=== PATIENT | female | born 1945 | race Caucasian/White ===

== ENCOUNTER 2016-10-18 16:15 | Inpatient (IN) | payer MEDICARE ==
[~2016-10-18] VITALS: Ht 185.4 cm; Wt 52.0 kg
[~2016-10-18 16:15] MED LIST: ALPR0.5T3 PO; AMLO10TA2 PO; AZIT250T3 PO; BENA10TA PO; CALCTAB80 PO; CENTTAB PO; CLOP75TA PO; FERR1TAB36 PO; FLUO1TAB3 PO; FLUT1INH INH; HYDR-3580 PO; IPRASOL INH; LACTCAP8 PO; LEVO100T5 PO; PRED10 PO; SPIRCAP INH; TRAZ50TA12 PO
[2016-10-18 16:18] VITALS: BP 187/81; PULSE 92; RESP 20; TEMP 98.6; O2SAT 94
--- NOTE | 2016-10-18 16:28 | PD ---
Physical Exam Time Seen by Provider: 16:23 Narrative 71 year old female with history of COPD, non-malignant Lung mass, followed by Dr. Dye, was sent to the ED for evaluation of worsening shortness of breath, exacerbated by minimal movement. Pt was in his office and evaluated by him when he decided to recommend she come to the ED .Pt is on 3LNC at home. Denies fever or chills. No worsening cough. Pt reports feeling more weak. Data Data Last Documented VS Vital Signs Date Time Temp Pulse Resp B/P Pulse Ox O2 Delivery O2 Flow Rate FiO2 10/18/16 16:18 98.6 92 20 187/81 94 Nasal Cannula 3 MDM Medical Record Reviewed: Yes Supervised Visit with BO: No Narrative Course 71 year old male presents to the ED for evaluation of worsening shortness of breath. History of COPD. Chronic back pain 09/09. Appears without distress. VSS. Condition: Stable Jo Sullivan Oct 18, 2016 16:28
[2016-10-18] MEDS ORDERED: SODIUM CHLORIDE 0.9% FLUSH 10 ML FLUSH IVF PRN (19:15)
[2016-10-18] MEDS ORDERED: methylPREDNISolone SOD SUCC 125 MG/2 ML VIAL IVP ONE (19:15)
[2016-10-18 19:19] VITALS: O2SAT 97
[2016-10-18 19:20] LABS: AUTOMATED NEUTROPHIL # 7.2 TH/MM3 (1.8-7.7); BASOPHIL # 0.1 TH/MM3 (0-0.2); BASOPHIL % 0.5 % (0.0-2.0); EOSINOPHIL % 0.2 % (0.0-4.0); HEMATOCRIT 35.3 % (35.0-46.0); HEMO FLAGS DIFF FINAL; LYMPH % 17.9 % (9.0-44.0); LYMPHOCYTE # 1.7 TH/MM3 (1.0-4.8); MEAN CELL VOLUME 98.2 FL (80.0-100.0); MEAN CORPUSCULAR HEMOGLOBIN 32.5 PG (27.0-34.0); MEAN CORPUSCULAR HGB CONC 33.1 % (32.0-36.0); MONO % 5.8 % (0.0-8.0); NEUT % 75.6 % (16.0-70.0); PLATELET COUNT 328 TH/MM3 (150-450); RED BLOOD COUNT 3.59 MIL/MM3 (4.00-5.30); RED CELL DISTRIBUTION WIDTH 14.2 % (11.6-17.2); WHITE BLOOD COUNT 9.5 TH/MM3 (4.0-11.0)
[2016-10-18 19:26] VITALS: BP 183/81; PULSE 82; RESP 19; O2SAT 100
[2016-10-18] MEDS ORDERED: RESP: ALBUTEROL 2.5 MG/3 ML NEB (SCH) INH ONE (19:30)
[2016-10-18 19:39] LABS: ANION GAP 9 MEQ/L (5-15); BICARBONATE 33.4 MEQ/L (21.0-32.0); BLOOD UREA NITROGEN 18 MG/DL (7-18); CHLORIDE 93 MEQ/L (98-107); GLOMERULAR FILTRATION RATE 100 ML/MIN (>89); SODIUM (NA) 135 MEQ/L (136-145)
[2016-10-18 19:42] LABS: POTASSIUM 3.9 MEQ/L (3.5-5.1)
[2016-10-18 19:48] VITALS: O2SAT 98
[2016-10-18] MEDS: RESP: ALBUTEROL 2.5 MG/IPRATROPIUM 0.5 MG NEB (SCH) INH (19:48)
--- NOTE | 2016-10-18 19:50 | PD ---
HPI Chief Complaint: Respiratory Symptoms Time Seen by Provider: 19:47 Travel History International Travel<30 days: No Contact w/Intl Traveler<30days: No Traveled to known affect area: No History of Present Illness HPI 71-year-old female that presents to the ED for evaluation of shortness of breath for the past 3 weeks. Per patient she has history of COPD no history of smoking. Per patient she quit about 5 years ago. Per patient she uses oxygen at home but for the past 3 weeks she's been feeling more short of breath even with the oxygen. Per patient she noticed that even just walking to the bathroom and isn't taking a shower or even putting her clothes on cause or shortness of breath. She states that she feels like a chest tightness. Per patient she is compliant with her prednisone as well as her nebulizer treatments as well as oxygen. Per patient she went to see her doctor today Dr. Pierce who told her to come here to get evaluated for her exacerbation. Per patient she chronically takes azithromycin to reduce the frequency of her exacerbations as well as prednisone chronically every day. She recently was found to have a nodular lesion that showed that was not positive for malignancy. She has follow-up for this and denies any problems with this. She currently denies any chest pain but does state having the shortness of breath. She was not given anything at her doctor's office and was told to come here. PFSH Past Medical History Arthritis: Yes Asthma: Yes Anxiety: Yes Depression: Yes Cancer: No Cardiovascular Problems: Yes (HTN) COPD: Yes Diabetes: No Diminished Hearing: No Endocrine: Yes Gastrointestinal Disorders: Yes (DIVERTICULOSIS, COLITIS) Genitourinary: No Hepatitis: No Hiatal Hernia: No Hypertension: Yes Immune Disorder: No Musculoskeletal: Yes (ARTHRITIS, DEGENERATIVE DISC DISEASE) Neurologic: Yes Psychiatric: Yes (ANXIETY AND DEPRESSION) Reproductive: No Respiratory: Yes (COPD) Thyroid Disease: Yes (HYPOTHYROID) Menopausal: Yes Past Surgical History Abdominal Surgery: No AICD: No Cardiac Surgery: No Ear Surgery: Yes Endocrine Surgery: No Eye Surgery: Yes (CATARACT SURGERY) Genitourinary Surgery: No Gynecologic Surgery: Yes (D&C) Joint Replacement: No Oral Surgery: Yes (ORAL SURGERY) Pacemaker: No Thoracic Surgery: No Other Surgery: Yes Social History Alcohol Use: No Tobacco Use: No Substance Use: No Allergies-Medications (Allergen,Severity, Reaction): Coded Allergies: No Known Allergies (Verified , 10/18/16) Reported Meds & Prescriptions Reported Meds & Active Scripts Active Reported Centrum Silver (Multiple Vitamins W/ Minerals) 1 Tab 1 Tab PO DAILY Trazodone (Trazodone HCl) 50 Mg Tab 50 Mg PO HS Alprazolam 0.5 Mg Tab 0.5 Mg PO Q6H PRN Hydrocodone-Acetaminophen 7.5-325 mg Tab 1 Tab PO Q6H PRN Clopidogrel (Clopidogrel Bisulfate) 75 Mg Tab 75 Mg PO DAILY Benazepril (Benazepril HCl) 10 Mg Tab 10 Mg PO BID Azithromycin 250 Mg Tab 250 Mg PO DIRECTED Take 2 tabs (500 mg) on day 1 then 1 tab daily x 4 days. Fluoxetine (Fluoxetine HCl) 20 Mg Tab 20 Mg PO DAILY Amlodipine (Amlodipine Besylate) 10 Mg Tab 10 Mg PO DAILY Prednisone 10 Mg Tab 10 Mg PO DAILY Levothyroxine (Levothyroxine Sodium) 100 Mcg Tab 100 Mcg PO DAILY Duoneb (Ipratropium-Albuterol Neb) 0.5-2.5 Mg/3 Ml Neb 1 Nebule INH Q6HR NEB Breo Ellipta Inh (Fluticasone/Vilanterol) 100-25 Mcg/Act Inh 1 Puff INH DAILY Use daily at the same time. Review of Systems Except as stated in HPI: all other systems reviewed are Neg Physical Exam Narrative GENERAL: Well-nourished, well-developed patient in no apparent distress. SKIN: Warm and dry. HEAD: Atraumatic. Normocephalic. EYES: Pupils equal and round reactive to light and accommodation. No scleral icterus. No injection or drainage. ENT: No nasal bleeding or discharge. Mucous membranes pink and moist. TMs are clear with no sign of infection or perforation. No mastoid tenderness. Ear canals are intact bilaterally. No lymphadenopathy. Nostril mucosa is red and moist with clear mucus noted. No sinus tenderness to palpation noted. Tonsils are not enlarged or swollen. No ulvua Deviation. Tongue is midline. NECK: Trachea midline. No JVD. No meningeal signs noted CARDIOVASCULAR: Regular rate and rhythm. RESPIRATORY: No accessory muscle use. Mild wheezing her in the upper and lower lung ortega. Breath sounds equal bilaterally. GASTROINTESTINAL: Abdomen soft, non-tender, nondistended. Hepatic and splenic margins not palpable. MUSCULOSKELETAL: Extremities without clubbing, cyanosis, or edema. No obvious deformities. NEUROLOGICAL: Awake and alert. No obvious cranial nerve deficits. Motor grossly within normal limits. Five out of 5 muscle strength in the arms and legs. Normal speech. PSYCHIATRIC: Appropriate mood and affect; insight and judgment normal. Data Data Last Documented VS Vital Signs Date Time Temp Pulse Resp B/P Pulse Ox O2 Delivery O2 Flow Rate FiO2 10/18/16 19:48 98 Nasal Cannula 3.00 10/18/16 19:26 82 19 183/81 10/18/16 16:18 98.6 Orders Electrocardiogram (10/18/16 19:05) Basic Metabolic Panel (Bmp) (10/18/16 19:05) Complete Blood Count With Diff (10/18/16 19:05) Chest, Single Ap (10/18/16 19:05) Ecg Monitoring (10/18/16 19:05) Iv Access Insert/Monitor (10/18/16 19:05) Oximetry (10/18/16 19:05) Oxygen Administration (10/18/16 19:05) Methylprednisolone So Succ Inj (Solumedr (10/18/16 19:15) Albuterol-Ipratropium Neb (Duoneb Neb) (10/18/16 19:15) Sodium Chloride 0.9% Flush (Ns Flush) (10/18/16 19:15) Troponin I (10/18/16 19:05) B-Type Natriuretic Peptide (10/18/16 19:05) Influenzae A/B Antigen (10/18/16 19:24) Albuterol Neb (Albuterol Neb) (10/18/16 19:30) Admit Order (Ed Use Only) (10/18/16 21:24) Labs Laboratory Tests Test 10/18/16 19:10 White Blood Count 9.5 TH/MM3 Red Blood Count 3.59 MIL/MM3 Hemoglobin 11.7 GM/DL Hematocrit 35.3 % Mean Corpuscular Volume 98.2 FL Mean Corpuscular Hemoglobin 32.5 PG Mean Corpuscular Hemoglobin 33.1 % Concent Red Cell Distribution Width 14.2 % Platelet Count 328 TH/MM3 Mean Platelet Volume 7.4 FL Neutrophils (%) (Auto) 75.6 % Lymphocytes (%) (Auto) 17.9 % Monocytes (%) (Auto) 5.8 % Eosinophils (%) (Auto) 0.2 % Basophils (%) (Auto) 0.5 % Neutrophils # (Auto) 7.2 TH/MM3 Lymphocytes # (Auto) 1.7 TH/MM3 Monocytes # (Auto) 0.6 TH/MM3 Eosinophils # (Auto) 0.0 TH/MM3 Basophils # (Auto) 0.1 TH/MM3 CBC Comment DIFF FINAL Differential Comment Sodium Level 135 MEQ/L Potassium Level 3.9 MEQ/L Chloride Level 93 MEQ/L Carbon Dioxide Level 33.4 MEQ/L Anion Gap 9 MEQ/L Blood Urea Nitrogen 18 MG/DL Creatinine 0.59 MG/DL Estimat Glomerular Filtration 100 ML/MIN Rate Random Glucose 100 MG/DL Calcium Level 9.4 MG/DL Troponin I LESS THAN 0.02 NG/ML B-Type Natriuretic Peptide 68 PG/ML MDM Medical Decision Making Medical Screen Exam Complete: Yes Emergency Medical Condition: Yes Medical Record Reviewed: Yes Interpretation(s) CBC & BMP Diagram 10/18/16 19:10 Last Impressions Chest X-Ray 10/18/16 190 Signed Impressions: Service Date/Time: Tuesday, October 18, 2016 19:09 - CONCLUSION: 1. No active disease. Resolution of previous subcutaneous air left chest wall. Remote granulomatous disease. Remote fractures as above. Taran Kay MD BNP WNL Differential Diagnosis COPD exacerbation versus dyspnea versus pneumonia versus sepsis versus bronchitis versus CHF Narrative Course 71-year-old female that presents to the ED for evaluation of possible COPD exacerbation. Patient was properly examined and was found to have signs and symptoms consistent with COPD exacerbation. On exam patient doesn't appear to be acute but with ambulating she gets very short of breath and her O2 does fall down. Labs and imaging were ordered. Patient was given breathing treatments as well as Solu-Medrol. Labs and imaging showed no sign of acute disease. Patient still symptomatic with movement. Case was discussed in my attending Dr. Lee who contacted Dr. Quinteros who agrees to admission. Diagnosis Primary Impression: COPD (chronic obstructive pulmonary disease) Qualified Code: J44.1 - Chronic obstructive pulmonary disease with acute exacerbation Admitting Information Admitting Physician Requests: Observation Condition: Stable Stuart Duong Oct 18, 2016 19:50
--- NOTE | 2016-10-18 20:04 | RADRPT ---
EXAM DATE/TIME: 10/18/2016 19:09 [facility] COMPARISON: No previous studies available for comparison. INDICATIONS : Chest pain. MEDICAL HISTORY : Chronic obstructive pulmonary disease. SURGICAL HISTORY : None. ENCOUNTER: Initial ACUITY: 1 day PAIN SCORE: 0/10 LOCATION: Bilateral chest FINDINGS: No focal consolidation or effusion. Remote granulomatous disease with calcified granulomata bilateral ly. Remote left rib fractures and proximal right humeral fracture with nonunion. Atherosclerotic and tortuous aorta. CONCLUSION: 1. No active disease. Resolution of previous subcutaneous air left chest wall. Remote granulomatous d isease. Remote fractures as above. Taran Kay MD on October 18, 2016 at 20:00 Board Certified Radiologist. This report was verified electronically.
[2016-10-18] MEDS ORDERED: ONDANSETRON HCL 4 MG/2 ML VIAL IVP PRN (21:45)
[2016-10-18] MEDS ORDERED: RESP: ALBUTEROL 2.5 MG/IPRATROPIUM 0.5 MG NEB (PRN) NEB (21:45)
[2016-10-18] MEDS ORDERED: NALOXONE HCL 0.4 MG/ML AMP IV PRN (21:45)
[2016-10-18] MEDS: RESP: ALBUTEROL 2.5 MG/IPRATROPIUM 0.5 MG NEB (SCH) NEB (21:50)
[2016-10-18] MEDS ORDERED: ACETAMINOPHEN/HYDROcodone 325 MG/7.5 MG TAB PO ONE (22:00)
[2016-10-18] MEDS ORDERED: ALPRAZolam 0.5 MG TAB PO ONE (22:00)
--- NOTE | 2016-10-18 22:59 | EKG ---
Date Performed: 10/18/2016 Time Performed: 19:13:56 PTAGE: 71 years EKG: Sinus rhythm WITH PACs POSSIBLE LEFT ATRIAL ENLARGEMENT BORDERLINE ECG PREVIOUS TRACING : 06/28/2016 14.17 Compared to the previous tracing, PACs not noted before DOCTOR: Akbar Hughes Interpretating Date/Time 10/18/2016 22:58:22
[2016-10-19] VITALS (10 sets, daily range): BP systolic 125–186; BP diastolic 62–87; PULSE 75–92; RESP 16–22; TEMP 97.9–98.7; O2SAT 96–99
[2016-10-19] MEDS: SODIUM CHLORIDE 0.9% FLUSH 10 ML FLUSH IV FLUSH PRN ×2 (00:01→06:38)
[2016-10-19] MEDS: methylPREDNISolone SOD SUCC 40 MG/1 ML VIAL IV PUSH SCH ×4 (00:01→18:43)
[2016-10-19] MEDS: RESP: ALBUTEROL 2.5 MG/IPRATROPIUM 0.5 MG NEB (SCH) NEB ×4 (02:53→21:34)
[2016-10-19] MEDS ORDERED: ACETAMINOPHEN/HYDROcodone 325 MG/5 MG TAB PO ONE (07:30)
[2016-10-19 07:59] LABS: AUTOMATED NEUTROPHIL # 4.9 TH/MM3 (1.8-7.7); HEMATOCRIT 34.3 % (35.0-46.0); HEMO FLAGS DIFF FINAL; LYMPH % 13.1 % (9.0-44.0); LYMPHOCYTE # 0.8 TH/MM3 (1.0-4.8); MEAN CELL VOLUME 97.2 FL (80.0-100.0); MEAN CORPUSCULAR HEMOGLOBIN 31.6 PG (27.0-34.0); MEAN CORPUSCULAR HGB CONC 32.5 % (32.0-36.0); NEUT % 83.9 % (16.0-70.0); PLATELET COUNT 326 TH/MM3 (150-450); RED BLOOD COUNT 3.53 MIL/MM3 (4.00-5.30); RED CELL DISTRIBUTION WIDTH 13.9 % (11.6-17.2); WHITE BLOOD COUNT 5.8 TH/MM3 (4.0-11.0)
[2016-10-19 08:23] LABS: BICARBONATE 32.2 MEQ/L (21.0-32.0); POTASSIUM 3.6 MEQ/L (3.5-5.1)
[2016-10-19] MEDS: PANTOPRAZOLE SOD 40 MG DELAYED RELEASE TAB PO SCH (11:22)
[2016-10-19] MEDS: SODIUM CHLORIDE 0.9% FLUSH 10 ML FLUSH IV FLUSH SCH ×2 (11:23→21:40)
[2016-10-19] MEDS: ALPRAZolam 0.5 MG TAB PO PRN ×2 (15:44→21:38)
[2016-10-19] MEDS: ACETAMINOPHEN/HYDROcodone 325 MG/7.5 MG TAB PO PRN ×2 (15:45→21:38)
--- NOTE | 2016-10-19 18:26 | HHI.HP ---
[facility] Romel Valenzuela M.D. Admission Diagnosis acute exacerbation COPD Diagnoses: Chief Complaint: shortness of breath Travel History International Travel<30 Days: No Contact w/Intl Traveler <30 Da: No Traveled to Known Affected Are: No History of Present Illness 71 y/o female with a history of COPD on 3L 23/01, HTN, and anxiety presented to the ED with complaints of 2-3 weeks short of breath, she went to see her Tax Accountant Dr. Davila who said she needed steroids and gave her an option to go to the outpatient clinic daily for prednisone infusions or go to the hospital. Due to driving situation patient choose to come to the ED. She complains of Wheezing, cough with very little sputum. Denies any fever, chills, chest pain, headaches. She states she feels she is 50% back to her baseline with breathing. Review of Systems Constitutional: DENIES: Fever, Chills Ears, nose, mouth, throat: DENIES: Throat pain Respiratory: COMPLAINS OF: Cough, Sputum production, Shortness of breath Gastrointestinal: COMPLAINS OF: Nausea, DENIES: Abdominal pain, Vomiting Musculoskeletal: DENIES: Back pain, Neck pain Integumentary: DENIES: Rash Hematologic/lymphatic: DENIES: Lymphadenopathy Neurologic: DENIES: Headache Past Family Social History Past Medical History COPD O2 dependant Arthritis Anxiety Depression HTN Diverticulosis Hypothyroidism Past Surgical History Cataracts D&C Dental surgery Left wrist surgery Reported Medications Reported Meds & Active Scripts Active Reported Centrum Silver (Multiple Vitamins W/ Minerals) 1 Tab 1 Tab PO DAILY Trazodone (Trazodone HCl) 50 Mg Tab 50 Mg PO HS Alprazolam 0.5 Mg Tab 0.5 Mg PO Q6H PRN Hydrocodone-Acetaminophen 7.5-325 mg Tab 1 Tab PO Q6H PRN Clopidogrel (Clopidogrel Bisulfate) 75 Mg Tab 75 Mg PO DAILY Benazepril (Benazepril HCl) 10 Mg Tab 10 Mg PO BID Azithromycin 250 Mg Tab 250 Mg PO DIRECTED Take 2 tabs (500 mg) on day 1 then 1 tab daily x 4 days. Fluoxetine (Fluoxetine HCl) 20 Mg Tab 20 Mg PO DAILY Amlodipine (Amlodipine Besylate) 10 Mg Tab 10 Mg PO DAILY Prednisone 10 Mg Tab 10 Mg PO DAILY Levothyroxine (Levothyroxine Sodium) 100 Mcg Tab 100 Mcg PO DAILY Duoneb (Ipratropium-Albuterol Neb) 0.5-2.5 Mg/3 Ml Neb 1 Nebule INH Q6HR NEB Breo Ellipta Inh (Fluticasone/Vilanterol) 100-25 Mcg/Act Inh 1 Puff INH DAILY Use daily at the same time. Allergies: Coded Allergies: No Known Allergies (Verified , 10/18/16) Active Ordered Medications Current Medications Medications (Trade) Dose Ordered Sig/Mic Route Start Time Stop Time Status Last Admin (NS Flush) 2 ml UNSCH PRN IV FLUSH 10/18/16 21:45 10/19/16 06:38 (NS Flush) 2 ml BID IV FLUSH 10/19/16 09:00 10/19/16 11:23 (Zofran Inj) 4 mg Q6H PRN IVP 10/18/16 21:45 10/18/16 22:24 (Narcan Inj) 0.4 mg UNSCH PRN IV 10/18/16 21:45 (SoluMEDROL INJ) 40 mg Q6HR IV PUSH 10/19/16 00:00 10/19/16 11:22 (Protonix) 40 mg DAILY PO 10/19/16 09:00 10/19/16 11:22 (Xanax) 0.5 mg Q6H PRN PO 10/19/16 15:00 10/19/16 15:44 (Norvasc) 10 mg DAILY PO 10/20/16 09:00 (Prinivil) 10 mg BID PO 10/19/16 21:00 (Plavix) 75 mg DAILY PO 10/20/16 09:00 (PROzac) 20 mg DAILY PO 10/20/16 09:00 (Breo Ellipta 100-25 Inh) 1 puff DAILY INH 10/20/16 09:00 (Luther 7.5-325 Mg) 1 tab Q6H PRN PO 10/19/16 15:00 10/19/16 15:45 (Synthroid) 100 mcg DAILY PO 10/20/16 09:00 (Desyrel) 50 mg HS PO 10/19/16 21:00 Family History Dad, Sister: COPD Brother: [place] Social History Tobacco use: Quit 5 years ago Alcohol use: Denies Physical Exam Vital Signs Vital Signs Date Time Temp Pulse Resp B/P Pulse Ox O2 Delivery O2 Flow Rate FiO2 10/19/16 16:42 92 10/19/16 15:20 98.3 90 16 153/68 96 10/19/16 11:37 98.1 80 18 155/75 98 10/19/16 10:11 98 Nasal Cannula 3.00 10/19/16 08:38 98.7 76 22 186/76 99 10/19/16 06:12 98.3 75 21 154/70 98 10/19/16 00:38 84 10/19/16 00:29 97.9 82 20 125/62 97 10/18/16 19:48 98 Nasal Cannula 3.00 10/18/16 19:26 82 19 183/81 100 Nasal Cannula 3 10/18/16 19:19 97 Nasal Cannula 3 10/18/16 19:19 97 Nasal Cannula 3 Physical Exam GENERAL: This is a well-nourished, well-developed patient, in no apparent distress. SKIN: No rashes, ecchymoses or lesions. Cool and dry. HEAD: Atraumatic. Normocephalic. No temporal or scalp tenderness. EYES: Pupils equal round and reactive. No injection or drainage. ENT: Nose without bleeding, purulent drainage or septal hematoma. Uvula midline. Airway patent. NECK: Trachea midline. No JVD or lymphadenopathy. Supple, nontender, no meningeal signs. CARDIOVASCULAR: Regular rate and rhythm without murmurs, gallops, or rubs. RESPIRATORY: Clear to auscultation.Tight breath sounds. No wheezes, rales, or rhonchi. GASTROINTESTINAL: Abdomen soft, non-tender, nondistended. No hepato-splenomegaly , or palpable masses. No guarding. MUSCULOSKELETAL: Extremities without clubbing, cyanosis, or edema. No joint tenderness, effusion, or edema noted. No calf tenderness. NEUROLOGICAL: Awake and alert.Motor and sensory grossly within normal limits. Normal speech. Laboratory Laboratory Tests Test 10/18/16 10/19/16 19:10 07:06 White Blood Count 9.5 5.8 Red Blood Count 3.59 3.53 Hemoglobin 11.7 11.2 Hematocrit 35.3 34.3 Mean Corpuscular Volume 98.2 97.2 Mean Corpuscular Hemoglobin 32.5 31.6 Mean Corpuscular Hemoglobin 33.1 32.5 Concent Red Cell Distribution Width 14.2 13.9 Platelet Count 328 326 Mean Platelet Volume 7.4 7.7 Neutrophils (%) (Auto) 75.6 83.9 Lymphocytes (%) (Auto) 17.9 13.1 Monocytes (%) (Auto) 5.8 3.0 Eosinophils (%) (Auto) 0.2 0.0 Basophils (%) (Auto) 0.5 0.0 Neutrophils # (Auto) 7.2 4.9 Lymphocytes # (Auto) 1.7 0.8 Monocytes # (Auto) 0.6 0.2 Eosinophils # (Auto) 0.0 0.0 Basophils # (Auto) 0.1 0.0 CBC Comment DIFF FINAL DIFF FINAL Differential Comment Sodium Level 135 135 Potassium Level 3.9 3.6 Chloride Level 93 94 Carbon Dioxide Level 33.4 32.2 Anion Gap 9 9 Blood Urea Nitrogen 18 17 Creatinine 0.59 0.48 Estimat Glomerular Filtration 100 127 Rate Random Glucose 100 142 Calcium Level 9.4 9.0 Troponin I LESS THAN 0.02 B-Type Natriuretic Peptide 68 Date/Time Procedure Status Source Growth 10/18/16 20:11 Influenza Types A,B Antigen ([facility]) - Final Complete Nasal Washing NEGATIVE FOR FLU A AND B ANTIGEN.... Imaging Last Impressions Chest X-Ray 10/18/16 1905 Signed Impressions: Service Date/Time: Tuesday, October 18, 2016 19:09 - CONCLUSION: 1. No active disease. Resolution of previous subcutaneous air left chest wall. Remote granulomatous disease. Remote fractures as above. Taran Kay MD Assessment and Plan Problem List: (1) COPD exacerbation ICD Code: J44.1 Status: Acute Assessment and Plan COPD exacerbation Chest xray unremakable, flu negative, no leukocytosis -Solumedrol IV -Duonebs Q6 -Cont home inhaler -Azitromycin daily Hypertension, chronic -Cont home meds lisinopril, norvasc -Monitor vitals DVT prophylaxis: SCDs Written by Cindi Urrutia, acting as scribe for [Staci] on 10/19/16 at 18: 35. Discussed Condition With Patient and RN Medical Decision Making MDM Remarks This note was transcribed by scribe. I, Dr. Taniya Small personally performed the history, physical exam, and medical decision making; and confirmed the accuracy of the information in the transcribed note. Cindi Urrutia Oct 19, 2016 18:26 Taniya Small MD November 01, 2016 11:01
[2016-10-19] MEDS ORDERED: FLUoxetine HCL 20 MG CAP PO ONE (18:45)
[2016-10-19] MEDS ORDERED: CLOPIDOGREL 75 MG TAB PO ONE (18:45)
[2016-10-19] MEDS: traZODone HCL 50 MG TAB PO SCH (21:37)
[2016-10-19] MEDS: AZITHROMYCIN 250 MG TAB PO SCH (21:39)
[2016-10-19] MEDS: LISINOPRIL 10 MG TAB PO SCH (21:39)
[2016-10-20] VITALS (8 sets, daily range): BP systolic 111–137; BP diastolic 57–68; PULSE 71–96; RESP 14–20; TEMP 96.1–98.8; O2SAT 97–100
[2016-10-20] MEDS: methylPREDNISolone SOD SUCC 40 MG/1 ML VIAL IV PUSH SCH ×5 (00:51→23:37)
[2016-10-20] MEDS: RESP: ALBUTEROL 2.5 MG/IPRATROPIUM 0.5 MG NEB (SCH) NEB ×4 (03:03→20:00)
[2016-10-20] MEDS: ALPRAZolam 0.5 MG TAB PO PRN ×4 (04:28→23:38)
[2016-10-20] MEDS: ACETAMINOPHEN/HYDROcodone 325 MG/7.5 MG TAB PO PRN ×4 (04:28→23:38)
[2016-10-20] MEDS: LEVOTHYROXINE SODIUM 100 MCG TAB PO SCH (09:23)
[2016-10-20] MEDS: LISINOPRIL 10 MG TAB PO SCH ×2 (09:24→22:05)
[2016-10-20] MEDS: FLUTICASONE 100 MCG/VILANTEROL 25 MCG INHALER INH SCH (09:24)
[2016-10-20] MEDS: PANTOPRAZOLE SOD 40 MG DELAYED RELEASE TAB PO SCH (09:24)
[2016-10-20] MEDS: AZITHROMYCIN 250 MG TAB PO SCH (09:24)
[2016-10-20] MEDS: CLOPIDOGREL 75 MG TAB PO SCH (09:24)
[2016-10-20] MEDS: FLUoxetine HCL 20 MG CAP PO SCH (09:24)
[2016-10-20] MEDS: SODIUM CHLORIDE 0.9% FLUSH 10 ML FLUSH IV FLUSH SCH ×2 (09:25→22:05)
--- NOTE | 2016-10-20 11:10 | HHI.PR ---
Subjective Remarks Follow-up for COPD exacerbation. The patient states that she has no shortness of breath at rest, but she was significantly dyspneic when she was walking with PT yesterday. She has not tried walking yet today, but would like to try to walk with help. She normally doesn't walk much around her house, normally uses an electric scooter. She still feels wheezy today. She states she has been having cough, which has been more productive today with yellow sputum. She is on 3 L of O2 at home, has been on chronic oxygen since 2008. Objective Vitals Vital Signs Date Time Temp Pulse Resp B/P Pulse Ox O2 Delivery O2 Flow Rate FiO2 10/20/16 07:51 98 Nasal Cannula 3.00 10/20/16 07:39 97.9 71 14 126/60 99 10/20/16 04:14 96 10/20/16 04:00 97.2 73 20 137/62 100 10/20/16 00:00 96.7 82 18 120/58 98 10/19/16 21:34 99 Nasal Cannula 3.00 10/19/16 20:31 98.2 89 18 163/87 96 10/19/16 16:42 92 10/19/16 15:20 98.3 90 16 153/68 96 10/19/16 11:37 98.1 80 18 155/75 98 Result Diagram: 10/19/16 0706 10/19/16 0706 Imaging Last Impressions Chest X-Ray 10/18/16 190 Signed Impressions: Service Date/Time: Tuesday, October 18, 2016 19:09 - CONCLUSION: 1. No active disease. Resolution of previous subcutaneous air left chest wall. Remote granulomatous disease. Remote fractures as above. Taran Kay MD Objective Remarks GENERAL: Well-developed well-nourished. In no acute distress. SKIN: Warm and dry. No lesions noted. HEENT: Normocephalic. Pupils equal and round. Mucous membranes pink and moist. CARDIOVASCULAR: Regular rate and rhythm. No murmur appreciated. RESPIRATORY: No accessory muscle use. Diminished breath sounds in all lung ortega. No obvious wheezing. GASTROINTESTINAL: Abdomen soft, non-tender, nondistended. Bowel sounds x4. MUSCULOSKELETAL: No obvious deformities. No clubbing or cyanosis. No edema. NEUROLOGICAL: Awake and alert. No focal neurological deficits. Moves upper and lower extremities spontaneously. Normal speech. PSYCHIATRIC: Appropriate mood and affect; insight and judgment normal. A/P Problem List: (1) COPD exacerbation ICD Code: J44.1 Status: Acute Assessment and Plan 71 y/o female with a history of COPD on 3L 23/01, HTN, and anxiety presented with complaints of 2-3 weeks short of breath Acute COPD exacerbation on chronic respiratory failure. On 3 L O2 at home. Reviewed: Chest xray unremakable, flu negative, no leukocytosis, afebrile -Solumedrol IV -Duonebs Q6 -Cont home Breo -Azitromycin daily -Check sputum culture Hypertension, chronic, stable -Cont home benazepril, norvasc -Monitor vitals Depression/anxiety, chronic, stable -Continue home fluoxetine, alprazolam, trazodone Hypothyroidism, chronic, stable -Continue home levothyroxine DVT prophylaxis: SCDs Discharge Planning Encouraged ambulation. Discharge planning whenever patient is able to ambulate her normal distance without dyspnea. Vijay Pugh Oct 20, 2016 11:10
[2016-10-20] MEDS: traZODone HCL 50 MG TAB PO SCH (22:05)
[2016-10-21] VITALS (7 sets, daily range): BP systolic 123–146; BP diastolic 60–70; PULSE 73–97; RESP 18–20; TEMP 95.7–98.7; O2SAT 97–99
[2016-10-21] MEDS: ACETAMINOPHEN/HYDROcodone 325 MG/7.5 MG TAB PO PRN ×4 (05:41→23:35)
[2016-10-21] MEDS: methylPREDNISolone SOD SUCC 40 MG/1 ML VIAL IV PUSH SCH ×4 (05:41→23:35)
[2016-10-21] MEDS: ALPRAZolam 0.5 MG TAB PO PRN ×4 (05:42→23:35)
[2016-10-21] MEDS: RESP: ALBUTEROL 2.5 MG/IPRATROPIUM 0.5 MG NEB (SCH) NEB ×3 (08:00→20:20)
[2016-10-21] MEDS: LISINOPRIL 10 MG TAB PO SCH ×2 (09:17→20:35)
[2016-10-21] MEDS: LEVOTHYROXINE SODIUM 100 MCG TAB PO SCH (09:17)
[2016-10-21] MEDS: CLOPIDOGREL 75 MG TAB PO SCH (09:17)
[2016-10-21] MEDS: FLUoxetine HCL 20 MG CAP PO SCH (09:17)
[2016-10-21] MEDS: AZITHROMYCIN 250 MG TAB PO SCH (09:17)
[2016-10-21] MEDS: PANTOPRAZOLE SOD 40 MG DELAYED RELEASE TAB PO SCH (09:17)
[2016-10-21] MEDS: FLUTICASONE 100 MCG/VILANTEROL 25 MCG INHALER INH SCH (09:18)
[2016-10-21] MEDS: SODIUM CHLORIDE 0.9% FLUSH 10 ML FLUSH IV FLUSH SCH ×2 (09:18→20:35)
--- NOTE | 2016-10-21 13:37 | HHI.PR ---
Subjective Remarks Follow-up for COPD exacerbation. Patient seen and examined laying in bed. Patient states that she is weak and tired and not back to baseline. She has not been able to walk physical therapy today, but was short of breath on exertion yesterday. She denies any short of breath at rest. She has not tried walking yet today, but would like to try to walk with help with the RN or REQUISITION APPROVER. She states she usually lays in bed at home, but today she feels very weak laying around, and does not feel she could go home and function like she was. She does have a slight productive cough today, but not enough to produce a sputum sample. She states although she is weak she has been eating good, and had a BM with the help of prune juice. Denies any chest pain. She states she was told per her eyeglass lens cutter she has lung capacity of 25 %. Objective Vitals Vital Signs Date Time Temp Pulse Resp B/P Pulse Ox O2 Delivery O2 Flow Rate FiO2 10/21/16 08:00 97.1 76 20 129/62 98 10/21/16 08:00 97 Nasal Cannula 3.00 10/21/16 04:33 96.7 75 18 138/63 99 10/21/16 03:12 73 10/21/16 00:00 95.7 81 18 146/67 99 10/20/16 23:08 3.00 10/20/16 20:00 96.1 79 20 129/68 98 10/20/16 15:47 98.8 87 16 132/63 97 I/O 10/20/16 10/20/16 10/20/16 10/21/16 10/21/16 10/21/16 07:00 15:00 23:00 07:00 15:00 23:00 Intake Total 720 ml Balance 720 ml Intake Oral 720 ml # Voids 3 1 # Bowel Movements 0 0 Result Diagram: 10/19/16 0706 10/19/1606 Imaging Last Impressions Chest X-Ray 10/18/16 190 Signed Impressions: Service Date/Time: Tuesday, October 18, 2016 19:09 - CONCLUSION: 1. No active disease. Resolution of previous subcutaneous air left chest wall. Remote granulomatous disease. Remote fractures as above. Taran Kay MD Objective Remarks GENERAL: Well-developed well-nourished. In no acute distress. SKIN: Warm and dry. No lesions noted. HEENT: Normocephalic. Pupils equal and round. Mucous membranes pink and moist. CARDIOVASCULAR: Regular rate and rhythm. No murmur appreciated. RESPIRATORY: No accessory muscle use. Diminished breath sounds in all lung ortega. Very little air movement. No obvious wheezing. O2 3L GASTROINTESTINAL: Abdomen soft, non-tender, nondistended. Bowel sounds x4. MUSCULOSKELETAL: No obvious deformities. No clubbing or cyanosis. No edema. NEUROLOGICAL: Awake and alert. No focal neurological deficits. Moves upper and lower extremities spontaneously. Normal speech. PSYCHIATRIC: Appropriate mood and affect; insight and judgment normal. Medications and IVs Current Medications Medications (Trade) Dose Ordered Sig/Mic Route Start Time Stop Time Status Last Admin (NS Flush) 2 ml UNSCH PRN IV FLUSH 10/18/16 21:45 10/19/16 06:38 (NS Flush) 2 ml BID IV FLUSH 10/19/16 09:00 10/21/16 09:18 (Zofran Inj) 4 mg Q6H PRN IVP 10/18/16 21:45 10/18/16 22:24 (Narcan Inj) 0.4 mg UNSCH PRN IV 10/18/16 21:45 (SoluMEDROL INJ) 40 mg Q6HR IV PUSH 10/19/16 00:00 10/21/16 12:12 (Protonix) 40 mg DAILY PO 10/19/16 09:00 10/21/16 09:17 (Xanax) 0.5 mg Q6H PRN PO 10/19/16 15:00 10/21/16 12:12 (Norvasc) 10 mg DAILY PO 10/20/16 09:00 10/21/16 09:17 (Prinivil) 10 mg BID PO 10/19/16 21:00 10/21/16 09:17 (Plavix) 75 mg DAILY PO 10/20/16 09:00 10/21/16 09:17 (PROzac) 20 mg DAILY PO 10/20/16 09:00 10/21/16 09:17 (Breo Ellipta 100-25 Inh) 1 puff DAILY INH 10/20/16 09:00 10/21/16 09:18 ([place] 7.5-325 Mg) 1 tab Q6H PRN PO 10/19/16 15:00 10/21/16 12:12 (Synthroid) 100 mcg DAILY PO 10/20/16 09:00 10/21/16 09:17 (Desyrel) 50 mg HS PO 10/19/16 21:00 10/20/16 22:05 (Zithromax) 500 mg DAILY PO 10/19/16 18:45 10/21/16 09:17 Urinary Catheter: No Vascular Central Line Catheter: No A/P Problem List: (1) COPD exacerbation ICD Code: J44.1 Status: Acute Assessment and Plan 71 y/o female with a history of COPD on 3L 23/01, HTN, and anxiety presented with complaints of 2-3 weeks short of breath Acute COPD exacerbation on chronic respiratory failure. On 3 L O2 at home. Reviewed: Chest xray unremakable, flu negative, no leukocytosis, afebrile -Cont Solumedrol IV -Cont Duonebs Q6 -Cont home Breo -Cont Azitromycin daily -Check sputum culture -Cont PT, Encourage to ambulate at least once a shift -Will admit to inpatient because she is very weak and not fully at baseline, and only has 25% lung capacity. May need home health PT Hypertension, chronic, stable -Cont home benazepril, norvasc -Monitor vitals Depression/anxiety, chronic, stable -Continue home fluoxetine, alprazolam, trazodone Hypothyroidism, chronic, stable -Continue home levothyroxine DVT prophylaxis: SCDs Discussed with Patient and Dr. Small Discharge Planning Possible in 1-2 days, pending improved breathing and weakness. Patient is encouraged to ambulate. Cindi Urrutia Oct 21, 2016 13:36
[2016-10-21] MEDS: traZODone HCL 50 MG TAB PO SCH (20:35)
[2016-10-22] VITALS (12 sets, daily range): BP systolic 123–147; BP diastolic 54–88; PULSE 69–90; RESP 18–20; TEMP 97–98.6; O2SAT 96–98
[2016-10-22] MEDS: ACETAMINOPHEN/HYDROcodone 325 MG/7.5 MG TAB PO PRN ×3 (05:42→18:07)
[2016-10-22] MEDS: ALPRAZolam 0.5 MG TAB PO PRN ×3 (05:42→18:07)
[2016-10-22] MEDS: methylPREDNISolone SOD SUCC 40 MG/1 ML VIAL IV PUSH SCH ×3 (05:42→21:19)
[2016-10-22] MEDS: SODIUM CHLORIDE 0.9% FLUSH 10 ML FLUSH IV FLUSH SCH ×2 (09:00→21:19)
--- NOTE | 2016-10-22 10:32 | HHI.PR ---
Subjective Remarks Follow-up for COPD exacerbation. Patient continues to report shortness of breath, unchanged. Breathing is not too bad at rest, has not been able to ambulate and nursing staff is not assisting the patient getting out of bed. She continues to have dry cough, nonproductive. She has Acapella at home she feels helped. Objective Vitals Vital Signs Date Time Temp Pulse Resp B/P Pulse Ox O2 Delivery O2 Flow Rate FiO2 10/22/16 08:00 97.0 75 18 147/88 98 10/22/16 04:25 98.0 76 20 143/58 97 10/22/16 01:47 86 10/22/16 00:21 98.6 79 20 143/70 98 10/22/16 00:00 98 Nasal Cannula 3.00 10/21/16 19:26 98.7 87 20 139/70 97 10/21/16 17:17 97.6 97 20 137/65 99 10/21/16 12:00 97.0 82 20 123/60 99 I/O 10/21/16 10/21/16 10/21/16 10/22/16 10/22/16 10/22/16 07:00 15:00 23:00 07:00 15:00 23:00 Intake Total 120 ml Balance 120 ml Intake Oral 120 ml # Voids 1 1 # Bowel Movements 0 Result Diagram: 10/19/1606 10/19/16 0706 Imaging Last Impressions Chest X-Ray 10/18/16 190 Signed Impressions: Service Date/Time: Tuesday, October 18, 2016 19:09 - CONCLUSION: 1. No active disease. Resolution of previous subcutaneous air left chest wall. Remote granulomatous disease. Remote fractures as above. Taran Kay MD Objective Remarks GENERAL: Well-developed well-nourished. In no acute distress. SKIN: Warm and dry. No lesions noted. HEENT: Normocephalic. Pupils equal and round. Mucous membranes pink and moist. CARDIOVASCULAR: Regular rate and rhythm. No murmur appreciated. RESPIRATORY: No accessory muscle use. Diminished breath sounds in all lung ortega with poor air movement. No wheezing. GASTROINTESTINAL: Abdomen soft, non-tender, nondistended. Bowel sounds x4. MUSCULOSKELETAL: No obvious deformities. No clubbing or cyanosis. No edema. NEUROLOGICAL: Awake and alert. No focal neurological deficits. Moves upper and lower extremities spontaneously. Normal speech. PSYCHIATRIC: Appropriate mood and affect; insight and judgment normal. A/P Problem List: (1) COPD exacerbation ICD Code: J44.1 Status: Acute Assessment and Plan 71 y/o female with a history of COPD on 3L 24/, HTN, and anxiety presented with complaints of 2-3 weeks short of breath Acute COPD exacerbation on chronic respiratory failure. On 3 L O2 at home. Reviewed: Chest xray unremakable, flu negative, no leukocytosis, afebrile -Solumedrol IV, taper -Duonebs Q6 and as needed -Cont home Breo -Azitromycin daily -Check sputum culture -Acapella -Consult pulmonology -Follow up labs in the morning -Increase activity Hypertension, chronic, stable -Cont home benazepril, norvasc -Monitor vitals Depression/anxiety, chronic, stable -Continue home fluoxetine, alprazolam, trazodone Hypothyroidism, chronic, stable -Continue home levothyroxine DVT prophylaxis: SCDs Discharge Planning Encouraged ambulation. Discharge planning whenever patient is able to ambulate her normal distance with improved dyspnea. Vijay Pugh Oct 22, 2016 10:32
[2016-10-22] MEDS: CLOPIDOGREL 75 MG TAB PO SCH (11:40)
[2016-10-22] MEDS: AZITHROMYCIN 250 MG TAB PO SCH (11:40)
[2016-10-22] MEDS: LISINOPRIL 10 MG TAB PO SCH ×2 (11:40→21:18)
[2016-10-22] MEDS: PANTOPRAZOLE SOD 40 MG DELAYED RELEASE TAB PO SCH (11:41)
[2016-10-22] MEDS: FLUTICASONE 100 MCG/VILANTEROL 25 MCG INHALER INH SCH (11:44)
[2016-10-22] MEDS: RESP: ALBUTEROL 2.5 MG/IPRATROPIUM 0.5 MG NEB (SCH) NEB ×3 (11:52→19:42)
[2016-10-22] MEDS: FLUoxetine HCL 20 MG CAP PO SCH (11:54)
[2016-10-22] MEDS: LEVOTHYROXINE SODIUM 100 MCG TAB PO SCH (11:54)
[2016-10-22] MEDS: traZODone HCL 50 MG TAB PO SCH (21:18)
[2016-10-22] MEDS: SODIUM CHLORIDE 0.9% FLUSH 10 ML FLUSH IV FLUSH PRN (21:19)
[2016-10-23] MEDS: ACETAMINOPHEN/HYDROcodone 325 MG/7.5 MG TAB PO PRN ×3 (01:16→17:46)
[2016-10-23] MEDS: ALPRAZolam 0.5 MG TAB PO PRN ×3 (01:16→17:46)
[2016-10-23] MEDS: methylPREDNISolone SOD SUCC 40 MG/1 ML VIAL IV PUSH SCH ×3 (05:38→17:47)
[2016-10-23] MEDS: RESP: ALBUTEROL 2.5 MG/IPRATROPIUM 0.5 MG NEB (SCH) NEB ×5 (07:45→20:54)
[2016-10-23 08:00] VITALS: BP 161/80; PULSE 90; RESP 16; TEMP 97.9; O2SAT 100
[2016-10-23 08:21] LABS: BICARBONATE 36.3 MEQ/L (21.0-32.0); MAGNESIUM 2.5 MG/DL (1.5-2.5); POTASSIUM 4.4 MEQ/L (3.5-5.1)
[2016-10-23] MEDS: SODIUM CHLORIDE 0.9% FLUSH 10 ML FLUSH IV FLUSH SCH ×2 (09:00→20:05)
--- NOTE | 2016-10-23 09:13 | HHI.PR ---
Subjective Remarks Follow-up for COPD exacerbation. Patient denies any acute events overnight. She denies any fevers or chills. She denies any lightheadedness. She continues to of cough, a little productive with clear sputum now. She's been eating okay. She is sleeping well. She is on prednisone at home. She feels a little more wheezy today. Objective Vitals Vital Signs Date Time Temp Pulse Resp B/P Pulse Ox O2 Delivery O2 Flow Rate FiO2 10/23/16 08:38 Nasal Cannula 10/23/16 08:00 97.9 90 16 161/80 100 10/23/16 02:19 16 10/22/16 23:41 90 10/22/16 20:00 84 10/22/16 19:43 98 Nasal Cannula 3.00 10/22/16 19:40 97.9 69 18 123/85 97 10/22/16 16:00 97.4 84 18 128/54 98 10/22/16 12:00 97.2 81 18 143/67 96 10/22/16 11:54 98 Nasal Cannula 3.00 I/O 10/22/16 10/22/16 10/22/16 10/23/16 10/23/16 10/23/16 07:00 15:00 23:00 07:00 15:00 23:00 Intake Total 120 ml 480 ml Balance 120 ml 480 ml Intake Oral 120 ml 480 ml # Voids 4 1 Result Diagram: 10/19/16 0706 10/23/16 0636 Imaging Last Impressions Chest X-Ray 10/18/16 1905 Signed Impressions: Service Date/Time: Tuesday, October 18, 2016 19:09 - CONCLUSION: 1. No active disease. Resolution of previous subcutaneous air left chest wall. Remote granulomatous disease. Remote fractures as above. Taran Kay MD Objective Remarks GENERAL: Well-developed well-nourished. In no acute distress. SKIN: Warm and dry. No lesions noted. HEENT: Normocephalic. Pupils equal and round. Mucous membranes pink and moist. CARDIOVASCULAR: Regular rate and rhythm. No murmur appreciated. RESPIRATORY: No accessory muscle use. Diminished breath sounds in all lung ortega with poor air movement. Expiratory wheezing. GASTROINTESTINAL: Abdomen soft, non-tender, nondistended. Bowel sounds x4. MUSCULOSKELETAL: No obvious deformities. No clubbing or cyanosis. No edema. NEUROLOGICAL: Awake and alert. No focal neurological deficits. Moves upper and lower extremities spontaneously. Normal speech. PSYCHIATRIC: Appropriate mood and affect; insight and judgment normal. A/P Problem List: (1) COPD exacerbation ICD Code: J44.1 Status: Acute Assessment and Plan 71 y/o female with a history of COPD on 3L 24/7, HTN, and anxiety presented with complaints of 2-3 weeks short of breath Acute COPD exacerbation on chronic respiratory failure. On 3 L O2 at home. Reviewed: Chest xray unremakable, flu negative, no leukocytosis, afebrile -Solumedrol IV, attempted to taper, however with worsening wheezing, increased back to every 6 hours -Duonebs, with recent available increased every 4 hours scheduled, continue as needed -Cont home Breo -Azitromycin daily -Check sputum culture -Acapella -Consulted pulmonology -Follow up labs today okay -Increase activity, PT reconsulted Hypertension, chronic, stable -Cont home benazepril, norvasc -Monitor vitals Depression/anxiety, chronic, stable -Continue home fluoxetine, alprazolam, trazodone Hypothyroidism, chronic, stable -Continue home levothyroxine DVT prophylaxis: SCDs Written by Vijay Pugh, acting as scribe for Dr. Adames on 10/23/16 at 09:13. This note was transcribed by jose GUERRERO. I, Dr. Marlyn Adames personally performed the history, physical exam, and medical decision making; and confirmed the accuracy of the information in the transcribed note. Authenticated by Dr. Marlyn Adames on 10/23/16 at 09:13. Discharge Planning Respiratory status worsened today after attempting to taper steroids. Continue treatment for COPD exacerbation. Follow up pulmonology recommendations. Vijay Pugh Oct 23, 2016 09:13 Marlyn Adames MD Oct 23, 2016 16:51
[2016-10-23] MEDS: FLUoxetine HCL 20 MG CAP PO SCH (10:47)
[2016-10-23] MEDS: PANTOPRAZOLE SOD 40 MG DELAYED RELEASE TAB PO SCH (10:48)
[2016-10-23] MEDS: LISINOPRIL 10 MG TAB PO SCH ×2 (10:48→20:05)
[2016-10-23] MEDS: AZITHROMYCIN 250 MG TAB PO SCH (10:49)
[2016-10-23] MEDS: CLOPIDOGREL 75 MG TAB PO SCH (10:49)
[2016-10-23] MEDS: FLUTICASONE 100 MCG/VILANTEROL 25 MCG INHALER INH SCH (10:54)
[2016-10-23 12:00] VITALS: BP 131/60; PULSE 91; RESP 16; TEMP 98.2; O2SAT 99
[2016-10-23] MEDS: LEVOTHYROXINE SODIUM 100 MCG TAB PO SCH (12:32)
[2016-10-23] MEDS ORDERED: SODIUM CHLOR 0.9% 250 ML INJ 250 ML IV ONE (17:00)
[2016-10-23] MEDS: traZODone HCL 50 MG TAB PO SCH (20:05)
[2016-10-23 20:32] VITALS: BP 124/60; PULSE 77; RESP 20; TEMP 98.1; O2SAT 98
[2016-10-23 20:56] VITALS: O2SAT 98
[2016-10-23 21:23] VITALS: PULSE 84
[2016-10-23 23:50] VITALS: BP 121/56; PULSE 90; RESP 20; TEMP 98.2; O2SAT 97
[2016-10-24] MEDS: SODIUM CHLORIDE 0.9% FLUSH 10 ML FLUSH IV FLUSH PRN
[2016-10-24] MEDS: ACETAMINOPHEN/HYDROcodone 325 MG/7.5 MG TAB PO PRN ×3 (00:01→12:23)
[2016-10-24 04:10] VITALS: BP 151/70; PULSE 71; RESP 18; TEMP 97.8; O2SAT 100
[2016-10-24] MEDS: methylPREDNISolone SOD SUCC 40 MG/1 ML VIAL IV PUSH SCH ×2 (05:56)
[2016-10-24] MEDS: ALPRAZolam 0.5 MG TAB PO PRN ×3 (06:01→12:22)
[2016-10-24] MEDS: RESP: ALBUTEROL 2.5 MG/IPRATROPIUM 0.5 MG NEB (SCH) NEB ×2 (07:16→13:03)
[2016-10-24 07:18] VITALS: O2SAT 99
--- NOTE | 2016-10-24 07:24 | HHI.PR ---
Subjective Remarks Follow up for COPD exacerbation. The patient reports continued shortness of breath and cough today. She complains of feeling very sore from all the coughing. Discussed rehab placement, patient agrees. Objective Vitals Vital Signs Date Time Temp Pulse Resp B/P Pulse Ox O2 Delivery O2 Flow Rate FiO2 10/24/16 07:18 99 Nasal Cannula 3.00 10/24/16 04:10 97.8 71 18 151/70 100 10/24/16 01:24 16 10/23/16 23:50 98.2 90 20 121/56 97 10/23/16 21:23 84 10/23/16 20:56 98 Nasal Cannula 2.00 10/23/16 20:32 98.1 77 20 124/60 98 10/23/16 12:00 98.2 91 16 131/60 99 10/23/16 08:38 Nasal Cannula 10/23/16 08:00 97.9 90 16 161/80 100 I/O 10/23/16 10/23/16 10/23/16 10/24/16 10/24/16 10/24/16 07:00 15:00 23:00 07:00 15:00 23:00 Intake Total 600 ml Balance 600 ml Intake Oral 600 ml # Voids 1 2 1 # Bowel Movements 1 Result Diagram: 10/23/16 0636 Imaging Last Impressions Chest X-Ray 10/18/16 190 Signed Impressions: Service Date/Time: Tuesday, October 18, 2016 19:09 - CONCLUSION: 1. No active disease. Resolution of previous subcutaneous air left chest wall. Remote granulomatous disease. Remote fractures as above. Taran Kay MD Objective Remarks GENERAL: Well-developed well-nourished female patient in [facility]. SKIN: Warm and dry. No lesions noted. HEENT: Normocephalic. Pupils equal and round. Mucous membranes pink and moist. CARDIOVASCULAR: Regular rate and rhythm. No murmur appreciated. RESPIRATORY: No accessory muscle use. Diminished breath sounds in all lung ortega with poor air movement, no wheezing today. GASTROINTESTINAL: Abdomen soft, non-tender, nondistended. Bowel sounds x4. MUSCULOSKELETAL: No obvious deformities. No clubbing or cyanosis. No edema. NEUROLOGICAL: Awake and alert. No focal neurological deficits. Moves upper and lower extremities spontaneously. Normal speech. PSYCHIATRIC: Appropriate mood and affect; insight and judgment normal. Medications and IVs Current Medications Medications (Trade) Dose Ordered Sig/Mic Route Start Time Stop Time Status Last Admin (NS Flush) 2 ml UNSCH PRN IV FLUSH 10/18/16 21:45 10/24/16 00:00 (NS Flush) 2 ml BID IV FLUSH 10/19/16 09:00 10/23/16 20:05 (Zofran Inj) 4 mg Q6H PRN IVP 10/18/16 21:45 10/18/16 22:24 (Narcan Inj) 0.4 mg UNSCH PRN IV 10/18/16 21:45 (Protonix) 40 mg DAILY PO 10/19/16 09:00 10/23/16 10:48 (Xanax) 0.5 mg Q6H PRN PO 10/19/16 15:00 10/24/16 06:01 (Norvasc) 10 mg DAILY PO 10/20/16 09:00 10/23/16 10:47 (Prinivil) 10 mg BID PO 10/19/16 21:00 10/23/16 20:05 (Plavix) 75 mg DAILY PO 10/20/16 09:00 10/23/16 10:49 (PROzac) 20 mg DAILY PO 10/20/16 09:00 10/23/16 10:47 (Breo Ellipta 100-25 Inh) 1 puff DAILY INH 10/20/16 09:00 10/23/16 10:54 ([place] 7.5-325 Mg) 1 tab Q6H PRN PO 10/19/16 15:00 10/24/16 06:01 (Synthroid) 100 mcg DAILY PO 10/20/16 09:00 10/23/16 12:32 (Desyrel) 50 mg HS PO 10/19/16 21:00 10/23/16 20:05 (Zithromax) 500 mg DAILY PO 10/19/16 18:45 10/23/16 10:49 (SoluMEDROL INJ) 40 mg Q6HR IV PUSH 10/23/16 12:00 10/24/16 05:56 A/P Problem List: (1) COPD exacerbation ICD Code: J44.1 Status: Acute Assessment and Plan 71 y/o female with a history of COPD on 3L 23/01, HTN, and anxiety presented with complaints of 2-3 weeks of shortness of breath Acute COPD exacerbation on chronic respiratory failure, O2 dependent on 3L NC at home. Reviewed: Chest xray unremakable, flu negative, no leukocytosis, afebrile -Solumedrol IV, will attempt taper today to 40mg q8h -Duonebs q4 hours scheduled, continue as needed -Cont home Breo -Azithromycin daily -Check sputum culture -Acapella -Consulted pulmonology -Increase activity, PT reconsulted, recommends rehab, case management to assist with placement Hypertension, chronic, stable -Cont home benazepril, norvasc -Monitor vitals Depression/anxiety, chronic, stable -Continue home fluoxetine, alprazolam, trazodone Hypothyroidism, chronic, stable -Continue home levothyroxine DVT prophylaxis: SCDs Written by Cyn Garcia, acting as scribe for Dr. Adames on 10/24/16 at 08:35 Discharge Planning Case management to arrange rehab placement. Cyn Garcia PA-C Oct 24, 2016 07:24 Marlyn Adames MD Oct 24, 2016 15:05
[2016-10-24 07:34] VITALS: BP 159/81; PULSE 78; RESP 17; TEMP 97.8; O2SAT 99
[2016-10-24] MEDS: LEVOTHYROXINE SODIUM 100 MCG TAB PO SCH (09:49)
[2016-10-24] MEDS: CLOPIDOGREL 75 MG TAB PO SCH (09:50)
[2016-10-24] MEDS: LISINOPRIL 10 MG TAB PO SCH (09:50)
[2016-10-24] MEDS: FLUoxetine HCL 20 MG CAP PO SCH (09:50)
[2016-10-24] MEDS: FLUTICASONE 100 MCG/VILANTEROL 25 MCG INHALER INH SCH (09:50)
[2016-10-24] MEDS: SODIUM CHLORIDE 0.9% FLUSH 10 ML FLUSH IV FLUSH SCH (09:50)
[2016-10-24] MEDS: AZITHROMYCIN 250 MG TAB PO SCH (09:50)
[2016-10-24] MEDS: PANTOPRAZOLE SOD 40 MG DELAYED RELEASE TAB PO SCH (09:50)
[2016-10-24 11:21] VITALS: BP 149/76; PULSE 88; RESP 20; TEMP 98.5; O2SAT 97
[2016-10-24 11:58] VITALS: PULSE 77
[2016-10-24] MEDS ORDERED: PRED10PA PO (13:10)
--- NOTE | 2016-10-24 13:11 | HHI.DS ---
Discharge Summary Admission Date Oct 21, 2016 at 13:22 Discharge Date: Oct 24, 2016 Admitting Diagnosis acute exacerbation COPD (1) COPD exacerbation ICD Code: J44.1 Procedures none Brief History - From Admission 71 y/o female with a history of COPD on 3L 24/7, HTN, and anxiety presented to the ED with complaints of 2-3 weeks short of breath, she went to see her Statistical Programmer Dr. Davila who said she needed steroids and gave her an option to go to the outpatient clinic daily for prednisone infusions or go to the hospital. Due to driving situation patient choose to come to the ED. She complains of Wheezing, cough with very little sputum. Denies any fever, chills, chest pain, headaches. She states she feels she is 50% back to her baseline with breathing. CBC/BMP: 10/23/16 0636 Significant Findings Laboratory Tests Test 10/23/16 06:36 Chloride Level 94 MEQ/L (98-107) Carbon Dioxide Level 36.3 MEQ/L (21.0-32.0) Creatinine 0.46 MG/DL (0.50-1.00) PE at Discharge GENERAL: Well-developed well-nourished female patient in [facility]. SKIN: Warm and dry. No lesions noted. HEENT: Normocephalic. Pupils equal and round. Mucous membranes pink and moist. CARDIOVASCULAR: Regular rate and rhythm. No murmur appreciated. RESPIRATORY: No accessory muscle use. Diminished breath sounds in all lung ortega with poor air movement, no wheezing today. GASTROINTESTINAL: Abdomen soft, non-tender, nondistended. Bowel sounds x4. MUSCULOSKELETAL: No obvious deformities. No clubbing or cyanosis. No edema. NEUROLOGICAL: Awake and alert. No focal neurological deficits. Moves upper and lower extremities spontaneously. Normal speech. PSYCHIATRIC: Appropriate mood and affect; insight and judgment normal. Hospital Course 71 y/o female with a history of COPD on 3L 24/7, HTN, and anxiety presented with complaints of 2-3 weeks of shortness of breath Acute COPD exacerbation on chronic respiratory failure, O2 dependent on 3L NC at home. Reviewed: Chest xray unremakable, flu negative, no leukocytosis, afebrile -Solumedrol IV, will attempt taper today to 40mg q8h -Duonebs q4 hours scheduled, continue as needed -Cont home Breo -Azithromycin daily -Check sputum culture -Acapella -Consulted pulmonology -Increase activity, PT reconsulted, recommends rehab, case management to assist with placement Hypertension, chronic, stable -Cont home benazepril, norvasc -Monitor vitals Depression/anxiety, chronic, stable -Continue home fluoxetine, alprazolam, trazodone Hypothyroidism, chronic, stable -Continue home levothyroxine DVT prophylaxis: SCDs Improved. Patient with severe COPD. Says she did get better before with PT at rehab. PT recommends rehab. DC to rehab in stable condition. Patient to followup as OP with PCP and consultants. Pt Condition on Discharge: Stable Discharge Disposition: Discharge to SNF Discharge Time: > 30 minutes Discharge Instructions DIET: Follow Instructions for: Heart Healthy Diet Activities you can perform: Regular-No Restrictions Follow up Referrals: PCP Follow-up - 3-5 Days Pulmonology - 3-5 Days with Nacho Pierce MD New Medications: Prednisone (21) 10 mg tab Dose Pack (Prednisone (21) 10 mg tab Dose Pack) 10 Mg Pack 10 MG PO DIRECTED Inflammation #1 Ref 0 DSPK Changed Medications: Alprazolam (Alprazolam) 0.5 Mg Tab 0.5 MG PO Q8HR PRN ANXIETY #7 Ref 0 TAB (Changed from: Q6H) Continued Medications: Amlodipine (Amlodipine) 10 Mg Tab 10 MG PO DAILY Blood Pressure Management #30 Ref 0 TAB Azithromycin (Azithromycin) 250 Mg Tab 250 MG PO DIRECTED Take 2 tabs (500 mg) on day 1 then 1 tab daily x 4 days. Infection #6 Ref 0 TAB Benazepril (Benazepril) 10 Mg Tab 10 MG PO BID Blood Pressure Management #60 Ref 0 TAB Clopidogrel (Clopidogrel) 75 Mg Tab 75 MG PO DAILY Blood Clot Prevention #30 Ref 0 TAB Fluoxetine (Fluoxetine) 20 Mg Tab 20 MG PO DAILY #30 Ref 0 TAB Fluticasone-Vilanterol Inh (Breo Ellipta Inh) 100-25 Mcg/Act Inh 1 PUFF INH DAILY Use daily at the same time. #1 Ref 0 INHALER Hydrocodone-Acetaminophen (Hydrocodone-Acetaminophen) 7.5-325 mg Tab 1 TAB PO Q6H PRN PAIN #10 Ref 0 TAB (This prescription has been renewed) Ipratropium-Albuterol Neb (Duoneb) 0.5-2.5 Mg/3 Ml Neb 1 NEBULE INH Q6HR NEB Breathing Treatment #120 Ref 0 NEBULE Levothyroxine (Levothyroxine) 100 Mcg Tab 100 MCG PO DAILY Thyroid #30 Ref 0 TAB Multiple Vitamins W/ Minerals (Centrum Silver) 1 Tab 1 TAB PO DAILY Nutritional Supplement Ref 0 TAB Prednisone (Prednisone) 10 Mg Tab 10 MG PO DAILY Ref 0 TAB Trazodone (Trazodone) 50 Mg Tab 50 MG PO HS Control Depression #30 Ref 0 TAB (This prescription has been renewed ) Marlyn Adames MD Oct 24, 2016 13:11
[2016-10-24] MEDS ORDERED: ALPR0.5T3 PO (13:14)
[2016-10-24] MEDS ORDERED: HYDR-3580 PO (13:14)
[2016-10-24] MEDS ORDERED: TRAZ50TA12 PO (13:14)
[2016-10-24] MEDS ORDERED: methylPREDNISolone SOD SUCC 40 MG/1 ML VIAL IV PUSH SCH (14:00)
== END 2016-10-24 17:12 | DRG 191 ==
LOC: NEPC 16:15 → NEDA 21:26 → INTOOBSV 21:26 → NEPFCDU 23:49 → OBSVTOIN 10-21 13:22
PROVIDERS: ADMIT Hospitalist; ATTEND Hospitalist
DX: J44.1 Chronic obstructive pulmonary disease with (acute) exacerbation (principal); J96.10 Chronic respiratory failure, unspecified whether with hypoxia or hypercapnia; Z99.81 Dependence on supplemental oxygen; R91.8 Other nonspecific abnormal finding of lung field; I10 Essential (primary) hypertension; M19.90 Unspecified osteoarthritis, unspecified site; F41.9 Anxiety disorder, unspecified; F32.9 Major depressive disorder, single episode, unspecified; E03.9 Hypothyroidism, unspecified; K57.90 Diverticulosis of intestine, part unspecified, without perforation or abscess without bleeding; Z87.891 Personal history of nicotine dependence; M54.9 Dorsalgia, unspecified; G89.29 Other chronic pain
CPT/HCPCS: 71010; 80048; 82948; 83735; 83880; 84484; 85025; 87804; 93005; 94640; 94664; 94667; 96374; G0378; G8987-GP; G8988-GP; J2405; J2920; J2930; J7613

== ENCOUNTER 2017-01-14 13:36 | Inpatient (IN) | payer MEDICARE ==
[~2017-01-14] VITALS: Ht 154.9 cm; Wt 57.7 kg
[~2017-01-14 13:36] MED LIST changes: -CALCTAB80 PO; -FERR1TAB36 PO; -LACTCAP8 PO; +PRED10PA PO; -SPIRCAP INH
[2017-01-14 14:10] VITALS: BP 152/62; TEMP 98.3; O2SAT 87
[2017-01-14 15:05] VITALS: BP 152/69; PULSE 87; RESP 22; TEMP 98.3; O2SAT 88
[2017-01-14] MEDS ORDERED: MULT1TAB61 PO (15:31)
[2017-01-14] MEDS ORDERED: ZITH250T PO (15:35)
[2017-01-14] MEDS ORDERED: LEVO-168 PO (15:35)
[2017-01-14] MEDS ORDERED: SODIUM CHLORIDE 0.9% FLUSH 10 ML FLUSH IVF PRN (16:00)
[2017-01-14] MEDS ORDERED: SODIUM CHLOR 0.9% 1000 ML INJ 1,000 ML IV ONE ×2 (16:00→17:30)
--- NOTE | 2017-01-14 16:02 | PD ---
HPI Chief Complaint: Fall Time Seen by Provider: 16:02 Travel History International Travel<30 days: No Contact w/Intl Traveler<30days: No Traveled to known affect area: No History of Present Illness HPI 71-year-old female presents to the emergency department for evaluation after a fall. Patient states she is not sure when she fell. She believes it was approximately 5-6 days ago. She states she had a little too much alcohol to drink. She states that she went to get out of bed and fell hitting her knee against a coffee table. She states that she laid on the ground her approximately 5-6 days until she was checked on today by an employee at the assisted-living facility she lives in. She has been urinating and having stools on herself. She has not been able to get up. She has not eaten or drinking. The patient reports history of COPD, mesenteric artery stent, hypertension, hypothyroidism. She denies any chest pain. No abdominal pain. No nausea, vomiting, diarrhea. She also reports chronic back pain. Patient is unsure if she hit her head when she fell. She complains of bilateral hip pain and bilateral knee pain, the worst pain is in her left knee. PFSH Past Medical History Arthritis: Yes Asthma: Yes Anxiety: Yes Depression: Yes Heart Rhythm Problems: No Cancer: No Cardiovascular Problems: Yes (HTN) High Cholesterol: No Chemotherapy: No Chest Pain: No Congestive Heart Failure: No COPD: Yes Coronary Artery Disease: No Diabetes: No Diminished Hearing: No Endocrine: Yes Gastrointestinal Disorders: Yes (DIVERTICULOSIS, COLITIS) Genitourinary: No Hepatitis: No Hiatal Hernia: No Hypertension: Yes Immune Disorder: No Musculoskeletal: Yes (ARTHRITIS, DEGENERATIVE DISC DISEASE) Neurologic: Yes Psychiatric: Yes (ANXIETY AND DEPRESSION) Reproductive: No Respiratory: Yes (COPD) Radiation Therapy: No Sleep Apnea: No Thyroid Disease: Yes (HYPOTHYROID) Menopausal: Yes Past Surgical History Abdominal Surgery: No AICD: No Cardiac Surgery: No Ear Surgery: Yes Endocrine Surgery: No Eye Surgery: Yes (CATARACT SURGERY) Genitourinary Surgery: No Gynecologic Surgery: Yes (D&C) Joint Replacement: No Oral Surgery: Yes (ORAL SURGERY) Pacemaker: No Thoracic Surgery: No Other Surgery: Yes Social History Alcohol Use: Yes (OCC) Tobacco Use: Yes Substance Use: No Allergies-Medications (Allergen,Severity, Reaction): Coded Allergies: No Known Allergies (Verified , 10/18/16) Reported Meds & Prescriptions Reported Meds & Active Scripts Active Trazodone (Trazodone HCl) 50 Mg Tab 50 Mg PO HS Alprazolam 0.5 Mg Tab 0.5 Mg PO Q8HR PRN Hydrocodone-Acetaminophen 7.5-325 mg Tab 1 Tab PO Q6H PRN Reported Zithromax (Azithromycin) 250 Mg Tab 250 Mg PO MOWEFR Levothyroxine (Levothyroxine Sodium) 112 Mcg Tab 112 Mcg PO DAILY Centrum Silver Women Tablet (Multivit-Min/Iron/Folic/Lutein) 1 Each Tablet 1 Tab PO DAILY Clopidogrel (Clopidogrel Bisulfate) 75 Mg Tab 75 Mg PO DAILY Benazepril (Benazepril HCl) 10 Mg Tab 10 Mg PO BID Fluoxetine (Fluoxetine HCl) 20 Mg Tab 20 Mg PO DAILY Amlodipine (Amlodipine Besylate) 10 Mg Tab 10 Mg PO DAILY Prednisone 10 Mg Tab 10 Mg PO DAILY Duoneb (Ipratropium-Albuterol Neb) 0.5-2.5 Mg/3 Ml Neb 1 Nebule INH Q6HR NEB Breo Ellipta Inh (Fluticasone/Vilanterol) 100-25 Mcg/Act Inh 1 Puff INH DAILY Use daily at the same time. Review of Systems Except as stated in HPI: all other systems reviewed are Neg Physical Exam Narrative GENERAL: Well-nourished, well-developed female patient, afebrile. Patient has strong smell of urine. SKIN: Focused skin assessment warm/dry. HEAD: Normocephalic. Atraumatic. EYES: No scleral icterus. No injection or drainage. NECK: Supple, trachea midline. No JVD or lymphadenopathy. CARDIOVASCULAR: Regular rate and rhythm without murmurs, gallops, or rubs. The lateral radial and pedal pulses 2+. RESPIRATORY: Breath sounds equal bilaterally. No accessory muscle use. Lungs sounds diminished throughout. GASTROINTESTINAL: Abdomen soft, non-tender, nondistended. MUSCULOSKELETAL: No cyanosis, or edema. Patient has tenderness over bilateral hips and bilateral knees. She has large ecchymosis to the left anterior knee. BACK: Nontender without obvious deformity. No CVA tenderness. Data Data Last Documented VS Vital Signs Date Time Temp Pulse Resp B/P Pulse Ox O2 Delivery O2 Flow Rate FiO2 01/14/17 19:38 80 18 156/67 100 7/15/17 16:11 Nasal Cannula 3 01/14/17 15:05 98.3 Orders Complete Blood Count With Diff (01/14/17 15:59) Comprehensive Metabolic Panel (01/14/17 15:59) Act Partial Throm Time (Ptt) (01/14/17 15:59) Prothrombin Time / Inr (Pt) (01/14/17 15:59) Magnesium (Mg) (01/14/17 15:59) Urinalysis - C+S If Indicated (01/14/17 15:59) Iv Access Insert/Monitor (01/14/17 15:59) Electrocardiogram (01/14/17 15:59) Ecg Monitoring (01/14/17 15:59) Oximetry (01/14/17 15:59) Oxygen Administration (01/14/17 15:59) Chest, Single Ap (01/14/17 15:59) Sodium Chloride 0.9% Flush (Ns Flush) (01/14/17 16:00) Albuterol-Ipratropium Neb (Duoneb Neb) (01/14/17 16:00) Creatine Kinase (Cpk) (01/14/17 15:59) Sodium Chlor 0.9% 1000 Ml Inj (Ns 1000 M (01/14/17 16:00) Hip, Uni(Ap&Lat) Wo Ap Pelvis (01/14/17 ) Hip, Uni(Ap&Lat) W Ap Pelvis (01/14/17 ) Knee, Complete (4vws) (01/14/17 ) Knee, Complete (4vws) (01/14/17 ) Ct Brain W/O Iv Contrast(Rout) (01/14/17 ) Ondansetron Inj (Zofran Inj) (01/14/17 16:15) Morphine Inj (Morphine Inj) (01/14/17 16:45) CKMB (01/14/17 16:02) CKMB% (01/14/17 16:02) Sodium Chlor 0.9% 1000 Ml Inj (Ns 1000 M (01/14/17 17:30) Cath For Specimen (01/14/17 18:17) Splint Or Brace Apply/Monitor (01/14/17 19:11) Admit Order (Ed Use Only) (01/14/17 19:36) Labs Laboratory Tests Test 01/14/17 01/14/17 01/14/17 16:02 16:16 18:40 Prothrombin Time 10.4 SEC Prothromb Time International 0.9 RATIO Ratio Activated Partial 28.2 SEC Thromboplast Time Sodium Level 138 MEQ/L Potassium Level 3.4 MEQ/L Chloride Level 94 MEQ/L Carbon Dioxide Level 29.8 MEQ/L Anion Gap 14 MEQ/L Blood Urea Nitrogen 40 MG/DL Creatinine 0.88 MG/DL Estimat Glomerular Filtration 63 ML/MIN Rate Random Glucose 72 MG/DL Calcium Level 9.1 MG/DL Magnesium Level 2.4 MG/DL Total Bilirubin 0.4 MG/DL Aspartate Amino Transf 99 U/L (AST/SGOT) Alanine Aminotransferase 52 U/L (ALT/SGPT) Alkaline Phosphatase 63 U/L Total Creatine Kinase 1108 U/L Creatine Kinase MB 9.0 NG/ML Creatine Kinase MB % 0.8 % Total Protein 7.1 GM/DL Albumin 3.5 GM/DL White Blood Count 12.4 TH/MM3 Red Blood Count 3.33 MIL/MM3 Hemoglobin 10.2 GM/DL Hematocrit 31.6 % Mean Corpuscular Volume 94.8 FL Mean Corpuscular Hemoglobin 30.6 PG Mean Corpuscular Hemoglobin 32.3 % Concent Red Cell Distribution Width 15.2 % Platelet Count 443 TH/MM3 Mean Platelet Volume 7.1 FL Neutrophils (%) (Auto) 71.1 % Lymphocytes (%) (Auto) 19.6 % Monocytes (%) (Auto) 8.1 % Eosinophils (%) (Auto) 0.4 % Basophils (%) (Auto) 0.8 % Neutrophils # (Auto) 8.8 TH/MM3 Lymphocytes # (Auto) 2.4 TH/MM3 Monocytes # (Auto) 1.0 TH/MM3 Eosinophils # (Auto) 0.1 TH/MM3 Basophils # (Auto) 0.1 TH/MM3 CBC Comment DIFF FINAL Differential Comment Urine Color YELLOW Urine Turbidity CLEAR Urine pH 6.0 Urine Specific [place] 1.025 Urine Protein TRACE mg/dL Urine Glucose (UA) NEG mg/dL Urine Ketones 40 mg/dL Urine Occult Blood NEG Urine Nitrite NEG Urine Bilirubin NEG Urine Urobilinogen 2.0 MG/DL Urine Leukocyte Esterase NEG Urine WBC 1 /hpf Urine Hyaline Casts 5 /lpf Microscopic Urinalysis Comment CULT NOT INDICATED MDM Medical Decision Making Medical Screen Exam Complete: Yes Emergency Medical Condition: Yes Medical Record Reviewed: Yes Interpretation(s) CT brain - CONCLUSION: 1. No acute intracranial abnormality. 2. Atrophy and chronic small vessel ischemic change. Chest x-ray - CONCLUSION: Left upper lobe mass, old fractures not significantly changed. x-ray left knee - FINDINGS: There is a complete fracture of midportion of the patella by approximately 8 mm. Diffuse osteopenia is seen. CONCLUSION: Complete patellar fracture. x-ray right knee - CONCLUSION: Slight osteopenia. x-ray left hip - CONCLUSION: Unremarkable study. x-ray right hip with pelvis - CONCLUSION: Unremarkable study. Differential Diagnosis Fracture versus dislocation versus contusion versus fracture abnormality versus rhabdomyolysis versus dehydration Narrative Course 71-year-old female presents to the emergency department for evaluation via EMS after she fell possibly 5-6 days ago and has laid on the floor since. She states she fell because she had too much alcohol to drink. EKG, CBC, CMP, PTT, PTT/INR, magnesium, UA, CK, chest x-ray, x-ray of the right and left hip and pelvis, x-ray of the right knee, to the left knee, CT of the brain are ordered and pending. Patient is given normal saline 1 L IV bolus x2. Patient is given Morphine 2 mg IV, Zofran 4 mg IV. EKG shows sinus rhythm, heart rate 90, no acute ST changes. CBC shows leukocytosis of 12.4, hemoglobin 10.2, hematocrit 31.6. CMP shows hypokalemia of 3.4, glucose 72, AST 99. Magnesium is 2.4. CK is 1108. Coags are unremarkable. UA shows 40 ketones. Chest x-ray shows left upper lobe mass, old fractures not significantly changed. X-ray left hip is unremarkable. X- ray right hip with pelvis is unremarkable. X-ray of the left knee shows a complete patellar fracture. X-ray of the right knee shows slight osteopenia. CT of the brain shows no acute intracranial abnormality; atrophy and chronic small vessel ischemic change. Ortho and H are paged. Dr. Wall accepted admission. I spoke to Dr. Balderas and made him aware of patella fracture. Consult is placed. Diagnosis Primary Impression: Left patella fracture Qualified Code: S82.032A - Closed displaced transverse fracture of left patella, initial encounter Additional Impressions: Rhabdomyolysis Qualified Code: M62.82 - Non-traumatic rhabdomyolysis Dehydration Admitting Information Admitting Physician Requests: Admit Celia Gong Jan 14, 2017 16:02
[2017-01-14] MEDS: RESP: ALBUTEROL 2.5 MG/IPRATROPIUM 0.5 MG NEB (SCH) INH (16:08)
[2017-01-14 16:11] VITALS: RESP 24; O2SAT 95
[2017-01-14] MEDS ORDERED: ONDANSETRON HCL 4 MG/2 ML VIAL IV PUSH ONE (16:15)
[2017-01-14 16:30] LABS: AUTOMATED NEUTROPHIL # 8.8 TH/MM3 (1.8-7.7); BASOPHIL # 0.1 TH/MM3 (0-0.2); BASOPHIL % 0.8 % (0.0-2.0); EOSINOPHIL # 0.1 TH/MM3 (0-0.4); EOSINOPHIL % 0.4 % (0.0-4.0); HEMATOCRIT 31.6 % (35.0-46.0); HEMO FLAGS DIFF FINAL; LYMPH % 19.6 % (9.0-44.0); LYMPHOCYTE # 2.4 TH/MM3 (1.0-4.8); MEAN CELL VOLUME 94.8 FL (80.0-100.0); MEAN CORPUSCULAR HEMOGLOBIN 30.6 PG (27.0-34.0); MEAN CORPUSCULAR HGB CONC 32.3 % (32.0-36.0); MONO % 8.1 % (0.0-8.0); NEUT % 71.1 % (16.0-70.0); PLATELET COUNT 443 TH/MM3 (150-450); RED BLOOD COUNT 3.33 MIL/MM3 (4.00-5.30); RED CELL DISTRIBUTION WIDTH 15.2 % (11.6-17.2); WHITE BLOOD COUNT 12.4 TH/MM3 (4.0-11.0)
[2017-01-14] MEDS ORDERED: MORPHINE SULFATE 4 MG/ML INJ IV PUSH ONE (16:30)
[2017-01-14] MEDS ORDERED: MORPHINE SULFATE 8 MG/ML INJ IV PUSH ONE (16:45)
[2017-01-14 16:46] LABS: APTT (PATIENT) 28.2 SEC (24.3-30.1); INTERNATIONAL NORMALIZED RATIO 0.9 RATIO; PROTHROMBIN TIME - PATIENT 10.4 SEC (9.8-11.6)
[2017-01-14 16:48] LABS: ALT (GPT) 52 U/L (10-53); ANION GAP 14 MEQ/L (5-15); AST (GOT) 99 U/L (15-37); BICARBONATE 29.8 MEQ/L (21.0-32.0); BLOOD UREA NITROGEN 40 MG/DL (7-18); CHLORIDE 94 MEQ/L (98-107); GLOMERULAR FILTRATION RATE 63 ML/MIN (>89); MAGNESIUM 2.4 MG/DL (1.5-2.5); POTASSIUM 3.4 MEQ/L (3.5-5.1); SODIUM (NA) 138 MEQ/L (136-145)
[2017-01-14 17:01] LABS: ALKALINE PHOSPHATASE 63 U/L (45-117); CREATINE KINASE 1108 U/L (26-192); TOTAL BILIRUBIN ADULT 0.4 MG/DL (0.2-1.0)
--- NOTE | 2017-01-14 18:21 | RADRPT ---
EXAM DATE/TIME: 01/14/2017 17:42 [facility] COMPARISON: CT BRAIN W/O CONTRAST, June 28, 2016, 14:31. INDICATIONS : Trauma; fall. RADIATION DOSE: 56.35 CTDIvol (mGy) MEDICAL HISTORY : Hypertension. Cardiovascular disease SURGICAL HISTORY : None. ENCOUNTER: Initial ACUITY: 1 week PAIN SCALE: 5/10 LOCATION: cranial TECHNIQUE: Multiple contiguous axial images were obtained of the head. Using automated exposure control and adj ustment of the mA and/or kV according to patient size, radiation dose was kept as low as reasonably a chievable to obtain optimal diagnostic quality images. DICOM format image data is available electro nically for review and comparison. FINDINGS: CEREBRUM: Atrophy. Periventricular low attenuation change involving both cerebral hemispheres. The ventricles a re normal for age. No evidence of midline shift, mass lesion, hemorrhage or acute infarction. No ex tra-axial fluid collections are seen. POSTERIOR FOSSA: The cerebellum and brainstem are intact. The 4th ventricle is midline. The cerebellopontine angle i s unremarkable. EXTRACRANIAL: The visualized portion of the orbits is intact. SKULL: The calvaria is intact. No evidence of skull fracture. CONCLUSION: 1. No acute intracranial abnormality. 2. Atrophy and chronic small vessel ischemic change. Andrew Schmitz Jr., MD on January 14, 2017 at 18:13 Board Certified Radiologist. This report was verified electronically.
--- NOTE | 2017-01-14 18:50 | RADRPT ---
EXAM DATE/TIME: 01/14/2017 18:11 [facility] COMPARISON: CHEST SINGLE AP, May 27, 2016, 15:36. INDICATIONS : Trauma; fall. MEDICAL HISTORY : Chronic obstructive pulmonary disease. Hypertension Asthma. SURGICAL HISTORY : None. ENCOUNTER: Initial ACUITY: 2 days PAIN SCORE: 0/10 LOCATION: Bilateral chest FINDINGS: Approximate 2 cm left upper lobe mass is present not changed. There are old healed rib fractures in t he left chest. No definite pneumothorax is seen for technique. Heart and mediastinum are unremarkable for technique. There are atherosclerotic calcifications of the aorta due to chronic atherosclerotic disease. There is old fracture of the right proximal humerus not healed. CONCLUSION: Left upper lobe mass, old fractures not significantly changed. Lexi Bolton MD on January 14, 2017 at 18:47 Board Certified Radiologist. This report was verified electronically.
--- NOTE | 2017-01-14 18:58 | RADRPT ---
EXAM DATE/TIME: 01/14/2017 18:06 [facility] COMPARISON: No previous studies available for comparison. INDICATIONS : Trauma; fell. MEDICAL HISTORY : Chronic obstructive pulmonary disease. Hypertension Asthma SURGICAL HISTORY : None. ENCOUNTER: Initial ACUITY: 2 days PAIN SCORE: 9/10 LOCATION: Right middle knee. FINDINGS: No definite fractures, or dislocations are identified. No definite lytic or sclerotic lesion is seen . Slight osteopenia is seen. The joint spaces are well maintained. CONCLUSION: Slight osteopenia. KRyley Bolton MD on January 14, 2017 at 18:55 Board Certified Radiologist. This report was verified electronically.
[2017-01-14 18:59] LABS: BLOOD, URINE NEG (NEG); COMMENT (UR) CULT NOT INDICATED; CULTURE IF INDICATED CULT NOT INDICATED; GLUCOSE,URINE NEG (NEG); HYALINE CAST, URINE 5 /lpf (RARE); KETONE, URINE 40 mg/dL (NEG); NITRITE,URINE NEG (NEG); URINE COLOR YELLOW (YELLW/STRAW)
--- NOTE | 2017-01-14 19:05 | RADRPT ---
EXAM DATE/TIME: 01/14/2017 18:00 [facility] COMPARISON: No previous studies available for comparison. INDICATIONS : Trauma; Fell. MEDICAL HISTORY : Chronic obstructive pulmonary disease. Hypertension Ashtma SURGICAL HISTORY : None. ENCOUNTER: Initial ACUITY: 2 days PAIN SCORE: 9/10 LOCATION: Left middle Knee cap. FINDINGS: There is a complete fracture of midportion of the patella by approximately 8 mm. Diffuse os teopenia is seen. CONCLUSION: Complete patellar fracture. Lexi Bolton MD on January 14, 2017 at 19:03 Board Certified Radiologist. This report was verified electronically.
--- NOTE | 2017-01-14 19:12 | RADRPT ---
EXAM DATE/TIME: 01/14/2017 17:54 [facility] COMPARISON: No previous studies available for comparison. INDICATIONS : Trauma; fell. MEDICAL HISTORY : Chronic obstructive pulmonary disease. Hypertension Asthma SURGICAL HISTORY : None. ENCOUNTER: Initial ACUITY: 2 days PAIN SCORE: 5/10 LOCATION: Right posterior Hip. FINDINGS: No definite fractures, or dislocations are identified. No definite lytic or sclerotic lesion is seen . The joint spaces are well maintained. CONCLUSION: Unremarkable study. Lexi Bolton MD on January 14, 2017 at 19:10 Board Certified Radiologist. This report was verified electronically.
--- NOTE | 2017-01-14 19:13 | RADRPT ---
EXAM DATE/TIME: 01/14/2017 17:57 [facility] COMPARISON: No previous studies available for comparison. INDICATIONS : Trauma; fell. MEDICAL HISTORY : Chronic obstructive pulmonary disease. Hypertension Asthma SURGICAL HISTORY : None. ENCOUNTER: Initial ACUITY: 2 days PAIN SCORE: 5/10 LOCATION: Left posterior Hip FINDINGS: No definite fractures, or dislocations are identified. No definite lytic or sclerotic lesion is seen . CONCLUSION: Unremarkable study. Lexi Bolton MD on January 14, 2017 at 19:11 Board Certified Radiologist. This report was verified electronically.
[2017-01-14 19:38] VITALS: BP 156/67; PULSE 80; RESP 18; O2SAT 100
--- NOTE | 2017-01-14 19:44 | HHI.HP ---
[facility] Physician Romel Valenzuela M.D. Admission Diagnosis left patella fracture, rhabdomyolosis, dehydration Diagnoses: (1) Fall Diagnosis: Principal (2) Left patella fracture Diagnosis: Principal (3) Dehydration Diagnosis: Principal (4) Rhabdomyolysis Diagnosis: Principal (5) Hypokalemia Diagnosis: Principal (6) Lung mass Diagnosis: Principal (7) COPD (chronic obstructive pulmonary disease) Diagnosis: Principal (8) Tobacco abuse Diagnosis: Principal Travel History International Travel<30 Days: No Contact w/Intl Traveler <30 Da: No Traveled to Known Affected Are: No History of Present Illness This is a 71-year-old female with a PMH of Anxiety, Depression, HTN, COPD, h/o Mesenteric Artery Stent and Tobacco Abuse who was brought to the ER by EMS after [facility]. Pt poor historian, but states she drank some [employer] [place] Spiced Rum, unknown amount, had gotten up to go to restroom and had fall at home w/ injury to left knee, unable to get up. Initially reported being down for 2-3 days, later 5-6 days, now tells me she was down for 7-8 days. States she drank nasal saline to keep hydrated and was able to get her hands on a bottle of water underneath her couch. Ultimately found by staff member at [facility] who called EMS. Per EMS pt covered in urine and feces. On arrival, BP 152/69, HR 87, O2 sat 88% on RA, Afebrile. O2 sat currently 100% on 3L NC. WBC 12.4. K+ 3.4. GFR 63. CPK 1108. INR 0.9. UA negative. CXR with FRANCI mass and old fractures. Left Knee X-ray w/ complete patellar fracture. Ortho consulted by ER physician. Review of Systems Except as stated in HPI: all other systems reviewed are Neg ROS: 14 point review of systems otherwise negative. Past Family Social History Past Medical History PMH: Anxiety, Depression, HTN, COPD, h/o Mesenteric Artery Stent and Tobacco Abuse Past Surgical History PAST SURGICAL HISTORY: Cataract Surgery, D&C, Oral Surgery, Chest Tube Allergies: Coded Allergies: No Known Allergies (Verified , 10/18/16) Family History PAST FAMILY HISTORY: Reviewed. No h/o DM or CAD Social History PAST SOCIAL HISTORY: Occasional alcohol. Positive for tobacco. Negative for drugs. Physical Exam Vital Signs Vital Signs Date Time Temp Pulse Resp B/P Pulse Ox O2 Delivery O2 Flow Rate FiO2 01/14/17 19:38 80 18 156/67 100 01/14/17 16:11 95 Nasal Cannula 3 01/14/17 16:11 24 95 Nasal Cannula 3 01/14/17 15:05 98.3 87 22 152/69 88 Room Air Physical Exam PE: GENERAL: Elderly white female in no acute distress. Smells of urine. HEENT: PERRLA, EOMI. No scleral icterus or conjunctival pallor. No lid lag or facial droop. CARDIOVASCULAR: Regular rate and rhythm. No obvious murmurs to auscultation. No chest tenderness to palpation. RESPIRATORY: No obvious rhonchi or wheezing. Clear to auscultation. Breath sounds equal bilaterally. GASTROINTESTINAL: Abdomen soft, non-tender, nondistended. BS normal. MUSCULOSKELETAL: Extremities without clubbing, cyanosis, or edema. No obvious deformities. Left knee ecchymosis, pain w/ movement. NEUROLOGICAL: Awake, alert and oriented x4. No focal neurologic deficits. Moving both upper and lower extremities spontaneously. Laboratory Laboratory Tests Test 01/14/17 01/14/17 01/14/17 16:02 16:16 18:40 Prothrombin Time 10.4 Prothromb Time International 0.9 Ratio Activated Partial 28.2 Thromboplast Time Sodium Level 138 Potassium Level 3.4 Chloride Level 94 Carbon Dioxide Level 29.8 Anion Gap 14 Blood Urea Nitrogen 40 Creatinine 0.88 Estimat Glomerular Filtration 63 Rate Random Glucose 72 Calcium Level 9.1 Magnesium Level 2.4 Total Bilirubin 0.4 Aspartate Amino Transf 99 (AST/SGOT) Alanine Aminotransferase 52 (ALT/SGPT) Alkaline Phosphatase 63 Total Creatine Kinase 1108 Creatine Kinase MB 9.0 Creatine Kinase MB % 0.8 Total Protein 7.1 Albumin 3.5 White Blood Count 12.4 Red Blood Count 3.33 Hemoglobin 10.2 Hematocrit 31.6 Mean Corpuscular Volume 94.8 Mean Corpuscular Hemoglobin 30.6 Mean Corpuscular Hemoglobin 32.3 Concent Red Cell Distribution Width 15.2 Platelet Count 443 Mean Platelet Volume 7.1 Neutrophils (%) (Auto) 71.1 Lymphocytes (%) (Auto) 19.6 Monocytes (%) (Auto) 8.1 Eosinophils (%) (Auto) 0.4 Basophils (%) (Auto) 0.8 Neutrophils # (Auto) 8.8 Lymphocytes # (Auto) 2.4 Monocytes # (Auto) 1.0 Eosinophils # (Auto) 0.1 Basophils # (Auto) 0.1 CBC Comment DIFF FINAL Differential Comment Urine Color YELLOW Urine Turbidity CLEAR Urine pH 6.0 Urine Specific [place] 1.025 Urine Protein TRACE Urine Glucose (UA) NEG Urine Ketones 40 Urine Occult Blood NEG Urine Nitrite NEG Urine Bilirubin NEG Urine Urobilinogen 2.0 Urine Leukocyte Esterase NEG Urine WBC 1 Urine Hyaline Casts 5 Microscopic Urinalysis Comment CULT NOT INDICATED Result Diagram: 01/14/17 1616 01/14/17 1602 Assessment and Plan Problem List: (1) Fall ICD Code: W19.XXXA Status: Acute (2) Left patella fracture ICD Code: S82.002A Status: Acute (3) Dehydration ICD Code: E86.0 Status: Acute (4) Rhabdomyolysis ICD Code: M62.82 Status: Acute (5) Hypokalemia ICD Code: E87.6 Status: Acute (6) Lung mass ICD Code: R91.8 Status: Acute (7) COPD (chronic obstructive pulmonary disease) ICD Code: J44.9 Status: Chronic (8) Tobacco abuse ICD Code: Z72.0 Status: Acute Assessment and Plan A/P: 1. Fall: s/p mechanical fall at home ([facility]), no LOC, unsure if head trauma. CT Head w/ no acute findings. Hip/Pelvis X-ray unremarkable. 2. Left Patellar Fx: secondary to mechanical fall, Left Knee X-ray w/ complete patellar fracture, images reviewed by me. Ortho consulted by ER physician for likely surgical intervention. Analgesics/antiemetics as needed. 3. Dehydration: GFR 63. BUN 40, likely due to dehydration from prolonged down time. U/a negative. IVF for hydration, repeat labs in am. 4. Rhabdomyolysis: CPK 1108, reports being down at home for 5-8 days w/ limited access to water. IVF for hydration. Check serial CPK for trend. 5. Hypokalemia: K+ 3.4, will replace and recheck in am. 6. Lung Mass: CXR w/ FRANCI lung mass, images reviewed by me. Per pt, h/o similar findings on previous admit, s/p CT-guided lung biopsy 05/18/16 w/ subsequent PTX and chest tube placement, pathology w/ acute fibrinous and chronic organizing pneumonitis, negative for malignancy. CXR 10/18/16 negative for mass. Will check CT Chest w/ contrast for further eval. 7. COPD: Chronic Respiratory Failure. Stable. DuoNeb prn. 8. Tobacco Abuse: Pt counselled. Ativan/NicoDerm prn if needed. 9. DVT Prophylaxis: SCD/Teds 10. Social work for d/c planning as needed. 11. Case discussed w/ ER physician at length. Physician Certification 2 Midnight Certification Type: Admission for Inpatient Services Order for Inpatient Services The services are ordered in accordance with Medicare regulations or non- Medicare payer requirements, as applicable. In the case of services not specified as inpatient-only, they are appropriately provided as inpatient services in accordance with the 2-midnight benchmark. Estimated LOS (days): 2 days is the estimated time the patient will need to remain in the hospital, assuming treatment plan goals are met and no additional complications. Post-Hospital Plan: Not yet determined Problem Qualifiers (1) Left patella fracture: Qualified Code: S82.032A - Closed displaced transverse fracture of left patella , initial encounter (2) Rhabdomyolysis: Qualified Code: M62.82 - Non-traumatic rhabdomyolysis Reny Wall MD Jan 14, 2017 19:44
[2017-01-14] MEDS ORDERED: SODIUM CHLORIDE 0.9% FLUSH 10 ML FLUSH IV FLUSH PRN (19:45)
[2017-01-14] MEDS ORDERED: MAGNESIUM HYDROXIDE SUSP 30 ML CUP PO PRN (19:45)
[2017-01-14] MEDS ORDERED: RESP: ALBUTEROL 2.5 MG/IPRATROPIUM 0.5 MG NEB (PRN) NEB (19:45)
[2017-01-14] MEDS ORDERED: BISACODYL 10 MG SUPP RECTAL PRN (19:45)
[2017-01-14] MEDS ORDERED: ONDANSETRON HCL 4 MG/2 ML VIAL IVP PRN (19:45)
[2017-01-14] MEDS ORDERED: LACTULOSE SYRUP 20 GM/30 ML CUP PO PRN (19:45)
[2017-01-14] MEDS ORDERED: ACETAMINOPHEN 325 MG TAB PO PRN (19:45)
[2017-01-14] MEDS ORDERED: SENNOSIDES 8.6 MG TAB PO PRN (19:45)
[2017-01-14] MEDS: ACETAMINOPHEN/HYDROcodone 325 MG/5 MG TAB PO PRN (20:00)
[2017-01-14] MEDS ORDERED: POTASSIUM CHLORIDE 20 MEQ CONTROLLED RELEASE TAB PO ONE (20:00)
[2017-01-14] MEDS: SODIUM CHLOR 0.9% 1000 ML INJ 1,000 ML IV SCH (20:11)
[2017-01-14] MEDS: DOCUSATE SODIUM 50 MG/SENNA 8.6 MG TAB PO SCH (21:00)
[2017-01-14] MEDS ORDERED: IOHEXOL 350 MG/ML 10 ML VIAL (for RAD DIAG) IV ONE (21:44)
--- NOTE | 2017-01-14 21:58 | RADRPT ---
EXAM DATE/TIME: 01/14/2017 21:31 [facility] COMPARISON: CT PULMONARY ANGIOGRAM, February 27, 2016, 11:43. INDICATIONS : Trauma; fall. IV CONTRAST: 97 cc Omnipaque 350 (iohexol) IV RADIATION DOSE: 5.10 CTDIvol (mGy) MEDICAL HISTORY : Cardiovascular disease. Hypertension. Hypothyroidism. SURGICAL HISTORY : None. ENCOUNTER: Initial ACUITY: 1 day PAIN SCALE: 6/10 LOCATION: chest TECHNIQUE: Volumetric scanning of the chest was performed. Using automated exposure control and adjustment of t he mA and/or kV according to patient size, radiation dose was kept as low as reasonably achievable to obtain optimal diagnostic quality images. DICOM format image data is available electronically for review and comparison. Follow-up recommendations for incidentally detected pulmonary nodules are based at a minimum on nodul e size and patient risk factors according to Fleischner Society Guidelines. FINDINGS: There are old healed rib fractures bilaterally in addition to old fractures of L1 transverse pro cesses not changed since 2015. Left upper lobe mass is larger measuring 1.4 x 1.2 cm, it measured 1.3 x 0.8 cm previously. Extensive COPD is seen with some scarring scattered in both lungs as well. No d efinite pneumothorax is seen for technique. Coronary artery calcifications are seen typically seen wi th CAD and need to be evaluated clinically. approximate 1.7 cm exophytic cyst is present coming off t he left kidney. There are atherosclerotic calcifications of the aorta due to chronic atherosclerotic disease. CONCLUSION: Enlarging left upper lobe mass highly suspicious for malignancy. No acute injury. Lexi Bolton MD on January 14, 2017 at 21:50 Board Certified Radiologist. This report was verified electronically.
[2017-01-14 22:00] VITALS: BP 158/74; PULSE 89; RESP 18; TEMP 99.6; O2SAT 98
[2017-01-14] MEDS ORDERED: CHLORHEXIDINE GLUCONATE 2 % 1 PACK (2 CLOTHS) TOPICAL PRN (22:30)
[2017-01-14] MEDS ORDERED: POVIDONE IODINE 5% (ANTISEPSIS KIT) 4 APPLICATIONS EACH NARE PRN (22:30)
[2017-01-14] MEDS ORDERED: INSULIN HUMAN REGULAR 1,000 UNITS/10 ML VIAL SQ PRN (22:30)
[2017-01-14] MEDS ORDERED: METOPROLOL TARTRATE 25 MG TAB PO PRN (22:30)
[2017-01-14] MEDS ORDERED: SODIUM CHLORID 0.9% 500 ML IV PRN (22:30)
[2017-01-14] MEDS ORDERED: LACTATED RINGER'S 1000 ML IV PRN (22:30)
[2017-01-14] MEDS: MORPHINE SULFATE 8 MG/ML INJ IV PUSH PRN (22:36)
[2017-01-15] VITALS (7 sets, daily range): BP systolic 133–184; BP diastolic 64–83; PULSE 73–85; RESP 17–18; TEMP 97.8–98.8; O2SAT 91–98
[2017-01-15 01:28] LABS: CKMB 7.2 NG/ML (0.5-3.6)
[2017-01-15] MEDS: MORPHINE SULFATE 8 MG/ML INJ IV PUSH PRN ×3 (02:33→09:03)
[2017-01-15] MEDS: SODIUM CHLORIDE 0.9% FLUSH 10 ML FLUSH IV FLUSH SCH ×3 (02:37→20:47)
[2017-01-15 07:13] LABS: AUTOMATED NEUTROPHIL # 5.8 TH/MM3 (1.8-7.7); BASOPHIL % 0.4 % (0.0-2.0); EOSINOPHIL # 0.2 TH/MM3 (0-0.4); EOSINOPHIL % 1.8 % (0.0-4.0); HEMATOCRIT 29.6 % (35.0-46.0); HEMO FLAGS DIFF FINAL; LYMPH % 25.6 % (9.0-44.0); LYMPHOCYTE # 2.4 TH/MM3 (1.0-4.8); MEAN CELL VOLUME 94.4 FL (80.0-100.0); MEAN CORPUSCULAR HEMOGLOBIN 30.6 PG (27.0-34.0); MEAN CORPUSCULAR HGB CONC 32.4 % (32.0-36.0); NEUT % 62.2 % (16.0-70.0); PLATELET COUNT 372 TH/MM3 (150-450); RED BLOOD COUNT 3.13 MIL/MM3 (4.00-5.30); WHITE BLOOD COUNT 9.3 TH/MM3 (4.0-11.0)
[2017-01-15 07:37] LABS: ALKALINE PHOSPHATASE 54 U/L (45-117); ALT (GPT) 41 U/L (10-53); ANION GAP 7 MEQ/L (5-15); AST (GOT) 72 U/L (15-37); BICARBONATE 32.7 MEQ/L (21.0-32.0); BLOOD UREA NITROGEN 19 MG/DL (7-18); CHLORIDE 98 MEQ/L (98-107); CREATINE KINASE 788 U/L (26-192); GLOMERULAR FILTRATION RATE 130 ML/MIN (>89); POTASSIUM 3.5 MEQ/L (3.5-5.1); SODIUM (NA) 138 MEQ/L (136-145); TOTAL BILIRUBIN ADULT 0.3 MG/DL (0.2-1.0)
[2017-01-15 08:03] LABS: CKMB 4.8 NG/ML (0.5-3.6)
[2017-01-15] MEDS: DOCUSATE SODIUM 50 MG/SENNA 8.6 MG TAB PO SCH ×2 (09:06→20:42)
[2017-01-15] MEDS: SODIUM CHLOR 0.9% 1000 ML INJ 1,000 ML IV SCH ×2 (09:11→16:00)
[2017-01-15] MEDS: ACETAMINOPHEN/HYDROcodone 325 MG/5 MG TAB PO PRN (10:37)
--- NOTE | 2017-01-15 11:08 | PD.CONS ---
cc: Mary Kate Luna Left Displaced Patella Fracture HPI Service Orthopedic Surgeons Consult Requested By Primary Care Physician Unknown Admission Diagnosis left patella fracture, rhabdomyolosis, dehydration Diagnoses: (1) Displaced transverse fracture of left patella, initial encounter for closed fracture Diagnosis: Principal (2) Fall (3) Dehydration (4) Rhabdomyolysis (5) Hypokalemia (6) Lung mass (7) COPD (chronic obstructive pulmonary disease) (8) Tobacco abuse Chief Complaint: Fall, Left Displaced Patella Fracture History of Present Illness 71 year old female sustained a trip and fall injury several days ago. She states she was drinking rum and does not remember falling or how long she was on the ground. She admits to me she thought yesterday was Monday and was on the ground for almost 5 days, possibly more or less. She lives in senior community and it wasn't until yesterday when the heavy duty custodian went into her apartment to check on her and was found on the ground. She was brought to [facility] and after evaluation and imaging it was found the patient sustained dehydration, rhabdomyolysis and a closed severely displaced patella fracture. Patient is adamant about not wanting to proceed forward with surgical management if needed. She states she has been told several times she is not cleared for surgery due to COPD and other issues. I explained to her anesthesia may be able to proceed forward with a spinal and she refused this as well, stating it would cause a massive headache. Patient states she has had several other orthopedic injuries, including a left wrist fracture and right humeral fracture treated by Dr. Chato Duong. She is requesting follow up care with Dr. Duong. I explained to her Dr. Duong is out of town at this moment and she is okay with proceeding forward with non-operative management treated by myself and Dr. Balderas during her hospital stay. She previously ambulated unassisted prior to this injury and lives alone. No other orthopedic injuries are noted at this time. Review of Systems well outlined in medical record Past Family Social History Past Medical History PMH: Anxiety, Depression, HTN, COPD, h/o Mesenteric Artery Stent and Tobacco Abuse Past Surgical History PAST SURGICAL HISTORY: Cataract Surgery, D&C, Oral Surgery, Chest Tube Allergies: Coded Allergies: No Known Allergies (Verified , 10/18/16) Active Ordered Medications Current Medications Medications (Trade) Dose Ordered Sig/Mic Route Start Time Stop Time Status Last Admin Sodium Chloride 2 ml 2 ml UNSCH PRN IVF 01/14/17 16:00 01/14/17 16:51 (NS 1000 ml Inj) 1,000 ml @ 100 mls/hr Q10H IV 01/14/17 20:00 01/15/17 09:11 (NS Flush) 2 ml BID IV FLUSH 01/14/17 21:00 01/15/17 09:03 (Zofran Inj) 4 mg Q6H PRN IVP 01/14/17 19:45 (Tylenol) 650 mg Q6H PRN PO 01/14/17 19:45 ([place] 5-325 Mg) 1 tab Q4H PRN PO 01/14/17 19:45 01/14/17 20:00 (Morphine Inj) 2 mg Q3H PRN IV PUSH 01/14/17 20:00 01/15/17 09:03 (Zahira-Colace) 1 tab BID PO 01/14/17 21:00 01/15/17 09:06 (Milk Of Magnesia Liq) 30 ml Q12H PRN PO 01/14/17 19:45 (Senokot) 17.2 mg Q12H PRN PO 01/14/17 19:45 (Dulcolax Supp) 10 mg DAILY PRN RECTAL 01/14/17 19:45 Lactulose 30 ml 30 ml DAILY PRN PO 01/14/17 19:45 Lactated Ringer's 1,000 ml @ 30 mls/hr Q24H PRN IV 01/14/17 22:30 01/17/17 22:29 (NS 500 ml Inj) 500 ml @ 30 mls/hr [id number] PRN IV 01/14/17 22:30 01/17/17 22:29 Reported Meds & Active Scripts Active Trazodone (Trazodone HCl) 50 Mg Tab 50 Mg PO HS Alprazolam 0.5 Mg Tab 0.5 Mg PO Q8HR PRN Hydrocodone-Acetaminophen 7.5-325 mg Tab 1 Tab PO Q6H PRN Reported Zithromax (Azithromycin) 250 Mg Tab 250 Mg PO MOWEFR Levothyroxine (Levothyroxine Sodium) 112 Mcg Tab 112 Mcg PO DAILY Centrum Silver Women Tablet (Multivit-Min/Iron/Folic/Lutein) 1 Each Tablet 1 Tab PO DAILY Clopidogrel (Clopidogrel Bisulfate) 75 Mg Tab 75 Mg PO DAILY Benazepril (Benazepril HCl) 10 Mg Tab 10 Mg PO BID Fluoxetine (Fluoxetine HCl) 20 Mg Tab 20 Mg PO DAILY Amlodipine (Amlodipine Besylate) 10 Mg Tab 10 Mg PO DAILY Prednisone 10 Mg Tab 10 Mg PO DAILY Duoneb (Ipratropium-Albuterol Neb) 0.5-2.5 Mg/3 Ml Neb 1 Nebule INH Q6HR NEB Breo Ellipta Inh (Fluticasone/Vilanterol) 100-25 Mcg/Act Inh 1 Puff INH DAILY Use daily at the same time. Family History PAST FAMILY HISTORY: Reviewed. No h/o DM or CAD Social History PAST SOCIAL HISTORY: Occasional alcohol. Positive for tobacco. Negative for drugs. Physical Exam Vital Signs Vital Signs Date Time Temp Pulse Resp B/P Pulse Ox O2 Delivery O2 Flow Rate FiO2 01/15/17 08:00 97.8 85 18 142/74 98 01/15/17 04:20 98.6 82 17 151/67 98 01/14/17 22:41 18 01/14/17 22:00 99.6 89 18 158/74 98 01/14/17 19:38 80 18 156/67 100 Nasal Cannula 3 01/14/17 16:11 95 Nasal Cannula 3 01/14/17 16:11 24 95 Nasal Cannula 3 01/14/17 15:05 98.3 87 22 152/69 88 Room Air Physical Exam LLE: CKS brace in place. Tender to palpation with mild swelling and ecchymosis noted over left patella. No overlying skin changes. Range of motion not tested secondary to pain. Freely able to move distal digits. No calf pain. Negative Rona's sign. Good cap refill. 2+ pedal pulses. Neurovascular intact. Laboratory Laboratory Tests Test 01/14/17 01/14/17 01/14/17 01/14/17 16:02 16:16 18:40 23:58 Prothrombin Time 10.4 Prothromb Time International 0.9 Ratio Activated Partial 28.2 Thromboplast Time Sodium Level 138 Potassium Level 3.4 Chloride Level 94 Carbon Dioxide Level 29.8 Anion Gap 14 Blood Urea Nitrogen 40 Creatinine 0.88 Estimat Glomerular Filtration 63 Rate Random Glucose 72 Calcium Level 9.1 Magnesium Level 2.4 Total Bilirubin 0.4 Aspartate Amino Transf 99 (AST/SGOT) Alanine Aminotransferase 52 (ALT/SGPT) Alkaline Phosphatase 63 Total Creatine Kinase 1108 1000 Creatine Kinase MB 9.0 7.2 Creatine Kinase MB % 0.8 0.7 Total Protein 7.1 Albumin 3.5 White Blood Count 12.4 Red Blood Count 3.33 Hemoglobin 10.2 Hematocrit 31.6 Mean Corpuscular Volume 94.8 Mean Corpuscular Hemoglobin 30.6 Mean Corpuscular Hemoglobin 32.3 Concent Red Cell Distribution Width 15.2 Platelet Count 443 Mean Platelet Volume 7.1 Neutrophils (%) (Auto) 71.1 Lymphocytes (%) (Auto) 19.6 Monocytes (%) (Auto) 8.1 Eosinophils (%) (Auto) 0.4 Basophils (%) (Auto) 0.8 Neutrophils # (Auto) 8.8 Lymphocytes # (Auto) 2.4 Monocytes # (Auto) 1.0 Eosinophils # (Auto) 0.1 Basophils # (Auto) 0.1 CBC Comment DIFF FINAL Differential Comment Urine Color YELLOW Urine Turbidity CLEAR Urine pH 6.0 Urine Specific [place] 1.025 Urine Protein TRACE Urine Glucose (UA) NEG Urine Ketones 40 Urine Occult Blood NEG Urine Nitrite NEG Urine Bilirubin NEG Urine Urobilinogen 2.0 Urine Leukocyte Esterase NEG Urine WBC 1 Urine Hyaline Casts 5 Microscopic Urinalysis Comment CULT NOT INDICATED Test 01/15/17 06:00 White Blood Count 9.3 Red Blood Count 3.13 Hemoglobin 9.6 Hematocrit 29.6 Mean Corpuscular Volume 94.4 Mean Corpuscular Hemoglobin 30.6 Mean Corpuscular Hemoglobin 32.4 Concent Red Cell Distribution Width 15.0 Platelet Count 372 Mean Platelet Volume 6.9 Neutrophils (%) (Auto) 62.2 Lymphocytes (%) (Auto) 25.6 Monocytes (%) (Auto) 10.0 Eosinophils (%) (Auto) 1.8 Basophils (%) (Auto) 0.4 Neutrophils # (Auto) 5.8 Lymphocytes # (Auto) 2.4 Monocytes # (Auto) 0.9 Eosinophils # (Auto) 0.2 Basophils # (Auto) 0.0 CBC Comment DIFF FINAL Differential Comment Sodium Level 138 Potassium Level 3.5 Chloride Level 98 Carbon Dioxide Level 32.7 Anion Gap 7 Blood Urea Nitrogen 19 Creatinine 0.47 Estimat Glomerular Filtration 130 Rate Random Glucose 76 Calcium Level 8.7 Total Bilirubin 0.3 Aspartate Amino Transf 72 (AST/SGOT) Alanine Aminotransferase 41 (ALT/SGPT) Alkaline Phosphatase 54 Total Creatine Kinase 788 Creatine Kinase MB 4.8 Creatine Kinase MB % 0.6 Total Protein 6.2 Albumin 3.0 Result Diagram: 01/15/17 0600 01/15/17 0600 Imaging Last 48 hours Impressions Chest X-Ray 01/14/17 1559 Signed Impressions: Service Date/Time: Saturday, January 14, 2017 18:11 - CONCLUSION: Left upper lobe mass, old fractures not significantly changed. Lexi Bolton MD Knee X-Ray 01/14/17 0000 Signed Impressions: Service Date/Time: Saturday, January 14, 2017 18:06 - CONCLUSION: Slight osteopenia. Lexi Bolton MD Knee X-Ray 01/14/17 0000 Signed Impressions: Service Date/Time: Saturday, January 14, 2017 18:00 - CONCLUSION: Complete patellar fracture. Lexi Bolton MD Hip and Pelvis X-Ray 01/14/17 0000 Signed Impressions: Service Date/Time: Saturday, January 14, 2017 17:54 - CONCLUSION: Unremarkable study. Lexi Bolton MD Hip X-Ray 01/14/17 0000 Signed Impressions: Service Date/Time: Saturday, January 14, 2017 17:57 - CONCLUSION: Unremarkable study. Lexi Bolton MD Head CT 01/14/17 0000 Signed Impressions: Service Date/Time: Saturday, January 14, 2017 17:42 - CONCLUSION: 1. No acute intracranial abnormality. 2. Atrophy and chronic small vessel ischemic change. Andrew Schmitz Jr., MD Chest CT 01/14/17 0000 Signed Impressions: Service Date/Time: Saturday, January 14, 2017 21:31 - CONCLUSION: Enlarging left upper lobe mass highly suspicious for malignancy. No acute injury. Lexi Bolton MD Course well outlined in medical record. Assessment & Plan Problem List: (1) Displaced transverse fracture of left patella, initial encounter for closed fracture (2) Fall (3) Rhabdomyolysis (4) Dehydration (5) COPD (chronic obstructive pulmonary disease) (6) Anxiety and depression (7) Anxiety Assessment and Plan The findings were discussed and x-rays were reviewed with the patient. Dr Pineda Balderas has reviewed images and details of this case. Recommendations are given for surgical management, to allow for mobilization and pain control. The nature of the planned surgical procedure, the risks, the benefits as well as postoperative expectations have been discussed with the patient in detail. In addition, alternatives of the treatment and risks were discussed. The patient declines operative management at this time. It was discussed in detail she may suffer from a flexion contracture or a disfigured ability to walk without surgical management. She once again understands these risks and wishes to proceed forward with non-operative management. Order has been placed for cylinder knee cast in strict 0 degrees of extension. Progress physical therapy for mobilization, gait training and pain control. Non weight bearing status left lower extremity. Continue pain control. Xarelto for DVT prophylaxis. Recommended orthopedic follow up in 7-[address] Chato Duong. She understands further displacement of the fracture site may require fixation. The possibility of future surgical treatment was discussed with the patient in detail, the patient acknowledges full understanding. Appreciate orthopedic involvement in patient's care. Mary Kate Luna Jan 15, 2017 11:08
--- NOTE | 2017-01-15 11:50 | HHI.PR ---
Subjective Remarks Left leg has been casted. Patient is not a good surgical candidate and declined surgery secondary to severe COPD. She is off of nothing by mouth now. Objective Vital Signs Date Time Temp Pulse Resp B/P Pulse Ox O2 Delivery O2 Flow Rate FiO2 01/15/17 08:00 97.8 85 18 142/74 98 01/15/17 04:20 98.6 82 17 151/67 98 01/14/17 22:41 18 01/14/17 22:00 99.6 89 18 158/74 98 01/14/17 19:38 80 18 156/67 100 Nasal Cannula 3 01/14/17 16:11 95 Nasal Cannula 3 01/14/17 16:11 24 95 Nasal Cannula 3 01/14/17 15:05 98.3 87 22 152/69 88 Room Air I/O 01/14/17 01/14/17 01/14/17 01/15/17 01/15/17 01/15/17 07:00 15:00 23:00 07:00 15:00 23:00 Intake Total 240 ml Balance 240 ml Intake Oral 240 ml # Voids 0 # Bowel Movements 0 Result Diagram: 01/15/17 0600 01/15/17 0600 Objective Remarks GENERAL: NAD, A&Ox3 HEAD: Normocephalic. NECK: Supple, trachea midline. No lymphadenopathy. EYES: No scleral icterus. No injection or drainage. CARDIOVASCULAR: Regular rate and rhythm without murmurs, gallops, or rubs. RESPIRATORY: Breath sounds equal bilaterally. No accessory muscle use. GASTROINTESTINAL: Abdomen soft, non-tender, nondistended. MUSCULOSKELETAL: No cyanosis, or edema. Left leg casted SKIN: Warm and dry. NEURO: No focal neurological deficitis. A/P Problem List: (1) Displaced transverse fracture of left patella, initial encounter for closed fracture ICD Code: S82.032A (2) Left patella fracture ICD Code: S82.002A (3) Fall ICD Code: W19.XXXA (4) Anxiety and depression ICD Code: F41.9 Assessment and Plan Assessment and plan 71-year-old female admitted secondary to a fall with a left patella fracture. Now status post casting, not a surgical candidate and patient declined surgery. Dehydration Rhabdomyolysis Resolved Follow renal function Follow CPK IV hydration Hypokalemia Follow potassium levels Replace as needed Lung mass CT chest with contrast shows an enlarging mass Pulmonology consult to aid in further workup COPD Nicotine dependence NicoDerm as needed Continue breathing treatments at baseline doses No COPD exacerbation DVT prophylaxis Patient is on Xarelto Problem Qualifiers (1) Left patella fracture: Qualified Code: S82.032A - Closed displaced transverse fracture of left patella , initial encounter Rodriguez Cooper MD Jan 15, 2017 11:50
[2017-01-15] MEDS: oxyCODONE/ACETAMINOPHEN 10 MG/325 MG TAB PO PRN ×3 (12:25→20:45)
[2017-01-15] MEDS: RIVAROXABAN 10 MG TAB PO SCH (12:26)
[2017-01-15] MEDS: ALPRAZolam 0.5 MG TAB PO PRN ×2 (12:26→22:59)
--- NOTE | 2017-01-15 12:33 | EKG ---
Date Performed: 01/14/2017 Time Performed: 16:31:52 PTAGE: 71 years EKG: Sinus rhythm Compared to prior tracing no significant change NORMAL ECG PREVIOUS TRACING : 10/18/2016 19.13 DOCTOR: Romel Klein Interpretating Date/Time 01/15/2017 12:32:31
[2017-01-15] MEDS ORDERED: FLUoxetine HCL 20 MG CAP PO ONE (14:00)
[2017-01-15] MEDS ORDERED: METOPROLOL TARTRATE 25 MG TAB PO ONE (14:00)
[2017-01-15] MEDS: RESP: ALBUTEROL 2.5 MG/IPRATROPIUM 0.5 MG NEB (SCH) INH ×2 (16:01→21:18)
--- NOTE | 2017-01-15 16:51 | MB ---
cc: ARY MCALLISTER M.D. DATE OF CONSULTATION: 01/15/2017. REASON FOR CONSULTATION: Left upper lobe lung mass by CT scan, enlarged when compared to previous in 2016. HISTORY OF PRESENT ILLNESS: Mrs. Munoz is a 71-year-old female who was admitted after found at home on the floor with a left patellar fracture. The patient had fallen apparently after she had been drinking. She had declined surgical intervention. Her left knee is casted at this point. She did agree to medical management only. She does have history of COPD of severe degree and respiratory failure on oxygen therapy. She did have a previous lung biopsy of her left upper lobe lung mass which was apparently benign. Subsequent CT scan upon hospitalization, it appears the mass has enlarged and I have been asked to see her at this time for same. She denies history of fever or chills, cough, expectoration. No hemoptysis. PAST MEDICAL HISTORY: 1. COPD. 2. Respiratory failure. 3. Degenerative joint disease. 4. Hypertension. 5. Diverticular disease. 6. Anxiety. 7. Depression. 8. Hypothyroidism. SOCIAL HISTORY: She has a long heavy smoking history over 50 pack / years. Drinks alcohol socially. No TB or industrial exposure. FAMILY HISTORY: Noncontributory. MEDICATIONS: Medications at home include: 1. Prednisone 10 milligrams a day. 2. Fluoxetine. 3. Benazepril. 4. Clopidogrel. 5. Centrum. 6. Levothyroxine. 7. DuoNeb. 8. Breo. 9. . ALLERGIES: NONE KNOWN TO MEDICATIONS. FAMILY HISTORY: Noncontributory. REVIEW OF SYSTEMS: A twelve-point review of systems is as per the history of present illness and past history, otherwise negative. PHYSICAL EXAMINATION: VITAL SIGNS: temperature 98, pulse 80, respiration 18, blood pressure 180. A O2 sat 98% on 3 liters oxygen nasal cannula. HEAD, EYES, EARS, NOSE, THROAT: Unremarkable. Eyes without icterus. NECK: Without adenopathy, thyroid enlargement, central trachea. CHEST: Increased AP diameter noted. Distant breath sounds. No dullness to percussion. CARDIAC: PMI distant. S1-S2 audible. There is a 1/6 systolic ejection murmur left sternal border. ABDOMEN: Lax. Bowel sounds audible. EXTREMITIES: No cyanosis, clubbing or edema. LABORATORY DATA: White count 9.3, hemoglobin 9.6, platelets 372,000. Sodium 138, potassium 3.5, BUN 19, creatinine 0.4, INR 0.9. IMAGING STUDIES: CT scan of the chest shows left upper lobe lung mass, malignancy suspect. IMPRESSION: 1. Enlarging left lung mass, malignancy suspect. 2. COPD. 3. Respiratory failure on oxygen therapy. 4. Left patellar fracture. PLAN: I have discussed the findings with the patient in detail. She will be maintained on oxygen as well as bronchodilator therapy. Previous needle lung biopsy was negative. Will arrange for bronchoscopic examination which she agrees to at this time. The procedure and complications were fully explained. I do thank you for asking me to partake in Mrs. Munoz' care. Ary Mcallister MD WWW/RICKIE /2:34 PM /4:38 PM
[2017-01-15] MEDS: traZODone HCL 50 MG TAB PO SCH (20:42)
[2017-01-15] MEDS: LISINOPRIL 10 MG TAB PO SCH (20:42)
[2017-01-16] VITALS (7 sets, daily range): BP systolic 125–179; BP diastolic 60–74; PULSE 73–92; RESP 17–18; TEMP 97.2–99; O2SAT 92–98
[2017-01-16] MEDS: oxyCODONE/ACETAMINOPHEN 10 MG/325 MG TAB PO PRN ×5 (00:33→20:03)
[2017-01-16] MEDS: SODIUM CHLOR 0.9% 1000 ML INJ 1,000 ML IV SCH ×3 (02:00→20:03)
[2017-01-16] MEDS: RESP: ALBUTEROL 2.5 MG/IPRATROPIUM 0.5 MG NEB (SCH) INH ×4 (03:43→21:03)
[2017-01-16] MEDS: LEVOTHYROXINE SODIUM 112 MCG TAB PO SCH (05:41)
[2017-01-16] MEDS: FLUoxetine HCL 20 MG CAP PO SCH (08:15)
[2017-01-16] MEDS: RIVAROXABAN 10 MG TAB PO SCH (08:15)
[2017-01-16] MEDS: MULTIVIT/MIN/PREN/FOL AC/IRON PRENATAL TAB PO SCH (08:15)
[2017-01-16] MEDS: CLOPIDOGREL 75 MG TAB PO SCH (08:15)
[2017-01-16] MEDS: predniSONE 10 MG TAB PO SCH (08:16)
[2017-01-16] MEDS: LISINOPRIL 10 MG TAB PO SCH ×2 (08:16→20:03)
[2017-01-16] MEDS: AZITHROMYCIN 250 MG TAB PO SCH (08:16)
[2017-01-16] MEDS: ALPRAZolam 0.5 MG TAB PO PRN ×2 (08:16→20:02)
[2017-01-16] MEDS ORDERED: DEXT 5%-NACL 0.45% 1000 ML INJ 1,000 ML IV SCH (08:41)
--- NOTE | 2017-01-16 08:43 | HHI.PR ---
Subjective Remarks ALERT NO SOB AT REST Objective Vital Signs Date Time Temp Pulse Resp B/P Pulse Ox O2 Delivery O2 Flow Rate FiO2 01/16/17 00:30 97.2 75 17 125/60 92 01/15/17 21:20 92 Nasal Cannula 4.00 01/15/17 20:35 98.8 73 17 139/64 92 01/15/17 16:03 94 Nasal Cannula 3.00 01/15/17 16:00 98.2 79 18 133/66 91 01/15/17 12:00 98.4 83 18 184/83 98 I/O 01/15/17 01/15/17 01/15/17 01/16/17 01/16/17 01/16/17 07:00 15:00 23:00 07:00 15:00 23:00 Intake Total 240 ml 940 ml 480 ml 480 ml Balance 240 ml 940 ml 480 ml 480 ml Intake Oral 240 ml 940 ml 480 ml 480 ml # Voids 0 4 5 1 # Bowel Movements 0 0 0 0 Result Diagram: 01/15/17 0601/15/17 0600 Objective Remarks GENERAL: SKIN: Warm and dry. HEAD: Atraumatic. Normocephalic. EYES: Pupils equal and round. No scleral icterus. No injection or drainage. ENT: No nasal bleeding or discharge. Mucous membranes pink and moist. NECK: Trachea midline. No JVD. CARDIOVASCULAR: Regular rate and rhythm. RESPIRATORY: No accessory muscle use. Clear to auscultation. Breath sounds equal bilaterally. GASTROINTESTINAL: Abdomen soft, non-tender, nondistended. Hepatic and splenic margins not palpable. MUSCULOSKELETAL: Extremities without clubbing, cyanosis, or edema. No obvious deformities. NEUROLOGICAL: Awake and alert. No obvious cranial nerve deficits. Motor grossly within normal limits. Five out of 5 muscle strength in the arms and legs. Normal speech. PSYCHIATRIC: Appropriate mood and affect; insight and judgment normal. Assessment and Plan Assessment and Plan ASS: LUNG MASS COPD PLAN: BRONCHOSCOPY AM Discharge Planning Laboratory Tests Test 01/14/17 01/14/17 01/14/17 01/14/17 16:02 16:16 18:40 23:58 Potassium Level 3.4 MEQ/L (3.5-5.1) Chloride Level 94 MEQ/L (98-107) Blood Urea Nitrogen 40 MG/DL (7-18) Estimat Glomerular Filtration 63 ML/MIN (>89) Rate Random Glucose 72 MG/DL (74-106) Aspartate Amino Transf 99 U/L (15-37) (AST/SGOT) Total Creatine Kinase 1108 U/L 1000 U/L (26-192) (26-192) Creatine Kinase MB 9.0 NG/ML 7.2 NG/ML (0.5-3.6) (0.5-3.6) White Blood Count 12.4 TH/MM3 (4.0-11.0) Red Blood Count 3.33 MIL/MM3 (4.00-5.30) Hemoglobin 10.2 GM/DL (11.6-15.3) Hematocrit 31.6 % (35.0-46.0) Neutrophils (%) (Auto) 71.1 % (16.0-70.0) Monocytes (%) (Auto) 8.1 % (0.0-8.0) Neutrophils # (Auto) 8.8 TH/MM3 (1.8-7.7) Monocytes # (Auto) 1.0 TH/MM3 (0-0.9) Urine Ketones 40 mg/dL (NEG) Test 01/15/17 06:00 Red Blood Count 3.13 MIL/MM3 (4.00-5.30) Hemoglobin 9.6 GM/DL (11.6-15.3) Hematocrit 29.6 % (35.0-46.0) Mean Platelet Volume 6.9 FL (7.0-11.0) Monocytes (%) (Auto) 10.0 % (0.0-8.0) Carbon Dioxide Level 32.7 MEQ/L (21.0-32.0) Blood Urea Nitrogen 19 MG/DL (7-18) Creatinine 0.47 MG/DL (0.50-1.00) Aspartate Amino Transf 72 U/L (15-37) (AST/SGOT) Total Creatine Kinase 788 U/L (26-192) Creatine Kinase MB 4.8 NG/ML (0.5-3.6) Total Protein 6.2 GM/DL (6.4-8.2) Albumin 3.0 GM/DL (3.4-5.0) Ary Mcallister MD Jan 16, 2017 08:43
[2017-01-16] MEDS: DOCUSATE SODIUM 50 MG/SENNA 8.6 MG TAB PO SCH ×2 (09:00→20:03)
[2017-01-16] MEDS: FLUTICASONE 100 MCG/VILANTEROL 25 MCG INHALER INH SCH (09:00)
[2017-01-16 09:18] LABS: HEMATOCRIT 30.2 % (35.0-46.0); MEAN CELL VOLUME 94.4 FL (80.0-100.0); MEAN CORPUSCULAR HEMOGLOBIN 30.8 PG (27.0-34.0); MEAN CORPUSCULAR HGB CONC 32.6 % (32.0-36.0); PLATELET COUNT 366 TH/MM3 (150-450); RED CELL DISTRIBUTION WIDTH 14.8 % (11.6-17.2); REVIEW FLAG FINAL; WHITE BLOOD COUNT 9.6 TH/MM3 (4.0-11.0)
[2017-01-16] MEDS: SODIUM CHLORIDE 0.9% FLUSH 10 ML FLUSH IV FLUSH SCH ×2 (10:00→20:03)
--- NOTE | 2017-01-16 10:27 | HHI.PR ---
Subjective Remarks Complaints of pain today. No other complaints. Continue physical therapy. Objective Vital Signs Date Time Temp Pulse Resp B/P Pulse Ox O2 Delivery O2 Flow Rate FiO2 01/16/17 09:12 92 Nasal Cannula 4.00 01/16/17 08:00 98.5 73 17 151/68 93 01/16/17 00:30 97.2 75 17 125/60 92 01/15/17 21:20 92 Nasal Cannula 4.00 01/15/17 20:35 98.8 73 17 139/64 92 01/15/17 16:03 94 Nasal Cannula 3.00 01/15/17 16:00 98.2 79 18 133/66 91 01/15/17 12:00 98.4 83 18 184/83 98 I/O 01/15/17 01/15/17 01/15/17 01/16/17 01/16/17 01/16/17 07:00 15:00 23:00 07:00 15:00 23:00 Intake Total 240 ml 940 ml 480 ml 480 ml Balance 240 ml 940 ml 480 ml 480 ml Intake Oral 240 ml 940 ml 480 ml 480 ml # Voids 0 4 5 1 # Bowel Movements 0 0 0 0 Result Diagram: 01/16/17 0750 01/15/17 0600 Objective Remarks GENERAL: NAD, A&Ox3 HEAD: Normocephalic. NECK: Supple, trachea midline. No lymphadenopathy. EYES: No scleral icterus. No injection or drainage. CARDIOVASCULAR: Regular rate and rhythm without murmurs, gallops, or rubs. RESPIRATORY: Breath sounds equal bilaterally. No accessory muscle use. GASTROINTESTINAL: Abdomen soft, non-tender, nondistended. MUSCULOSKELETAL: No cyanosis, or edema. Left leg casted SKIN: Warm and dry. NEURO: No focal neurological deficitis. A/P Problem List: (1) Displaced transverse fracture of left patella, initial encounter for closed fracture ICD Code: S82.032A (2) Left patella fracture ICD Code: S82.002A (3) Fall ICD Code: W19.XXXA (4) Anxiety and depression ICD Code: F41.9 Assessment and Plan Assessment and plan 71-year-old female admitted secondary to a fall with a left patella fracture. Now status post casting, not a surgical candidate and patient declined surgery. Physical therapy to continue, patient needs physical therapy long-term likely discharge to custodial facility. Pain medications adjusted today. Dehydration Rhabdomyolysis Resolved Follow renal function Follow CPK IV hydration Hypokalemia Follow potassium levels Replace as needed Lung mass CT chest with contrast shows an enlarging mass Pulmonology consult to aid in further workup COPD Nicotine dependence NicoDerm as needed Continue breathing treatments at baseline doses No COPD exacerbation DVT prophylaxis Patient is on Xarelto Problem Qualifiers (1) Left patella fracture: Qualified Code: S82.032A - Closed displaced transverse fracture of left patella , initial encounter Rodriguez Cooper MD Jan 16, 2017 10:27 am
[2017-01-16 11:24] LABS: BICARBONATE 34.1 MEQ/L (21.0-32.0); POTASSIUM 3.5 MEQ/L (3.5-5.1)
[2017-01-16 11:52] LABS: CKMB 1.7 NG/ML (0.5-3.6)
[2017-01-16] MEDS: traZODone HCL 50 MG TAB PO SCH (20:03)
[2017-01-17] VITALS (9 sets, daily range): BP systolic 124–159; BP diastolic 58–73; PULSE 67–86; RESP 17–18; TEMP 96.2–99.1; O2SAT 94–100
[2017-01-17] MEDS: oxyCODONE/ACETAMINOPHEN 10 MG/325 MG TAB PO PRN ×5 (00:08→21:18)
[2017-01-17] MEDS: RESP: ALBUTEROL 2.5 MG/IPRATROPIUM 0.5 MG NEB (SCH) INH ×4 (03:54→20:29)
[2017-01-17] MEDS: ALPRAZolam 0.5 MG TAB PO PRN ×2 (04:42→17:58)
[2017-01-17] MEDS: oxyCODONE/ACETAMINOPHEN 5 MG/325 MG TAB PO PRN (04:42)
[2017-01-17] MEDS: LEVOTHYROXINE SODIUM 112 MCG TAB PO SCH (04:42)
[2017-01-17 06:58] LABS: HEMATOCRIT 28.8 % (35.0-46.0); MEAN CELL VOLUME 93.9 FL (80.0-100.0); MEAN CORPUSCULAR HEMOGLOBIN 31.4 PG (27.0-34.0); MEAN CORPUSCULAR HGB CONC 33.4 % (32.0-36.0); PLATELET COUNT 318 TH/MM3 (150-450); RED BLOOD COUNT 3.06 MIL/MM3 (4.00-5.30); RED CELL DISTRIBUTION WIDTH 14.8 % (11.6-17.2); REVIEW FLAG FINAL
[2017-01-17 06:59] LABS: INTERNATIONAL NORMALIZED RATIO 0.9 RATIO; PROTHROMBIN TIME - PATIENT 10.3 SEC (9.8-11.6)
[2017-01-17 07:15] LABS: BICARBONATE 36.9 MEQ/L (21.0-32.0); POTASSIUM 3.3 MEQ/L (3.5-5.1)
[2017-01-17] MEDS ORDERED: XARE10TA PO (07:24)
[2017-01-17] MEDS: MULTIVIT/MIN/PREN/FOL AC/IRON PRENATAL TAB PO SCH (08:18)
[2017-01-17] MEDS: FLUoxetine HCL 20 MG CAP PO SCH (08:18)
[2017-01-17] MEDS: predniSONE 10 MG TAB PO SCH (08:18)
[2017-01-17] MEDS: LISINOPRIL 10 MG TAB PO SCH ×2 (08:18→21:18)
[2017-01-17] MEDS: DOCUSATE SODIUM 50 MG/SENNA 8.6 MG TAB PO SCH ×2 (08:19→21:00)
[2017-01-17] MEDS: SODIUM CHLORIDE 0.9% FLUSH 10 ML FLUSH IV FLUSH SCH ×2 (08:21→21:18)
[2017-01-17] MEDS: FLUTICASONE 100 MCG/VILANTEROL 25 MCG INHALER INH SCH (08:22)
[2017-01-17] MEDS: CLOPIDOGREL 75 MG TAB PO SCH (08:23)
[2017-01-17] MEDS: RIVAROXABAN 10 MG TAB PO SCH (08:24)
[2017-01-17] MEDS ORDERED: POTASSIUM CHLORIDE 10 MEQ CONTROLLED RELEASE TAB PO ONE (08:30)
[2017-01-17] MEDS ORDERED: PROPOFOL 200 MG/20 ML AMP IV ONE (08:43)
--- NOTE | 2017-01-17 09:31 | HHI.PR ---
Subjective Remarks Bronchoscopy pending for today. Potassium is slightly low. No new complaints from the patient. She is continuing physical therapy. She will need physical therapy an inpatient facility. Objective Vital Signs Date Time Temp Pulse Resp B/P Pulse Ox O2 Delivery O2 Flow Rate FiO2 01/17/17 08:41 99 Nasal Cannula 3.00 01/17/17 08:27 Nasal Cannula 3.00 Humidified 01/17/17 08:00 99.1 77 17 146/65 100 01/17/17 04:00 96.2 67 18 141/61 99 01/17/17 00:05 97.8 77 18 137/58 98 01/16/17 20:02 96 Nasal Cannula 3.00 Humidified 01/16/17 20:00 99.0 86 18 179/74 96 01/16/17 16:00 97.8 92 18 155/70 98 01/16/17 15:30 97 Nasal Cannula 4.00 01/16/17 12:00 98.0 83 18 143/71 97 01/16/17 11:10 16 I/O 01/16/17 01/16/17 01/16/17 01/17/17 01/17/17 01/17/17 07:00 15:00 23:00 07:00 15:00 23:00 Intake Total 480 ml 840 ml 0 ml Balance 480 ml 840 ml 0 ml Intake Oral 480 ml 840 ml 0 ml # Voids 1 8 1 # Bowel Movements 0 0 0 Result Diagram: 01/17/1762301/17/17 0624 Objective Remarks GENERAL: NAD, A&Ox3 HEAD: Normocephalic. NECK: Supple, trachea midline. No lymphadenopathy. EYES: No scleral icterus. No injection or drainage. CARDIOVASCULAR: Regular rate and rhythm without murmurs, gallops, or rubs. RESPIRATORY: Breath sounds equal bilaterally. No accessory muscle use. GASTROINTESTINAL: Abdomen soft, non-tender, nondistended. MUSCULOSKELETAL: No cyanosis, or edema. Left leg casted SKIN: Warm and dry. NEURO: No focal neurological deficitis. A/P Problem List: (1) Displaced transverse fracture of left patella, initial encounter for closed fracture ICD Code: S82.032A (2) Left patella fracture ICD Code: S82.002A (3) Fall ICD Code: W19.XXXA (4) Anxiety and depression ICD Code: F41.9 Assessment and Plan Assessment and plan 71-year-old female admitted secondary to a fall with a left patella fracture. Status post casting, not a surgical candidate and patient declined surgery. Continue physical therapy. Bronchoscopy today. Follow potassium level. IV hydration discontinued due to potential dilutional effect causing hypokalemia. Dehydration Rhabdomyolysis Resolved Follow renal function Follow CPK IV hydration Hypokalemia Follow potassium levels Replace as needed Lung mass CT chest with contrast shows an enlarging mass Pulmonology consult to aid in further workup COPD Nicotine dependence NicoDerm as needed Continue breathing treatments at baseline doses No COPD exacerbation DVT prophylaxis Patient is on Xarelto Problem Qualifiers (1) Left patella fracture: Qualified Code: S82.032A - Closed displaced transverse fracture of left patella , initial encounter Rodriguez Cooper MD Jan 17, 2017 09:31
--- NOTE | 2017-01-17 14:30 | PD.ORT.PN ---
Subjective Subjective Remarks Pt awake and alert, admits LLE pain is controlled. Cast on and comfortable. NPO for possible bronchoscopy today. Objective Vitals Vital Signs Date Time Temp Pulse Resp B/P Pulse Ox O2 Delivery O2 Flow Rate FiO2 01/17/17 13:10 16 01/17/17 12:00 98.8 78 18 128/63 99 01/17/17 08:41 99 Nasal Cannula 3.00 01/17/17 08:27 Nasal Cannula 3.00 Humidified 01/17/17 08:00 99.1 77 17 146/65 100 01/17/17 04:00 96.2 67 18 141/61 99 01/17/17 00:05 97.8 77 18 137/58 98 01/16/17 20:02 96 Nasal Cannula 3.00 Humidified 01/16/17 20:00 99.0 86 18 179/74 96 01/16/17 16:00 97.8 92 18 155/70 98 01/16/17 15:30 97 Nasal Cannula 4.00 I/O 01/16/17 01/16/17 01/16/17 01/17/17 01/17/17 01/17/17 07:00 15:00 23:00 07:00 15:00 23:00 Intake Total 480 ml 840 ml 0 ml Balance 480 ml 840 ml 0 ml Intake Oral 480 ml 840 ml 0 ml # Voids 1 8 1 # Bowel Movements 0 0 0 Result Diagram: 01/17/17 0624 01/17/17 0624 Other Results Laboratory Tests Test 01/17/17 06:24 Prothrombin Time 10.3 SEC (9.8-11.6) Prothromb Time International 0.9 RATIO Ratio Objective Remarks Cylinder cast on. Freely able to move ankle and toes. 2 finger depth felt between cast and skin. NVI Assessment & Plan Problem List: (1) Displaced transverse fracture of left patella, initial encounter for closed fracture (2) Fall (3) Rhabdomyolysis (4) Dehydration (5) COPD (chronic obstructive pulmonary disease) (6) Anxiety and depression (7) Anxiety Assessment and Plan Displaced fracture of left patella - treated non operatively per patient request , see previous note. Cast precautions. Non w/b LLE. Xarelto for DVT prophylaxis Continue pain control. F/U Dr Duong in 1-2 weeks upon discharge Clear for discharge from an orthopedic standpoint. Mary Kate Luna Jan 17, 2017 14:30
[2017-01-17] MEDS ORDERED: FAMOTIDINE 20 MG/2 ML VIAL ONE (14:48)
[2017-01-17] MEDS ORDERED: LIDOCAINE HCL 2% 50 ML VIAL OTHER ONE (15:39)
[2017-01-17] MEDS ORDERED: DO NOT ADM ANY ANTICOAGULANT DRUGS PRN (15:50)
--- NOTE | 2017-01-17 15:54 | HHI.PR ---
Subjective Remarks ALERT NO SOB AT REST Objective Vital Signs Date Time Temp Pulse Resp B/P Pulse Ox O2 Delivery O2 Flow Rate FiO2 01/17/17 13:10 16 01/17/17 12:00 98.8 78 18 128/63 99 01/17/17 08:41 99 Nasal Cannula 3.00 01/17/17 08:27 Nasal Cannula 3.00 Humidified 01/17/17 08:00 99.1 77 17 146/65 100 01/17/17 04:00 96.2 67 18 141/61 99 01/17/17 00:05 97.8 77 18 137/58 98 01/16/17 20:02 96 Nasal Cannula 3.00 Humidified 01/16/17 20:00 99.0 86 18 179/74 96 01/16/17 16:00 97.8 92 18 155/70 98 I/O 01/16/17 01/16/17 01/16/17 01/17/17 01/17/17 01/17/17 07:00 15:00 23:00 07:00 15:00 23:00 Intake Total 480 ml 840 ml 0 ml Balance 480 ml 840 ml 0 ml Intake Oral 480 ml 840 ml 0 ml # Voids 1 8 1 # Bowel Movements 0 0 0 Result Diagram: 01/17/1762301/17/1724 Objective Remarks GENERAL: SKIN: Warm and dry. HEAD: Atraumatic. Normocephalic. EYES: Pupils equal and round. No scleral icterus. No injection or drainage. ENT: No nasal bleeding or discharge. Mucous membranes pink and moist. NECK: Trachea midline. No JVD. CARDIOVASCULAR: Regular rate and rhythm. RESPIRATORY: No accessory muscle use. Clear to auscultation. Breath sounds equal bilaterally. GASTROINTESTINAL: Abdomen soft, non-tender, nondistended. Hepatic and splenic margins not palpable. MUSCULOSKELETAL: Extremities without clubbing, cyanosis, or edema. No obvious deformities. NEUROLOGICAL: Awake and alert. No obvious cranial nerve deficits. Motor grossly within normal limits. Five out of 5 muscle strength in the arms and legs. Normal speech. PSYCHIATRIC: Appropriate mood and affect; insight and judgment normal. Assessment and Plan Assessment and Plan ASS: LUNG MASS COPD PLAN: BRONCHOSCOPY today Ary Mcallister MD Jan 17, 2017 15:54
[2017-01-17] MEDS ORDERED: *RESP: ALBUTEROL 2.5 MG/3 ML NEB (PRN) PERIprocedural Use ONLY NEB ONE (15:59)
--- NOTE | 2017-01-17 16:33 | M6 ---
cc: ARY MCALLISTER DATE: 01/17/2017 PROCEDURE PREFORMED: Fiberoptic bronchoscopy flexible. REASON FOR BRONCHOSCOPY: Left upper lobe lung mass underlying malignancy suspect. PROCEDURE: Fiberoptic bronchoscopy performed via LMA. Vocal cords intact. Trachea mildly hyperemic. Mai sharp. Right mainstem bronchus, right upper, middle and lower lobes, no obstruction or mass lesion. The left main bronchus, left upper lower lobes no obstruction or mass lesion. Washings obtained from the left upper lung lobe for cytological examination as well as cultures. Cytological brush biopsy obtained for left upper lobe as well for cytological exam procedure well tolerated. The patient transferred recovery in stable condition. IMPRESSION 1. Mild tracheobronchitis 2. No obstruction or mass lesion. 3. Samples obtained as above 4. Procedure well tolerated. 5. Patient transferred recovery stable condition. Ary Mcallister MD WWW/patricia /3:59 PM /4:30 PM
[2017-01-17] MEDS: traZODone HCL 50 MG TAB PO SCH (21:18)
[2017-01-18] MEDS: oxyCODONE/ACETAMINOPHEN 10 MG/325 MG TAB PO PRN ×6 (01:21→21:47)
[2017-01-18] MEDS: ALPRAZolam 0.5 MG TAB PO PRN ×2 (01:21→09:24)
[2017-01-18] MEDS: RESP: ALBUTEROL 2.5 MG/IPRATROPIUM 0.5 MG NEB (SCH) INH ×4 (04:00→21:38)
[2017-01-18] MEDS: LEVOTHYROXINE SODIUM 112 MCG TAB PO SCH (05:39)
[2017-01-18 06:10] VITALS: O2SAT 98
[2017-01-18 06:58] LABS: BICARBONATE 37.7 MEQ/L (21.0-32.0); POTASSIUM 3.3 MEQ/L (3.5-5.1)
[2017-01-18 07:01] LABS: HEMATOCRIT 28.5 % (35.0-46.0); MEAN CELL VOLUME 94.7 FL (80.0-100.0); MEAN CORPUSCULAR HEMOGLOBIN 31.2 PG (27.0-34.0); PLATELET COUNT 346 TH/MM3 (150-450); RED BLOOD COUNT 3.01 MIL/MM3 (4.00-5.30); REVIEW FLAG FINAL; WHITE BLOOD COUNT 9.5 TH/MM3 (4.0-11.0)
[2017-01-18 08:00] VITALS: BP 141/64; PULSE 77; RESP 18; TEMP 97.5; O2SAT 99
[2017-01-18] MEDS ORDERED: POTASSIUM CHLORIDE 10 MEQ CONTROLLED RELEASE TAB PO ONE (08:30)
[2017-01-18 09:00] VITALS: O2SAT 98
[2017-01-18] MEDS: FLUTICASONE 100 MCG/VILANTEROL 25 MCG INHALER INH SCH (09:00)
[2017-01-18] MEDS: SODIUM CHLORIDE 0.9% FLUSH 10 ML FLUSH IV FLUSH SCH ×2 (09:00→21:47)
[2017-01-18] MEDS: DOCUSATE SODIUM 50 MG/SENNA 8.6 MG TAB PO SCH ×2 (09:00→21:46)
[2017-01-18] MEDS: RIVAROXABAN 10 MG TAB PO SCH (09:00)
[2017-01-18] MEDS: MULTIVIT/MIN/PREN/FOL AC/IRON PRENATAL TAB PO SCH (09:19)
[2017-01-18] MEDS: FLUoxetine HCL 20 MG CAP PO SCH (09:19)
[2017-01-18] MEDS: AZITHROMYCIN 250 MG TAB PO SCH (09:20)
[2017-01-18] MEDS: LISINOPRIL 10 MG TAB PO SCH ×2 (09:20→21:46)
[2017-01-18] MEDS: CLOPIDOGREL 75 MG TAB PO SCH (09:20)
[2017-01-18] MEDS: predniSONE 10 MG TAB PO SCH (09:20)
--- NOTE | 2017-01-18 11:14 | HHI.PR ---
Subjective Remarks Status post bronchoscopy yesterday afternoon. Patient complains a sore throat and some coughing. The symptoms are normal status post procedure. No other new complaints today. She has potential to discharge in 1-2 days unless biopsy results are needed prior to discharge. Objective Vital Signs Date Time Temp Pulse Resp B/P Pulse Ox O2 Delivery O2 Flow Rate FiO2 01/18/17 09:00 98 Nasal Cannula 3.00 01/18/17 08:00 97.5 77 18 141/64 99 01/18/17 06:10 98 Nasal Cannula 3.00 01/17/17 23:52 98.3 79 18 124/63 97 01/17/17 20:48 98.1 81 17 144/67 97 01/17/17 20:31 96 Nasal Cannula 3.00 01/17/17 20:00 97 Nasal Cannula 3.00 01/17/17 18:58 16 01/17/17 16:30 97.6 84 16 127/58 98 Nasal Cannula 3 01/17/17 16:15 86 15 132/59 98 Nasal Cannula 3 01/17/17 16:00 98.7 86 18 159/73 94 01/17/17 16:00 93 14 137/64 97 Nasal Cannula 3 01/17/17 15:50 97.9 98 13 137/64 96 Nasal Cannula 3 01/17/17 12:00 98.8 78 18 128/63 99 I/O 01/17/17 01/17/17 01/17/17 01/18/17 01/18/17 01/18/17 07:00 15:00 23:00 07:00 15:00 23:00 Intake Total 0 ml 830 ml 360 ml Output Total 5 ml Balance 0 ml 825 ml 360 ml Intake Oral 0 ml 480 ml 360 ml IV Total 50 ml Other 300 ml Output Estimated Blood Loss 5 ml # Voids 1 13 1 # Bowel Movements 0 0 0 Result Diagram: 01/18/1728 01/18/17527 Objective Remarks GENERAL: NAD, A&Ox3 HEAD: Normocephalic. NECK: Supple, trachea midline. No lymphadenopathy. EYES: No scleral icterus. No injection or drainage. CARDIOVASCULAR: Regular rate and rhythm without murmurs, gallops, or rubs. RESPIRATORY: Breath sounds equal bilaterally. No accessory muscle use. GASTROINTESTINAL: Abdomen soft, non-tender, nondistended. MUSCULOSKELETAL: No cyanosis, or edema. Left leg casted SKIN: Warm and dry. NEURO: No focal neurological deficitis. A/P Problem List: (1) Displaced transverse fracture of left patella, initial encounter for closed fracture ICD Code: S82.032A (2) Left patella fracture ICD Code: S82.002A (3) Fall ICD Code: W19.XXXA (4) Anxiety and depression ICD Code: F41.9 Assessment and Plan Assessment and plan 71-year-old female admitted secondary to a fall with a left patella fracture. Status post casting, not a surgical candidate and patient declined surgery. Continue physical therapy. Bronchoscopy completed yesterday. Patient recovering well from bronchoscopy. Continuing to work with PT. Monitor respiratory status post procedure. Dehydration Rhabdomyolysis Resolved Follow renal function Follow CPK IV hydration Hypokalemia Follow potassium levels Replace as needed Lung mass CT chest with contrast shows an enlarging mass Pulmonology consult to aid in further workup COPD Nicotine dependence NicoDerm as needed Continue breathing treatments at baseline doses No COPD exacerbation DVT prophylaxis Patient is on Xarelto Discharge planning Potential discharge in 1-2 days if pathology can be followed as an outpatient. Problem Qualifiers (1) Left patella fracture: Qualified Code: S82.032A - Closed displaced transverse fracture of left patella , initial encounter Rodriguez Cooper MD Jan 18, 2017 11:14 am
[2017-01-18 12:00] VITALS: BP 146/68; PULSE 89; RESP 18; TEMP 98.7; O2SAT 98
--- NOTE | 2017-01-18 15:46 | HHI.PR ---
Subjective Remarks ALERT NO SOB AT REST Objective Vital Signs Date Time Temp Pulse Resp B/P Pulse Ox O2 Delivery O2 Flow Rate FiO2 01/18/17 12:00 98.7 89 18 146/68 98 01/18/17 09:00 98 Nasal Cannula 3.00 01/18/17 08:00 97.5 77 18 141/64 99 01/18/17 06:10 98 Nasal Cannula 3.00 01/17/17 23:52 98.3 79 18 124/63 97 01/17/17 20:48 98.1 81 17 144/67 97 01/17/17 20:31 96 Nasal Cannula 3.00 01/17/17 20:00 97 Nasal Cannula 3.00 01/17/17 18:58 16 01/17/17 16:30 97.6 84 16 127/58 98 Nasal Cannula 3 01/17/17 16:15 86 15 132/59 98 Nasal Cannula 3 01/17/17 16:00 98.7 86 18 159/73 94 01/17/17 16:00 93 14 137/64 97 Nasal Cannula 3 01/17/17 15:50 97.9 98 13 137/64 96 Nasal Cannula 3 I/O 01/17/17 01/17/17 01/17/17 01/18/17 01/18/17 01/18/17 07:00 15:00 23:00 07:00 15:00 23:00 Intake Total 0 ml 830 ml 360 ml Output Total 5 ml Balance 0 ml 825 ml 360 ml Intake Oral 0 ml 480 ml 360 ml IV Total 50 ml Other 300 ml Output Estimated Blood Loss 5 ml # Voids 1 13 1 # Bowel Movements 0 0 0 Result Diagram: 01/18/1728 01/18/17527 Objective Remarks GENERAL: SKIN: Warm and dry. HEAD: Atraumatic. Normocephalic. EYES: Pupils equal and round. No scleral icterus. No injection or drainage. ENT: No nasal bleeding or discharge. Mucous membranes pink and moist. NECK: Trachea midline. No JVD. CARDIOVASCULAR: Regular rate and rhythm. RESPIRATORY: No accessory muscle use. Clear to auscultation. Breath sounds equal bilaterally. GASTROINTESTINAL: Abdomen soft, non-tender, nondistended. Hepatic and splenic margins not palpable. MUSCULOSKELETAL: Extremities without clubbing, cyanosis, or edema. No obvious deformities. NEUROLOGICAL: Awake and alert. No obvious cranial nerve deficits. Motor grossly within normal limits. Five out of 5 muscle strength in the arms and legs. Normal speech. PSYCHIATRIC: Appropriate mood and affect; insight and judgment normal. Assessment and Plan Assessment and Plan ASS: LUNG MASS COPD PLAN: TOLERATED BRONCHOSCOPY WELL RESULTS PENDING Ary Mcallister MD Jan 18, 2017 15:45
[2017-01-18 16:00] VITALS: BP 149/66; PULSE 83; RESP 18; TEMP 98.6; O2SAT 98
[2017-01-18 19:17] VITALS: BP 139/66; PULSE 83; RESP 18; TEMP 97.9; O2SAT 98
[2017-01-18] MEDS: POTASSIUM CHLORIDE 10 MEQ CONTROLLED RELEASE TAB PO SCH (21:46)
[2017-01-18] MEDS: traZODone HCL 50 MG TAB PO SCH (21:47)
[2017-01-19 00:26] VITALS: BP 148/67; PULSE 79; RESP 18; TEMP 96.7; O2SAT 99
[2017-01-19] MEDS: ALPRAZolam 0.5 MG TAB PO PRN ×2 (02:29→11:32)
[2017-01-19] MEDS: oxyCODONE/ACETAMINOPHEN 10 MG/325 MG TAB PO PRN ×3 (02:31→14:41)
[2017-01-19] MEDS: RESP: ALBUTEROL 2.5 MG/IPRATROPIUM 0.5 MG NEB (SCH) INH ×2 (04:00→09:36)
[2017-01-19] MEDS: LEVOTHYROXINE SODIUM 112 MCG TAB PO SCH (06:39)
[2017-01-19] MEDS: oxyCODONE/ACETAMINOPHEN 5 MG/325 MG TAB PO PRN (06:40)
[2017-01-19 07:08] LABS: HEMATOCRIT 30.2 % (35.0-46.0); MEAN CELL VOLUME 94.4 FL (80.0-100.0); MEAN CORPUSCULAR HEMOGLOBIN 30.9 PG (27.0-34.0); MEAN CORPUSCULAR HGB CONC 32.7 % (32.0-36.0); PLATELET COUNT 379 TH/MM3 (150-450); RED CELL DISTRIBUTION WIDTH 15.1 % (11.6-17.2); REVIEW FLAG FINAL; WHITE BLOOD COUNT 8.4 TH/MM3 (4.0-11.0)
[2017-01-19 07:34] LABS: BICARBONATE 35.7 MEQ/L (21.0-32.0); POTASSIUM 4.1 MEQ/L (3.5-5.1)
[2017-01-19 08:00] VITALS: BP 147/67; PULSE 83; RESP 18; TEMP 97.5; O2SAT 97
[2017-01-19] MEDS: DOCUSATE SODIUM 50 MG/SENNA 8.6 MG TAB PO SCH (09:00)
[2017-01-19] MEDS: SODIUM CHLORIDE 0.9% FLUSH 10 ML FLUSH IV FLUSH SCH (09:00)
[2017-01-19] MEDS: FLUTICASONE 100 MCG/VILANTEROL 25 MCG INHALER INH SCH (09:00)
[2017-01-19 09:37] VITALS: O2SAT 98
[2017-01-19] MEDS: POTASSIUM CHLORIDE 10 MEQ CONTROLLED RELEASE TAB PO SCH (10:25)
[2017-01-19] MEDS: CLOPIDOGREL 75 MG TAB PO SCH (10:25)
[2017-01-19] MEDS: RIVAROXABAN 10 MG TAB PO SCH (10:26)
[2017-01-19] MEDS: MULTIVIT/MIN/PREN/FOL AC/IRON PRENATAL TAB PO SCH (10:26)
[2017-01-19] MEDS: FLUoxetine HCL 20 MG CAP PO SCH (10:26)
[2017-01-19] MEDS: predniSONE 10 MG TAB PO SCH (10:26)
[2017-01-19] MEDS: LISINOPRIL 10 MG TAB PO SCH (10:26)
[2017-01-19] MEDS ORDERED: SENN8.6T15 PO (10:59)
[2017-01-19] MEDS ORDERED: OXYC1TAB36 PO (10:59)
[2017-01-19] MEDS ORDERED: COLA100C PO (10:59)
[2017-01-19] MEDS ORDERED: CETI-1 PO (10:59)
--- NOTE | 2017-01-19 11:04 | HHI.DS ---
Discharge Summary Admission Date Jan 14, 2017 at 7:38 pm Discharge Date: Jan 19, 2017 Admitting Diagnosis left patella fracture, rhabdomyolosis, dehydration (1) Displaced transverse fracture of left patella, initial encounter for closed fracture ICD Code: S82.032A Diagnosis: Principal (2) Fall ICD Code: W19.XXXA Diagnosis: Principal (3) Dehydration ICD Code: E86.0 Diagnosis: Secondary (4) Rhabdomyolysis ICD Code: M62.82 Diagnosis: Secondary (5) Hypokalemia ICD Code: E87.6 Diagnosis: Secondary (6) Lung mass ICD Code: R91.8 Diagnosis: Secondary (7) COPD (chronic obstructive pulmonary disease) ICD Code: J44.9 Diagnosis: Secondary (8) Tobacco abuse ICD Code: Z72.0 Diagnosis: Secondary Procedures Bronchoscopy Left leg casted Brief History - From Admission This is a 71-year-old female with a PMH of Anxiety, Depression, HTN, COPD, h/o Mesenteric Artery Stent and Tobacco Abuse who was brought to the ER by EMS after being found down in [facility]. Pt poor historian, but states she drank some [employer] Spiced Rum, unknown amount, had gotten up to go to restroom and had fall at home w/ injury to left knee, unable to get up. Initially reported being down for 2-3 days, later 5-6 days, now tells me she was down for 7-8 days. States she drank nasal saline to keep hydrated and was able to get her hands on a bottle of water underneath her couch. Ultimately found by staff member at [facility] who called EMS. Per EMS pt covered in urine and feces. On arrival, BP 152/69, HR 87, O2 sat 88% on RA, Afebrile. O2 sat currently 100% on 3L NC. WBC 12.4. K+ 3.4. GFR 63. CPK 1108. INR 0.9. UA negative. CXR with FRANCI mass and old fractures. Left Knee X-ray w/ complete patellar fracture. Ortho consulted by ER physician. CBC/BMP: 01/19/17 0639 01/19/17 0639 Significant Findings Laboratory Tests Test 7/18/17 7/19/17 7/20/17 06:24 05:28 06:39 Red Blood Count 3.06 MIL/MM3 3.01 MIL/MM3 3.20 MIL/MM3 (4.00-5.30) (4.00-5.30) (4.00-5.30) Hemoglobin 9.6 GM/DL 9.4 GM/DL 9.9 GM/DL (11.6-15.3) (11.6-15.3) (11.6-15.3) Hematocrit 28.8 % 28.5 % 30.2 % (35.0-46.0) (35.0-46.0) (35.0-46.0) Potassium Level 3.3 MEQ/L 3.3 MEQ/L (3.5-5.1) (3.5-5.1) Chloride Level 94 MEQ/L 94 MEQ/L 96 MEQ/L (98-107) (98-107) (98-107) Carbon Dioxide Level 36.9 MEQ/L 37.7 MEQ/L 35.7 MEQ/L (21.0-32.0) (21.0-32.0) (21.0-32.0) Creatinine 0.49 MG/DL (0.50-1.00) Anion Gap 4 MEQ/L (5-15) 4 MEQ/L (5-15) Calcium Level 8.4 MG/DL (8.5-10.1) Hospital Course Mrs. Munoz is a 71-year-old female. She is here status post fall and a fracture of her left patella. She refused surgery and she has severe COPD. Casting of the left leg has occurred. She is working with PT. Further workup of a enlarging chest mass was also done. She had bronchoscopy while here. She has a prior needle biopsy which did not show a positive finding, and which caused her a collapsed lung. She was monitored for 24 hours after bronchoscopy and her respiratory status is now stable. Medically clear for discharge today. She will discharge to alf facility for further rehabilitation in caring regarding her left leg injury in cast. Pt Condition on Discharge: Stable Discharge Disposition: Discharge to SNF Discharge Time: > 30 minutes Discharge Instructions DIET: Follow Instructions for: As Tolerated, No Restrictions Activities you can perform: Non Weight Bearing Activities to Avoid: Lifting/Bending Follow up Referrals: Orthopedics - 1 Week @ [facility] with Chato Duong MD Pulmonology - 1 Week New Medications: Cetirizine HCl (Zyrtec) 10 Mg Tablet 10 MG PO DAILY PRN ALLERGIES #30 TAB Docusate Sodium (Colace) 100 Mg Capsule 1 TAB PO BID PRN CONSTIPATION #60 TAB Oxycodone-Acetaminophen (Oxycodone-Acetaminophen) 10-325 mg Tab 1 TAB PO Q6HR PRN Pain 4 to 10 #90 TAB Rivaroxaban (Xarelto) 10 Mg Tab 10 MG PO DAILY Prevent Blood Clot #20 TAB Sennosides (Senna Lax) 8.6 Mg Tab 17.2 MG PO Q12H PRN MODERATE - SEVERE CONSTIPATION #30 TAB Continued Medications: Alprazolam (Alprazolam) 0.5 Mg Tab 0.5 MG PO Q8HR PRN ANXIETY #7 Ref 0 TAB Amlodipine (Amlodipine) 10 Mg Tab 10 MG PO DAILY Blood Pressure Management #30 Ref 0 TAB Azithromycin (Zithromax) 250 Mg Tab 250 MG PO MoWeFr Infection Ref 0 TAB Benazepril (Benazepril) 10 Mg Tab 10 MG PO BID Blood Pressure Management #60 Ref 0 TAB Clopidogrel (Clopidogrel) 75 Mg Tab 75 MG PO DAILY Blood Clot Prevention #30 Ref 0 TAB Fluoxetine (Fluoxetine) 20 Mg Tab 20 MG PO DAILY #30 Ref 0 TAB Fluticasone-Vilanterol Inh (Breo Ellipta Inh) 100-25 Mcg/Act Inh 1 PUFF INH DAILY Use daily at the same time. #1 Ref 0 INHALER Ipratropium-Albuterol Neb (Duoneb) 0.5-2.5 Mg/3 Ml Neb 1 NEBULE INH Q6HR NEB Breathing Treatment #120 Ref 0 NEBULE Levothyroxine (Levothyroxine) 112 Mcg Tab 112 MCG PO DAILY #30 Ref 0 TAB Multivit-Min/Iron/Folic/Lutein (Centrum Silver Women Tablet) 1 Each Tablet 1 TAB PO DAILY Prednisone (Prednisone) 10 Mg Tab 10 MG PO DAILY Ref 0 TAB Trazodone (Trazodone) 50 Mg Tab 50 MG PO HS Control Depression #30 Ref 0 TAB Discontinued Medications: Hydrocodone-Acetaminophen (Hydrocodone-Acetaminophen) 7.5-325 mg Tab 1 TAB PO Q6H PRN PAIN #10 Ref 0 TAB Cooper,Rodriguez C MD Jan 19, 2017 11:04 am
[2017-01-19 12:00] VITALS: BP 155/65; PULSE 91; RESP 20; TEMP 98.1; O2SAT 96
--- NOTE | 2017-01-19 15:20 | HHI.PR ---
Subjective Remarks ALERT NO SOB AT REST Objective Vital Signs Date Time Temp Pulse Resp B/P Pulse Ox O2 Delivery O2 Flow Rate FiO2 01/19/17 12:00 98.1 91 20 155/65 96 01/19/17 11:36 18 01/19/17 09:37 98 Nasal Cannula 2.00 01/19/17 08:00 97.5 83 18 147/67 97 01/19/17 00:26 96.7 79 18 148/67 99 01/18/17 21:40 Nasal Cannula 3.00 01/18/17 20:00 98 Nasal Cannula 3.00 01/18/17 19:17 97.9 83 18 139/66 98 01/18/17 16:00 98.6 83 18 149/66 98 I/O 01/18/17 01/18/17 01/18/17 01/19/17 01/19/17 01/19/17 06:59 14:59 22:59 06:59 14:59 22:59 Intake Total 360 ml 770 ml 720 ml 360 ml Balance 360 ml 770 ml 720 ml 360 ml Intake Oral 360 ml 770 ml 720 ml 360 ml # Voids 1 4 5 3 # Bowel Movements 0 0 0 0 Result Diagram: 01/19/1739 01/19/1739 Objective Remarks GENERAL: SKIN: Warm and dry. HEAD: Atraumatic. Normocephalic. EYES: Pupils equal and round. No scleral icterus. No injection or drainage. ENT: No nasal bleeding or discharge. Mucous membranes pink and moist. NECK: Trachea midline. No JVD. CARDIOVASCULAR: Regular rate and rhythm. RESPIRATORY: No accessory muscle use. Clear to auscultation. Breath sounds equal bilaterally. GASTROINTESTINAL: Abdomen soft, non-tender, nondistended. Hepatic and splenic margins not palpable. MUSCULOSKELETAL: Extremities without clubbing, cyanosis, or edema. No obvious deformities. NEUROLOGICAL: Awake and alert. No obvious cranial nerve deficits. Motor grossly within normal limits. Five out of 5 muscle strength in the arms and legs. Normal speech. PSYCHIATRIC: Appropriate mood and affect; insight and judgment normal. Assessment and Plan Assessment and Plan ASS: LUNG MASS COPD PLAN: TOLERATED BRONCHOSCOPY WELL RESULTS PENDING Ary Mcallister MD Jan 19, 2017 15:20
[2017-01-19] MEDS ORDERED: ALPR0.5T3 PO (15:45)
[2017-01-19 16:00] VITALS: BP 166/69; PULSE 90; RESP 20; TEMP 99.3; O2SAT 98
== END 2017-01-19 17:36 | DRG 988 ==
LOC: NEPC 13:36 → NEDH 19:38 → N06B 21:53
PROVIDERS: ADMIT Hospitalist; ATTEND Hospitalist
PROC: 0BBG8ZX Excision of Left Upper Lung Lobe, Via Natural or Artificial Opening Endoscopic, Diagnostic (ICD-10-PCS; principal; 2017-01-17 15:21)
DX: S82.032A Displaced transverse fracture of left patella, initial encounter for closed fracture (principal); J96.10 Chronic respiratory failure, unspecified whether with hypoxia or hypercapnia; M62.82 Rhabdomyolysis; J44.9 Chronic obstructive pulmonary disease, unspecified; E86.0 Dehydration; E87.6 Hypokalemia; I10 Essential (primary) hypertension; J40 Bronchitis, not specified as acute or chronic; E03.9 Hypothyroidism, unspecified; G89.29 Other chronic pain; M54.9 Dorsalgia, unspecified; M85.862 Other specified disorders of bone density and structure, left lower leg; J02.9 Acute pharyngitis, unspecified; M19.90 Unspecified osteoarthritis, unspecified site; F17.200 Nicotine dependence, unspecified, uncomplicated; F32.9 Major depressive disorder, single episode, unspecified; F41.9 Anxiety disorder, unspecified; W01.190A Fall on same level from slipping, tripping and stumbling with subsequent striking against furniture, initial encounter; Y92.009 Unspecified place in unspecified non-institutional (private) residence as the place of occurrence of the external cause; Z79.01 Long term (current) use of anticoagulants; Z53.20 Procedure and treatment not carried out because of patient's decision for unspecified reasons
CPT/HCPCS: 70450; 71010; 71260; 73502; 73564; 80048; 80053; 81001; 82550; 82552; 83735; 85025; 85027; 85610; 85730; 87015; 87070; 87077; 87102; 87116; 87186; 87205; 87206; 88112; 88305; 93005; 94640; 94664; 96361; 96374; 96375; J2270; J2405; J7030; J7512; J7613; L1830; P9612; Q9967

== ENCOUNTER 2017-08-18 17:21 | Emergency (ER) | payer MEDICARE ==
[~2017-08-18 17:21] MED LIST changes: -AZIT250T3 PO; -CENTTAB PO; +CETI-1 PO; +COLA100C5 PO; -HYDR-3580 PO; +LEVO-168 PO; -LEVO100T5 PO; +MULT1TAB61 PO; +OXYC1TAB36 PO; -PRED10PA PO; +SENN1TAB27 PO; +XARE10TA PO; +ZITH250T PO
[2017-08-18 17:25] VITALS: BP 150/72; PULSE 98; RESP 18; TEMP 97.6; O2SAT 97
[2017-08-18 18:44] VITALS: BP 117/53; PULSE 98; RESP 20; O2SAT 96
[2017-08-18 19:00] VITALS: PULSE 95; RESP 20; O2SAT 96
--- NOTE | 2017-08-18 19:15 | PD ---
HPI Chief Complaint: Alcohol/Drug Intoxication Time Seen by Provider: 18:56 Travel History International Travel<30 days: No Contact w/Intl Traveler<30days: No Traveled to known affect area: No History of Present Illness HPI 72-year-old female was brought in by EMS for intoxication. Patient admit to drinking alcohol today. Patient was feeling dizzy. Patient states that she accidentally activated her life alert. EMS came to the scene. Patient was transferred to the ED for evaluation. Patient has no complaint now. Patient denies any headache. Patient denies any chest pain or shortness of breath. Patient denies abdominal pain. Patient denies any focal weakness or numbness of the extremity. Patient states that she had blood test done by her primary physician a week ago. Patient stated that no new medication and nothing change. PFSH Past Medical History Arthritis: Yes Asthma: No Anxiety: Yes Depression: Yes Heart Rhythm Problems: No Cancer: No Cardiovascular Problems: Yes High Cholesterol: No Chemotherapy: No Chest Pain: No Congestive Heart Failure: No COPD: Yes Cerebrovascular Accident: No Coronary Artery Disease: No Diabetes: No Diminished Hearing: No Endocrine: Yes Gastrointestinal Disorders: Yes (DIVERTICULOSIS, COLITIS) GERD: No Genitourinary: No Hepatitis: No Hiatal Hernia: No Hypertension: Yes Immune Disorder: No Musculoskeletal: Yes ( DEGENERATIVE DISC DISEASE) Neurologic: Yes Psychiatric: Yes Reproductive: No Respiratory: Yes Migraines: Yes (ON OCC.) Radiation Therapy: No Seizures: No Sleep Apnea: No Thyroid Disease: Yes (HYPOTHYROID) Ulcer: No ?: Not Menopausal: Yes Past Surgical History Abdominal Surgery: No AICD: No Cardiac Surgery: No Ear Surgery: Yes Endocrine Surgery: No Eye Surgery: Yes (ayo CATARACT SURGERY) Genitourinary Surgery: No Gynecologic Surgery: Yes (D&C) Joint Replacement: No Oral Surgery: Yes (ORAL SURGERY) Pacemaker: No Thoracic Surgery: No Other Surgery: Yes Social History Alcohol Use: Yes (OCC) Tobacco Use: Yes Substance Use: No Allergies-Medications (Allergen,Severity, Reaction): Coded Allergies: No Known Allergies (Verified , 10/18/16) Reported Meds & Prescriptions Reported Meds & Active Scripts Active Alprazolam 0.5 Mg Tab 0.5 Mg PO Q8HR PRN Zyrtec (Cetirizine HCl) 10 Mg Tablet 10 Mg PO DAILY PRN Oxycodone-Acetaminophen 10-325 mg Tab 1 Tab PO Q6HR PRN Colace (Docusate Sodium) 100 Mg Capsule 1 Tab PO BID PRN Senna Lax (Sennosides) 8.6 Mg Tab 17.2 Mg PO Q12H PRN Xarelto (Rivaroxaban) 10 Mg Tab 10 Mg PO DAILY Trazodone (Trazodone HCl) 50 Mg Tab 50 Mg PO HS Reported Zithromax (Azithromycin) 250 Mg Tab 250 Mg PO MOWEFR Levothyroxine (Levothyroxine Sodium) 112 Mcg Tab 112 Mcg PO DAILY Centrum Silver Women Tablet (Multivit-Min/Iron/Folic/Lutein) 1 Each Tablet 1 Tab PO DAILY Clopidogrel (Clopidogrel Bisulfate) 75 Mg Tab 75 Mg PO DAILY Benazepril (Benazepril HCl) 10 Mg Tab 10 Mg PO BID Fluoxetine (Fluoxetine HCl) 20 Mg Tab 20 Mg PO DAILY Amlodipine (Amlodipine Besylate) 10 Mg Tab 10 Mg PO DAILY Prednisone 10 Mg Tab 10 Mg PO DAILY Duoneb (Ipratropium-Albuterol Neb) 0.5-2.5 Mg/3 Ml Neb 1 Nebule INH Q6HR NEB Breo Ellipta Inh (Fluticasone/Vilanterol) 100-25 Mcg/Act Inh 1 Puff INH DAILY Use daily at the same time. Review of Systems General / Constitutional: No: Fever Eyes: No: Visual changes HENT: Positive: Lightheadedness, No: Headaches Cardiovascular: No: Chest Pain or Discomfort Respiratory: No: Shortness of Breath Gastrointestinal: No: Abdominal Pain Genitourinary: No: Dysuria Musculoskeletal: No: Pain Skin: No Rash Neurologic: No: Weakness Psychiatric: No: Depression Endocrine: No: Polydipsia Hematologic/Lymphatic: No: Easy Bruising Physical Exam Narrative GENERAL: Well-nourished, well-developed patient. SKIN: Focused skin assessment warm/dry. HEAD: Normocephalic. EYES: No scleral icterus. No injection or drainage. NECK: Supple, trachea midline. No JVD or lymphadenopathy. CARDIOVASCULAR: Regular rate and rhythm without murmurs, gallops, or rubs. RESPIRATORY: Breath sounds equal bilaterally. No accessory muscle use. GASTROINTESTINAL: Abdomen soft, non-tender, nondistended. MUSCULOSKELETAL: No cyanosis, or edema. BACK: Nontender without obvious deformity. No CVA tenderness. Neurologic exam: Patient is awake and alert oriented 3. No obvious focal neurological deficit. Data Data Last Documented VS Vital Signs Date Time Temp Pulse Resp B/P (MAP) Pulse Ox O2 Delivery O2 Flow Rate FiO2 08/18/17 18:44 98 20 117/53 (74) 96 Room Air 08/18/17 17:25 97.6 MDM Medical Decision Making Medical Screen Exam Complete: Yes Emergency Medical Condition: Yes Differential Diagnosis Differential diagnosis including alcohol intoxication, electrolyte imbalance, dehydration. Narrative Course 72-year-old female was brought in by EMS for intoxication. Patient is asymptomatic and has no complaint. Patient will be observed in the ED until she is awake alert oriented 3 and steady on her feet and safely to be discharged. Diagnosis Primary Impression: Alcohol intoxication Qualified Codes: F10.920 - Alcohol use, unspecified with intoxication, uncomplicated Patient Instructions: General Instructions Additional Instructions: Follow-up with local physician. Med/Other Pt SpecificInfo: No Change to Meds Disposition: 01 DISCHARGE HOME Condition: Stable Sree Lee MD Aug 18, 2017 19:15
[2017-08-18 23:05] VITALS: PULSE 94; RESP 22; O2SAT 97
== END 2017-08-19 09:32 | disposition home or self-care (01) ==
LOC: NEPD 17:21
DX: F10.920 Alcohol use, unspecified with intoxication, uncomplicated (principal); I10 Essential (primary) hypertension; E03.9 Hypothyroidism, unspecified; J44.9 Chronic obstructive pulmonary disease, unspecified; F41.8 Other specified anxiety disorders; Z72.0 Tobacco use; Z87.39 Personal history of other diseases of the musculoskeletal system and connective tissue; Z86.79 Personal history of other diseases of the circulatory system; Z87.19 Personal history of other diseases of the digestive system; Z86.69 Personal history of other diseases of the nervous system and sense organs
CPT/HCPCS: 99282

== ENCOUNTER 2017-10-13 10:13 | Inpatient (IN) | payer MEDICARE ==
[~2017-10-13] VITALS: Ht 152.4 cm; Wt 58.8 kg
[2017-10-13 10:19] VITALS: PULSE 108; RESP 33; TEMP 98.2; O2SAT 100
[2017-10-13 10:20] VITALS: O2SAT 99
[2017-10-13] MEDS ORDERED: RESP: ALBUTEROL 2.5 MG/3 ML NEB (SCH) INH ONE (11:00)
[2017-10-13] MEDS ORDERED: SODIUM CHLORIDE 0.9% FLUSH 10 ML FLUSH IVF PRN (11:00)
[2017-10-13] MEDS ORDERED: RESP: ALBUTEROL 2.5 MG/IPRATROPIUM 0.5 MG NEB (SCH) INH ONE (11:00)
[2017-10-13] MEDS ORDERED: ALPRAZolam 0.5 MG TAB PO ONE (11:00)
--- NOTE | 2017-10-13 11:14 | PD ---
HPI Chief Complaint: Respiratory Distress Time Seen by Provider: 10:57 Travel History International Travel<30 days: No Contact w/Intl Traveler<30days: No Traveled to known affect area: No History of Present Illness HPI 72-year-old female history of anxiety disorder, COPD, presents today with complaints of worsening shortness of breath. Patient states that over the last several days she has had progressive shortness of breath. She denies any fevers , chills. She reports using her nebulizers to no avail. When paramedics arrived, they administered 125 mg of Solu-Medrol. They also gave her 3 nebulizer treatments. Patient states she feels slightly better however still short of breath. Patient reports that she is bringing some phlegm up however is not sure if there is any color to it or not. Is no chest pain, chest pressure. There is no nausea vomiting or diaphoresis. PFSH Past Medical History Arthritis: Yes Asthma: No Anxiety: Yes Depression: Yes Heart Rhythm Problems: No Cancer: No Cardiovascular Problems: Yes High Cholesterol: No Chemotherapy: No Chest Pain: No Congestive Heart Failure: No COPD: Yes Cerebrovascular Accident: No Coronary Artery Disease: No Diabetes: No Diminished Hearing: No Endocrine: Yes Gastrointestinal Disorders: Yes (DIVERTICULOSIS, COLITIS) GERD: No Genitourinary: No Hepatitis: No Hiatal Hernia: No Hypertension: Yes Immune Disorder: No Musculoskeletal: Yes ( DEGENERATIVE DISC DISEASE) Neurologic: Yes Psychiatric: Yes Reproductive: No Respiratory: Yes Migraines: Yes (ON OCC.) Radiation Therapy: No Seizures: No Sleep Apnea: No Thyroid Disease: Yes (HYPOTHYROID) Ulcer: No Menopausal: Yes Past Surgical History Abdominal Surgery: No AICD: No Cardiac Surgery: No Ear Surgery: Yes Endocrine Surgery: No Eye Surgery: Yes (ayo CATARACT SURGERY) Genitourinary Surgery: No Gynecologic Surgery: Yes (D&C) Joint Replacement: No Oral Surgery: Yes (ORAL SURGERY) Pacemaker: No Thoracic Surgery: No Other Surgery: Yes Social History Alcohol Use: Yes (OCC) Tobacco Use: Yes Substance Use: No Allergies-Medications (Allergen,Severity, Reaction): Coded Allergies: No Known Allergies (Verified , 10/18/16) Reported Meds & Prescriptions Reported Meds & Active Scripts Active Alprazolam 0.5 Mg Tab 0.5 Mg PO Q8HR PRN Zyrtec (Cetirizine HCl) 10 Mg Tablet 10 Mg PO DAILY PRN Oxycodone-Acetaminophen 10-325 mg Tab 1 Tab PO Q6HR PRN Colace (Docusate Sodium) 100 Mg Capsule 1 Tab PO BID PRN Senna Lax (Sennosides) 8.6 Mg Tab 17.2 Mg PO Q12H PRN Xarelto (Rivaroxaban) 10 Mg Tab 10 Mg PO DAILY Trazodone (Trazodone HCl) 50 Mg Tab 50 Mg PO HS Reported Zithromax (Azithromycin) 250 Mg Tab 250 Mg PO MOWEFR Levothyroxine (Levothyroxine Sodium) 112 Mcg Tab 112 Mcg PO DAILY Centrum Silver Women Tablet (Multivit-Min/Iron/Folic/Lutein) 1 Each Tablet 1 Tab PO DAILY Clopidogrel (Clopidogrel Bisulfate) 75 Mg Tab 75 Mg PO DAILY Benazepril (Benazepril HCl) 10 Mg Tab 10 Mg PO BID Fluoxetine (Fluoxetine HCl) 20 Mg Tab 20 Mg PO DAILY Amlodipine (Amlodipine Besylate) 10 Mg Tab 10 Mg PO DAILY Prednisone 10 Mg Tab 10 Mg PO DAILY Duoneb (Ipratropium-Albuterol Neb) 0.5-2.5 Mg/3 Ml Neb 1 Nebule INH Q6HR NEB Breo Ellipta Inh (Fluticasone/Vilanterol) 100-25 Mcg/Act Inh 1 Puff INH DAILY Use daily at the same time. Review of Systems Except as stated in HPI: all other systems reviewed are Neg General / Constitutional: No: Fever, Chills HENT: No: Headaches, Lightheadedness, Neck Pain Cardiovascular: No: Chest Pain or Discomfort, Palpitations Respiratory: Positive: Cough, No: Shortness of Breath Gastrointestinal: No: Nausea, Vomiting, Abdominal Pain Genitourinary: No: Frequency, Dysuria Musculoskeletal: Positive: Weakness (Generalized), No: Pain Neurologic: Positive: Weakness, No: Dizziness, Headache (Generalized) Physical Exam Narrative GENERAL: Well-developed well nourished female in mild to moderate distress. SKIN: Focused skin assessment warm/dry. HEAD: Atraumatic. Normocephalic. EYES:No scleral icterus. No injection or drainage. ENT: No nasal bleeding or discharge. Mucous membranes pink and moist. NECK: Trachea midline. Supple. CARDIOVASCULAR: Regular rate and rhythm. No murmur appreciated. RESPIRATORY: Decreased breath sounds at the bilateral bases. Mild expiratory wheezes in the upper lung ortega. No rales appreciated GASTROINTESTINAL: Abdomen soft, non-tender, nondistended. Hepatic and splenic margins not palpable. MUSCULOSKELETAL: No obvious deformities. No clubbing. No cyanosis. No edema. NEUROLOGICAL: Awake and alert. No obvious cranial nerve deficits. Motor grossly within normal limits. Normal speech. Data Data Last Documented VS Vital Signs Date Time Temp Pulse Resp B/P (MAP) Pulse Ox O2 Delivery O2 Flow Rate FiO2 10/13/17 13:23 103 18 121/55 (77) 98 Nasal Cannula 2.00 10/13/17 10:19 98.2 Orders Orders Complete Blood Count With Diff (10/13/17 10:57) Basic Metabolic Panel (Bmp) (10/13/17 10:57) Ckmb (Isoenzyme) Profile (10/13/17 10:57) Troponin I (10/13/17 10:57) Iv Access Insert/Monitor (10/13/17 10:57) Ecg Monitoring (10/13/17 10:57) Oximetry (10/13/17 10:57) Oxygen Administration (10/13/17 10:57) Chest, Pa & Lat (10/13/17 10:57) Sodium Chloride 0.9% Flush (Ns Flush) (10/13/17 11:00) Albuterol-Ipratropium Neb (Duoneb Neb) (10/13/17 11:00) Albuterol Neb (Albuterol Neb) (10/13/17 11:00) Alprazolam (Xanax) (10/13/17 11:00) Electrocardiogram (10/13/17 10:24) Ct Thorax/ Chest W Iv Contrast (10/13/17 13:25) Admit Order (Ed Use Only) (10/13/17 14:06) Labs Laboratory Tests Test 10/13/17 10:50 White Blood Count 16.9 TH/MM3 Red Blood Count 3.86 MIL/MM3 Hemoglobin 12.3 GM/DL Hematocrit 37.3 % Mean Corpuscular Volume 96.8 FL Mean Corpuscular Hemoglobin 32.0 PG Mean Corpuscular Hemoglobin Concent 33.0 % Red Cell Distribution Width 13.9 % Platelet Count 415 TH/MM3 Mean Platelet Volume 7.9 FL Neutrophils (%) (Auto) 78.9 % Lymphocytes (%) (Auto) 17.8 % Monocytes (%) (Auto) 2.7 % Eosinophils (%) (Auto) 0.3 % Basophils (%) (Auto) 0.3 % Neutrophils # (Auto) 13.3 TH/MM3 Lymphocytes # (Auto) 3.0 TH/MM3 Monocytes # (Auto) 0.5 TH/MM3 Eosinophils # (Auto) 0.1 TH/MM3 Basophils # (Auto) 0.1 TH/MM3 CBC Comment DIFF FINAL Differential Comment Blood Urea Nitrogen 15 MG/DL Creatinine 0.71 MG/DL Random Glucose 120 MG/DL Calcium Level 9.1 MG/DL Sodium Level 138 MEQ/L Potassium Level 3.6 MEQ/L Chloride Level 98 MEQ/L Carbon Dioxide Level 32.8 MEQ/L Anion Gap 7 MEQ/L Estimat Glomerular Filtration Rate 80 ML/MIN Total Creatine Kinase 72 U/L Troponin I LESS THAN 0.02 NG/ML MDM Medical Decision Making Medical Screen Exam Complete: Yes Emergency Medical Condition: Yes Differential Diagnosis Pneumonia versus COPD versus pulmonary embolus Narrative Course 72-year-old female with a history of anxiety disorder, COPD, presents today with worsening shortness of breath. Patient states that she has been using her home nebulizers to no avail. Patient received 125 mg of Solu-Medrol via EMS. She was also given 3 nebulizer treatments. The patient has a mass on chest x- ray. This was initially not discussed with me by the patient. On reevaluation , patient states that she has had a left lung mass however was told it was not cancerous. Concern is that it is larger and appears to be neoplastic. She will be admitted to the hospital. Case was discussed with Dr. Freitas, resident for the admitting service. Disposition will be per her and the team. Diagnosis Primary Impression: COPD exacerbation Additional Impressions: Worsening lung mass Anxiety Admitting Information Admitting Physician Requests: Observation Shashi Hall MD Oct 13, 2017 11:14
[2017-10-13 11:24] LABS: AUTOMATED NEUTROPHIL # 13.3 TH/MM3 (1.8-7.7); BASOPHIL # 0.1 TH/MM3 (0-0.2); BASOPHIL % 0.3 % (0.0-2.0); EOSINOPHIL # 0.1 TH/MM3 (0-0.4); EOSINOPHIL % 0.3 % (0.0-4.0); HEMATOCRIT 37.3 % (35.0-46.0); HEMOGLOBIN 12.3 GM/DL (11.6-15.3); LYMPH % 17.8 % (9.0-44.0); MEAN CELL VOLUME 96.8 FL (80.0-100.0); MEAN PLATELET VOLUME 7.9 FL (7.0-11.0); MONO % 2.7 % (0.0-8.0); MONOCYTE # 0.5 TH/MM3 (0-0.9); NEUT % 78.9 % (16.0-70.0); PLATELET COUNT 415 TH/MM3 (150-450); RED BLOOD COUNT 3.86 MIL/MM3 (4.00-5.30); RED CELL DISTRIBUTION WIDTH 13.9 % (11.6-17.2); WHITE BLOOD COUNT 16.9 TH/MM3 (4.0-11.0)
--- NOTE | 2017-10-13 11:57 | RADRPT ---
EXAM DATE/TIME: 10/13/2017 11:18 [facility] COMPARISON: CT THORAX W CONTRAST, January 14, 2017, 21:31. INDICATIONS : PT complains of SOB with heaviness in her chest for one week. SURGICAL HISTORY : None. ENCOUNTER: Initial ACUITY: 1 week PAIN SCORE: 0/10 LOCATION: Bilateral chest FINDINGS: Nodule in the left apex has increased in size and now measures 2 cm. Right lung is clear except for scattered granulomas. The heart and pulmonary vascularity are normal. The portion of the bony skeleton visualized is unremarkable. CONCLUSION: Enlarging nodular mass left upper lobe suspicious for malignancy. Adolfo Fox MD FACR on October 13, 2017 at 11:50 Board Certified Radiologist. This report was verified electronically.
[2017-10-13 12:00] LABS: BICARBONATE 32.8 MEQ/L (21.0-32.0); BLOOD UREA NITROGEN 15 MG/DL (7-18); CALCIUM 9.1 MG/DL (8.5-10.1); CHLORIDE 98 MEQ/L (98-107); CREATININE 0.71 MG/DL (0.50-1.00); GLOMERULAR FILTRATION RATE 80 ML/MIN (>89); GLUCOSE,RANDOM 120 MG/DL (74-106); SODIUM (NA) 138 MEQ/L (136-145); TROPONIN I LESS THAN 0.02 NG/ML (0.02-0.05)
[2017-10-13 13:23] VITALS: BP 121/55; PULSE 103; RESP 18; O2SAT 98
[2017-10-13] MEDS ORDERED: IOHEXOL 350 MG/ML 10 ML VIAL (for RAD DIAG) IVCONTRAST ONE (14:09)
--- NOTE | 2017-10-13 15:00 | RADRPT ---
EXAM DATE/TIME: 10/13/2017 14:26 [facility] COMPARISON: CT ABDOMEN & PELVIS W CONTRAST, March 03, 2016, 20:18. CT PULMONARY ANGIOGRAM, February 27, 2016, 11:43. CT NEEDLE BIOPSY LUNG, LEFT, May 18, 2016, 9:28. CT THORAX W CONTRAST, January 14, 2017, 2 1:31. INDICATIONS : Increasing shortness of breath. IV CONTRAST: 66 cc Omnipaque 350 (iohexol) IV RADIATION DOSE: 8.22 CTDIvol (mGy) MEDICAL HISTORY : Cardiovascular disease. Hypertension. Hypothyroidism.Lung mass. SURGICAL HISTORY : None. ENCOUNTER: Initial ACUITY: 1 week PAIN SCALE: 0/10 LOCATION: chest TECHNIQUE: Volumetric scanning of the chest was performed. Using automated exposure control and adjustment of t he mA and/or kV according to patient size, radiation dose was kept as low as reasonably achievable to obtain optimal diagnostic quality images. DICOM format image data is available electronically for review and comparison. Follow-up recommendations for detected pulmonary nodules are based at a minimum on nodule size and pa tient risk factors according to Fleischner Society Guidelines. FINDINGS: LUNGS: The left upper lobe pulmonary nodule is stable in size compared to the previous CT of the chest dated 05/18/16 when this was biopsied. This nodule measures 1.6 x 1.5 x 2.5 cm. PET/CT scan may be helpful for further evaluation this nodule if pathology results are not concordant with imaging findings. Sc attered emphysematous changes are noted bilaterally. Calcified granulomas are also noted bilaterally. Biapical pleural thickening is noted. Right posterior basilar scarring is noted. PLEURA: There is no pleural thickening or pleural effusion. MEDIASTINUM: The heart and great vessels demonstrate no acute abnormality. There is no mediastinal or hilar lymph adenopathy. Coronary artery calcifications are noted. AXILLAE: Within normal limits. No lymphadenopathy. SKELETAL: Degenerative changes and scoliosis of the thoracolumbar spine are noted. MISCELLANEOUS: The visualized upper abdominal organs demonstrate no acute abnormality. 1.6 cm left renal cyst is not ed. CONCLUSION: 1. Left upper lobe pulmonary nodule is stable in size compared to the previous CT of the chest dated 05/18/16 when this was biopsied. This nodule measures 1.6 x 1.5 x 2.5 cm. PET/CT scan may be helpful for further evaluation this nodule if pathology results are not concordant with imaging findings. 2. Emphysematous changes bilaterally. 3. Granulomatous changes bilaterally. 4. Coronary artery calcifications. 5. Degenerative changes and scoliosis of the thoracolumbar spine 6. 1.6 cm left renal cyst. Ronnie Rodriguez MD on October 13, 2017 at 14:41 Board Certified Radiologist. This report was verified electronically.
[2017-10-13 15:32] VITALS: BP 145/63; PULSE 102; RESP 18; O2SAT 97
--- NOTE | 2017-10-13 15:47 | HHI.FPPN ---
Subjective Remarks 73 y/o F, hx of COPD, anxiety, incidental pulmonary mass, noticed she was extremely SOB today. She did at one point feel pre-syncopal; she was hot, sweaty , felt like she couldn't breath and a nearby friend called the ambulance. She states her breathing has been getting worse over the last couple weeks. SOB only occurs with activity. She does not wake up in the middle of the night with sx. When she has to do anything (even cough) she gets very SOB and labored breathing persists with increased RR noted to the 30s. This did NOT feel like a panic attack, pt says no way. Her SOB occurred at 9:00AM, and missed her appt with senior abap developer on [facility]. She last saw her senior abap developer 3 months ago, and she recently got a message that she was due for a CT f/u of the lung mass. She did not change her breathing medications recently. She continues to take her regular medications including Breo, Duoneb x 3 rx / day, prednisone 10mg daily, and rescue inhaler QID. She states she has been on this regimen "forever". No recent URI, no one around her has been sick. She is on 3L O2 at home. Denies any N/V. Denies CP. She admits to CP under her breasts. She has diverticulosis and has continued to have her regular spells of diarrhea. No blood in diarrhea Objective Vitals Vital Signs Date Time Temp Pulse Resp B/P (MAP) Pulse Ox O2 Delivery O2 Flow Rate FiO2 10/13/17 15:32 102 18 145/63 (90) 97 Nasal Cannula 2.00 10/13/17 13:23 103 18 121/55 (77) 98 Nasal Cannula 2.00 10/13/17 10:20 99 10/13/17 10:20 96 Nasal Cannula 2.00 10/13/17 10:20 99 Nasal Cannula 2.00 10/13/17 10:19 98.2 108 33 100 Result Diagram: 10/13/17 1050 10/13/17 1050 Alejandra Martini MD R2 Oct 13, 2017 15:47
--- NOTE | 2017-10-13 15:54 | HHI.HP ---
HPI Service Family Medicine Primary Care Physician Unknown Admission Diagnosis copd exacerbation, worsening lung mass. Diagnoses: International Travel<30 Days: No Contact w/Intl Traveler<30days: No Known Affected Area: No History of Present Illness 73 y/o F, hx of COPD, anxiety, incidental pulmonary mass, noticed she was extremely SOB today. She did at one point feel pre-syncopal; she was hot, sweaty , felt like she couldn't breath and a nearby friend called the ambulance. She states her breathing has been getting worse over the last couple weeks. SOB only occurs with activity. She does not wake up in the middle of the night with sx. When she has to do anything (even cough) she gets very SOB and labored breathing persists with increased RR noted to the 30s. This did NOT feel like a panic attack, pt says no way. Her SOB occurred at 9:00AM, and she missed her appt with it audit manager on [facility]. She last saw her it audit manager 3 months ago, and she recently got a message that she was due for a CT f/u of the lung mass. She did not change her breathing medications recently. She continues to take her regular medications including Breo, Duoneb x 3 rx / day, prednisone 10mg daily, and rescue inhaler QID. She states she has been on this regimen "forever". No recent URI, no one around her has been sick. She is on 3L O2 at home. Denies any N/V. Denies CP. She admits to "heaviness" under her breasts. She has diverticulosis and has continued to have her regular spells of diarrhea. No blood in diarrhea. (Alejandra Martini MD R2) Review of Systems Constitutional: DENIES: Weight gain, Weight loss Endocrine: DENIES: Polyuria Eyes: DENIES: Vision loss, Double Vision Ears, nose, mouth, throat: DENIES: Nasal discharge, Throat pain Respiratory: COMPLAINS OF: Cough, DENIES: Hemoptysis, Sputum production Cardiovascular: DENIES: Chest pain, Syncope, Lower Extremity Edema Gastrointestinal: DENIES: Bloody stools, Nausea, Vomiting Genitourinary: DENIES: Dysmenorrhea Musculoskeletal: DENIES: Back pain Integumentary: DENIES: Rash Neurologic: COMPLAINS OF: Headache (occasional), DENIES: Seizures Psychiatric: COMPLAINS OF: Depression (chronic), DENIES: Mood changes (Alejandra Martini MD R2) Past Family Social History Past Medical History COPD HTN Hypothyroidism Degenerative disc disease Diverticulitis, colitis Alcoholism? Chronic pain from arm fractures, unrepaired Past Surgical History stent placement in SMA - done at [facility], unknown date Needle biopsy of lung with resulting pneumothorax bronchoscopy - unknown results? (Alejandra Martini MD R2) Allergies: Coded Allergies: No Known Allergies (Verified , 10/18/16) Family History Brother at 48 of [place] Mother, Dad, Sister (had COPD, at 61) all - all had HTN Social History smoked 50years x 1-2packs per day, quit in 2011 drinks wine (hasn't drank for weeks), 1 bottle of wine but only 1-2x/week - she thinks she likely has a drinking problem, has had falls from alc never any drug use Lives alone, independently, has someone that comes in for household help, has visiting nurse, has PT/OT (Alejandra Martini MD R2) Physical Exam Vital Signs Vital Signs Date Time Temp Pulse Resp B/P (MAP) Pulse Ox O2 Delivery O2 Flow Rate FiO2 10/13/17 15:32 102 18 145/63 (90) 97 Nasal Cannula 2.00 10/13/17 13:23 103 18 121/55 (77) 98 Nasal Cannula 2.00 10/13/17 10:20 99 10/13/17 10:20 96 Nasal Cannula 2.00 10/13/17 10:20 99 Nasal Cannula 2.00 10/13/17 10:19 98.2 108 33 100 Physical Exam GENERAL: This is a well-nourished, well-developed patient, in no apparent distress. Patient has coughing fit during time of exam and respiratory rate is noticed to be increased to 38 from 24, and patient becomes very uncomfortable for 2 minutes until her respiratory rate returns to normal. Respiratory rate increases with any activity. SKIN: No rashes, ecchymoses or lesions. Cool and dry. HEAD: Atraumatic. Normocephalic. No temporal or scalp tenderness. EYES: Pupils equal round and reactive. Extraocular motions intact. No scleral icterus. No injection or drainage. ENT: Nose without bleeding, purulent drainage or septal hematoma. Throat without erythema, tonsillar hypertrophy or exudate. Uvula midline. Airway patent. NECK: Trachea midline. No JVD or lymphadenopathy. Supple, nontender, no meningeal signs. CARDIOVASCULAR: Regular rate and rhythm without murmurs, gallops, or rubs, 3/5 systolic murmur (consistent with hx) RESPIRATORY: Breath sounds distant. Breath sounds equal bilaterally. Mild wheezing in left middle and lower lobes. No accessory muscle use GASTROINTESTINAL: Abdomen soft, non-tender, nondistended. No hepato-splenomegaly , or palpable masses. No guarding. MUSCULOSKELETAL: Extremities without clubbing, cyanosis, or edema. No joint tenderness, effusion, or edema noted. No calf tenderness. Negative Homans sign bilaterally. NEUROLOGICAL: Awake and alert. Cranial nerves II through XII intact. Motor and sensory grossly within normal limits. Five out of 5 muscle strength in all muscle groups. Normal speech. Laboratory Laboratory Tests Test 10/13/17 10:50 White Blood Count 16.9 Red Blood Count 3.86 Hemoglobin 12.3 Hematocrit 37.3 Mean Corpuscular Volume 96.8 Mean Corpuscular Hemoglobin 32.0 Mean Corpuscular Hemoglobin Concent 33.0 Red Cell Distribution Width 13.9 Platelet Count 415 Mean Platelet Volume 7.9 Neutrophils (%) (Auto) 78.9 Lymphocytes (%) (Auto) 17.8 Monocytes (%) (Auto) 2.7 Eosinophils (%) (Auto) 0.3 Basophils (%) (Auto) 0.3 Neutrophils # (Auto) 13.3 Lymphocytes # (Auto) 3.0 Monocytes # (Auto) 0.5 Eosinophils # (Auto) 0.1 Basophils # (Auto) 0.1 CBC Comment DIFF FINAL Differential Comment Blood Urea Nitrogen 15 Creatinine 0.71 Random Glucose 120 Calcium Level 9.1 Sodium Level 138 Potassium Level 3.6 Chloride Level 98 Carbon Dioxide Level 32.8 Anion Gap 7 Estimat Glomerular Filtration Rate 80 Total Creatine Kinase 72 Troponin I LESS THAN 0.02 (Alejandra Martini MD R2) Result Diagram: 10/13/17 1050 10/13/17 1050 Septic Shock Reassessment Septic shock perfusion: reassessment completed (Alejandra Martini MD R2) Caprini VTE Risk Assessment Caprini VTE Risk Assessment: No/Low Risk (score <= 1) Caprini Risk Assessment Model Point Value = 1 Point Value = 2 Point Value = 3 Point Value = 5 Age 41-60 Minor surgery BMI > 25 kg/m2 Swollen legs Varicose veins or History of unexplained or recurrent spontaneous Oral contraceptives or hormone replacement Sepsis (< 1 month) Serious lung disease, including pneumonia (< 1 month) Abnormal pulmonary function Acute myocardial infarction Congestive heart failure (< 1 month) History of inflammatory bowel disease Medical patient at bed rest Age 61-74 Arthroscopic surgery Major open surgery (> 45 min) Laparoscopic surgery (> 45 min) Malignancy Confined to bed (> 72 hours) Immobilizing plaster cast Central venous access Age >= 75 History of VTE Family history of VTE Factor V Leiden Prothrombin [id number] Lupus anticoagulant Anticardiolipin antibodies Elevated serum homocysteine Heparin-induced thrombocytopenia Other congenital or acquired thrombophilia Stroke (< 1 month) Elective arthroplasty Hip, pelvis, or leg fracture Acute spinal cord injury (< 1 month) Prophylaxis Regimen Total Risk Factor Score Risk Level Prophylaxis Regimen 0-1 Low Early ambulation 2 Moderate Order ONE of the following: *Sequential Compression Device (SCD) *Heparin 5000 units SQ BID 3-4 Higher Order ONE of the following medications: *Heparin 5000 units SQ TID *Enoxaparin/Lovenox 40 mg SQ daily (WT < 150 kg, CrCl > 30 mL/min) *Enoxaparin/Lovenox 30 mg SQ daily (WT < 150 kg, CrCl > 10-29 mL/min) *Enoxaparin/Lovenox 30 mg SQ BID (WT < 150 kg, CrCl > 30 mL/min) AND/OR *Sequential Compression Device (SCD) 5 or more Highest Order ONE of the following medications: *Heparin 5000 units SQ TID (Preferred with Epidurals) *Enoxaparin/Lovenox 40 mg SQ daily (WT < 150 kg, CrCl > 30 mL/min) *Enoxaparin/Lovenox 30 mg SQ daily (WT < 150 kg, CrCl > 10-29 mL/min) *Enoxaparin/Lovenox 30 mg SQ BID (WT < 150 kg, CrCl > 30 mL/min) AND *Sequential Compression Device (SCD) (Alejandra Martini MD R2) Assessment and Plan Assessment and Plan 73 y/o F, hx of severe COPD and incidental pulmonary mass, presents with shortness of breath. Discussed Condition With Dr. Christina Sierra (Alejandra Martini MD R2) Attending Attestation Patient seen and examined in the ER, discussed with resident team. I agree with assessment and management as documented and discussed with me. The patient has been seen and examined. The chart and all resident notes have been reviewed. I agree that inpatient care is appropriate and that a two midnight stay is expected for the reasons documented in the resident history and physical. I have discussed this with the resident and certify the resident s order for inpatient admission. Britt Munoz is a 72yo lady with oxygen-dependent COPD admitted for worsening SOB, likely COPD exacerbation. On exam, distant breath sounds with poor air movement. Wheezing as described in resident H&P. Continue treatment for COPD exacerbation, with antibiotics, nebulizers, oxygen as needed. Monitor serial troponins, EKGs. (Connie Clemente MD) Problem List: (1) Shortness of breath on exertion ICD Codes: R06.02 - Shortness of breath Status: Acute Plan: Acute on chronic 2 weeks of shortness of breath, abrupt worsening this morning Differential includes severe emphysema versus PE versus ACS vs other source of sepsis? COPD -Encouraged patient to sit up in bed, prevent atelectasis -Case management for pulmonary rehab -Continue home O2 3 L and higher when necessary Follow-up ABG Duo nebs every 4hrs with albuterol nebs as needed Solu-Medrol every 6 hours 1 day -We will consider p.o. versus Solu-Medrol IV 3 times daily tomorrow Continue protonix Rocephin IV daily and levofloxacin IV daily for inpatient severe COPD management , lactic acid 4.5 Will consider consult to on [facility] Tape Recorder Repairer if no improvement Rule out PE D-dimer positive -In light of CT with contrast, per radiology no large PE is present -If continued concern tomorrow we may order a VQ scan Rule out ACS Troponin negative 2 Initial EKG is questionable, follow-up repeat EKG Possible sepsis? See under sirs criteria No consolidation on chest CT with contrast (2) SIRS (systemic inflammatory response syndrome) ICD Codes: R65.10 - Systemic inflammatory response syndrome (SIRS) of non- infectious origin without acute organ dysfunction Status: Acute Plan: Patient meeting SIRS criteria on admission, no obvious source of infection Tachycardic to 108 Respiratory rate of 33 on admission WBC of 16.9 Lactic acid 4.5 Follow-up UA, reflex to culture Follow-up blood culture CXR negative Cover empirically with ceftriaxone and levofloxacin for COPD exacerbation (3) Elevated lactic acid level ICD Codes: R79.89 - Other specified abnormal findings of blood chemistry Status: Acute Plan: May be due to sepsis versus hypoxia from severe emphysema Follow-up lactic acid trend (4) Pulmonary nodule ICD Codes: R91.1 - Solitary pulmonary nodule Status: Chronic Plan: Stable in size compared to previous CT on 05/18/60 Followed by it audit manager as mentioned in HPI CT chest: Pulmonary nodule stable, nodule measures 1.6 x 1.5 x 2.5 cm. PET/CT scan may be helpful in future. Emphysematous changes bilaterally. Granulomatous changes bilaterally. (5) Hypertension ICD Codes: I10 - Essential (primary) hypertension Status: Chronic Plan: BP within normal limits Continue current home blood pressure medication (6) Hypothyroidism ICD Codes: E03.9 - Hypothyroidism, unspecified Plan: Continue current home regimen, pt thinks it is possible her regimen was decreased from 112 to 105? She is not positive f/u TSH (7) Alcoholism /alcohol abuse ICD Codes: F10.20 - Alcohol dependence, uncomplicated Status: Chronic Plan: Possible history of alcohol abuse and falls related to alcohol use ED visit in August for alcohol use Urine tox negative for alcohol CIWA protocol (8) fen/ppx Status: Chronic Plan: Fluids: P.o. fluid Electrolytes: BMP normal, follow-up and replete Nutrition: Regular diet GI prophylaxis: Continue home Prilosec DVT prophylaxis: Lasix 40 daily (Alejandra Martini MD R2) Physician Certification 2 Midnight Certification Type: Admission for Inpatient Services Order for Inpatient Services The services are ordered in accordance with Medicare regulations or non- Medicare payer requirements, as applicable. In the case of services not specified as inpatient-only, they are appropriately provided as inpatient services in accordance with the 2-midnight benchmark. Estimated LOS (days): 2 days is the estimated time the patient will need to remain in the hospital, assuming treatment plan goals are met and no additional complications. Post-Hospital Plan: Home (Alejandra Martini MD R2) Alejandra Martini MD R2 Oct 13, 2017 15:54 Connie Clemente MD Oct 14, 2017 07:28
[2017-10-13] MEDS ORDERED: SODIUM CHLORIDE 0.9% FLUSH 10 ML FLUSH IV FLUSH PRN ×2 (16:15→20:45)
[2017-10-13] MEDS ORDERED: ENALAPRILAT 1.25 MG/ML VIAL IV PUSH PRN (16:45)
[2017-10-13] MEDS ORDERED: AZITHROMYCIN 250 MG TAB PO SCH (17:00)
[2017-10-13 17:36] VITALS: BP 143/81; PULSE 108; RESP 19; O2SAT 98
[2017-10-13] MEDS: methylPREDNISolone SOD SUCC 125 MG/2 ML VIAL IV PUSH SCH ×2 (17:55→22:09)
[2017-10-13] MEDS: ENOXAPARIN SODIUM 40 MG/0.4 ML SYRINGE SQ SCH (17:55)
[2017-10-13 18:28] LABS: LACTIC ACID SEPSIS PROTOCOL 4.5 mmol/L (0.4-2.0)
[2017-10-13 18:59] LABS: TROPONIN I LESS THAN 0.02 NG/ML (0.02-0.05)
[2017-10-13] MEDS ORDERED: cefTRIAXone INJ 2,000 MG in SODIUM CHLORIDE 0.9% INJ 100 ML IV SCH (20:00)
[2017-10-13] MEDS: oxyCODONE/ACETAMINOPHEN 10 MG/325 MG TAB PO PRN (20:02)
[2017-10-13] MEDS: traZODone HCL 50 MG TAB PO SCH (20:03)
[2017-10-13] MEDS: LISINOPRIL 10 MG TAB PO SCH (20:03)
[2017-10-13] MEDS: ALPRAZolam 0.5 MG TAB PO PRN (20:03)
[2017-10-13] MEDS: SODIUM CHLORIDE 0.9% FLUSH 10 ML FLUSH IV FLUSH SCH (20:03)
[2017-10-13 20:12] LABS: BILIRUBIN, URINE NEG (NEG); BLOOD, URINE NEG (NEG); GLUCOSE,URINE NEG (NEG); KETONE, URINE NEG (NEG); NITRITE,URINE NEG (NEG); PH, URINE 5.5 (5.0-8.5); SQUAMOUS EPITHELIAL CELL URINE <1 /hpf (0-5); URINE COLOR YELLOW (YELLW/STRAW); URINE LEUKOCYTE ESTERASE NEG (NEG)
[2017-10-13] MEDS: RESP: ALBUTEROL 2.5 MG/IPRATROPIUM 0.5 MG NEB (SCH) INH (20:24)
[2017-10-13 20:28] VITALS: O2SAT 99
[2017-10-13] MEDS ORDERED: LORazepam 2 MG TAB PO PRN (20:45)
[2017-10-13] MEDS ORDERED: FLUMAZENIL 0.5 MG/5 ML VIAL IV PUSH PRN (20:45)
[2017-10-13] MEDS ORDERED: LORazepam 2 MG/ML VIAL IV PUSH PRN ×4 (20:45)
[2017-10-13] MEDS ORDERED: LORazepam 1 MG TAB PO PRN (20:45)
[2017-10-13] MEDS: DICYCLOMINE HCL 20 MG TAB PO SCH (21:00)
[2017-10-13] MEDS: LEVOFLOXACIN 500 MG PREMIX INJ 100 ML IV SCH (21:00)
[2017-10-13] MEDS ORDERED: SODIUM CHLORIDE 0.9% FLUSH 10 ML FLUSH IV FLUSH SCH (21:00)
[2017-10-13] MEDS: SODIUM CHLOR 0.9% 1000 ML INJ 1,000 ML IV SCH (22:45)
[2017-10-13 23:54] LABS: MAGNESIUM 2.3 MG/DL (1.5-2.5); PHOSPHORUS 3.1 MG/DL (2.5-4.9)
[2017-10-14] VITALS (8 sets, daily range): BP systolic 100–154; BP diastolic 54–85; PULSE 73–100; RESP 18–22; TEMP 97.7–99.3; O2SAT 96–99
[2017-10-14 00:03] LABS: TROPONIN I LESS THAN 0.02 NG/ML (0.02-0.05)
[2017-10-14] MEDS: RESP: ALBUTEROL 2.5 MG/IPRATROPIUM 0.5 MG NEB (SCH) INH ×8 (00:51→23:53)
[2017-10-14] MEDS: oxyCODONE/ACETAMINOPHEN 10 MG/325 MG TAB PO PRN ×4 (01:54→21:08)
[2017-10-14] MEDS: ALPRAZolam 0.5 MG TAB PO PRN ×3 (03:59→21:08)
[2017-10-14] MEDS: methylPREDNISolone SOD SUCC 125 MG/2 ML VIAL IV PUSH SCH ×4 (03:59→23:03)
[2017-10-14] MEDS ORDERED: LEVOTHYROXINE SODIUM 112 MCG TAB PO SCH (06:00)
[2017-10-14 06:33] LABS: AUTOMATED NEUTROPHIL # 5.2 TH/MM3 (1.8-7.7); BASOPHIL % 0.1 % (0.0-2.0); HEMATOCRIT 29.6 % (35.0-46.0); HEMOGLOBIN 9.9 GM/DL (11.6-15.3); LYMPH % 11.2 % (9.0-44.0); LYMPHOCYTE # 0.7 TH/MM3 (1.0-4.8); MEAN CELL VOLUME 96.4 FL (80.0-100.0); MEAN CORPUSCULAR HEMOGLOBIN 32.4 PG (27.0-34.0); MEAN CORPUSCULAR HGB CONC 33.6 % (32.0-36.0); MONO % 2.7 % (0.0-8.0); MONOCYTE # 0.2 TH/MM3 (0-0.9); PLATELET COUNT 329 TH/MM3 (150-450); RED BLOOD COUNT 3.07 MIL/MM3 (4.00-5.30); RED CELL DISTRIBUTION WIDTH 13.7 % (11.6-17.2)
[2017-10-14 06:54] LABS: BICARBONATE 28.2 MEQ/L (21.0-32.0); CALCIUM 8.7 MG/DL (8.5-10.1); CREATININE 0.53 MG/DL (0.50-1.00)
[2017-10-14] MEDS: CLOPIDOGREL 75 MG TAB PO SCH (08:45)
[2017-10-14] MEDS: PANTOPRAZOLE SOD 40 MG DELAYED RELEASE TAB PO SCH (08:45)
[2017-10-14] MEDS: SODIUM CHLORIDE 0.9% FLUSH 10 ML FLUSH IV FLUSH SCH ×2 (08:45→21:00)
[2017-10-14] MEDS: LISINOPRIL 10 MG TAB PO SCH ×2 (08:45→21:07)
[2017-10-14] MEDS: FLUoxetine HCL 20 MG CAP PO SCH (08:45)
[2017-10-14 09:58] LABS: LACTIC ACID SEPSIS PROTOCOL 2.2 mmol/L (0.4-2.0)
--- NOTE | 2017-10-14 11:04 | RADRPT ---
EXAM DATE/TIME: 10/14/2017 10:02 [place] COMPARISON: No previous studies available for comparison. INDICATIONS : Bilateral leg swelling. MEDICAL HISTORY : Hypothyroidism. Emphysema. Diverticulosis. Migraines. HTN. COPD. Dyspnea. GERD. Arthritis. Colitis. Degenerative disc disease. Osteoporosis. Depression. Anxiety. Anticoagulant ther apy, Plavix. SURGICAL HISTORY : Bilateral cataract surgery. D&C. Left breast biopsies x2. ENCOUNTER: Initial ACUITY: 2 day PAIN SCORE: 0/10 LOCATION: Bilateral leg. TECHNIQUE: Venous ultrasound of the left and right leg was performed from the inguinal ligament t o the proximal calf. Real-time, color Doppler and spectral tracing, compression and augmentation arabella hniques were used. FINDINGS: RIGHT LEG: There is normal compressibility of the deep venous system from the inguinal region to the proximal calf. No echogenic clot is seen in the lumen of the common femoral, femoral, popliteal, and posterior tibial veins. There is a normal response of the venous system to proximal and distal augmentation and respiration. LEFT LEG: There is normal compressibility of the deep venous system from the inguinal region to t he proximal calf. No echogenic clot is seen in the lumen of the common femoral, femoral, popliteal, and posterior tibial veins. There is a normal response of the venous system to proximal and distal a ugmentation and respiration. CONCLUSION: Negative for deep venous thrombosis. Adolfo Fox MD FACR on October 14, 2017 at 11:02 Board Certified Radiologist. This report was verified electronically.
[2017-10-14] MEDS: SODIUM CHLOR 0.9% 1000 ML INJ 1,000 ML IV SCH (12:16)
[2017-10-14] MEDS: FLUTICASONE 100 MCG/VILANTEROL 25 MCG INHALER INH SCH (12:16)
--- NOTE | 2017-10-14 12:16 | HHI.FPPN ---
Subjective Remarks Patient feeling better this morning. Afebrile over past 24 hours. Breathing somewhat improved with IV steroids and breathing treatments. Eating entire meals without difficulty. Difficulty with sleeping. Says that she takes Percocet , trazodone, and Xanax altogether and this typically allows her to sleep for 4 hours. (Teofilo Spence MD, R3) Objective Vitals Vital Signs Date Time Temp Pulse Resp B/P (MAP) Pulse Ox O2 Delivery O2 Flow Rate FiO2 10/14/17 08:31 99 Nasal Cannula 3.00 10/14/17 04:00 97.9 87 18 146/70 (95) 96 10/14/17 01:17 Nasal Cannula 3.00 10/14/17 00:00 97.8 93 20 100/55 (70) 97 10/13/17 20:28 99 Nasal Cannula 3.00 10/13/17 20:00 Nasal Cannula 3.00 Humidified 10/13/17 17:36 108 19 143/81 (101) 98 Nasal Cannula 2.00 10/13/17 15:32 102 18 145/63 (90) 97 Nasal Cannula 2.00 10/13/17 13:23 103 18 121/55 (77) 98 Nasal Cannula 2.00 I/O 10/13/17 10/13/17 10/13/17 10/14/17 10/14/17 10/14/17 07:00 15:00 23:00 07:00 15:00 23:00 Intake Total 100 ml 1388 ml Balance 100 ml 1388 ml Intake Oral 800 ml IV Total 100 ml 588 ml # Voids 4 (Teofilo Spence MD, R3) Result Diagram: 10/14/17 0445 10/14/17 0445 Imaging Last 72 hours Impressions Lower Extremity Ultrasound 10/14/17 0000 Signed Impressions: Service Date/Time: Saturday, October 14, 2017 10:02 - CONCLUSION: Negative for deep venous thrombosis. Adolfo Fox MD FACR Chest CT 10/13/17 1325 Signed Impressions: Service Date/Time: Friday, October 13, 2017 14:26 - CONCLUSION: 1. Left upper lobe pulmonary nodule is stable in size compared to the previous CT of the chest dated 05/18/16 when this was biopsied. This nodule measures 1.6 x 1.5 x 2.5 cm. PET/CT scan may be helpful for further evaluation this nodule if pathology results are not concordant with imaging findings. 2. Emphysematous changes bilaterally. 3. Granulomatous changes bilaterally. 4. Coronary artery calcifications. 5. Degenerative changes and scoliosis of the thoracolumbar spine 6. 1.6 cm left renal cyst. Ronnie Rodriguez MD Chest X-Ray 10/13/17 1057 Signed Impressions: Service Date/Time: Friday, October 13, 2017 11:18 - CONCLUSION: Enlarging nodular mass left upper lobe suspicious for malignancy. Adolfo Fox MD FACR Objective Remarks GENERAL: This is a well-nourished, well-developed patient, in no apparent distress. SKIN: No rashes, ecchymoses or lesions. Cool and dry. HEAD: Atraumatic. Normocephalic. No temporal or scalp tenderness. EYES: Pupils equal round and reactive. Extraocular motions intact. No scleral icterus. No injection or drainage. ENT: Nose without bleeding, purulent drainage or septal hematoma. Throat without erythema, tonsillar hypertrophy or exudate. Uvula midline. Airway patent. NECK: Trachea midline. No JVD or lymphadenopathy. Supple, nontender, no meningeal signs. CARDIOVASCULAR: Regular rate and rhythm without murmurs, gallops, or rubs, 3/5 systolic murmur (consistent with hx) RESPIRATORY: Breath sounds distant. Breath sounds equal bilaterally. Mild wheezing in left middle and lower lobes. No accessory muscle use GASTROINTESTINAL: Abdomen soft, non-tender, nondistended. No hepato-splenomegaly , or palpable masses. No guarding. MUSCULOSKELETAL: Extremities without clubbing, cyanosis, or edema. No joint tenderness, effusion, or edema noted. No calf tenderness. Negative Homans sign bilaterally. NEUROLOGICAL: Awake and alert. Cranial nerves II through XII intact. Motor and sensory grossly within normal limits. Five out of 5 muscle strength in all muscle groups. Normal speech. (Teofilo Spence MD, R3) A/P Assessment and Plan 73 y/o F, hx of severe COPD and incidental pulmonary mass, presents with shortness of breath. (Teofilo Spence MD, R3) Attending Attestation Patient seen, examined, and discussed with resident team. I agree with assessment and management as documented and discussed with me. PT reports breathing is a little better. Continue current treatment regimen. (Connie Clemente MD) Problem List: (1) Shortness of breath on exertion ICD Codes: R06.02 - Shortness of breath Status: Acute Plan: Acute on chronic 2 weeks of shortness of breath, abrupt worsening on admission 10/13/2017. Likely worsening COPD -Encouraged patient to sit up in bed, prevent atelectasis -Case management for pulmonary rehab -Continue home O2 3 L and higher when necessary -Duo nebs every 4hrs with albuterol nebs as needed -Solu-Medrol 60 mg IV every 6 hours, will continue -Continue Protonix -COPD exacerbation: Continue with IV Levaquin given sepsis picture Will consider consult to on [facility] Solar Photovoltaic Installer if no improvement Rule out PE D-dimer positive -In light of CT with contrast, per radiology no large PE is present Rule out ACS Troponin negative 2 EKG showing no signs of acute ischemia. Possible sepsis Resolved. (2) SIRS (systemic inflammatory response syndrome) ICD Codes: R65.10 - Systemic inflammatory response syndrome (SIRS) of non- infectious origin without acute organ dysfunction Status: Acute Plan: Resolved. Tachycardic resolved. Tachypnea resolved. WBC of 16.9 --> 6.0 Lactic acid 4.5 --> 2.2 UA no signs of infection. Blood cultures no growth x 1 day. CXR negative ABX above. (3) Elevated lactic acid level ICD Codes: R79.89 - Other specified abnormal findings of blood chemistry Status: Acute Plan: Improving. May be due to sepsis versus hypoxia from severe emphysema. Lactic acid sepsis protocol in place. (4) Pulmonary nodule ICD Codes: R91.1 - Solitary pulmonary nodule Status: Chronic Plan: Stable in size compared to previous CT on 05/18/60 Followed by glass cutter hand as mentioned in HPI CT chest: Pulmonary nodule stable, nodule measures 1.6 x 1.5 x 2.5 cm. PET/CT scan may be helpful in future. Emphysematous changes bilaterally. Granulomatous changes bilaterally. Can be followed as an outpatient. (5) Hypertension ICD Codes: I10 - Essential (primary) hypertension Status: Chronic Plan: BP within normal limits Continue current home blood pressure medication (6) Hypothyroidism ICD Codes: E03.9 - Hypothyroidism, unspecified Plan: TSH 0.068 -- decrease dose from 112 mcg daily to 100 mcg daily. Continue to titrate as an outpatient. (7) Alcoholism /alcohol abuse ICD Codes: F10.20 - Alcohol dependence, uncomplicated Status: Chronic Plan: Possible history of alcohol abuse and falls related to alcohol use ED visit in August for alcohol use Urine tox negative for alcohol CIWA protocol (8) fen/ppx Status: Chronic Plan: Fluids: P.o. fluid Electrolytes: BMP normal, follow-up and replete Nutrition: Regular diet GI prophylaxis: Continue home Prilosec DVT prophylaxis: Lovenox [address] Clemente (Teofilo Spence MD, R3) Teofilo Spence MD, R3 Oct 14, 2017 12:16 Connie Clemente MD Oct 14, 2017 20:43
[2017-10-14] MEDS: DICYCLOMINE HCL 20 MG TAB PO SCH ×2 (12:18→21:08)
--- NOTE | 2017-10-14 12:50 | EKG ---
Date Performed: 10/13/2017 Time Performed: 10:24:31 PTAGE: 72 years EKG: SINUS TACHYCARDIA Atrial premature complexes Nondiagnostic Q-waves in the inferior leads, w hich may be slightly more prominent from the prior tracing. POSSIBLE INFERIOR MYOCARDIAL INFARCTION A BNORMAL ECG PREVIOUS TRACING : 01/14/2017 16.31 DOCTOR: Emeka Clarke Interpretating Date/Time 10/14/2017 12:48:17
--- NOTE | 2017-10-14 16:54 | EKG ---
Date Performed: 10/13/2017 Time Performed: 18:02:42 PTAGE: 72 years EKG: SINUS TACHYCARDIA ABNORMAL RHYTHM ECG Since the PREVIOUS TRACING , no significant change noted PREVIOUS TRACIN10/13/2017 10.24 DOCTOR: Caren Arguello Interpretating Date/Time 10/17/2017 12:59:25
--- NOTE | 2017-10-14 16:55 | EKG ---
Date Performed: 10/13/2017 Time Performed: 22:20:16 PTAGE: 72 years EKG: Sinus rhythm WITH SINUS ARRHYTHMIA NORMAL ECG Since the PREVIOUS TRACING , no significant change noted PREVIOUS TRACIN10/13/2017 18.02 DOCTOR: Caren Arguello Interpretating Date/Time 10/14/2017 16:52:38
[2017-10-14] MEDS: ENOXAPARIN SODIUM 40 MG/0.4 ML SYRINGE SQ SCH (18:39)
[2017-10-14] MEDS: traZODone HCL 50 MG TAB PO SCH (21:07)
[2017-10-14] MEDS: LEVOFLOXACIN 500 MG PREMIX INJ 100 ML IV SCH (21:09)
[2017-10-15] VITALS (8 sets, daily range): BP systolic 129–165; BP diastolic 59–79; PULSE 88–107; RESP 17–20; TEMP 97.7–98.1; O2SAT 95–99
[2017-10-15] MEDS: SODIUM CHLOR 0.9% 1000 ML INJ 1,000 ML IV SCH ×2 (00:40→11:34)
[2017-10-15] MEDS: oxyCODONE/ACETAMINOPHEN 10 MG/325 MG TAB PO PRN ×4 (03:44→23:00)
[2017-10-15] MEDS: RESP: ALBUTEROL 2.5 MG/IPRATROPIUM 0.5 MG NEB (SCH) INH ×6 (04:15→23:42)
[2017-10-15 05:14] LABS: AUTOMATED NEUTROPHIL # 10.5 TH/MM3 (1.8-7.7); BASOPHIL % 0.1 % (0.0-2.0); HEMATOCRIT 29.9 % (35.0-46.0); HEMOGLOBIN 9.7 GM/DL (11.6-15.3); LYMPH % 3.5 % (9.0-44.0); LYMPHOCYTE # 0.4 TH/MM3 (1.0-4.8); MEAN CELL VOLUME 96.9 FL (80.0-100.0); MEAN CORPUSCULAR HEMOGLOBIN 31.6 PG (27.0-34.0); MEAN CORPUSCULAR HGB CONC 32.6 % (32.0-36.0); MONO % 4.2 % (0.0-8.0); MONOCYTE # 0.5 TH/MM3 (0-0.9); NEUT % 92.2 % (16.0-70.0); PLATELET COUNT 336 TH/MM3 (150-450); RED BLOOD COUNT 3.08 MIL/MM3 (4.00-5.30); RED CELL DISTRIBUTION WIDTH 13.9 % (11.6-17.2); WHITE BLOOD COUNT 11.4 TH/MM3 (4.0-11.0)
[2017-10-15 05:22] LABS: ALBUMIN 3.5 GM/DL (3.4-5.0); AST (GOT) 11 U/L (15-37); BICARBONATE 31.6 MEQ/L (21.0-32.0); BLOOD UREA NITROGEN 14 MG/DL (7-18); CALCIUM 8.5 MG/DL (8.5-10.1); CHLORIDE 102 MEQ/L (98-107); CREATININE 0.65 MG/DL (0.50-1.00); GLOMERULAR FILTRATION RATE 89 ML/MIN (>89); GLUCOSE,RANDOM 123 MG/DL (74-106); SODIUM (NA) 140 MEQ/L (136-145)
[2017-10-15 05:27] LABS: ALKALINE PHOSPHATASE 51 U/L (45-117); ALT (GPT) 23 U/L (10-53); TOTAL BILIRUBIN ADULT LESS THAN 0.1 MG/DL (0.2-1.0); TOTAL PROTEIN 6.7 GM/DL (6.4-8.2)
[2017-10-15] MEDS: LEVOTHYROXINE SODIUM 100 MCG TAB PO SCH (05:30)
[2017-10-15] MEDS: ALPRAZolam 0.5 MG TAB PO PRN ×3 (05:30→22:16)
[2017-10-15] MEDS: methylPREDNISolone SOD SUCC 125 MG/2 ML VIAL IV PUSH SCH ×4 (05:31→22:17)
[2017-10-15] MEDS: FLUoxetine HCL 20 MG CAP PO SCH (08:29)
[2017-10-15] MEDS: LISINOPRIL 10 MG TAB PO SCH ×2 (08:30→22:16)
[2017-10-15] MEDS: DICYCLOMINE HCL 20 MG TAB PO SCH ×2 (08:30→22:17)
[2017-10-15] MEDS: CLOPIDOGREL 75 MG TAB PO SCH (08:30)
[2017-10-15] MEDS: SODIUM CHLORIDE 0.9% FLUSH 10 ML FLUSH IV FLUSH SCH ×2 (08:30→21:00)
[2017-10-15] MEDS: PANTOPRAZOLE SOD 40 MG DELAYED RELEASE TAB PO SCH (08:30)
[2017-10-15] MEDS: FLUTICASONE 100 MCG/VILANTEROL 25 MCG INHALER INH SCH (08:31)
[2017-10-15] MEDS ORDERED: Vancomycin Consult Pharmacy 1 EA OTHER SCH (11:45)
--- NOTE | 2017-10-15 11:47 | HHI.FPPN ---
Subjective Remarks Patient seen and examined bedside this morning. Patient is visibly having more difficulty breathing and states she feels like she is worsening. She states she is coughing more than yesterday and feels very uncomfortable. She has not felt any fever/chills. She denies any chest pain or dizziness. She denies any nausea or vomiting. (Alejandra Martini MD R2) Objective Vitals Vital Signs Date Time Temp Pulse Resp B/P (MAP) Pulse Ox O2 Delivery O2 Flow Rate FiO2 10/15/17 08:01 99 Nasal Cannula 3.00 10/15/17 08:00 98.1 97 20 163/76 (105) 99 10/15/17 04:00 97.7 95 18 148/72 (97) 98 10/15/17 00:00 97.8 88 17 129/59 (82) 95 10/14/17 22:23 18 10/14/17 21:10 Nasal Cannula 3.00 10/14/17 20:30 98 Nasal Cannula 3.00 10/14/17 20:00 98.0 96 19 154/71 (98) 97 10/14/17 18:00 97.7 86 20 146/66 (92) 97 10/14/17 16:00 Nasal Cannula 3.00 Humidified 10/14/17 12:00 99.3 73 18 120/54 (76) 97 10/14/17 12:00 Nasal Cannula 3.00 Humidified I/O 10/14/17 10/14/17 10/14/17 10/15/17 10/15/17 10/15/17 07:00 15:00 23:00 07:00 15:00 23:00 Intake Total 1388 ml 580 ml 1480 ml Output Total 1200 ml 1050 ml Balance 1388 ml -620 ml 430 ml Intake Oral 800 ml 480 ml 480 ml IV Total 588 ml 100 ml 1000 ml Output Urine Total 1200 ml 1050 ml # Voids 4 # Bowel Movements 1 0 (Alejandra Martini MD R2) Result Diagram: 10/15/1740610/15/17406 Objective Remarks GENERAL: Patient appears to be uncomfortable, breathing with great difficulty, however not in respiratory distress, patient can speak full sentences comfortably SKIN: No rashes, ecchymoses or lesions. Cool and dry. HEAD: Atraumatic. Normocephalic. No temporal or scalp tenderness. EYES: Pupils equal round and reactive. Extraocular motions intact. No scleral icterus. No injection or drainage. ENT: Nose without bleeding, purulent drainage or septal hematoma. Throat without erythema, tonsillar hypertrophy or exudate. Uvula midline. Airway patent. NECK: Trachea midline. No JVD or lymphadenopathy. Supple, nontender, no meningeal signs. CARDIOVASCULAR: Regular rate and rhythm without murmurs, gallops, or rubs, 3/5 systolic murmur (consistent with hx) RESPIRATORY: Breath sounds distant. Breath sounds equal bilaterally, similar to previous exams. Mild wheezing in left middle and lower lobes. No accessory muscle use GASTROINTESTINAL: Abdomen soft, non-tender, nondistended. No hepato-splenomegaly , or palpable masses. No guarding. MUSCULOSKELETAL: Extremities without clubbing, cyanosis, or edema. No joint tenderness, effusion, or edema noted. No calf tenderness. Negative Homans sign bilaterally. NEUROLOGICAL: Awake and alert. Cranial nerves II through XII intact. Motor and sensory grossly within normal limits. Five out of 5 muscle strength in all muscle groups. Normal speech. (Alejandra Martini MD R2) A/P Assessment and Plan 73 y/o F, hx of severe COPD and incidental pulmonary mass, presents with shortness of breath. Discharge Planning Blood cultures growing gram-positive cocci, pending results and clinical improvement (Alejandra Martini MD R2) Attending Attestation Patient seen and examined, discussed with resident team. I agree with assessment and management as documented and discussed with me. Pt with positive blood cultures as documented; vancomycin started. Pt with increased air movement, but now with some wheezes heard at bases. (Connie Clemente MD) Problem List: (1) Bacteremia ICD Codes: R78.81 - Bacteremia Status: Acute Plan: Blood cultures growing gram-positive cocci in pairs and clusters Follow-up culture growth Add IV Vanco to cover for MRSA, pharmacy consult UA 10/13: negative Recheck UA today Recheck chest x-ray, no signs of consolidation or infection on original chest x- ray on day of admission (2) Shortness of breath on exertion ICD Codes: R06.02 - Shortness of breath Status: Acute Plan: Acute on chronic 2 weeks of shortness of breath, continued worsening today SOB likely related to bacteriemia and sepsis from COPD exacerbation Less likely on differential is PE Bacteremia/Sepsis See plan above f/u VS closely Likely worsening COPD -Encouraged patient to sit up in bed, prevent atelectasis -Case management for pulmonary rehab -Continue home O2 3 L and higher when necessary -Duo nebs every 4hrs with albuterol nebs as needed -Increase Solu-Medrol 60 mg IV q6hrs --> [id number] -Continue Protonix -COPD exacerbation: Continue with IV Levaquin given sepsis picture Will consider consult to on [facility] Survey Technologist if no improvement Rule out PE D-dimer positive -In light of CT with contrast, per radiology no large PE is present -Will consider CTA if no improvement Rule out ACS Troponin negative 2 EKG showing no signs of acute ischemia. (3) SIRS (systemic inflammatory response syndrome) ICD Codes: R65.10 - Systemic inflammatory response syndrome (SIRS) of non- infectious origin without acute organ dysfunction Status: Resolved Plan: Resolved. Tachycardic resolved. Tachypnea resolved. WBC of 16.9 --> 6.0 Lactic acid 4.5 --> 2.2 UA no signs of infection. Blood cultures no growth x 1 day. CXR negative ABX above. (4) Elevated lactic acid level ICD Codes: R79.89 - Other specified abnormal findings of blood chemistry Status: Acute Plan: Was likely related to bacteremia, initial level of 4.5 went down to 2.2 on 10/14 (5) Pulmonary nodule ICD Codes: R91.1 - Solitary pulmonary nodule Status: Chronic Plan: Stable in size compared to previous CT on 05/18/60 Followed by oven builder as mentioned in HPI CT chest: Pulmonary nodule stable, nodule measures 1.6 x 1.5 x 2.5 cm. PET/CT scan may be helpful in future. Emphysematous changes bilaterally. Granulomatous changes bilaterally. Can be followed as an outpatient. (6) Hypertension ICD Codes: I10 - Essential (primary) hypertension Status: Chronic Plan: BP within normal limits Continue current home blood pressure medication (7) Hypothyroidism ICD Codes: E03.9 - Hypothyroidism, unspecified Plan: TSH 0.068 -- decrease dose from 112 mcg daily to 100 mcg daily. Continue to titrate as an outpatient. (8) Alcoholism /alcohol abuse ICD Codes: F10.20 - Alcohol dependence, uncomplicated Status: Chronic Plan: Possible history of alcohol abuse and falls related to alcohol use ED visit in August for alcohol use Urine tox negative for alcohol CIWA protocol (9) fen/ppx Status: Chronic Plan: Fluids: P.o. fluid Electrolytes: BMP normal, follow-up and replete Nutrition: Regular diet GI prophylaxis: Continue home Prilosec DVT prophylaxis: Lovenox 40 mg daily. (Alejandra Martini MD R2) Alejandra Martini MD R2 Oct 15, 2017 11:47 Connie Clemente MD Oct 17, 2017 06:40
[2017-10-15] MEDS ORDERED: POTASSIUM CHLORIDE 10 MEQ CONTROLLED RELEASE TAB PO ONE (12:00)
[2017-10-15] MEDS ORDERED: VANCOMYCIN 1,000 MG/NS 250 ML IV ONE ×2 (13:00)
[2017-10-15] MEDS ORDERED: VANCOMYCIN 1 GM/200 ML PREMIX IV ONE (13:00)
--- NOTE | 2017-10-15 15:05 | RADRPT ---
EXAM DATE/TIME: 10/15/2017 13:39 [place] COMPARISON: CHEST PA & LAT, October 13, 2017, 11:18. INDICATIONS : Cough. MEDICAL HISTORY : Hypothyroidism. Emphysema. Diverticulosis. Migraines. HTN. COPD. Dyspnea. GERD. Arthritis. Colitis. D egenerative disc disease. Osteoporosis. Depression. Anxiety. SURGICAL HISTORY : Bilateral cataract surgery. D&C. Left breast biopsies x2. ENCOUNTER: Subsequent ACUITY: 3 days PAIN SCORE: 2/10 LOCATION: Bilateral chest FINDINGS: Stable calcified nodules bilaterally. No evidence of focal infiltrate. Minimal blunting of the post acute care nurse ior neck angles and posterior sulcus which may reflect tiny effusions. Cardiomediastinal contours are grossly stable. Mild degenerative changes in the spine. Ununited right humeral neck fracture. Healed left-sided rib fractures. CONCLUSION: Possible tiny effusions. Donal Simpson MD on October 15, 2017 at 15:02 Board Certified Radiologist. This report was verified electronically.
[2017-10-15 15:54] LABS: BILIRUBIN, URINE NEG (NEG); BLOOD, URINE NEG (NEG); GLUCOSE,URINE NEG (NEG); KETONE, URINE NEG (NEG); MUCUS URINE FEW /lpf (OCC); NITRITE,URINE NEG (NEG); PH, URINE 5.5 (5.0-8.5); URINE COLOR LIGHT-YELLOW (YELLW/STRAW); URINE LEUKOCYTE ESTERASE NEG (NEG)
[2017-10-15] MEDS: ENOXAPARIN SODIUM 40 MG/0.4 ML SYRINGE SQ SCH (16:57)
[2017-10-15] MEDS: traZODone HCL 50 MG TAB PO SCH (22:16)
[2017-10-15] MEDS: LEVOFLOXACIN 500 MG PREMIX INJ 100 ML IV SCH (22:17)
[2017-10-16] VITALS (9 sets, daily range): BP systolic 117–166; BP diastolic 58–82; PULSE 95–109; RESP 18–20; TEMP 97.4–98.9; O2SAT 94–99
[2017-10-16] MEDS: methylPREDNISolone SOD SUCC 125 MG/2 ML VIAL IV PUSH SCH ×6 (00:33→21:26)
[2017-10-16] MEDS: SODIUM CHLOR 0.9% 1000 ML INJ 1,000 ML IV SCH ×3 (01:40→16:40)
[2017-10-16] MEDS: RESP: ALBUTEROL 2.5 MG/IPRATROPIUM 0.5 MG NEB (SCH) INH ×6 (02:43→19:12)
[2017-10-16] MEDS: LEVOTHYROXINE SODIUM 100 MCG TAB PO SCH (04:59)
[2017-10-16] MEDS: ALPRAZolam 0.5 MG TAB PO PRN ×4 (04:59→23:00)
[2017-10-16] MEDS: oxyCODONE/ACETAMINOPHEN 10 MG/325 MG TAB PO PRN ×4 (05:01→23:01)
[2017-10-16 10:14] LABS: BICARBONATE 32.7 MEQ/L (21.0-32.0); CALCIUM 9.2 MG/DL (8.5-10.1); CREATININE 0.61 MG/DL (0.50-1.00)
[2017-10-16 10:16] LABS: AUTOMATED NEUTROPHIL # 9.5 TH/MM3 (1.8-7.7); BASOPHIL % 0.1 % (0.0-2.0); HEMATOCRIT 30.7 % (35.0-46.0); HEMOGLOBIN 10.4 GM/DL (11.6-15.3); LYMPH % 4.8 % (9.0-44.0); LYMPHOCYTE # 0.5 TH/MM3 (1.0-4.8); MEAN CELL VOLUME 95.9 FL (80.0-100.0); MEAN CORPUSCULAR HEMOGLOBIN 32.5 PG (27.0-34.0); MEAN CORPUSCULAR HGB CONC 33.9 % (32.0-36.0); MEAN PLATELET VOLUME 8.2 FL (7.0-11.0); MONO % 4.9 % (0.0-8.0); MONOCYTE # 0.5 TH/MM3 (0-0.9); NEUT % 90.2 % (16.0-70.0); PLATELET COUNT 356 TH/MM3 (150-450); RANDOM VANCOMYCIN 2.5 COMMENT; RED BLOOD COUNT 3.21 MIL/MM3 (4.00-5.30); RED CELL DISTRIBUTION WIDTH 13.9 % (11.6-17.2); WHITE BLOOD COUNT 10.6 TH/MM3 (4.0-11.0)
[2017-10-16] MEDS: CLOPIDOGREL 75 MG TAB PO SCH (10:26)
[2017-10-16] MEDS: LISINOPRIL 10 MG TAB PO SCH ×2 (10:26→21:26)
[2017-10-16] MEDS: FLUoxetine HCL 20 MG CAP PO SCH (10:26)
[2017-10-16] MEDS: PANTOPRAZOLE SOD 40 MG DELAYED RELEASE TAB PO SCH (10:26)
[2017-10-16] MEDS: DICYCLOMINE HCL 20 MG TAB PO SCH ×2 (10:26→21:26)
[2017-10-16] MEDS: SODIUM CHLORIDE 0.9% FLUSH 10 ML FLUSH IV FLUSH SCH ×2 (10:27→21:00)
[2017-10-16] MEDS: FLUTICASONE 100 MCG/VILANTEROL 25 MCG INHALER INH SCH (10:27)
--- NOTE | 2017-10-16 11:59 | HHI.FPPN ---
Subjective Remarks Patient was seen and evaluated this morning. She continues to experience shortness of breath and reports only minimal respiratory improvements since admission. She requests ChapStick for her dry lips. She denies chest pain, nausea, vomiting, diarrhea and constipation. All questions were answered. (Malia Garcia MD R1) Objective Vitals Vital Signs Date Time Temp Pulse Resp B/P (MAP) Pulse Ox O2 Delivery O2 Flow Rate FiO2 10/16/17 08:00 Nasal Cannula 3.00 10/16/17 08:00 98.4 98 18 117/65 (82) 95 10/16/17 07:29 98 Nasal Cannula 3.00 10/16/17 04:00 Nasal Cannula 3.00 10/16/17 04:00 97.9 95 18 142/58 (86) 96 10/16/17 00:10 17 10/16/17 00:00 Nasal Cannula 3.00 10/16/17 00:00 97.4 100 18 144/62 (89) 98 10/15/17 22:20 Nasal Cannula 3.00 10/15/17 20:16 97 Nasal Cannula 3.00 10/15/17 20:00 97.7 101 18 161/79 (106) 96 10/15/17 16:00 98.1 93 20 152/70 (97) 97 10/15/17 16:00 Nasal Cannula 3.00 10/15/17 12:00 97.7 107 20 165/73 (103) 96 10/15/17 12:00 Nasal Cannula 3.00 I/O 10/15/17 10/15/17 10/15/17 10/16/17 10/16/17 10/16/17 06:59 14:59 22:59 06:59 14:59 22:59 Intake Total 1480 ml 480 ml 660 ml Output Total 1050 ml 950 ml Balance 430 ml 480 ml -290 ml Intake Oral 480 ml 480 ml 660 ml IV Total 1000 ml Output Urine Total 1050 ml 950 ml # Voids 4 # Bowel Movements 0 1 1 (Malia Garcia MD R1) Result Diagram: 10/16/17 0810 10/16/17 0810 Imaging Last 72 hours Impressions Chest X-Ray 10/15/17 0000 Signed Impressions: Service Date/Time: Sunday, October 15, 2017 13:39 - CONCLUSION: Possible tiny effusions. Donal Simpson MD Lower Extremity Ultrasound 10/14/17 0000 Signed Impressions: Service Date/Time: Saturday, October 14, 2017 10:02 - CONCLUSION: Negative for deep venous thrombosis. Adolfo Fox MD FACR Chest CT 10/13/17 1325 Signed Impressions: Service Date/Time: Friday, October 13, 2017 14:26 - CONCLUSION: 1. Left upper lobe pulmonary nodule is stable in size compared to the previous CT of the chest dated 05/18/16 when this was biopsied. This nodule measures 1.6 x 1.5 x 2.5 cm. PET/CT scan may be helpful for further evaluation this nodule if pathology results are not concordant with imaging findings. 2. Emphysematous changes bilaterally. 3. Granulomatous changes bilaterally. 4. Coronary artery calcifications. 5. Degenerative changes and scoliosis of the thoracolumbar spine 6. 1.6 cm left renal cyst. Ronnie Rodriguez MD Objective Remarks GENERAL: Patient is laying in bed comfortably. She does not appear to be in respiratory distress but experiences shortness of breath with minimal movement. She is able to speak in complete sentences. SKIN: Warm and dry. HEAD: Atraumatic. Normocephalic. EYES: Pupils equal round. Extraocular motions intact. No scleral icterus. No injection or drainage. ENT: Nose without bleeding, purulent drainage or septal hematoma - nasal cannula in place, exam limited. Airway patent. NECK: Supple, nontender, no meningeal signs. CARDIOVASCULAR: Regular rate. 3/5 systolic murmur. No gallops, or rubs. RESPIRATORY: Improved air movement as compared to previous exams. Breath sounds continue to be distant in lower lobes. No accessory muscle use GASTROINTESTINAL: Positive bowel sounds. Abdomen soft, non-tender, nondistended. No hepato-splenomegaly, or palpable masses. No guarding. MUSCULOSKELETAL: Extremities without clubbing, cyanosis, or edema. No calf tenderness. NEUROLOGICAL: Awake and alert. Cranial nerves II through XII intact. Motor and sensory grossly within normal limits. Normal speech. Medications and IVs Current Medications Medications (Trade) Dose Ordered Sig/Mic Route Start Time Stop Time Status Last Admin (Xanax) 0.5 mg Q8HR PRN PO 10/13/17 16:00 10/16/17 06:31 (Norvasc) 10 mg DAILY PO 10/14/17 09:00 10/16/17 10:26 (Prinivil) 10 mg BID PO 10/13/17 21:00 10/16/17 10:26 (Plavix) 75 mg DAILY PO 10/14/17 09:00 10/16/17 10:26 (PROzac) 20 mg DAILY PO 10/14/17 09:00 10/16/17 10:26 (Breo Ellipta 100-25 Inh) 1 puff DAILY INH 10/14/17 09:00 10/16/17 10:27 (Percocet 10-325 Mg) 1 tab Q6HR PRN PO 10/13/17 16:00 10/16/17 10:52 (Desyrel) 50 mg HS PO 10/13/17 21:00 10/15/17 22:16 (Bentyl) 20 mg BID PO 10/13/17 21:00 10/16/17 10:26 (Protonix) 40 mg DAILY PO 10/14/17 09:00 10/16/17 10:26 (NS Flush) 2 ml BID IV FLUSH 10/13/17 21:00 10/16/17 10:27 (NS Flush) 2 ml UNSCH PRN IV FLUSH 10/13/17 16:15 (Duoneb Neb) 1 ampule Q4HR NEB INH 10/13/17 16:15 10/16/17 11:07 (Albuterol Neb) 2.5 mg Q2HR NEB PRN INH 10/13/17 16:15 (Lovenox Inj) 40 mg Q24H SQ 10/13/17 17:00 10/15/17 16:57 (Vasotec Inj) 1.25 mg Q6H PRN IV PUSH 10/13/17 16:45 Levofloxacin/ Dextrose 100 ml @ 100 mls/hr Q24H IV 10/13/17 21:00 10/15/17 22:17 (Romazicon Inj) 0.2 mg Q1M PRN IV PUSH 10/13/17 20:45 (Ativan) 1 mg Q4H PRN PO 10/13/17 20:45 (Ativan Inj) 1 mg Q4H PRN IV PUSH 10/13/17 20:45 (Ativan) 2 mg Q2H PRN PO 4/13/18 20:45 (Ativan Inj) 2 mg Q2H PRN IV PUSH 10/13/17 20:45 (Ativan Inj) 2 mg Q1H PRN IV PUSH 10/13/17 20:45 (Ativan Inj) 2 mg Q15M PRN IV PUSH 10/13/17 20:45 Sodium Chloride 1,000 ml @ 84 mls/hr [id number] IV 10/13/17 22:45 10/16/17 10:20 (Synthroid) 100 mcg DAILY@0600 PO 10/15/17 06:00 10/16/17 04:59 Pharmacy Profile Note 0 ml @ 0 mls/hr UNSCH OTHER 10/15/17 11:45 (SoluMEDROL INJ) 60 mg Q4HR IV PUSH 10/15/17 16:00 10/16/17 10:26 (Malia Garcia MD R1) Urinary Catheter: No (Malia Garcia MD R1) Vascular Central Line Catheter: No (Malia Garcia MD R1) A/P Assessment and Plan The patient is a 73 year old female with a past medical history significant of severe COPD and incidental pulmonary mass admitted for shortness of breath. Discharge Planning Blood cultures growing gram-positive cocci, pending results and clinical improvement. (Malia Garcia MD R1) Attending Attestation Patient seen and examined, discussed with resident team. I agree with assessment and management as documented and discussed with me. Pt reports breathing is a little better than yesterday. She is not producing any sputum with cough or acapella use. No obvious source of her bacteremia - continue vancomycin; repeat blood cultures in AM. (Connie Clemente MD) Problem List: (1) Bacteremia ICD Codes: R78.81 - Bacteremia Status: Acute Plan: Blood cultures growing gram-positive cocci in pairs and clusters. Follow-up culture growth. Add IV Vanco to cover for MRSA, pharmacy consult. UA 10/13: negative. UA 10/15: negative. CXR 10/15: Possible tiny effusions. (2) Shortness of breath on exertion ICD Codes: R06.02 - Shortness of breath Status: Acute Plan: Acute on chronic COPD. Two weeks of shortness of breath, stable. SOB likely related to bacteriemia and sepsis from COPD exacerbation. Less likely on differential is PE. Bacteremia/Sepsis * See plan above * f/u VS closely Likely worsening COPD * Encouraged patient to sit up in bed, prevent atelectasis. * Continue home O2 3 L and higher when necessary. * Duo nebs every 4hrs with albuterol nebs as needed. * Increase Solu-Medrol 60 mg IV q6hrs --> [id number]. * Continue Protonix. * COPD exacerbation: Continue with IV Levaquin given sepsis picture. * Will consider consult to on [facility] Motor Grader Operator if no improvement. * Case management for pulmonary rehab. Rule out PE * D-dimer positive. * In light of CT with contrast, per radiology no large PE is present. * Will consider CTA if no improvement. Rule out ACS * Troponin negative 2. * EKG showing no signs of acute ischemia. (3) SIRS (systemic inflammatory response syndrome) ICD Codes: R65.10 - Systemic inflammatory response syndrome (SIRS) of non- infectious origin without acute organ dysfunction Status: Resolved Plan: Continued Tachycardia. Tachypnea resolved. WBC of 16.9 --> 6.0 -> 11.4 -> 10.6. Lactic acid 4.5 --> 2.2 -> 2.4. UA no signs of infection. Blood cultures: Staph Sp Coagulase Negative. CXR negative. ABX above. (4) Elevated lactic acid level ICD Codes: R79.89 - Other specified abnormal findings of blood chemistry Status: Acute Plan: Likely related to bacteremia, initial level of 4.5. 10/14: 2.4 (5) Pulmonary nodule ICD Codes: R91.1 - Solitary pulmonary nodule Status: Chronic Plan: Stable in size compared to previous CT on 05/18/60. Followed by podiatry doctor as mentioned in admission HPI. CT chest 10/13: Pulmonary nodule stable, nodule measures 1.6 x 1.5 x 2.5 cm. PET /CT scan may be helpful in future. Emphysematous changes bilaterally. Granulomatous changes bilaterally. Can be followed as an outpatient. (6) Hypertension ICD Codes: I10 - Essential (primary) hypertension Status: Chronic Plan: Patient with history of hypertension. * Continue home meds. (7) Hypothyroidism ICD Codes: E03.9 - Hypothyroidism, unspecified Plan: Patient with history of hypothyroidism. * TSH 0.068 -- decrease dose from 112 mcg daily to 100 mcg daily. Continue to titrate as an outpatient. (8) Alcoholism /alcohol abuse ICD Codes: F10.20 - Alcohol dependence, uncomplicated Status: Chronic Plan: Possible history of alcohol abuse and falls related to alcohol use. ED visit in August for alcohol use. Urine tox negative for alcohol. [facility] protocol. (9) fen/ppx Status: Chronic Plan: Fluids: * Tolerates PO. Electrolytes: * Monitor and replete as necessary. Nutrition: * Regular diet GI prophylaxis: * Continue home Prilosec. DVT prophylaxis: * Lovenox 40 mg daily. (Malia Garcia MD R1) Malia Garcia MD R1 Oct 16, 2017 11:59 Connie Clemente MD Oct 17, 2017 06:45
[2017-10-16] MEDS ORDERED: DIMETHICONE/OXYBENZONE/PADMIATE LIP BALM 4.25 GM TOPICAL PRN (12:00)
[2017-10-16] MEDS: VANCOMYCIN INJ 750 MG in SODIUM CHLOR 0.9% 250 ML INJ 250 ML IV SCH (16:39)
[2017-10-16] MEDS: ENOXAPARIN SODIUM 40 MG/0.4 ML SYRINGE SQ SCH (16:40)
[2017-10-16] MEDS: LEVOFLOXACIN 500 MG PREMIX INJ 100 ML IV SCH (21:26)
[2017-10-16] MEDS: traZODone HCL 50 MG TAB PO SCH (21:26)
[2017-10-17] VITALS (7 sets, daily range): BP systolic 103–169; BP diastolic 54–79; PULSE 91–107; RESP 18–20; TEMP 97.2–98.6; O2SAT 94–99
[2017-10-17] MEDS: RESP: ALBUTEROL 2.5 MG/IPRATROPIUM 0.5 MG NEB (SCH) INH ×5 (02:56→15:25)
[2017-10-17] MEDS: oxyCODONE/ACETAMINOPHEN 10 MG/325 MG TAB PO PRN ×3 (05:11→18:08)
[2017-10-17] MEDS: LEVOTHYROXINE SODIUM 100 MCG TAB PO SCH (05:11)
[2017-10-17] MEDS: methylPREDNISolone SOD SUCC 125 MG/2 ML VIAL IV PUSH SCH ×6 (05:11→20:59)
[2017-10-17 07:11] LABS: AUTOMATED NEUTROPHIL # 6.6 TH/MM3 (1.8-7.7); BASOPHIL % 0.1 % (0.0-2.0); HEMATOCRIT 30.6 % (35.0-46.0); HEMOGLOBIN 10.3 GM/DL (11.6-15.3); LYMPH % 6.9 % (9.0-44.0); LYMPHOCYTE # 0.5 TH/MM3 (1.0-4.8); MEAN CORPUSCULAR HEMOGLOBIN 32.2 PG (27.0-34.0); MEAN CORPUSCULAR HGB CONC 33.5 % (32.0-36.0); MEAN PLATELET VOLUME 7.9 FL (7.0-11.0); MONO % 5.6 % (0.0-8.0); MONOCYTE # 0.4 TH/MM3 (0-0.9); NEUT % 87.4 % (16.0-70.0); PLATELET COUNT 358 TH/MM3 (150-450); RED BLOOD COUNT 3.19 MIL/MM3 (4.00-5.30); RED CELL DISTRIBUTION WIDTH 13.9 % (11.6-17.2); WHITE BLOOD COUNT 7.6 TH/MM3 (4.0-11.0)
[2017-10-17] MEDS: FLUoxetine HCL 20 MG CAP PO SCH (07:41)
[2017-10-17] MEDS: ALPRAZolam 0.5 MG TAB PO PRN ×2 (07:41→15:53)
[2017-10-17] MEDS: CLOPIDOGREL 75 MG TAB PO SCH (07:41)
[2017-10-17] MEDS: DICYCLOMINE HCL 20 MG TAB PO SCH ×2 (07:41→20:59)
[2017-10-17] MEDS: PANTOPRAZOLE SOD 40 MG DELAYED RELEASE TAB PO SCH (07:41)
[2017-10-17] MEDS: LISINOPRIL 10 MG TAB PO SCH ×2 (07:41→20:59)
[2017-10-17] MEDS: FLUTICASONE 100 MCG/VILANTEROL 25 MCG INHALER INH SCH (07:42)
[2017-10-17 07:43] LABS: ALBUMIN 3.2 GM/DL (3.4-5.0); ALKALINE PHOSPHATASE 45 U/L (45-117); ALT (GPT) 25 U/L (10-53); AST (GOT) 14 U/L (15-37); BICARBONATE 36.3 MEQ/L (21.0-32.0); BLOOD UREA NITROGEN 14 MG/DL (7-18); CHLORIDE 96 MEQ/L (98-107); CREATININE 0.54 MG/DL (0.50-1.00); GLOMERULAR FILTRATION RATE 110 ML/MIN (>89); GLUCOSE,RANDOM 121 MG/DL (74-106); SODIUM (NA) 138 MEQ/L (136-145); TOTAL BILIRUBIN ADULT 0.2 MG/DL (0.2-1.0); TOTAL PROTEIN 6.4 GM/DL (6.4-8.2)
[2017-10-17] MEDS: POTASSIUM CHLORIDE 10 MEQ CAP PO SCH (09:48)
[2017-10-17] MEDS: VANCOMYCIN INJ 750 MG in SODIUM CHLOR 0.9% 250 ML INJ 250 ML IV SCH (09:49)
[2017-10-17] MEDS: SODIUM CHLORIDE 0.9% FLUSH 10 ML FLUSH IV FLUSH SCH ×2 (09:49→21:00)
--- NOTE | 2017-10-17 14:47 | HHI.FPPN ---
Subjective Remarks Patient seen and examined bedside today. Patient states she is still having difficulty breathing, however she believes that her breathing has 25% improved. She has been able to sleep without difficulties and does not awake with difficulty breathing. She thinks that she is coughing up more sputum and it is clear. Denies any chest pain or dizziness. (Alejandra Martini MD R2) Objective Vitals Vital Signs Date Time Temp Pulse Resp B/P (MAP) Pulse Ox O2 Delivery O2 Flow Rate FiO2 10/17/17 12:00 98.1 98 20 103/67 (79) 97 10/17/17 08:00 97.9 99 20 115/65 (82) 99 10/17/17 07:35 94 Nasal Cannula 3.00 10/17/17 00:00 97.2 91 18 169/79 (109) 97 10/16/17 20:27 97.6 101 20 166/82 (110) 98 10/16/17 20:00 Nasal Cannula 3.00 10/16/17 19:14 99 Nasal Cannula 3.00 10/16/17 16:00 98.9 106 20 120/71 (87) 94 10/16/17 15:18 98 Nasal Cannula 3.00 I/O 10/16/17 10/16/17 10/16/17 10/17/17 10/17/17 10/17/17 07:00 15:00 23:00 07:00 15:00 23:00 Intake Total 660 ml 1737.5 ml Output Total 950 ml Balance -290 ml 1737.5 ml Intake Oral 660 ml 480 ml IV Total 1257.5 ml Output Urine Total 950 ml # Voids 5 # Bowel Movements 1 4 (Alejandra Martini MD R2) Result Diagram: 10/17/17 0650 10/17/17 0620 Objective Remarks GENERAL: Patient is laying in bed comfortably. She does not appear to be in respiratory distress but experiences shortness of breath with minimal movement. She is able to speak in complete sentences. SKIN: Warm and dry. HEAD: Atraumatic. Normocephalic. EYES: Pupils equal round. Extraocular motions intact. No scleral icterus. No injection or drainage. ENT: Nose without bleeding, purulent drainage or septal hematoma - nasal cannula in place, exam limited. Airway patent. NECK: Supple, nontender, no meningeal signs. CARDIOVASCULAR: Regular rate. 3/5 systolic murmur. No gallops, or rubs. RESPIRATORY: Improved air movement as compared to previous exams. Breath sounds continue to be distant in lower lobes. No accessory muscle use GASTROINTESTINAL: Positive bowel sounds. Abdomen soft, non-tender, nondistended. No hepato-splenomegaly, or palpable masses. No guarding. MUSCULOSKELETAL: Extremities without clubbing, cyanosis, or edema. No calf tenderness. NEUROLOGICAL: Awake and alert. Cranial nerves II through XII intact. Motor and sensory grossly within normal limits. Normal speech. (Alejandra Martini MD R2) A/P Assessment and Plan The patient is a 73 year old female with a past medical history significant of severe COPD and incidental pulmonary mass admitted for shortness of breath. Discharge Planning Blood cultures growing gram-positive cocci, pending results and clinical improvement. (Alejandra Martini MD R2) Attending Attestation Patient seen and examined, discussed with resident team. I agree with assessment and management as documented and discussed with me. Pt reports breathing is slightly improved. She denies fever, chest pain. Continue IV steroids, nebulizers, oxygen, antibiotics, acapella, incentive spirometer. Repeat blood culture pending; await echo results to evaluate for vegetations. (Connie Clemente MD) Problem List: (1) Bacteremia ICD Codes: R78.81 - Bacteremia Status: Acute Plan: Blood cultures from 10/13 growing Staphylococcus hominis-hominis ; coagulase-negative staph that is commonly seen on the skin, rarely grows in culture - Resistant to clindamycin and levofloxacin and Bactrim -Sensitive to vancomycin, gentamicin IV Vanco to cover for MRSA, pharmacy consult Will consider ID consult if no clinical improvement. UA 10/13: negative. UA 10/15: negative. CXR 10/15: Possible tiny effusions. F/u Echo to r/o vegetations (2) Shortness of breath on exertion ICD Codes: R06.02 - Shortness of breath Status: Acute Plan: Acute on chronic COPD. Two weeks of shortness of breath, stable. SOB likely related to bacteriemia and sepsis from COPD exacerbation. Less likely on differential is PE and CHF. Bacteremia/Sepsis * See plan above * f/u VS closely Likely worsening COPD * Encouraged patient to sit up in bed, prevent atelectasis. * Continue home O2 3 L and higher when necessary. * Duo nebs every 4hrs with albuterol nebs as needed. * Increase Solu-Medrol 60mg [id number]. * Continue Protonix. * COPD exacerbation: Continue with IV Levaquin given sepsis picture. * Will consider consult to on [facility] Instructional Media Services Technician if no improvement. * Case management for pulmonary rehab. Rule out PE * D-dimer positive. * In light of CT with contrast, per radiology no large PE is present. * Will consider CTA if no improvement. Rule out ACS * Troponin negative 2. * EKG showing no signs of acute ischemia. Rule out CHF f/u Echo (3) SIRS (systemic inflammatory response syndrome) ICD Codes: R65.10 - Systemic inflammatory response syndrome (SIRS) of non- infectious origin without acute organ dysfunction Status: Resolved Plan: Continued Tachycardia. Continued Tachypnea WBC of 16.9 --> 6.0 -> 11.4 -> 10.6 --> 7.6 Lactic acid 4.5 --> 2.2 -> 2.4. UA no signs of infection. Blood cultures: See above for bacteremia CXR negative. ABX above. (4) Elevated lactic acid level ICD Codes: R79.89 - Other specified abnormal findings of blood chemistry Status: Acute Plan: Likely related to bacteremia, initial level of 4.5. 10/14: 2.4 (5) Pulmonary nodule ICD Codes: R91.1 - Solitary pulmonary nodule Status: Chronic Plan: Stable in size compared to previous CT on 05/18/60. Followed by concrete stone fabricating supervisor as mentioned in admission HPI. CT chest 10/13: Pulmonary nodule stable, nodule measures 1.6 x 1.5 x 2.5 cm. PET /CT scan may be helpful in future. Emphysematous changes bilaterally. Granulomatous changes bilaterally. Can be followed as an outpatient. (6) Hypertension ICD Codes: I10 - Essential (primary) hypertension Status: Chronic Plan: Patient with history of hypertension. * Continue home meds. (7) Hypothyroidism ICD Codes: E03.9 - Hypothyroidism, unspecified Plan: Patient with history of hypothyroidism. * TSH 0.068 -- decrease dose from 112 mcg daily to 100 mcg daily. Continue to titrate as an outpatient. (8) Alcoholism /alcohol abuse ICD Codes: F10.20 - Alcohol dependence, uncomplicated Status: Chronic Plan: Possible history of alcohol abuse and falls related to alcohol use. ED visit in August for alcohol use. Urine tox negative for alcohol. CIWA protocol. (9) fen/ppx Status: Chronic Plan: Fluids: * Tolerates PO. Electrolytes: * Monitor and replete as necessary. Nutrition: * Regular diet GI prophylaxis: * Continue home Prilosec. DVT prophylaxis: * Lovenox 40 mg daily. (Alejandra Martini MD R2) Alejandra Martini MD R2 Oct 17, 2017 14:47 Connie Clemente MD Oct 17, 2017 21:29
--- NOTE | 2017-10-17 17:09 | ECHRPT ---
Indication: Vegetations CONCLUSIONS The left ventricular systolic function is normal with an estimated ejection fraction in the range of 55-60%. 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 Mitral annular calcification is present. Moderate mitral valve regurgitation. Trace aortic valve regurgitation. There is trace tricuspid valve regurgitation. No evidence of valvular vegetations. BP: 169 / 79 HR: 91 Rhythm: Sinus MEASUREMENTS (Male / Female) Normal Values Technical Quality:Fair DOPPLER TR Peak Velocity 345.0 cm/s TR Peak Gradient 47.6 mmHg Right Atrial Pressure 10.0 mmHg Pulmonary Artery Systolic Pressu 57.6 mmHg Right Ventricular Systolic Press 57.6 mmHg FINDINGS LEFT VENTRICLE The left ventricular systolic function is normal with an estimated ejection fraction in the range of 55-60%. ATRIAL SEPTUM Thickened atrial septum is noted with morphological features most consistent with a lipomatous atria l septum. MITRAL VALVE Mitral annular calcification is present. Moderate mitral valve regurgitation. AORTIC VALVE Trileaflet aortic valve. Trace aortic valve regurgitation. TRICUSPID VALVE Structurally normal tricuspid valve. There is trace tricuspid valve regurgitation. Eleuterio Woods MD, FACC (Electronically Signed) Final Date:17 October 2017 17:08
[2017-10-17] MEDS: ENOXAPARIN SODIUM 40 MG/0.4 ML SYRINGE SQ SCH (18:08)
[2017-10-17] MEDS ORDERED: IOHEXOL 350 MG/ML 10 ML VIAL (for RAD DIAG) IVCONTRAST ONE (19:14)
--- NOTE | 2017-10-17 19:22 | RADRPT ---
EXAM DATE/TIME: 10/17/2017 19:04 [place] COMPARISON: CT PULMONARY ANGIOGRAM, February 27, 2016, 11:43. INDICATIONS : Short of breath. IV CONTRAST: 50 cc Omnipaque 350 (iohexol) IV RADIATION DOSE: 9.13 CTDIvol (mGy) MEDICAL HISTORY : Cardiovascular disease. Chronic obstructive pulmonary disease. Emphysema. SURGICAL HISTORY : None. ENCOUNTER: Initial ACUITY: 1 day PAIN SCALE: 0/10 LOCATION: chest TECHNIQUE: Volumetric scanning of the chest was performed using a pulmonary embolism protocol MIP images were re constructed. Using automated exposure control and adjustment of the mA and/or kV according to patien t size, radiation dose was kept as low as reasonably achievable to obtain optimal diagnostic quality images. DICOM format image data is available electronically for review and comparison. Follow-up recommendations for detected pulmonary nodules are based at a minimum on nodule size and pa tient risk factors according to Fleischner Society Guidelines. FINDINGS: PULMONARY ARTERIES: No filling defects are seen in the pulmonary arteries through the segmental level. LUNGS: There is no consolidation or pneumothorax . 14 x 14 mm pulmonary nodule left upper lobe. Severe emphy sema. Minimal bibasilar densities likely atelectasis. Scattered calcified granulomas. PLEURAE: There is no pleural thickening or pleural effusion. MEDIASTINUM: There is good visualization of the great vessels of the middle mediastinum. No evidence of mediastin al or hilar adenopathy/mass. Coronary artery calcifications. MUSCULOSKELETAL: Within normal limits for patient age. MISCELLANEOUS: The visualized upper abdominal organs demonstrate no acute abnormality. CONCLUSION: 1. 14 x 14 mm nodule left upper lobe concerning for indolent carcinoma. Outpatient PET CT scan recomm ended. 2. Severe emphysema. 3. No evidence for pulmonary embolism. Avery Mahajan MD on October 17, 2017 at 19:17 Board Certified Radiologist. This report was verified electronically.
[2017-10-17] MEDS: traZODone HCL 50 MG TAB PO SCH (20:59)
[2017-10-17] MEDS: LEVOFLOXACIN 500 MG PREMIX INJ 100 ML IV SCH (21:02)
[2017-10-17] MEDS: RESP: ALBUTEROL 2.5 MG/3 ML NEB (PRN) INH (21:35)
[2017-10-18] VITALS (9 sets, daily range): BP systolic 140–169; BP diastolic 66–80; PULSE 82–96; RESP 16–20; TEMP 97.2–98.3; O2SAT 96–100
[2017-10-18] MEDS: oxyCODONE/ACETAMINOPHEN 10 MG/325 MG TAB PO PRN ×4 (00:16→18:03)
[2017-10-18] MEDS: ALPRAZolam 0.5 MG TAB PO PRN ×3 (00:16→15:59)
[2017-10-18] MEDS: RESP: ALBUTEROL 2.5 MG/3 ML NEB (PRN) INH ×5 (01:00→20:26)
[2017-10-18] MEDS: VANCOMYCIN INJ 750 MG in SODIUM CHLOR 0.9% 250 ML INJ 250 ML IV SCH (03:05)
[2017-10-18] MEDS: SODIUM CHLOR 0.9% 1000 ML INJ 1,000 ML IV SCH (03:09)
[2017-10-18] MEDS: methylPREDNISolone SOD SUCC 125 MG/2 ML VIAL IV PUSH SCH ×4 (04:00→12:15)
[2017-10-18] MEDS: LEVOTHYROXINE SODIUM 100 MCG TAB PO SCH (06:05)
[2017-10-18 07:28] LABS: HEMATOCRIT 31.1 % (35.0-46.0); HEMOGLOBIN 10.3 GM/DL (11.6-15.3); LYMPH % 7.6 % (9.0-44.0); LYMPHOCYTE # 0.6 TH/MM3 (1.0-4.8); MEAN CELL VOLUME 95.8 FL (80.0-100.0); MEAN CORPUSCULAR HEMOGLOBIN 31.7 PG (27.0-34.0); MEAN CORPUSCULAR HGB CONC 33.1 % (32.0-36.0); MONO % 5.8 % (0.0-8.0); MONOCYTE # 0.5 TH/MM3 (0-0.9); NEUT % 86.6 % (16.0-70.0); PLATELET COUNT 384 TH/MM3 (150-450); RED BLOOD COUNT 3.25 MIL/MM3 (4.00-5.30); RED CELL DISTRIBUTION WIDTH 13.8 % (11.6-17.2); WHITE BLOOD COUNT 8.1 TH/MM3 (4.0-11.0)
[2017-10-18] MEDS: PANTOPRAZOLE SOD 40 MG DELAYED RELEASE TAB PO SCH (07:53)
[2017-10-18] MEDS: FLUoxetine HCL 20 MG CAP PO SCH (07:53)
[2017-10-18] MEDS: CLOPIDOGREL 75 MG TAB PO SCH (07:53)
[2017-10-18] MEDS: DICYCLOMINE HCL 20 MG TAB PO SCH ×2 (07:53→20:08)
[2017-10-18 07:54] LABS: ALBUMIN 3.1 GM/DL (3.4-5.0); ALT (GPT) 25 U/L (10-53); AST (GOT) 12 U/L (15-37); BICARBONATE 37.2 MEQ/L (21.0-32.0); BLOOD UREA NITROGEN 16 MG/DL (7-18); CALCIUM 8.3 MG/DL (8.5-10.1); CHLORIDE 95 MEQ/L (98-107); CREATININE 0.62 MG/DL (0.50-1.00); GLOMERULAR FILTRATION RATE 94 ML/MIN (>89); GLUCOSE,RANDOM 115 MG/DL (74-106); SODIUM (NA) 140 MEQ/L (136-145)
[2017-10-18] MEDS: LISINOPRIL 10 MG TAB PO SCH ×2 (07:55→20:08)
[2017-10-18 08:02] LABS: ALKALINE PHOSPHATASE 44 U/L (45-117); TOTAL BILIRUBIN ADULT 0.2 MG/DL (0.2-1.0); TOTAL PROTEIN 6.2 GM/DL (6.4-8.2)
[2017-10-18] MEDS: FLUTICASONE 100 MCG/VILANTEROL 25 MCG INHALER INH SCH (08:02)
[2017-10-18] MEDS: SODIUM CHLORIDE 0.9% FLUSH 10 ML FLUSH IV FLUSH SCH ×2 (08:02→20:09)
--- NOTE | 2017-10-18 10:34 | PD.ID.CON ---
History of Present Illness Service Infectious disease Consult Requested By Dr. Martini Reason for Consult 4 tubes blood culture positive, staph coag negative. Contaminant versus infection. Primary Care Physician Unknown Diagnoses: History of Present Illness Patient seen and examined with Dr. Waterman This is a 72-year-old female with past medical history significant for COPD, chronic respiratory insufficiency on 3 L of oxygen at home, incidental pulmonary mass, colitis/diverticulitis and anxiety who was admitted 10/13/2017 with complaints of progressive shortness of breath secondary to acute COPD exacerbation. She was started on IV Levaquin and IV Solumedrol Patient had blood cultures drawn 10/13 which were positive in 4 out of 4 bottles, 2 with coagulase-negative staph and 2 with staph hominis. She was started on IV vancomycin. Patient has repeat blood cultures which are pending. Urinalysis was unremarkable. Patient has been afebrile during her hospitalization. She did have leukocytosis with elevated white count of 16.9 at the time of her admission but now normal white count. She also had significant lactic acid level 4.5 at admission which is remained persistently elevated is currently 2.3. She has had an echocardiogram done which shows no evidence of vegetations. Chest x-ray was obtained which revealed enlarging nodular mass left upper lobe suspicious for malignancy. She reports negative lung biopsy . She had a bronchoscopy in 2017 with cytology negative for malignancy and cultures positive for Serratia marcescens. CT chest obtained this hospitalization revealed a left upper lobe pulmonary nodule stable in size from previous study. Due to elevated d-dimer, CTA was obtained revealing 14 x 14 mm nodule left upper lobe concerning for indolent carcinoma, outpatient PET scan recommended. Pulmonology has been consulted as well. She follows with Dr. Davila as an outpatient and was actually scheduled to see him the day she came into the hospital for admission. Patient seen and examined. She states her breathing has improved stone but still has significant dyspnea. She reports cough with scant clear sputum production. She denies any recent illness. She denies any fever or chills. She denies any rash. She denies any chest pain. She denies any nausea, vomiting or abdominal pain. She denies any hematuria, dysuria or diarrhea. She denies previous hospitalization for pneumonia. She does admit to drinking too much and states she will drink three quarters to a bottle of wine 3-4 times per week. Infectious disease consultation has been requested for management of positive blood cultures. (Grciel Yepez) Review of Systems Except as stated in HPI: all other systems reviewed are Neg (Gricel Yepez) Past Family Social History Allergies: Coded Allergies: No Known Allergies (Verified , 10/18/16) Past Medical History COPD History of needle biopsy of the lung 2016 negative for malignancy with complication of pneumothorax Previous bronchoscopy with cultures positive for Serratia Marcescens and cytology negative for malignancy 01/18/17 HTN Hypothyroidism Degenerative disc disease Diverticulitis, colitis Alcoholism?, Patient drinks three quarters to a bottle of wine 3-4 nights per week. Chronic pain from arm fractures, unrepaired Osteoarthritis Past Surgical History SMA stent placement Cataract surgery D&C Previous chest tube for pneumothorax Reported Medications Alprazolam 0.5 Mg Tab 0.5 Mg PO Q8HR PRN Zyrtec (Cetirizine HCl) 10 Mg Tablet 10 Mg PO DAILY PRN Oxycodone-Acetaminophen 10-325 mg Tab 1 Tab PO Q6HR PRN Colace (Docusate Sodium) 100 Mg Capsule 1 Tab PO BID PRN Senna Lax (Sennosides) 8.6 Mg Tab 17.2 Mg PO Q12H PRN Xarelto (Rivaroxaban) 10 Mg Tab 10 Mg PO DAILY Trazodone (Trazodone HCl) 50 Mg Tab 50 Mg PO HS Zithromax (Azithromycin) 250 Mg Tab 250 Mg PO MOWEFR Levothyroxine (Levothyroxine Sodium) 112 Mcg Tab 112 Mcg PO DAILY Centrum Silver Women Tablet (Multivit-Min/Iron/Folic/Lutein) 1 Each Tablet 1 Tab PO DAILY Clopidogrel (Clopidogrel Bisulfate) 75 Mg Tab 75 Mg PO DAILY Benazepril (Benazepril HCl) 10 Mg Tab 10 Mg PO BID Fluoxetine (Fluoxetine HCl) 20 Mg Tab 20 Mg PO DAILY Amlodipine (Amlodipine Besylate) 10 Mg Tab 10 Mg PO DAILY Prednisone 10 Mg Tab 10 Mg PO DAILY Duoneb (Ipratropium-Albuterol Neb) 0.5-2.5 Mg/3 Ml Neb 1 Nebule INH Q6HR NEB Breo Ellipta Inh (Fluticasone/Vilanterol) 100-25 Mcg/Act Inh 1 Puff INH DAILY Use daily at the same time. Active Ordered Medications Current Medications Medications (Trade) Dose Ordered Sig/Mic Route Start Time Stop Time Status Last Admin (Xanax) 0.5 mg Q8HR PRN PO 10/13/17 16:00 10/18/17 07:53 (Norvasc) 10 mg DAILY PO 10/14/17 09:00 10/18/17 07:55 (Prinivil) 10 mg BID PO 10/13/17 21:00 10/18/17 07:55 (Plavix) 75 mg DAILY PO 10/14/17 09:00 10/18/17 07:53 (PROzac) 20 mg DAILY PO 10/14/17 09:00 10/18/17 07:53 (Breo Ellipta 100-25 Inh) 1 puff DAILY INH 10/14/17 09:00 10/18/17 08:02 (Percocet 10-325 Mg) 1 tab Q6HR PRN PO 10/13/17 16:00 10/18/17 06:05 (Desyrel) 50 mg HS PO 10/13/17 21:00 10/17/17 20:59 (Bentyl) 20 mg BID PO 10/13/17 21:00 10/18/17 07:53 (Protonix) 40 mg DAILY PO 10/14/17 09:00 10/18/17 07:53 (NS Flush) 2 ml BID IV FLUSH 10/13/17 21:00 10/18/17 08:02 (NS Flush) 2 ml UNSCH PRN IV FLUSH 10/13/17 16:15 (Albuterol Neb) 2.5 mg Q2HR NEB PRN INH 10/13/17 16:15 10/18/17 08:58 (Lovenox Inj) 40 mg Q24H SQ 10/13/17 17:00 10/17/17 18:08 (Vasotec Inj) 1.25 mg Q6H PRN IV PUSH 10/13/17 16:45 Levofloxacin/ Dextrose 100 ml @ 100 mls/hr Q24H IV 10/13/17 21:00 10/17/17 21:02 (Romazicon Inj) 0.2 mg Q1M PRN IV PUSH 10/13/17 20:45 (Ativan) 1 mg Q4H PRN PO 10/13/17 20:45 (Ativan Inj) 1 mg Q4H PRN IV PUSH 10/13/17 20:45 (Ativan) 2 mg Q2H PRN PO 10/13/17 20:45 (Ativan Inj) 2 mg Q2H PRN IV PUSH 10/13/17 20:45 (Ativan Inj) 2 mg Q1H PRN IV PUSH 10/13/17 20:45 (Ativan Inj) 2 mg Q15M PRN IV PUSH 10/13/17 20:45 Sodium Chloride 1,000 ml @ 84 mls/hr [id number] IV 10/13/17 22:45 10/18/17 03:09 (Synthroid) 100 mcg DAILY@0600 PO 10/15/17 06:00 10/18/17 06:05 Pharmacy Profile Note 0 ml @ 0 mls/hr UNSCH OTHER 10/15/17 11:45 (SoluMEDROL INJ) 60 mg Q4HR IV PUSH 10/15/17 16:00 10/18/17 07:57 (Blistex Lip [place]) 1 applic UNSCH PRN TOPICAL 10/16/17 12:00 Vancomycin HCl 750 mg/Sodium Chloride 257.5 ml @ 250 mls/hr Q18H IV 10/16/17 15:00 10/18/17 03:05 Miscellaneous Information SPECIFIC LAB TO BE IZABEL... ONCE ONCE .XX 10/18/17 20:45 10/18/17 20:46 (KCl) 40 meq DAILY PO 10/17/17 09:00 10/17/17 09:48 Family History Hypertension Coronary artery disease, brother at 48 from massive [place] Social History Patient has a history of tobacco use of 1-2 packs per day for 50 years but quit in 2011. Patient drinks three quarters to a bottle of wine 3-4 nights per week , states she has not drank in the past 2 weeks. Patient denies any drug use. Patient lives alone in a small apartment. (Gricel Yepez) Physical Exam Vital Signs Vital Signs Date Time Temp Pulse Resp B/P (MAP) Pulse Ox O2 Delivery O2 Flow Rate FiO2 10/18/17 08:58 96 Nasal Cannula 3.00 10/18/17 04:00 Nasal Cannula 3.00 10/18/17 04:00 97.4 89 20 169/80 (109) 99 10/18/17 00:00 97.2 96 20 160/70 (100) 97 10/18/17 00:00 Nasal Cannula 3.00 10/17/17 20:00 98.2 102 20 121/54 (76) 97 10/17/17 20:00 Nasal Cannula 3.00 10/17/17 19:08 20 10/17/17 16:00 98.6 107 20 125/76 (92) 97 10/17/17 15:25 98 Nasal Cannula 3.00 10/17/17 12:00 98.1 98 20 103/67 (79) 97 Physical Exam GENERAL: This is a well-nourished, well-developed elderly female patient, in mild respiratory distress. Awake and alert. Sitting up in bed. Short of breath with conversation. SKIN: Cool and dry. Few areas of scattered ecchymosis bilateral upper extremities and abdomen secondary to needle trauma. HEAD: Atraumatic. Normocephalic. No temporal or scalp tenderness. EYES: Pupils equal round and reactive. Extraocular motions intact. No scleral icterus. No injection or drainage. ENT: Nose without bleeding or purulent drainage. Throat without erythema, tonsillar hypertrophy or exudate. Uvula midline. Airway patent. NECK: Trachea midline. No lymphadenopathy. Supple, nontender. CARDIOVASCULAR: Regular rate and rhythm with 3/6 systolic murmur. RESPIRATORY: Severely diminished throughout with little air movement, diffuse expiratory wheezing noted. GASTROINTESTINAL: Abdomen soft, non-tender, nondistended. No hepato-splenomegaly , or palpable masses. No guarding. MUSCULOSKELETAL: Extremities without clubbing, cyanosis, or edema. No joint tenderness, effusion, or edema noted. No calf tenderness. NEUROLOGICAL: Awake and alert. Cranial nerves II through XII intact. Motor and sensory grossly within normal limits. No focal neurologic findings appreciated. Normal speech but clearly becomes dyspneic with conversation. PSYCHIATRIC: Appropriate mood and affect. Appears to have normal judgment and insight. Calm and pleasant. Left IV with no evidence of infection Laboratory Laboratory Tests Test 10/18/17 06:10 White Blood Count 8.1 Red Blood Count 3.25 Hemoglobin 10.3 Hematocrit 31.1 Mean Corpuscular Volume 95.8 Mean Corpuscular Hemoglobin 31.7 Mean Corpuscular Hemoglobin Concent 33.1 Red Cell Distribution Width 13.8 Platelet Count 384 Mean Platelet Volume 8.0 Neutrophils (%) (Auto) 86.6 Lymphocytes (%) (Auto) 7.6 Monocytes (%) (Auto) 5.8 Eosinophils (%) (Auto) 0.0 Basophils (%) (Auto) 0.0 Neutrophils # (Auto) 7.0 Lymphocytes # (Auto) 0.6 Monocytes # (Auto) 0.5 Eosinophils # (Auto) 0.0 Basophils # (Auto) 0.0 CBC Comment DIFF FINAL Differential Comment Blood Urea Nitrogen 16 Creatinine 0.62 Random Glucose 115 Total Protein 6.2 Albumin 3.1 Calcium Level 8.3 Alkaline Phosphatase 44 Aspartate Amino Transf (AST/SGOT) 12 Alanine Aminotransferase (ALT/SGPT) 25 Total Bilirubin 0.2 Sodium Level 140 Potassium Level 3.0 Chloride Level 95 Carbon Dioxide Level 37.2 Anion Gap 8 Estimat Glomerular Filtration Rate 94 Date/Time Source Procedure Growth Status 10/17/17 06:20 Blood Peripheral Aerobic Blood Culture Pending Received 10/17/17 06:20 Blood Peripheral Anaerobic Blood Culture Pending Received 10/13/17 17:30 Nasal Aspirate Influenza Types A,B Antigen ([facility]) - Final NEGATIVE FOR FLU A AND B ANTIGEN.... Complete (Gricel Yepez) Result Diagram: 10/18/17 0610 10/18/[address] Angiography 10/17/17 0000 Signed Impressions: Service Date/Time: Tuesday, October 17, 2017 19:04 - CONCLUSION: 1. 14 x 14 mm nodule left upper lobe concerning for indolent carcinoma. Outpatient PET CT scan recommended. 2. Severe emphysema. 3. No evidence for pulmonary embolism. Avery Mahajan MD Chest X-Ray 10/15/17 0000 Signed Impressions: Service Date/Time: Sunday, October 15, 2017 13:39 - CONCLUSION: Possible tiny effusions. Donal Simpson MD Lower Extremity Ultrasound 10/14/17 0000 Signed Impressions: Service Date/Time: Saturday, October 14, 2017 10:02 - CONCLUSION: Negative for deep venous thrombosis. Adolfo Fox MD FACR Chest CT 10/13/17 1325 Signed Impressions: Service Date/Time: Friday, October 13, 2017 14:26 - CONCLUSION: 1. Left upper lobe pulmonary nodule is stable in size compared to the previous CT of the chest dated 05/18/16 when this was biopsied. This nodule measures 1.6 x 1.5 x 2.5 cm. PET/CT scan may be helpful for further evaluation this nodule if pathology results are not concordant with imaging findings. 2. Emphysematous changes bilaterally. 3. Granulomatous changes bilaterally. 4. Coronary artery calcifications. 5. Degenerative changes and scoliosis of the thoracolumbar spine 6. 1.6 cm left renal cyst. Ronnie Rodriguez MD (Gricel Yepez) Assessment and Plan Assessment and Plan Severe COPD exacerbation with sepsis -on IV solumedrol and IV Levaquin -improving Positive blood cultures 4, 2 with coagulase-negative staph, 2 with staph hominis, -Currently on IV vancomycin -Repeat blood cultures pending Chronic respiratory insufficiency on 3 L of oxygen at home Left upper lobe nodule concerning for indolent carcinoma -History of previous left upper lobe biopsy with benign results and complications of pneumothorax -Previous bronchoscopy 2016 with cultures positive for Serratia Marcescens and cytology negative for malignancy -Pulmonary following Hypokalemia Possible alcoholism, polysubstance use/abuse -Urine drug screen positive for opiates and benzodiazepines HTN Osteoarthritis Chronic pain Depression/anxiety RECOMMENDATIONS: Suspect blood culture contaminant Follow-up on repeat blood culture results Continue IV Levaquin for now Discontinue IV Vancomycin Obtain sputum culture Obtain CRP level Further recommendations to follow (Gricel Yepez) Assessment and Plan The exam, history, and the medical decision-making described in the above note were completed with the assistance of the mid-level provider. I reviewed and agree with the findings presented. I attest that I had a [id number] encounter with the patient on the same day, and personally performed and documented my assessment and findings in the medical record. Gram-positive bacteremia: Appears to be staph of different etiologies. With no hardware, no pacemaker less likely to be of significance. Follow repeat blood cultures but go ahead and stop the vancomycin IV especially since it is nephrotoxic. Possible pneumonia on admission appears to have improved significantly. On clinical exam still has significant wheezing and decreased air entry. Consider pulmonology consult. Follow sputum cultures but unsure about the significance. Continue Levaquin IV for now Discontinue vancomycin IV Follow cultures Follow clinically Discussed with the patient the plan for the day she was thinking of the care provided. (Freda Waterman MD) Gricel Yepez Oct 18, 2017 10:34 Freda Waterman MD Oct 18, 2017 17:21
--- NOTE | 2017-10-18 11:38 | HHI.FPPN ---
Subjective Remarks Patient seen and examined bedside this morning. Patient states her breathing is getting a little bit better. She is continuing to cough up productive clear and yellow sputum. She has been working in physical therapy. She denies any fever/chills. Denies any chest pain. (Alejandra Martini MD R2) Objective Vitals Vital Signs Date Time Temp Pulse Resp B/P (MAP) Pulse Ox O2 Delivery O2 Flow Rate FiO2 10/18/17 08:58 96 Nasal Cannula 3.00 10/18/17 08:10 97.8 82 20 152/68 (96) 100 10/18/17 08:00 96 Nasal Cannula 3.00 10/18/17 04:00 Nasal Cannula 3.00 10/18/17 04:00 97.4 89 20 169/80 (109) 99 10/18/17 00:00 97.2 96 20 160/70 (100) 97 10/18/17 00:00 Nasal Cannula 3.00 10/17/17 20:00 98.2 102 20 121/54 (76) 97 10/17/17 20:00 Nasal Cannula 3.00 10/17/17 19:08 20 10/17/17 16:00 98.6 107 20 125/76 (92) 97 10/17/17 15:25 98 Nasal Cannula 3.00 10/17/17 12:00 98.1 98 20 103/67 (79) 97 I/O 10/17/17 10/17/17 10/17/17 10/18/17 10/18/17 10/18/17 07:00 15:00 23:00 07:00 15:00 23:00 Intake Total 580 ml 1357.5 ml Output Total 600 ml Balance 580 ml 757.5 ml Intake Oral 480 ml 1100 ml IV Total 100 ml 257.5 ml Output Urine Total 600 ml # Voids 4 # Bowel Movements 1 1 (Alejandra Martini MD R2) Result Diagram: 10/18/17 0610 10/18/17 0610 Objective Remarks GENERAL: Patient is laying in bed comfortably. She does not appear to be in respiratory distress but experiences shortness of breath with minimal movement. She is able to speak in complete sentences. SKIN: Warm and dry. HEAD: Atraumatic. Normocephalic. EYES: Pupils equal round. Extraocular motions intact. No scleral icterus. No injection or drainage. ENT: Nose without bleeding, purulent drainage or septal hematoma - nasal cannula in place, exam limited. Airway patent. NECK: Supple, nontender, no meningeal signs. CARDIOVASCULAR: Regular rate. 3/5 systolic murmur. No gallops, or rubs. RESPIRATORY: Improved air movement as compared to previous exams. Breath sounds continue to be distant in lower lobes. No accessory muscle use GASTROINTESTINAL: Positive bowel sounds. Abdomen soft, non-tender, nondistended. No hepato-splenomegaly, or palpable masses. No guarding. MUSCULOSKELETAL: Extremities without clubbing, cyanosis, or edema. No calf tenderness. NEUROLOGICAL: Awake and alert. Cranial nerves II through XII intact. Motor and sensory grossly within normal limits. Normal speech. (Alejandra Martini MD R2) A/P Assessment and Plan The patient is a 73 year old female with a past medical history significant of severe COPD and incidental pulmonary mass admitted for shortness of breath. Discharge Planning Blood cultures growing gram-positive cocci, pending IR recommendations. Pending clinical improvement, pending pulmonary recommendation (Alejandra Martini MD R2) Attending Attestation Patient seen, examined, and discussed with resident team. I agree with assessment and management as documented and discussed with me. Pt appears slightly better. Lung sounds slightly improved. She is seen initially working with PT. (Connie Clemente MD) Problem List: (1) Bacteremia ICD Codes: R78.81 - Bacteremia Status: Acute Plan: Blood cultures from 10/13 growing Staphylococcus hominis-hominis ; coagulase-negative staph that is commonly seen on the skin, rarely grows in culture - Resistant to clindamycin and levofloxacin and Bactrim -Sensitive to vancomycin, gentamicin IV Vanco to cover for MRSA, pharmacy consult f/u ID recs: suspect contaminent, continue IV vanc, f/u cx, f/u sputum cx, f/u CRP UA 10/13: negative. UA 10/15: negative. CXR 10/15: Possible tiny effusions. Echo 10/17: Ejection fraction 55-60%, markedly thickened atrial septum with features consistent with lipomatous atrial septum, may need cardiac MRI for further evaluation, moderate mitral valve regurg. No vegetations (2) Shortness of breath on exertion ICD Codes: R06.02 - Shortness of breath Status: Acute Plan: Acute on chronic COPD. Two weeks of shortness of breath, stable. SOB likely related to bacteriemia and sepsis from COPD exacerbation. Less likely on differential is PE and CHF. Bacteremia/Sepsis * See plan above * f/u VS closely Likely worsening COPD * Encouraged patient to sit up in bed, prevent atelectasis. * Continue home O2 3 L and higher when necessary. * Duo nebs every 4hrs with albuterol nebs as needed. * Increase Solu-Medrol 60mg [id number]. * Continue Protonix. * COPD exacerbation: Continue with IV Levaquin given sepsis picture. * Will consider consult to on [facility] Self Pay Specialist if no improvement. * f/u pulmonology consult * Case management for pulmonary rehab. Rule out PE * D-dimer positive. * In light of CT with contrast, per radiology no large PE is present. * CTA: Negative for PE Rule out ACS * Troponin negative 2. * EKG showing no signs of acute ischemia. Rule out CHF Normal EF on echocardiogram (3) Abnormal echocardiogram ICD Codes: R93.1 - Abnormal findings on diagnostic imaging of heart and coronary circulation Status: Acute Plan: SOB and abnormal Echo as below Echo 10/18: Ejection fraction 55-60%, markedly thickened atrial septum with features consistent with lipomatous atrial septum, may need cardiac MRI for further evaluation, moderate mitral valve regurg. No vegetations f/u cardiac MRI (4) SIRS (systemic inflammatory response syndrome) ICD Codes: R65.10 - Systemic inflammatory response syndrome (SIRS) of non- infectious origin without acute organ dysfunction Status: Resolved Plan: Tachycardia has resolved Continued Tachypnea WBC of 16.9 , now normal Lactic acid 4.5 --> 2.2 -> 2.4. UA no signs of infection. Blood cultures: See above for bacteremia CXR negative. ABX above. (5) Elevated lactic acid level ICD Codes: R79.89 - Other specified abnormal findings of blood chemistry Status: Acute Plan: Likely related to bacteremia, initial level of 4.5. 10/14: 2.4 (6) Pulmonary nodule ICD Codes: R91.1 - Solitary pulmonary nodule Status: Chronic Plan: Stable in size compared to previous CT on 05/18/60. Followed by lead web developer as mentioned in admission HPI. CT chest 10/13: Pulmonary nodule stable, nodule measures 1.6 x 1.5 x 2.5 cm. PET /CT scan may be helpful in future. Emphysematous changes bilaterally. Granulomatous changes bilaterally. History of left upper lobe biopsy with benign results and complications of pneumothorax Previous bronchoscopy 2017: Culture positive for Serratia marcescens, cytology negative for malignancy Follow-up pulmonology recommendations (7) Hypertension ICD Codes: I10 - Essential (primary) hypertension Status: Chronic Plan: Patient with history of hypertension. * Continue home meds. (8) Hypothyroidism ICD Codes: E03.9 - Hypothyroidism, unspecified Plan: Patient with history of hypothyroidism. * TSH 0.068 -- decrease dose from 112 mcg daily to 100 mcg daily. Continue to titrate as an outpatient. (9) Alcoholism /alcohol abuse ICD Codes: F10.20 - Alcohol dependence, uncomplicated Status: Chronic Plan: Possible history of alcohol abuse and falls related to alcohol use. ED visit in August for alcohol use. Urine tox negative for alcohol. [facility] protocol. (10) fen/ppx Status: Chronic Plan: Fluids: * Tolerates PO. Electrolytes: * Monitor and replete as necessary. Nutrition: * Regular diet GI prophylaxis: * Continue home Prilosec. DVT prophylaxis: * Lovenox 40 mg daily. (Alejandra Martini MD R2) Alejandra Martini MD R2 Oct 18, 2017 11:38 Connie Clemente MD Oct 18, 2017 21:10
[2017-10-18] MEDS: POTASSIUM CHLORIDE 10 MEQ CAP PO SCH (13:11)
[2017-10-18] MEDS ORDERED: predniSONE 50 MG TAB PO ONE (17:45)
[2017-10-18] MEDS: ENOXAPARIN SODIUM 40 MG/0.4 ML SYRINGE SQ SCH (18:04)
--- NOTE | 2017-10-18 18:13 | MB ---
cc: Cain Ro MD DATE: 10/18/2017 REASON FOR CONSULTATION: COPD exacerbation. HISTORY OF PRESENT ILLNESS: The patient is a 73-year-old female who is known to have COPD and on Monday, she had a respiratory attack and she needed to be admitted to the hospital. She still does not feel like she is back to baseline. She continues to have some shortness of breath with any activity. She is not having any active coughing or wheezing right now. I was consulted to help adjust the medications and for management. The patient was found to have an incidental lung mass as well. REVIEW OF SYSTEMS: Her review of systems is negative except what was mentioned in the HPI and for positive lower extremity edema. PAST MEDICAL HISTORY: Reviewed. MEDICATIONS: Reviewed. FAMILY HISTORY: Reviewed in detail. ALLERGIES: Reviewed in detail. PHYSICAL EXAMINATION: VITAL SIGNS: Temperature 98.2, pulse 90, respiratory rate 20, blood pressure ____. She is sating 100% on 3 liters nasal cannula. HEAD AND NECK: She is atraumatic, normocephalic. Trachea midline. LUNGS: Clear bilaterally. I do not hear any wheezing. HEART: Normal S1, S2. ABDOMEN: Soft, nondistended, nontender. EXTREMITIES: No edema or cyanosis. NEUROLOGIC: Alert, oriented x 3, moves all extremities. DIAGNOSTIC STUDIES: I have reviewed her CT scan that did show a left upper lobe pulmonary nodule that is stable compared to previous scans. She did have evidence of granulomatous changes as well as emphysematous changes. Labs reviewed. WBC 8.1, hemoglobin 10.3, platelets 384. Sodium 140, potassium 3.0, BUN is 16, creatinine 0.62. She had a CT angiogram that was done on 10/17/2017 that did not show any PE and it again did show a 14 x 15 mm left upper lobe nodule. ASSESSMENT AND PLAN: 1. Acute chronic obstructive pulmonary disease exacerbation. 2. Pulmonary nodule. 3. Systemic inflammatory response syndrome. 4. Hypertension. I had discussion with the patient and I believe she is much better. I would like to go ahead and stop the IV Solu-Medrol. I will start her on prednisone 50 mg a day to start her on a weaning dose. Finish the course of antibiotics. I will resume her Spiriva in conjunction with the Breo, which is her outpatient therapy. As far as the pulmonary nodule, nothing to be done as an inpatient. I do recommend outpatient therapy and followup with her forestry workers, Dr. Pierce. Thank you for this consultation. MD LEATHA Askew/MILY , 05:43 PM , 06:12 PM
[2017-10-18] MEDS ORDERED: TIOTROPIUM BROMIDE 18 MCG INH INH ONE (18:30)
[2017-10-18] MEDS: LEVOFLOXACIN 500 MG PREMIX INJ 100 ML IV SCH (20:08)
[2017-10-18] MEDS: traZODone HCL 50 MG TAB PO SCH (20:08)
[2017-10-18] MEDS ORDERED: PHARMACY ORDERED LAB ONE (20:45)
[2017-10-19] VITALS (8 sets, daily range): BP systolic 143–160; BP diastolic 52–78; PULSE 76–96; RESP 17–18; TEMP 97.3–98.5; O2SAT 95–99
[2017-10-19] MEDS: ALPRAZolam 0.5 MG TAB PO PRN ×4 (00:30→20:27)
[2017-10-19] MEDS: oxyCODONE/ACETAMINOPHEN 10 MG/325 MG TAB PO PRN ×4 (00:30→20:27)
[2017-10-19] MEDS: SODIUM CHLOR 0.9% 1000 ML INJ 1,000 ML IV SCH ×3 (06:02→20:28)
[2017-10-19] MEDS: LEVOTHYROXINE SODIUM 100 MCG TAB PO SCH (06:02)
[2017-10-19 06:57] LABS: AUTOMATED NEUTROPHIL # 8.4 TH/MM3 (1.8-7.7); BASOPHIL % 0.1 % (0.0-2.0); HEMOGLOBIN 10.5 GM/DL (11.6-15.3); LYMPH % 11.3 % (9.0-44.0); LYMPHOCYTE # 1.2 TH/MM3 (1.0-4.8); MEAN CELL VOLUME 95.5 FL (80.0-100.0); MEAN CORPUSCULAR HEMOGLOBIN 32.2 PG (27.0-34.0); MEAN CORPUSCULAR HGB CONC 33.7 % (32.0-36.0); MEAN PLATELET VOLUME 7.8 FL (7.0-11.0); MONO % 12.5 % (0.0-8.0); MONOCYTE # 1.4 TH/MM3 (0-0.9); NEUT % 76.1 % (16.0-70.0); PLATELET COUNT 407 TH/MM3 (150-450); RED BLOOD COUNT 3.25 MIL/MM3 (4.00-5.30); RED CELL DISTRIBUTION WIDTH 13.8 % (11.6-17.2); WHITE BLOOD COUNT 11.1 TH/MM3 (4.0-11.0)
[2017-10-19] MEDS: RESP: ALBUTEROL 2.5 MG/3 ML NEB (PRN) INH ×4 (07:29→19:04)
[2017-10-19 07:32] LABS: BICARBONATE 39.1 MEQ/L (21.0-32.0); CALCIUM 8.6 MG/DL (8.5-10.1); CREATININE 0.48 MG/DL (0.50-1.00)
[2017-10-19] MEDS: POTASSIUM CHLORIDE 10 MEQ CAP PO SCH (08:52)
[2017-10-19] MEDS: CLOPIDOGREL 75 MG TAB PO SCH (08:52)
[2017-10-19] MEDS: LISINOPRIL 10 MG TAB PO SCH ×2 (08:52→20:27)
[2017-10-19] MEDS: DICYCLOMINE HCL 20 MG TAB PO SCH ×2 (08:52→20:27)
[2017-10-19] MEDS: PANTOPRAZOLE SOD 40 MG DELAYED RELEASE TAB PO SCH (08:53)
[2017-10-19] MEDS: FLUoxetine HCL 20 MG CAP PO SCH (08:53)
[2017-10-19] MEDS: FLUTICASONE 100 MCG/VILANTEROL 25 MCG INHALER INH SCH (08:54)
[2017-10-19] MEDS: SODIUM CHLORIDE 0.9% FLUSH 10 ML FLUSH IV FLUSH SCH ×2 (08:54→20:26)
[2017-10-19] MEDS ORDERED: POTASSIUM CHLORIDE 10 MEQ CAP PO ONE (10:30)
[2017-10-19] MEDS ORDERED: LORazepam 0.5 MG TAB PO PRN (10:30)
--- NOTE | 2017-10-19 11:36 | HHI.FPPN ---
Subjective Remarks Patient seen and examined bedside today. Patient states that she is continuing to improve and she feels like she is moving more air through her lungs. She is also liking the CPT and she is bringing up more sputum. No fever/chills. No acute events overnight. (Alejandra Martini MD R2) Objective Vitals Vital Signs Date Time Temp Pulse Resp B/P (MAP) Pulse Ox O2 Delivery O2 Flow Rate FiO2 10/19/17 08:04 98.5 80 18 151/52 (85) 99 10/19/17 08:00 Nasal Cannula 3.00 10/19/17 07:41 99 Nasal Cannula 3.00 10/19/17 04:00 97.3 76 17 143/78 (99) 99 10/19/17 00:00 97.8 89 18 150/70 (96) 97 10/18/17 20:36 100 Nasal Cannula 3.00 10/18/17 20:00 97.9 95 18 146/72 (96) 99 10/18/17 20:00 97.9 95 16 146/72 (96) 99 10/18/17 20:00 24 10/18/17 19:00 Nasal Cannula 3.00 10/18/17 16:10 98.0 88 20 144/66 (92) 100 10/18/17 16:05 98.3 91 16 140/70 (93) 97 10/18/17 12:10 98.2 90 20 148/68 (94) 100 I/O 10/18/17 10/18/17 10/18/17 10/19/17 10/19/17 10/19/17 07:00 15:00 23:00 07:00 15:00 23:00 Intake Total 1357.5 ml 420 ml 1000 ml Output Total 600 ml 4 ml Balance 757.5 ml 416 ml 1000 ml Intake Oral 1100 ml 420 ml 0 ml IV Total 257.5 ml 1000 ml Output Urine Total 600 ml 4 ml # Voids 1 # Bowel Movements 1 1 1 (Alejandra Martini MD R2) Result Diagram: 10/19/1725 10/19/17 0625 Objective Remarks GENERAL: Patient is laying in bed comfortably. She does not appear to be in respiratory distress and when she sits up for auscultation she is not short of breath today. She is able to speak in complete sentences. SKIN: Warm and dry. HEAD: Atraumatic. Normocephalic. EYES: Pupils equal round. Extraocular motions intact. No scleral icterus. No injection or drainage. ENT: Nose without bleeding, purulent drainage or septal hematoma - nasal cannula in place, exam limited. Airway patent. NECK: Supple, nontender, no meningeal signs. CARDIOVASCULAR: Regular rate. 3/5 systolic murmur. No gallops, or rubs. RESPIRATORY: Improved air movement as compared to previous exams. Breath sounds continue to be distant but improved in lower lobes. No accessory muscle use GASTROINTESTINAL: Positive bowel sounds. Abdomen soft, non-tender, nondistended. No hepato-splenomegaly, or palpable masses. No guarding. MUSCULOSKELETAL: Extremities without clubbing, cyanosis, or edema. No calf tenderness. NEUROLOGICAL: Awake and alert. Cranial nerves II through XII intact. Motor and sensory grossly within normal limits. Normal speech. (Alejandra Martini MD R2) A/P Assessment and Plan The patient is a 73 year old female with a past medical history significant of severe COPD and incidental pulmonary mass admitted for shortness of breath. Discharge Planning Blood cultures growing gram-positive cocci, pending IR recommendations. Pending clinical improvement, pending pulmonary recommendation (Alejandra Martini MD R2) Attending Attestation Patient seen and examined, discussed with resident team. I agree with assessment and management as documented with me. Pt feels breathing is improving. She feels CPT is helping. She reports she will be going to [facility] for rehab after discharge. Anticipate discharge 1-2 days. (Connie Clemente MD) Problem List: (1) Bacteremia ICD Codes: R78.81 - Bacteremia Status: Acute Plan: Blood cultures from 10/13 growing Staphylococcus hominis-hominis ; coagulase-negative staph that is commonly seen on the skin, rarely grows in culture - Resistant to clindamycin and levofloxacin and Bactrim -Sensitive to vancomycin, gentamicin IV Vanco to cover for MRSA, pharmacy consult f/u ID recs: suspect contaminant, stop IV vanc, f/u repeat cx from 10/17, f/u sputum cx UA 10/13: negative. UA 10/15: negative. CXR 10/15: Possible tiny effusions. Echo 10/17: Ejection fraction 55-60%, markedly thickened atrial septum with features consistent with lipomatous atrial septum, may need cardiac MRI for further evaluation, moderate mitral valve regurg. No vegetations (2) Shortness of breath on exertion ICD Codes: R06.02 - Shortness of breath Status: Acute Plan: Acute on chronic COPD. Improving SOB likely related to COPD exacerbation vs. valvular abnormality as below. Less likely on differential is bacteremia/sepsis. Bacteremia/Sepsis * See plan above * f/u ID recs as above, repeat blood cx for confirmation drawn 10/17 * f/u VS closely Likely worsening COPD * Encouraged patient to sit up in bed, prevent atelectasis. * Continue home O2 3 L and higher when necessary. * Duo nebs every 4hrs with albuterol nebs as needed. * f/u Pulm recs: stop IV solumedrol, Start 50mg prednisone daily (will plan to d /c with taper over 2 weeks), complete course of abx, resume spiriva and breo * Continue Protonix. * COPD exacerbation: Continue with IV Levaquin (10/13 - ) , pt has completed 5 days of abx, plan to d/c after dose tomorrow if clinically improved again * Will consider consult to on [facility] Employment Coach if no improvement. * Case management for possible pulmonary rehab. Rule out PE * D-dimer positive. * CTA: Negative for PE Rule out ACS * Troponin negative 2. * EKG showing no signs of acute ischemia. (3) Abnormal echocardiogram ICD Codes: R93.1 - Abnormal findings on diagnostic imaging of heart and coronary circulation Status: Acute Plan: SOB and abnormal Echo as below Echo 10/18: Ejection fraction 55-60%, markedly thickened atrial septum with features consistent with lipomatous atrial septum, may need cardiac MRI for further evaluation, moderate mitral valve regurg. No vegetations f/u cardiac MRI (4) SIRS (systemic inflammatory response syndrome) ICD Codes: R65.10 - Systemic inflammatory response syndrome (SIRS) of non- infectious origin without acute organ dysfunction Status: Resolved Plan: Tachycardia has resolved Continued Tachypnea WBC of 16.9 , now normal Lactic acid 4.5 --> 2.2 -> 2.4. UA no signs of infection. Blood cultures: See above for bacteremia CXR negative. ABX above. (5) Elevated lactic acid level ICD Codes: R79.89 - Other specified abnormal findings of blood chemistry Status: Acute Plan: Likely related to bacteremia, initial level of 4.5. 10/14: 2.4 (6) Pulmonary nodule ICD Codes: R91.1 - Solitary pulmonary nodule Status: Chronic Plan: Stable in size compared to previous CT on 05/18/60. Followed by vp purchasing as mentioned in admission HPI. CT chest 10/13: Pulmonary nodule stable, nodule measures 1.6 x 1.5 x 2.5 cm. PET /CT scan may be helpful in future. Emphysematous changes bilaterally. Granulomatous changes bilaterally. History of left upper lobe biopsy with benign results and complications of pneumothorax Previous bronchoscopy 2017: Culture positive for Serratia marcescens, cytology negative for malignancy Follow-up pulmonology recommendations: f/u as outpatient (7) Hypertension ICD Codes: I10 - Essential (primary) hypertension Status: Chronic Plan: Patient with history of hypertension. * Continue home meds. (8) Hypothyroidism ICD Codes: E03.9 - Hypothyroidism, unspecified Status: Chronic Plan: Patient with history of hypothyroidism. * TSH 0.068 -- decrease dose from 112 mcg daily to 100 mcg daily. Continue to titrate as an outpatient. (9) Alcoholism /alcohol abuse ICD Codes: F10.20 - Alcohol dependence, uncomplicated Status: Chronic Plan: Possible history of alcohol abuse and falls related to alcohol use. ED visit in August for alcohol use. Urine tox negative for alcohol. [facility] protocol. (10) fen/ppx Status: Chronic Plan: Fluids: * Tolerates PO. Electrolytes: * Monitor and replete as necessary. Nutrition: * Regular diet GI prophylaxis: * Continue home Prilosec. DVT prophylaxis: * Lovenox 40 mg daily. (Alejandra Martini MD R2) Alejandra Martini MD R2 Oct 19, 2017 11:36 Connie Clemente MD Oct 19, 2017 21:18
--- NOTE | 2017-10-19 12:27 | HHI.IDPN ---
Subjective Subjective Remarks Patient seen and examined with Dr. Waterman This is a 72-year-old female with past medical history significant for COPD, chronic respiratory insufficiency on 3 L of oxygen at home, incidental pulmonary mass, colitis/diverticulitis and anxiety who was admitted 10/13/2017 with complaints of progressive shortness of breath secondary to acute COPD exacerbation. She was started on IV Levaquin and IV Solumedrol Patient had blood cultures drawn 10/13 which were positive in 4 out of 4 bottles, 2 with coagulase-negative staph and 2 with staph hominis. She was started on IV vancomycin. Patient has repeat blood cultures which are pending. Urinalysis was unremarkable. Patient has been afebrile during her hospitalization. She did have leukocytosis with elevated white count of 16.9 at the time of her admission but now normal white count. She also had significant lactic acid level 4.5 at admission which is remained persistently elevated is currently 2.3. She has had an echocardiogram done which shows no evidence of vegetations. Chest x-ray was obtained which revealed enlarging nodular mass left upper lobe suspicious for malignancy. She reports negative lung biopsy . She had a bronchoscopy in 2017 with cytology negative for malignancy and cultures positive for Serratia marcescens. CT chest obtained this hospitalization revealed a left upper lobe pulmonary nodule stable in size from previous study. Due to elevated d-dimer, CTA was obtained revealing 14 x 14 mm nodule left upper lobe concerning for indolent carcinoma, outpatient PET scan recommended. Pulmonology has been consulted as well. She follows with Dr. Davila as an outpatient and was actually scheduled to see him the day she came into the hospital for admission. Patient seen and examined. She states her breathing has improved stone but still has significant dyspnea. She reports cough with scant clear sputum production. She denies any recent illness. She denies any fever or chills. She denies any rash. She denies any chest pain. She denies any nausea, vomiting or abdominal pain. She denies any hematuria, dysuria or diarrhea. She denies previous hospitalization for pneumonia. She does admit to drinking too much and states she will drink three quarters to a bottle of wine 3-4 times per week. Infectious disease consultation has been requested for management of positive blood cultures. Notes reviewed patient states her breathing has improved she denies any fever/chills denies any rash denies any N/V denies any diarrhea but does report her stools are less formed She is afebrile VSS WBC 11.1 - patient on steroids Repeat BCX with no growth x 2 days Antibiotics IV Levaquin Current Medications Medications (Trade) Dose Ordered Sig/Mic Route Start Time Stop Time Status Last Admin (Xanax) 0.5 mg Q8HR PRN PO 10/13/17 16:00 10/19/17 08:52 (Norvasc) 10 mg DAILY PO 10/14/17 09:00 10/19/17 08:52 (Prinivil) 10 mg BID PO 10/13/17 21:00 10/19/17 08:52 (Plavix) 75 mg DAILY PO 10/14/17 09:00 10/19/17 08:52 (PROzac) 20 mg DAILY PO 10/14/17 09:00 10/19/17 08:53 (Breo Ellipta 100-25 Inh) 1 puff DAILY INH 10/14/17 09:00 10/19/17 08:54 (Percocet 10-325 Mg) 1 tab Q6HR PRN PO 10/13/17 16:00 10/19/17 06:02 (Desyrel) 50 mg HS PO 10/13/17 21:00 10/18/17 20:08 (Bentyl) 20 mg BID PO 10/13/17 21:00 10/19/17 08:52 (Protonix) 40 mg DAILY PO 10/14/17 09:00 10/19/17 08:53 (NS Flush) 2 ml BID IV FLUSH 10/13/17 21:00 10/19/17 08:54 (NS Flush) 2 ml UNSCH PRN IV FLUSH 10/13/17 16:15 (Albuterol Neb) 2.5 mg Q2HR NEB PRN INH 10/13/17 16:15 10/19/17 11:22 (Lovenox Inj) 40 mg Q24H SQ 10/13/17 17:00 10/18/17 18:04 (Vasotec Inj) 1.25 mg Q6H PRN IV PUSH 10/13/17 16:45 Levofloxacin/ Dextrose 100 ml @ 100 mls/hr Q24H IV 10/13/17 21:00 10/18/17 20:08 (Romazicon Inj) 0.2 mg Q1M PRN IV PUSH 10/13/17 20:45 (Ativan) 1 mg Q4H PRN PO 10/13/17 20:45 (Ativan Inj) 1 mg Q4H PRN IV PUSH 10/13/17 20:45 (Ativan) 2 mg Q2H PRN PO 10/13/17 20:45 (Ativan Inj) 2 mg Q2H PRN IV PUSH 10/13/17 20:45 (Ativan Inj) 2 mg Q1H PRN IV PUSH 10/13/17 20:45 (Ativan Inj) 2 mg Q15M PRN IV PUSH 10/13/17 20:45 Sodium Chloride 1,000 ml @ 84 mls/hr [id number] IV 10/13/17 22:45 10/19/17 06:02 (Synthroid) 100 mcg DAILY@0600 PO 10/15/17 06:00 10/19/17 06:02 (Blistex Lip Leiter) 1 applic UNSCH PRN TOPICAL 10/16/17 12:00 (KCl) 40 meq DAILY PO 10/17/17 09:00 10/19/17 08:52 (Ativan) 0.25 mg ONCE PRN PO 10/19/17 10:30 10/20/17 10:29 Lines PIV with no e/o infection Past Medical History COPD History of needle biopsy of the lung 2016 negative for malignancy with complication of pneumothorax Previous bronchoscopy with cultures positive for Serratia Marcescens and cytology negative for malignancy 01/18/17 HTN Hypothyroidism Degenerative disc disease Diverticulitis, colitis Alcoholism?, Patient drinks three quarters to a bottle of wine 3-4 nights per week. Chronic pain from arm fractures, unrepaired Osteoarthritis (Gricel Yepez) Allergies: Coded Allergies: No Known Allergies (Verified , 10/18/16) Objective . Vital Signs Date Time Temp Pulse Resp B/P (MAP) Pulse Ox O2 Delivery O2 Flow Rate FiO2 10/19/17 08:04 98.5 80 18 151/52 (85) 99 10/19/17 08:00 Nasal Cannula 3.00 10/19/17 07:41 99 Nasal Cannula 3.00 10/19/17 04:00 97.3 76 17 143/78 (99) 99 10/19/17 00:00 97.8 89 18 150/70 (96) 97 10/18/17 20:36 100 Nasal Cannula 3.00 10/18/17 20:00 97.9 95 18 146/72 (96) 99 10/18/17 20:00 97.9 95 16 146/72 (96) 99 10/18/17 20:00 24 10/18/17 19:00 Nasal Cannula 3.00 10/18/17 16:10 98.0 88 20 144/66 (92) 100 10/18/17 16:05 98.3 91 16 140/70 (93) 97 . Laboratory Tests Test 10/18/17 06:10 10/18/17 20:43 10/19/17 06:25 White Blood Count 8.1 TH/MM3 11.1 TH/MM3 Red Blood Count 3.25 MIL/MM3 3.25 MIL/MM3 Hemoglobin 10.3 GM/DL 10.5 GM/DL Hematocrit 31.1 % 31.0 % Mean Corpuscular Volume 95.8 FL 95.5 FL Mean Corpuscular Hemoglobin 31.7 PG 32.2 PG Mean Corpuscular Hemoglobin Concent 33.1 % 33.7 % Red Cell Distribution Width 13.8 % 13.8 % Platelet Count 384 TH/MM3 407 TH/MM3 Mean Platelet Volume 8.0 FL 7.8 FL Neutrophils (%) (Auto) 86.6 % 76.1 % Lymphocytes (%) (Auto) 7.6 % 11.3 % Monocytes (%) (Auto) 5.8 % 12.5 % Eosinophils (%) (Auto) 0.0 % 0.0 % Basophils (%) (Auto) 0.0 % 0.1 % Neutrophils # (Auto) 7.0 TH/MM3 8.4 TH/MM3 Lymphocytes # (Auto) 0.6 TH/MM3 1.2 TH/MM3 Monocytes # (Auto) 0.5 TH/MM3 1.4 TH/MM3 Eosinophils # (Auto) 0.0 TH/MM3 0.0 TH/MM3 Basophils # (Auto) 0.0 TH/MM3 0.0 TH/MM3 CBC Comment DIFF FINAL DIFF FINAL Differential Comment Blood Urea Nitrogen 16 MG/DL 15 MG/DL Creatinine 0.62 MG/DL 0.48 MG/DL Random Glucose 115 MG/DL 78 MG/DL Total Protein 6.2 GM/DL Albumin 3.1 GM/DL Calcium Level 8.3 MG/DL 8.6 MG/DL Alkaline Phosphatase 44 U/L Aspartate Amino Transf (AST/SGOT) 12 U/L Alanine Aminotransferase (ALT/SGPT) 25 U/L Total Bilirubin 0.2 MG/DL Sodium Level 140 MEQ/L 138 MEQ/L Potassium Level 3.0 MEQ/L 2.8 MEQ/L Chloride Level 95 MEQ/L 93 MEQ/L Carbon Dioxide Level 37.2 MEQ/L 39.1 MEQ/L Anion Gap 8 MEQ/L 6 MEQ/L Estimat Glomerular Filtration Rate 94 ML/MIN 126 ML/MIN C-Reactive Protein LESS THAN 0.29 MG/DL Laboratory Tests Test 10/18/17 06:10 10/19/17 06:25 White Blood Count 8.1 TH/MM3 11.1 TH/MM3 Red Blood Count 3.25 MIL/MM3 3.25 MIL/MM3 Hemoglobin 10.3 GM/DL 10.5 GM/DL Hematocrit 31.1 % 31.0 % Mean Corpuscular Volume 95.8 FL 95.5 FL Mean Corpuscular Hemoglobin 31.7 PG 32.2 PG Mean Corpuscular Hemoglobin Concent 33.1 % 33.7 % Red Cell Distribution Width 13.8 % 13.8 % Platelet Count 384 TH/MM3 407 TH/MM3 Mean Platelet Volume 8.0 FL 7.8 FL Neutrophils (%) (Auto) 86.6 % 76.1 % Lymphocytes (%) (Auto) 7.6 % 11.3 % Monocytes (%) (Auto) 5.8 % 12.5 % Eosinophils (%) (Auto) 0.0 % 0.0 % Basophils (%) (Auto) 0.0 % 0.1 % Neutrophils # (Auto) 7.0 TH/MM3 8.4 TH/MM3 Lymphocytes # (Auto) 0.6 TH/MM3 1.2 TH/MM3 Monocytes # (Auto) 0.5 TH/MM3 1.4 TH/MM3 Eosinophils # (Auto) 0.0 TH/MM3 0.0 TH/MM3 Basophils # (Auto) 0.0 TH/MM3 0.0 TH/MM3 CBC Comment DIFF FINAL DIFF FINAL Differential Comment Laboratory Tests Test 10/18/17 06:10 10/18/17 20:43 10/19/17 06:25 Blood Urea Nitrogen 16 MG/DL 15 MG/DL Creatinine 0.62 MG/DL 0.48 MG/DL Random Glucose 115 MG/DL 78 MG/DL Total Protein 6.2 GM/DL Albumin 3.1 GM/DL Calcium Level 8.3 MG/DL 8.6 MG/DL Alkaline Phosphatase 44 U/L Aspartate Amino Transf (AST/SGOT) 12 U/L Alanine Aminotransferase (ALT/SGPT) 25 U/L Total Bilirubin 0.2 MG/DL Sodium Level 140 MEQ/L 138 MEQ/L Potassium Level 3.0 MEQ/L 2.8 MEQ/L Chloride Level 95 MEQ/L 93 MEQ/L Carbon Dioxide Level 37.2 MEQ/L 39.1 MEQ/L Anion Gap 8 MEQ/L 6 MEQ/L Estimat Glomerular Filtration Rate 94 ML/MIN 126 ML/MIN C-Reactive Protein LESS THAN 0.29 MG/DL Microbiology Date/Time Source Procedure Growth Status 10/17/17 06:20 Blood Peripheral Aerobic Blood Culture - Preliminary NO GROWTH IN 2 DAYS Resulted 10/17/17 06:20 Blood Peripheral Anaerobic Blood Culture - Preliminary NO GROWTH IN 2 DAYS Resulted 10/17/17 06:11 Blood Peripheral Aerobic Blood Culture - Preliminary NO GROWTH IN 2 DAYS Resulted 10/17/17 06:11 Blood Peripheral Anaerobic Blood Culture - Preliminary NO GROWTH IN 2 DAYS Resulted 10/18/17 15:15 Sputum Expectorated Sputum Gram Stain - Final Resulted 10/18/17 15:15 Sputum Expectorated Sputum Sputum Culture Pending Resulted Imaging Last Impressions CT Angiography 10/17/17 0000 Signed Impressions: Service Date/Time: Tuesday, October 17, 2017 19:04 - CONCLUSION: 1. 14 x 14 mm nodule left upper lobe concerning for indolent carcinoma. Outpatient PET CT scan recommended. 2. Severe emphysema. 3. No evidence for pulmonary embolism. Avery Mahajna MD Chest X-Ray 10/15/17 0000 Signed Impressions: Service Date/Time: Sunday, October 15, 2017 13:39 - CONCLUSION: Possible tiny effusions. Donal Simpson MD Lower Extremity Ultrasound 10/14/17 0000 Signed Impressions: Service Date/Time: Saturday, October 14, 2017 10:02 - CONCLUSION: Negative for deep venous thrombosis. Adolfo Fox MD FACR Chest CT 10/13/17 1325 Signed Impressions: Service Date/Time: Friday, October 13, 2017 14:26 - CONCLUSION: 1. Left upper lobe pulmonary nodule is stable in size compared to the previous CT of the chest dated 05/18/16 when this was biopsied. This nodule measures 1.6 x 1.5 x 2.5 cm. PET/CT scan may be helpful for further evaluation this nodule if pathology results are not concordant with imaging findings. 2. Emphysematous changes bilaterally. 3. Granulomatous changes bilaterally. 4. Coronary artery calcifications. 5. Degenerative changes and scoliosis of the thoracolumbar spine 6. 1.6 cm left renal cyst. Ronnie Rodriguez MD Physical Exam GENERAL: This is a well-nourished, well-developed elderly female patient, INAD. Awake and alert. Sitting up in bed. Appear comfortable. SKIN: Cool and dry. Few areas of scattered ecchymosis bilateral upper extremities and abdomen secondary to needle trauma. HEAD: Atraumatic. Normocephalic. No temporal or scalp tenderness. EYES: Pupils equal round and reactive. Extraocular motions intact. No scleral icterus. No injection or drainage. ENT: Nose without bleeding or purulent drainage. Throat without erythema, tonsillar hypertrophy or exudate. Uvula midline. Airway patent. No oral thrush. NECK: Trachea midline. CARDIOVASCULAR: Regular rate and rhythm with 3/6 systolic murmur. RESPIRATORY: Fair air entry with diffuse mild expiratory wheezing noted in all lung ortega. No accessory muscle use. GASTROINTESTINAL: Abdomen soft, nondistended. (+)Mild tenderness diffusely. No hepato-splenomegaly, or palpable masses. No guarding. MUSCULOSKELETAL: Extremities without clubbing, cyanosis, or edema. No joint tenderness, effusion, or edema noted. No calf tenderness. NEUROLOGICAL: Awake and alert. Cranial nerves II through XII intact. Motor and sensory grossly within normal limits. No focal neurologic findings appreciated. Normal speech. PSYCHIATRIC: Appropriate mood and affect. Calm and pleasant. Left IV with no evidence of infection (Gricel Yepez) Assessment & Plan Remarks Gram positive bacteremia -blood cultures 4, 2 with coagulase-negative staph, 2 with staph hominis -staph of various etiologies, given no hardware, pacemaker less likely of clinical significance -repeat BCX with no growth x 2 days -CRP WNL Severe COPD exacerbation with sepsis, much improved Possible PNA on admission -improving -Pulm following -on po solumedrol and IV Levaquin -sputum cx with normal alvaro Mild leukocytosis -suspect 2/2 steroid effect Chronic respiratory insufficiency on 3 L of oxygen at home Left upper lobe nodule concerning for indolent carcinoma -History of previous left upper lobe biopsy with benign results and complications of pneumothorax -Previous bronchoscopy 2016 with cultures positive for Serratia Marcescens and cytology negative for malignancy -Pulmonary following Hypokalemia Possible alcoholism, polysubstance use/abuse -Urine drug screen positive for opiates and benzodiazepines HTN Osteoarthritis Chronic pain Depression/anxiety RECOMMENDATIONS: Continue to follow-up on repeat blood culture results, no growth x 2 days d/c IV Levaquin Monitor clinical progress (Gricel Yepez) Remarks The exam, history, and the medical decision-making described in the above note were completed with the assistance of the mid-level provider. I reviewed and agree with the findings presented. I attest that I had a [id number] encounter with the patient on the same day, and personally performed and documented my assessment and findings in the medical record. Clinically breathing better. Clear small sputum CTA BL. DC Levaquin Observe off antibiotics. Will sign off please call back if any change in clinical condition or questions. (Freda Waterman MD) Gricel Yepez Oct 19, 2017 12:27 Freda Waterman MD Oct 19, 2017 16:33
[2017-10-19] MEDS ORDERED: GADODIAMIDE PF 287 MG/ML 20 ML VIAL (for RAD MRI) IVCONTRAST ONE (14:05)
--- NOTE | 2017-10-19 15:37 | RADRPT ---
EXAM DATE/TIME: 10/19/2017 13:34 INDICATIONS : Thickened atrial septum. Dyspnea. CONTRAST: 20 cc Omniscan (gadodiamide) IV MEDICAL HISTORY : Chronic obstructive pulmonary disease. Hypertension. SURGICAL HISTORY : SMA stent placement and bronchoscopy. ENCOUNTER: Initial ACUITY: 1 day PAIN SCORE: 0/10 LOCATION: Left chest TECHNIQUE: Multiplanar, multisequence MRI of the heart with and without contrast. FINDINGS: Normal wall motion. No left ventricular abnormality. Ejection fraction 65%. There is lipomatous hyper trophy of the interatrial septum with some mild narrowing of the superior atrium. No interatrial sept al defect. No enhancement to suggest myocardial infarction. No concerning mass. No thrombus. No peric ardial abnormality. The CONCLUSION: Benign lipomatous hypertrophy of the interatrial septum. There is mild narrowing of the upper right a trium. Avery Mahajan MD on October 19, 2017 at 15:28 Board Certified Radiologist. This report was verified electronically.
[2017-10-19] MEDS: ENOXAPARIN SODIUM 40 MG/0.4 ML SYRINGE SQ SCH (18:41)
[2017-10-19] MEDS: traZODone HCL 50 MG TAB PO SCH (20:27)
[2017-10-20] VITALS: BP 123/62; PULSE 69; RESP 18; TEMP 97.7; O2SAT 99
[2017-10-20] MEDS: oxyCODONE/ACETAMINOPHEN 10 MG/325 MG TAB PO PRN ×3 (03:17→15:13)
[2017-10-20 04:00] VITALS: BP 139/67; PULSE 97; RESP 18; TEMP 97.6; O2SAT 97
[2017-10-20] MEDS: ALPRAZolam 0.5 MG TAB PO PRN ×2 (05:19→13:23)
[2017-10-20] MEDS: LEVOTHYROXINE SODIUM 100 MCG TAB PO SCH (05:19)
[2017-10-20 07:41] LABS: HEMATOCRIT 30.1 % (35.0-46.0); MEAN CELL VOLUME 96.7 FL (80.0-100.0); MEAN CORPUSCULAR HEMOGLOBIN 32.2 PG (27.0-34.0); MEAN CORPUSCULAR HGB CONC 33.3 % (32.0-36.0); MEAN PLATELET VOLUME 7.8 FL (7.0-11.0); PLATELET COUNT 365 TH/MM3 (150-450); RED BLOOD COUNT 3.12 MIL/MM3 (4.00-5.30); WHITE BLOOD COUNT 10.1 TH/MM3 (4.0-11.0)
[2017-10-20 08:01] LABS: BICARBONATE 39.5 MEQ/L (21.0-32.0); CALCIUM 7.6 MG/DL (8.5-10.1); CREATININE 0.63 MG/DL (0.50-1.00)
[2017-10-20 08:10] VITALS: BP 174/84; PULSE 75; RESP 18; TEMP 97.8; O2SAT 100
[2017-10-20] MEDS: FLUoxetine HCL 20 MG CAP PO SCH (08:53)
[2017-10-20] MEDS: LISINOPRIL 10 MG TAB PO SCH (08:54)
[2017-10-20] MEDS: FLUTICASONE 100 MCG/VILANTEROL 25 MCG INHALER INH SCH (08:54)
[2017-10-20] MEDS: CLOPIDOGREL 75 MG TAB PO SCH (08:54)
[2017-10-20] MEDS: DICYCLOMINE HCL 20 MG TAB PO SCH (08:54)
[2017-10-20] MEDS: POTASSIUM CHLORIDE 10 MEQ CAP PO SCH (08:54)
[2017-10-20] MEDS: PANTOPRAZOLE SOD 40 MG DELAYED RELEASE TAB PO SCH (08:54)
[2017-10-20] MEDS: SODIUM CHLORIDE 0.9% FLUSH 10 ML FLUSH IV FLUSH SCH (08:55)
[2017-10-20] MEDS: SODIUM CHLOR 0.9% 1000 ML INJ 1,000 ML IV SCH (08:56)
--- NOTE | 2017-10-20 10:47 | HHI.FPPN ---
Subjective Remarks Patient seen and examined bedside this morning. Patient states her breathing is 80% better. She feels much more comfortable and is able to make movements without becoming short of breath. She is coughing up a lot more sputum and really likes CPT respiratory therapy. Denies any fever/chills overnight. Denies any chest pain or dizziness. (Alejandra Martini MD R2) Objective Vitals Vital Signs Date Time Temp Pulse Resp B/P (MAP) Pulse Ox O2 Delivery O2 Flow Rate FiO2 10/20/17 08:10 97.8 75 18 174/84 (114) 100 10/20/17 04:00 97.6 97 18 139/67 (91) 97 10/20/17 00:00 97.7 69 18 123/62 (82) 99 10/19/17 20:00 97.9 96 18 160/70 (100) 95 10/19/17 19:00 Nasal Cannula 3.00 10/19/17 16:00 98.1 88 18 149/67 (94) 98 10/19/17 15:15 97 Nasal Cannula 3.00 10/19/17 12:25 Nasal Cannula 3.00 10/19/17 12:00 98.5 87 18 147/67 (93) 97 I/O 10/19/17 10/19/17 10/19/17 10/20/17 10/20/17 10/20/17 07:00 15:00 23:00 07:00 15:00 23:00 Intake Total 1000 ml 600 ml 0 ml Output Total 650 ml Balance 1000 ml -50 ml 0 ml Intake Oral 0 ml 600 ml 0 ml IV Total 1000 ml Output Urine Total 650 ml # Voids 1 3 # Bowel Movements 1 2 1 (Alejandra Martini MD R2) Result Diagram: 10/20/17 0612 10/20/17 0612 Objective Remarks GENERAL: Patient is laying in bed comfortably. She does not appear to be in respiratory distress and when she sits up for auscultation she is not short of breath today. She is able to speak in complete sentences. SKIN: Warm and dry. HEAD: Atraumatic. Normocephalic. EYES: Pupils equal round. Extraocular motions intact. No scleral icterus. No injection or drainage. ENT: Nose without bleeding, purulent drainage or septal hematoma - nasal cannula in place, exam limited. Airway patent. NECK: Supple, nontender, no meningeal signs. CARDIOVASCULAR: Regular rate. 3/5 systolic murmur. No gallops, or rubs. RESPIRATORY: Much improved air movement as compared to previous exams. Breath sounds continue to be distant but improved in lower lobes. No accessory muscle use GASTROINTESTINAL: Positive bowel sounds. Abdomen soft, non-tender, nondistended. No hepato-splenomegaly, or palpable masses. No guarding. MUSCULOSKELETAL: Extremities without clubbing, cyanosis, or edema. No calf tenderness. NEUROLOGICAL: Awake and alert. Cranial nerves II through XII intact. Motor and sensory grossly within normal limits. Normal speech. (Alejandra Martini MD R2) A/P Assessment and Plan The patient is a 73 year old female with a past medical history significant of severe COPD and incidental pulmonary mass admitted for shortness of breath. Discharge Planning Anticipate discharge today; ID has signed off, patient has completed antibiotic course (Alejandra Martini MD R2) Attending Attestation Patient seen and examined, discussed with resident team. I agree with assessment and management as documented and discussed with me. pt reports feeling much better today. Lung sounds markedly improved. Discharge to SNF today. (Connie Clemente MD) Problem List: (1) Shortness of breath on exertion ICD Codes: R06.02 - Shortness of breath Status: Acute Plan: Acute on chronic COPD. Improving SOB likely related to COPD exacerbation vs. valvular abnormality as below. Likely COPD * Encouraged patient to sit up in bed, prevent atelectasis. * Continue home O2 3 L and higher when necessary. * Duo nebs every 4hrs with albuterol nebs as needed. * f/u Pulm recs: stop IV solumedrol, Start 50mg prednisone daily (will plan to d /c with taper over 2 weeks), complete course of abx, resume spiriva and breo * Continue Protonix. * COPD exacerbation: IV Levaquin (10/13 -10/18 ) , pt has completed 5 days of abx , plan to d/c today * Will consider consult to on [facility] [employer] if no improvement. * Case management: accepted to rehab Rule out PE * D-dimer positive. * CTA: Negative for PE Rule out ACS * Troponin negative 2. * EKG showing no signs of acute ischemia. (2) Bacteremia ICD Codes: R78.81 - Bacteremia Status: Resolved Plan: Blood cultures from 10/13 growing Staphylococcus hominis-hominis ; coagulase-negative staph that is commonly seen on the skin, rarely grows in culture - Resistant to clindamycin and levofloxacin and Bactrim -Sensitive to vancomycin, gentamicin IV Vanco to cover for MRSA, pharmacy consult f/u ID recs: suspect contaminant, stop antibiotics UA 10/13: negative. UA 10/15: negative. CXR 10/15: Possible tiny effusions. Echo 10/17: Ejection fraction 55-60%, markedly thickened atrial septum with features consistent with lipomatous atrial septum, may need cardiac MRI: Benign lipomatous hypertrophy of the inter atrial septum moderate mitral valve regurg. No vegetations (3) Abnormal echocardiogram ICD Codes: R93.1 - Abnormal findings on diagnostic imaging of heart and coronary circulation Status: Acute Plan: SOB and abnormal Echo as below Echo 10/17: Ejection fraction 55-60%, markedly thickened atrial septum with features consistent with lipomatous atrial septum, cardiac MRI: Benign lipomatous hypertrophy of the inter atrial septum moderate mitral valve regurg. No vegetations f/u with cardiology as outpatient to review results (4) SIRS (systemic inflammatory response syndrome) ICD Codes: R65.10 - Systemic inflammatory response syndrome (SIRS) of non- infectious origin without acute organ dysfunction Status: Resolved Plan: Tachycardia has resolved Tachypnea has resolved WBC of 16.9 , now normal Lactic acid 4.5 --> 2.2 -> 2.4. UA no signs of infection. Blood cultures: See above for bacteremia CXR negative. ABX above. (5) Elevated lactic acid level ICD Codes: R79.89 - Other specified abnormal findings of blood chemistry Status: Resolved Plan: Likely related to bacteremia, initial level of 4.5. 10/14: 2.4 (6) Pulmonary nodule ICD Codes: R91.1 - Solitary pulmonary nodule Status: Chronic Plan: Stable in size compared to previous CT on 05/18/60. Followed by director of outreach as mentioned in admission HPI. CT chest 10/13: Pulmonary nodule stable, nodule measures 1.6 x 1.5 x 2.5 cm. PET /CT scan may be helpful in future. Emphysematous changes bilaterally. Granulomatous changes bilaterally. History of left upper lobe biopsy with benign results and complications of pneumothorax Previous bronchoscopy 2017: Culture positive for Serratia marcescens, cytology negative for malignancy Follow-up pulmonology recommendations: f/u as outpatient (7) Hypertension ICD Codes: I10 - Essential (primary) hypertension Status: Chronic Plan: Patient with history of hypertension. * Continue home meds. (8) Hypothyroidism ICD Codes: E03.9 - Hypothyroidism, unspecified Status: Chronic Plan: Patient with history of hypothyroidism. * TSH 0.068 -- decrease dose from 112 mcg daily to 100 mcg daily. Continue to titrate as an outpatient. (9) Alcoholism /alcohol abuse ICD Codes: F10.20 - Alcohol dependence, uncomplicated Status: Chronic Plan: Possible history of alcohol abuse and falls related to alcohol use. ED visit in August for alcohol use. Urine tox negative for alcohol. [facility] protocol. (10) fen/ppx Status: Chronic Plan: Fluids: * Tolerates PO. Electrolytes: * Monitor and replete as necessary. Nutrition: * Regular diet GI prophylaxis: * Continue home Prilosec. DVT prophylaxis: * Lovenox 40 mg daily. (Alejandra Martini MD R2) Alejandra Martini MD R2 Oct 20, 2017 10:47 Connie Clemente MD Oct 20, 2017 15:56
[2017-10-20] MEDS ORDERED: PRED20 PO (10:54)
[2017-10-20] MEDS ORDERED: POTA10TA2 PO (10:54)
[2017-10-20] MEDS ORDERED: LEVO.1 PO (10:54)
--- NOTE | 2017-10-20 11:00 | HHI.DCPOC ---
Discharge Care Plan Diagnosis: (1) Leukocytosis (2) COPD (chronic obstructive pulmonary disease) (3) Lung mass Goals to Promote Your Health * To prevent worsening of your condition and complications * To maintain your health at the optimal level Directions to Meet Your Goals Take your medications as prescribed Follow your dietary instruction Follow activity as directed Keep your appointments as scheduled Take your immunizations and boosters as scheduled If your symptoms worsen call your PCP, if no PCP go to Urgent Care Center or Emergency Room Smoking is Dangerous to Your Health. Avoid second hand smoke Call the 24-hour hour crisis hotline for domestic abuse at Alejandra Martini MD R2 Oct 20, 2017 11:00
[2017-10-20] MEDS ORDERED: OMEP20TA93 PO (11:02)
[2017-10-20] MEDS ORDERED: OXYC1TAB36 PO (11:48)
[2017-10-20] MEDS ORDERED: ALPR0.5T3 PO (11:48)
[2017-10-20 12:10] VITALS: BP 133/65; PULSE 83; RESP 18; TEMP 98; O2SAT 98
[2017-10-20] MEDS: RESP: ALBUTEROL 2.5 MG/3 ML NEB (PRN) INH (15:03)
[2017-10-20 15:04] VITALS: O2SAT 98
== END 2017-10-20 15:38 | DRG 191 ==
LOC: NEPC 10:13 → NEDA 14:08 → OBSVTOIN 16:20 → N04A 18:51
PROVIDERS: ADMIT Family Medicine; ATTEND Family Medicine
DX: J44.1 Chronic obstructive pulmonary disease with (acute) exacerbation (principal); R78.81 Bacteremia; Z99.81 Dependence on supplemental oxygen; I11.9 Hypertensive heart disease without heart failure; I34.0 Nonrheumatic mitral (valve) insufficiency; E03.9 Hypothyroidism, unspecified; R55 Syncope and collapse; K57.90 Diverticulosis of intestine, part unspecified, without perforation or abscess without bleeding; R91.1 Solitary pulmonary nodule; E87.6 Hypokalemia; M19.90 Unspecified osteoarthritis, unspecified site; F10.20 Alcohol dependence, uncomplicated; F19.10 Other psychoactive substance abuse, uncomplicated; F32.9 Major depressive disorder, single episode, unspecified; F41.9 Anxiety disorder, unspecified; Y90.0 Blood alcohol level of less than 20 mg/100 ml; Z79.01 Long term (current) use of anticoagulants; Z82.5 Family history of asthma and other chronic lower respiratory diseases; Z87.891 Personal history of nicotine dependence
CPT/HCPCS: 36600; 71046; 71260; 71275; 75561; 76937; 80048; 80053; 80202; 80307; 81001; 82550; 82805; 82948; 83605; 83735; 83880; 84100; 84443; 84484; 85025; 85027; 85379; 86140; 87040; 87070; 87205; 87804; 93005; 93308; 93970; 94150; 94640; 94664; 94667; 94668; 99285; A9579; J1650; J1956; J2930; J3370; J7030; J7050; J7512; J7613; Q9967

== ENCOUNTER 2018-04-19 10:25 | Inpatient (IN) ==
[2018-04-19] MEDS ORDERED: Sod Chloride 0.9% Inj 1,000 ML IV.SIG ONE (10:32)
[2018-04-19 10:55] LABS: ABG PCO2 55 mmHg (38-42); ABG PO2 98 mmHg (61-120)
[2018-04-19 11:17] LABS: Baso # (Auto) 0.1 th/mm3 (0.0-0.2); Baso % (Auto) 0.5 % (0.0-2.0); Eos # (Auto) 0.2 th/mm3 (0.0-0.4); Hematocrit 37.4 % (35.0-46.0); Hemoglobin 11.9 gm/dL (11.6-15.3); Lymph # (Auto) 2.4 th/mm3 (1.0-4.8); Lymph % (Auto) 13.9 % (9.0-44.0); Mean Corpuscular Hemoglobin 28.1 pg (27.0-34.0); Mean Platelet Volume 7.3 fL (7.0-11.0); Mono # (Auto) 0.6 th/mm3 (0.0-0.9); Mono % (Auto) 3.3 % (0.0-8.0); Neut # (Auto) 13.8 th/mm3 (1.8-7.7); Neut % (Auto) 81.3 % (16.0-70.0); Platelet Count 376 th/mm3 (150-450); Red Blood Count 4.25 mil/mm3 (4.00-5.30); Red Cell Distribution Width 15.9 % (11.6-17.2)
--- NOTE | 2018-04-19 11:19 | XR ---
EXAM DATE: 04/19/2018 10:35 AM EDT AGE/SEX: 73 years / Female INDICATIONS: Abdominal pain. CLINICAL DATA: This is the patient's initial encounter. Patient reports that signs and symptoms have been present for 1 day and indicates a pain score of 10/10. MEDICAL/SURGICAL HISTORY: . Unobtainable . Unobtainable. COMPARISON: [facility] [place], CT ABDOMEN & PELVIS W CONTRAST, 03/03/2016. . FINDINGS: Calcified granulomas right lung base. No free air beneath the diaphragm. No dilated loops of bowel. Osseous structures are intact. CONCLUSION: Negative examination. Electronically signed by: Nicholas Britt MD 04/19/2018 11:18 AM EDT
--- NOTE | 2018-04-19 11:20 | XR ---
EXAM DATE: 04/19/2018 10:35 AM EDT AGE/SEX: 73 years / Female INDICATIONS: Chest pain. CLINICAL DATA: This is the patient's initial encounter. Patient reports that signs and symptoms have been present for 1 day and indicates a pain score of Nonresponsive. MEDICAL/SURGICAL HISTORY: Non-responsive. Non-responsive. COMPARISON: [facility] – [place], 10/15/[place]. . FINDINGS: Redemonstration of mild left lung base airspace disease. Lungs are hyperexpanded with multiple bilate ral calcified granulomas. No significant new focal pleural or parenchymal opacities. The cardiomedias tinal contours are unremarkable. Redemonstration of ununited right humeral neck fracture and healed l eft-sided rib fractures. CONCLUSION: 1. Senescent changes with stable left lung base airspace disease likely reflecting atelectasis/scarr ing. 2. No acute abnormality or significant interval change. Electronically signed by: Ho Clement MD 04/19/2018 11:19 AM EDT
[2018-04-19] MEDS ORDERED: Norepinephrine Inj 4 MG/4 ML Ampul ONE (11:30)
[2018-04-19 11:43] LABS: Alanine Aminotransferase 22 U/L (10-53); Albumin 3.1 g/dL (3.4-5.0); Anion Gap 7 meq/L (5-15); Aspartate Aminotransferase 22 U/L (15-37); Blood Urea Nitrogen 21 mg/dL (7-18); Calcium 7.9 mg/dL (8.5-10.1); Carbon Dioxide 25.9 meq/L (21.0-32.0); Chloride 101 meq/L (98-107); Glomerular Filtration Rate 68 mL/min (>89); Glucose,Random 124 mg/dL (74-106); Lipase 141 U/L (73-393); Potassium 4.1 meq/L (3.5-5.1); Sodium 134 meq/L (136-145)
[2018-04-19 11:44] LABS: Alkaline Phosphatase 86 U/L (45-117); Total Protein 5.9 g/dL (6.4-8.2)
--- NOTE | 2018-04-19 12:14 | CT ---
EXAM DATE: 04/19/2018 11:30 AM EDT AGE/SEX: 73 years / Female INDICATIONS: Abdominal pain. CLINICAL DATA: This is the patient's initial encounter. Patient reports that signs and symptoms have been present for 1 day and indicates a pain score of 8/10. MEDICAL/SURGICAL HISTORY: Cardiovascular disease. Chronic obstructive pulmonary disease. Hypo thyroidism. Asthma. None. ORAL CONTRAST: No oral contrast ingested. RADIATION DOSE: 12.09 CTDI (mGy) [place] [facility] [place]. . TECHNIQUE: Multiple contiguous axial images were obtained through the abdomen and pelvis following b olus infusion of 80 ml Omnipaque 350 (iohexol) nonionic water-soluble contrast as a single exam dos e. No oral contrast ingested. Using automated exposure control and adjustment of the mA and/or kV ac cording to patient size, radiation dose was kept as low as reasonably achievable to obtain optimal di agnostic quality images. DICOM format image data is available electronically for review and comparis on. FINDINGS: There are severe emphysematous changes visualized lungs. Calcified granulomas in the right lung are n oted. Multiple calcified splenic granulomas are seen. There is dense calcification of the mitral frank mena. A moderate-sized hiatal hernia is noted. There is a tiny cyst in the right hepatic lobe on axial image 16. Prominence of the intrahepatic biliary tree is noted. There are bilateral renal cysts iden tified, the largest on the left measures 1.9 cm at the midpole. Right midpole renal cyst measuring 5. 7 mm is present. Urinary bladder unremarkable. Small calcified fundal fibroid. No adnexal masses. The re is a large amount of stool within the colon with moderate distention of the large bowel identified . Circumferential bowel wall thickening involving the transverse colon is identified. There is a smal l amount of pericolonic fluid noted. Colitis can have this appearance. Diffuse atherosclerotic calcif ication of the aorta and iliac vessels are noted. The osseous structures are intact. CONCLUSION: 1. Hiatal hernia. 2. Calcified granulomas. 3. Severe emphysema. 4. Dense atherosclerotic calcifications. 5. Renal cysts and tiny hepatic cyst. 6. Abnormal bowel wall thickening is seen involving the transverse colon characteristic of mild coli tis. 7. Moderate amount of stool within the large bowel. Electronically signed by: Nicholas Britt MD 04/19/2018 12:13 PM EDT
[2018-04-19] MEDS ORDERED: Ciprofloxacin 400 MG/200 ML 400 MG/200 ML PIGGYBACK IV.SIG ONE (12:49)
[2018-04-19] MEDS ORDERED: Morphine Inj 4 MG/ML Vial IV.PUSH ONE (13:21)
[2018-04-19 13:22] LABS: Bilirubin,Urine Negative (Negative); Clarity,Urine Clear (Clear); Color,Urine Yellow (Yellw/Straw); Glucose,Urine (UA) Negative (Negative); Leukocyte Esterase,Urine Negative (Negative); Mucus,Urine Few /lpf (Occasional); Nitrite,Urine Negative (Negative)
[2018-04-19] MEDS ORDERED: Bisacodyl 10 MG Supp RECTAL PRN (14:06)
--- NOTE | 2018-04-19 14:18 | P.HPCC ---
History of Present Illness Service: Critical Care Medicine Primary Care Physician: Iglesia Sotelo MD History of Present Illness: 73yF with history of prior recurrent colitis presents with 3 days of nausea, vomiting, abd pain. found to have recurrent colitis on CT abd/pelvis. hypothermic and hypotensive in the ER requiring warming and ivf- now improving. denies chest pain, sob, other complaints. 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 - Medical History Medical History: Medical History (Last Reviewed 04/19/18 @ 14:18 by Lloyd Espinoza MD) Anxiety Asthma CAD (coronary artery disease) COPD (chronic obstructive pulmonary disease) Constipation Diarrhea Hypocalcemia Hypothyroidism MDD (major depressive disorder) Migraine - Social History I have reviewed the patient's Social History: Yes - Tobacco History Smoking Status: Former smoker - Alcohol History How Often Do You Have a Drink Containing Alcohol: Never - Substance Use History Substance History: No History of Abuse - Travel History Recent Travel in the [place] Within the Last 8 Weeks: No Recent Travel Out of the Country Within the Last 8 Weeks: No - Immunization History Tetanus Immunization: Unsure Medications and Allergies Active Medications: Active Medications Albuterol (Duoneb Neb (Prn)) 1 ampul NEB Q2HR NEB PRN PRN Reason: WHEEZING Bisacodyl (Dulcolax Supp) 10 mg RECTAL DAILY PRN PRN Reason: if no BM in last 24h Chlorhexidine Gluconate (Chlorhexidine 2% Cloth) 3 pack TOPICAL DAILY@0400 PRN PRN Reason: Extra cloth needed Stop: 04/25/18 03:59 Famotidine (Pepcid) 20 mg PO BID WING Heparin Sodium (Porcine) (Heparin Inj) 5,000 units SQ Q8HR WING Ciprofloxacin/Dextrose (Cipro 400 Mg/200 Ml Inj) 400 mg in 200 mls @ 200 mls/ hr IV.SIG Q24H WING Lactated Ringer's (Lr 1000 Ml Inj) 1,000 mls @ 125 mls/hr IV.CONT .Q8H WING Metronidazole/Sodium Chloride (Flagyl 500 Mg Inj) 100 mls @ 100 mls/hr IV.SIG Q6H WING Lactulose (Lactulose Liq) 30 ml PO BID WING Sodium Chloride (Ns Flush) 2 ml IV.FLUSH PRN PRN PRN Reason: FLUSH AFTER USING IV ACCESS Allergies Allergy/AdvReac Type Severity Reaction Status Date / Time No Known Allergies Allergy Verified 04/19/18 10:40 Home Medications Medication Instructions Recorded Confirmed Type albuterol sulfate [Ventolin HFA] 2 puff INHALATION QID PRN 04/19/18 04/19/18 History alprazolam 0.5 mg PO TID PRN 04/19/18 04/19/18 History amlodipine PO DAILY 04/19/18 History aspirin 81 mg PO DAILY 04/19/18 04/19/18 History benazepril 10 mg PO BID 04/19/18 04/19/18 History benzonatate 200 mg PO TID PRN 04/19/18 04/19/18 History bisacodyl [Dulcolax (bisacodyl)] 30 ml NC DAILY 04/19/18 04/19/18 History cetirizine 10 mg PO DAILY 04/19/18 04/19/18 History clopidogrel 75 mg PO DAILY 04/19/18 04/19/18 History dicyclomine 20 mg PO TID 04/19/18 04/19/18 History docusate sodium 100 mg PO BID 04/19/18 04/19/18 History fluoxetine 20 mg PO DAILY 04/19/18 04/19/18 History fluticasone-vilanterol [Breo 1 inh INHALATION DAILY 04/19/18 04/19/18 History Ellipta] ipratropium-albuterol 3 ml INHALATION Q8H 04/19/18 04/19/18 History magnesium hydroxide [Milk of 15 ml PO DAILY PRN 04/19/18 04/19/18 History Magnesia] metoprolol tartrate 25 mg PO BID 04/19/18 04/19/18 History multivitamin with minerals 1 tab PO DAILY 04/19/18 04/19/18 History nitroglycerin 0.4 mg SUBLINGUAL Q5-15M PRN 04/19/18 04/19/18 History omega 2-jqf-fqw-fish oil [Fish Oil] 04/19/18 History omeprazole 20 mg PO DAILY 04/19/18 04/19/18 History ondansetron HCl [Zofran] 4 mg PO QID PRN 04/19/18 04/19/18 History oxycodone-acetaminophen 1 tab PO Q6H PRN 04/19/18 04/19/18 History potassium chloride 20 meq PO BID 04/19/18 04/19/18 History sennosides-docusate sodium [Senna 1 tab PO BID PRN 04/19/18 04/19/18 History Laxative-Stool Softener] sennosides-docusate sodium [Senna 1 tab PO DAILY PRN 04/19/18 04/19/18 History Plus] sodium chloride [Saline Nasal Mist] 1 spray INTRANASAL DAILY PRN 04/19/18 History sodium phosphates [Fleet Enema] 118 ml NC DAILY 04/19/18 04/19/18 History tiotropium bromide [Spiriva with 1 cap INHALATION DAILY 04/19/18 04/19/18 History HandiHaler] trazodone 50 mg PO DAILY 04/19/18 04/19/18 History Results - Labs CBC & Chem 7: 04/19/18 10:47 04/19/18 10:47 Labs: Short CBC 04/19/18 Range/Units 10:47 WBC 17.0 H (4.0-11.0) th/mm3 Hgb 11.9 (11.6-15.3) gm/dL Hct 37.4 (35.0-46.0) % Plt Count 376 (150-450) th/mm3 BMP 04/19/18 10:47 Sodium 134 L Potassium 4.1 Chloride 101 Carbon Dioxide 25.9 BUN 21 H Creatinine 0.82 Calcium 7.9 L Cardiac Enzymes 04/19/18 Range/Units 10:47 Troponin I Less than 0.02 L (0.02-0.05) ng/mL Liver Function 04/19/18 Range/Units 10:47 Total Bilirubin 0.4 (0.2-1.0) mg/dL AST 22 (15-37) U/L ALT 22 (10-53) U/L Alkaline Phosphatase 86 (45-117) U/L Albumin 3.1 L (3.4-5.0) g/dL Urine 04/19/18 Range/Units 13:00 Urine Color Yellow (Yellw/Straw) Urine Clarity Clear (Clear) Urine pH 6.0 (5.0-8.5) Ur Specific [place] 1.020 (1.002-1.035) Urine Protein Negative (Neg-Trace) mg/dL Urine Glucose (UA) Negative (Negative) mg/dL - Imaging Impressions Abdomen/Pelvis CT 04/19/18 10:32 CONCLUSION: 1. Hiatal hernia. 2. Calcified granulomas. 3. Severe emphysema. 4. Dense atherosclerotic calcifications. 5. Renal cysts and tiny hepatic cyst. 6. Abnormal bowel wall thickening is seen involving the transverse colon characteristic of mild colitis. 7. Moderate amount of stool within the large bowel. Abdomen X-Ray 04/19/18 10:35 CONCLUSION: Negative examination. Chest X-Ray 04/19/18 10:35 CONCLUSION: 1. Senescent changes with stable left lung base airspace disease likely reflecting atelectasis/scarring. 2. No acute abnormality or significant interval change. Exam Vital signs: Vital Signs 04/19/18 10:27 04/19/18 10:46 04/19/18 11:28 Temperature 36.4 C L Pulse Rate 65 57 L Respiratory Rate 16 16 Blood Pressure 97/55 L 67/38 L Pulse Oximetry 100 100 04/19/18 12:59 Temperature Pulse Rate 68 Respiratory Rate 20 Blood Pressure 117/68 Pulse Oximetry 98 Intake & Output 04/18/18 04/19/18 04/19/18 18:59 06:59 18:59 Intake Total 1300 / 1300 Balance 1300 / 1300 Weight 54.431 kg Intake: IV 1300 / 1300 Cipro 400 MG/200 ML Inj 400 mg 200 / 200 In 200 ml @ 200 mls/hr IV.SIG ONCE ONE Rx#:[id number] NS Inj 1,000 ML @ Wide Open IV. 1000 / 1000 SIG BOLUS ONE Rx#:[id number] Flagyl 500 MG Inj 100 ML @ 100 100 / 100 mls/hr IV.SIG ONCE ONE Rx#: [id number] Narrative: GENERAL: Frail elderly female, lying in bed, in distress due to her abdominal pain HEENT: Normocephalic. Atraumatic. Pupils equal, round, reactive, conjugate. Mucous membranes are dry NECK: Trachea is midline. There is no JVD. CHEST: Equal chest rise. Room air. CARDIOVASCULAR: Normal rate, regular rhythm. Systolic blood pressure in the 130s on my evaluation. ABDOMEN: Soft, moderately tender to light and deep palpation. Mildly distended. No guarding or rebound. MUSCULOSKELETAL: Pulses 2+. No peripheral edema. NEUROLOGICAL: RASS -1. Follows commands in all 4 extremities. No focal deficits. Caprini VTE Risk Assessment Caprini VTE Risk Assessment: Moderate/High Risk (score >= 2) Caprini Risk Assessment Model: Point Value = 1 Point Value = 2 Point Value = 3 Point Value = 5 Age 41-60 Minor surgery BMI > 25 kg/m2 Swollen legs Varicose veins or History of unexplained or recurrent spontaneous Oral contraceptives or hormone replacement Sepsis (< 1 month) Serious lung disease, including pneumonia (< 1 month) Abnormal pulmonary function Acute myocardial infarction Congestive heart failure (< 1 month) History of inflammatory bowel disease Medical patient at bed rest Age 61-74 Arthroscopic surgery Major open surgery (> 45 min) Laparoscopic surgery (> 45 min) Malignancy Confined to bed (> 72 hours) Immobilizing plaster cast Central venous access Age >= 75 History of VTE Family history of VTE Factor V Leiden Prothrombin [id number] Lupus anticoagulant Anticardiolipin antibodies Elevated serum homocysteine Heparin-induced thrombocytopenia Other congenital or acquired thrombophilia Stroke (< 1 month) Elective arthroplasty Hip, pelvis, or leg fracture Acute spinal cord injury (< 1 month) Prophylaxis Regimen: Total Risk Factor Score Risk Level Prophylaxis Regimen 0-1 Low Early ambulation 2 Moderate Order ONE of the following: *Sequential Compression Device (SCD) *Heparin 5000 units SQ BID 3-4 Higher Order ONE of the following medications: *Heparin 5000 units SQ TID *Enoxaparin/Lovenox 40 mg SQ daily (WT < 150 kg, CrCl > 30 mL/min) *Enoxaparin/Lovenox 30 mg SQ daily (WT < 150 kg, CrCl > 10-29 mL/min) *Enoxaparin/Lovenox 30 mg SQ BID (WT < 150 kg, CrCl > 30 mL/min) AND/OR *Sequential Compression Device (SCD) 5 or more Highest Order ONE of the following medications: *Heparin 5000 units SQ TID (Preferred with Epidurals) *Enoxaparin/Lovenox 40 mg SQ daily (WT < 150 kg, CrCl > 30 mL/min) *Enoxaparin/Lovenox 30 mg SQ daily (WT < 150 kg, CrCl > 10-29 mL/min) *Enoxaparin/Lovenox 30 mg SQ BID (WT < 150 kg, CrCl > 30 mL/min) AND *Sequential Compression Device (SCD) Assessment and Plan - Assessment and Plan Plan: Assessment: 73yF with colitis and acute severe dehydration. mivf and abx. stable to admit to floor- does not meet ICU criteria. will transition to hospitalist service in AM. Active Problems: Hypothermia Acute severe intravascular volume depletion Acute severe dehydration Acute colitis Acute abdominal pain Plan: iv tylenol and dilaudid prn for pain check c. diff continue cipro, flagyl check blood cultures stool cultures mivf strict i/o's am cbc, bmp, mg,phos admit to step-down unit scds sqh pt/ot npo with NGT for gastric distension. patient has a signed [place] DNR, and we will continue this.
--- NOTE | 2018-04-19 14:43 | ED ---
HPI General Chief complaint: Arrhythmia / Palpitations Stated complaint: Cardiac Time Seen by Provider: 04/19/18 10:32 History of Present Illness HPI narrative: Patient is a 73-year-old female [facility] emergency department from [facility] she [facility] a resident for COPD and DNR for evaluation of diaphoresis and altered mental status which started fairly abruptly this morning. Patient is also been complaining of some abdominal pain. Patient somewhat encephalopathic on arrival is unable to provide much of her history to states that her belly pain hurts. Per EMS the patient was initially bradycardic in the 40s with blood pressure in the 60s systolic, she was given atropine with good response in heart rate and partial response in blood pressure. She was started on normal saline bolus but really only received about 50 cc prior to arrival here in the emergency department. No fevers no cough no congestion reported by senior care staff. Related Data Home Medications Medication Instructions Recorded Confirmed albuterol sulfate [Ventolin HFA] 2 puff INHALATION QID PRN 04/19/18 04/19/18 alprazolam 0.5 mg PO TID PRN 04/19/18 04/19/18 amlodipine PO DAILY 04/19/18 aspirin 81 mg PO DAILY 04/19/18 04/19/18 benazepril 10 mg PO BID 04/19/18 04/19/18 benzonatate 200 mg PO TID PRN 04/19/18 04/19/18 bisacodyl [Dulcolax (bisacodyl)] 30 ml NM DAILY 04/19/18 04/19/18 cetirizine 10 mg PO DAILY 04/19/18 04/19/18 clopidogrel 75 mg PO DAILY 04/19/18 04/19/18 dicyclomine 20 mg PO TID 04/19/18 04/19/18 docusate sodium 100 mg PO BID 04/19/18 04/19/18 fluoxetine 20 mg PO DAILY 04/19/18 04/19/18 fluticasone-vilanterol [Breo 1 inh INHALATION DAILY 04/19/18 04/19/18 Ellipta] ipratropium-albuterol 3 ml INHALATION Q8H 04/19/18 04/19/18 magnesium hydroxide [Milk of 15 ml PO DAILY PRN 04/19/18 04/19/18 Magnesia] metoprolol tartrate 25 mg PO BID 04/19/18 04/19/18 multivitamin with minerals 1 tab PO DAILY 04/19/18 04/19/18 nitroglycerin 0.4 mg SUBLINGUAL Q5-15M PRN 04/19/18 04/19/18 omega 5-mmm-ely-fish oil [Fish Oil] 04/19/18 omeprazole 20 mg PO DAILY 04/19/18 04/19/18 ondansetron HCl [Zofran] 4 mg PO QID PRN 04/19/18 04/19/18 oxycodone-acetaminophen 1 tab PO Q6H PRN 04/19/18 04/19/18 potassium chloride 20 meq PO BID 04/19/18 04/19/18 sennosides-docusate sodium [Senna 1 tab PO BID PRN 04/19/18 04/19/18 Laxative-Stool Softener] sennosides-docusate sodium [Senna 1 tab PO DAILY PRN 04/19/18 04/19/18 Plus] sodium chloride [Saline Nasal Mist] 1 spray INTRANASAL DAILY PRN 04/19/18 sodium phosphates [Fleet Enema] 118 ml NM DAILY 04/19/18 04/19/18 tiotropium bromide [Spiriva with 1 cap INHALATION DAILY 04/19/18 04/19/18 HandiHaler] trazodone 50 mg PO DAILY 04/19/18 04/19/18 Allergies Allergy/AdvReac Type Severity Reaction Status Date / Time No Known Allergies Allergy Verified 04/19/18 10:40 Review of Systems ROS: all other systems reviewed are negative PMFSH Social History Social History Substance History: No History of Abuse Smoking Status: Former smoker How Often Do You Have a Drink Containing Alcohol: Never Recent Travel in [facility] within the Last 8 Weeks: No Recent Out of Country Travel within the Last 8 Weeks: No Immunization History Tetanus Immunization: Unsure Exam Narrative Exam Narrative: GENERAL: Well-developed well-nourished ill appearing female. SKIN: Focused skin assessment warm/dry. HEAD: Atraumatic. Normocephalic. EYES: Pupils equal and round. No scleral icterus. No injection or drainage. ENT: No nasal bleeding or discharge. Mucous membranes pink and moist. NECK: Trachea midline. No JVD. CARDIOVASCULAR: Regular rate and rhythm. No murmur appreciated. RESPIRATORY: No accessory muscle use. Clear to auscultation. Breath sounds equal bilaterally. GASTROINTESTINAL: Abdomen soft, moderately tender throughout all 4 quadrants, hypoactive bowel sounds. No rebound no percussive tenderness., nondistended. Hepatic and splenic margins not palpable. MUSCULOSKELETAL: No obvious deformities. No clubbing. No cyanosis. No edema. NEUROLOGICAL: Awake and alert. No obvious cranial nerve deficits. Motor grossly within normal limits. Normal speech. PSYCHIATRIC: Patient appears somewhat confused, rambles difficult to keep on task. Course Initial Documented Vital Signs Pulse Rate 65 04/19/18 10:27 Respiratory Rate 16 04/19/18 10:27 Blood Pressure 97/55 L 04/19/18 10:27 Pulse Oximetry 100 04/19/18 10:27 Last Documented Vital Signs Temperature 97.5 F L 04/19/18 10:46 Pulse Rate 66 04/19/18 15:23 Respiratory Rate 20 04/19/18 15:23 Blood Pressure 131/61 04/19/18 15:23 Pulse Oximetry 100 04/19/18 15:26 Medical Decision Making MDM Narrative Medical decision making narrative: Patient room to the emergency department, initially hypotensive, fluid responsive, appears very ill and somewhat encephalopathic as well. X-ray does show significant colonic stool, gastric distention, could consider small bowel obstruction, NG tube was placed, CT read shows dilated large bowel loops with inflammation of the transverse colon, patient does meet Sirs criteria started on Cipro and Flagyl. Discussed with Dr. Espinoza for possible ICU admission with the patient's blood pressure is improving and he will take the patient on his service but to the intermediate care center. Medical Screen Exam Complete: Yes Emergency Medical Condition: Yes Lab Data Result diagrams: 04/19/18 10:47 04/19/18 10:47 Lab Results 04/19/18 04/19/18 04/19/18 Range/Units 10:33 10:42 10:47 WBC 17.0 H (4.0-11.0) th/mm3 RBC 4.25 (4.00-5.30) mil/mm3 Hgb 11.9 (11.6-15.3) gm/dL Hct 37.4 (35.0-46.0) % MCV 88.0 (80.0-100.0) fL MCH 28.1 (27.0-34.0) pg MCHC 32.0 (32.0-36.0) % RDW 15.9 (11.6-17.2) % Plt Count 376 (150-450) th/mm3 MPV 7.3 (7.0-11.0) fL Neut % (Auto) 81.3 H (16.0-70.0) % Lymph % (Auto) 13.9 (9.0-44.0) % Angelina % (Auto) 3.3 (0.0-8.0) % Eos % (Auto) 1.0 (0.0-4.0) % Baso % (Auto) 0.5 (0.0-2.0) % Neut # (Auto) 13.8 H (1.8-7.7) th/mm3 Lymph # (Auto) 2.4 (1.0-4.8) th/mm3 Angelina # (Auto) 0.6 (0.0-0.9) th/mm3 Eos # (Auto) 0.2 (0.0-0.4) th/mm3 Baso # (Auto) 0.1 (0.0-0.2) th/mm3 WBC Differential . Differential Comment Auto diff final Puncture Site Right radial Patient Temperature 98.6 O2 Saturation 95 (90-100) % ABG pH 7.32 L (7.380-7.420) ABG pCO2 55 H* (38-42) mmHg ABG pO2 98 (61-120) mmHg ABG HCO3 27 H (22-26) mmol/L ABG O2 Content 16.1 (12.0-20.0) Vol % ABG Base Excess 2.0 (-2-2) mmol/L ABG Methemoglobin 1.2 (0-2) % Ulices Test Present Hemoglobin 12.0 (12.0-16.0) G/DL Carboxyhemoglobin 0.6 (0-4) % O2 Delivery Device Nasal cannula Liter Flow 3.00 L/M Inspired O2 32 % Critical Value Yes Sodium (136-145) meq/L Potassium (3.5-5.1) meq/L Chloride (98-107) meq/L Carbon Dioxide (21.0-32.0) meq/L Anion Gap (5-15) meq/L BUN (7-18) mg/dL Creatinine (0.50-1.00) mg/dL Estimated GFR (>89) mL/min POC Glucose 109 (68-110) mg/dl Random Glucose (74-106) mg/dL Lactic Acid (0.4-2.0) mmol/L Calcium (8.5-10.1) mg/dL Total Bilirubin (0.2-1.0) mg/dL AST (15-37) U/L ALT (10-53) U/L Alkaline Phosphatase (45-117) U/L Ammonia (11-32) mcmol/L Troponin I (0.02-0.05) ng/mL Total Protein (6.4-8.2) g/dL Albumin (3.4-5.0) g/dL Lipase (73-393) U/L Urine Color (Yellw/Straw) Urine Clarity (Clear) Urine pH (5.0-8.5) Ur Specific [place] (1.002-1.035) Urine Protein (Neg-Trace) mg/dL Urine Glucose (UA) (Negative) mg/dL Urine Ketones (Negative) mg/dL Urine Occult Blood (Negative) Urine Nitrate (Negative) Urine Bilirubin (Negative) Urine Urobilinogen (Less than 2) mg/dL Ur Leukocyte Esterase (Negative) Urine RBC (0-3) /hpf Urine WBC (0-5) /hpf Urine Mucus (Occasional) /lpf Micro UA Comment Ur Microscopic Review Urine Culture Comments Stl C.difficile DNA Amp (Negative) St C. diff Tox Epid 027 (Negative) 04/19/18 04/19/18 04/19/18 Range/Units 10:47 10:47 10:47 WBC (4.0-11.0) th/mm3 RBC (4.00-5.30) mil/mm3 Hgb (11.6-15.3) gm/dL Hct (35.0-46.0) % MCV (80.0-100.0) fL MCH (27.0-34.0) pg MCHC (32.0-36.0) % RDW (11.6-17.2) % Plt Count (150-450) th/mm3 MPV (7.0-11.0) fL Neut % (Auto) (16.0-70.0) % Lymph % (Auto) (9.0-44.0) % Angelina % (Auto) (0.0-8.0) % Eos % (Auto) (0.0-4.0) % Baso % (Auto) (0.0-2.0) % Neut # (Auto) (1.8-7.7) th/mm3 Lymph # (Auto) (1.0-4.8) th/mm3 Angelina # (Auto) (0.0-0.9) th/mm3 Eos # (Auto) (0.0-0.4) th/mm3 Baso # (Auto) (0.0-0.2) th/mm3 WBC Differential Differential Comment Puncture Site Patient Temperature O2 Saturation (90-100) % ABG pH (7.380-7.420) ABG pCO2 (38-42) mmHg ABG pO2 (61-120) mmHg ABG HCO3 (22-26) mmol/L ABG O2 Content (12.0-20.0) Vol % ABG Base Excess (-2-2) mmol/L ABG Methemoglobin (0-2) % Ulices Test Hemoglobin (12.0-16.0) G/DL Carboxyhemoglobin (0-4) % O2 Delivery Device Liter Flow L/M Inspired O2 % Critical Value Sodium 134 L (136-145) meq/L Potassium 4.1 (3.5-5.1) meq/L Chloride 101 (98-107) meq/L Carbon Dioxide 25.9 (21.0-32.0) meq/L Anion Gap 7 (5-15) meq/L BUN 21 H (7-18) mg/dL Creatinine 0.82 (0.50-1.00) mg/dL Estimated GFR 68 L (>89) mL/min POC Glucose (68-110) mg/dl Random Glucose 124 H (74-106) mg/dL Lactic Acid 1.1 (0.4-2.0) mmol/L Calcium 7.9 L (8.5-10.1) mg/dL Total Bilirubin 0.4 (0.2-1.0) mg/dL AST 22 (15-37) U/L ALT 22 (10-53) U/L Alkaline Phosphatase 86 (45-117) U/L Ammonia (11-32) mcmol/L Troponin I Less than 0.02 L (0.02-0.05) ng/mL Total Protein 5.9 L (6.4-8.2) g/dL Albumin 3.1 L (3.4-5.0) g/dL Lipase 141 (73-393) U/L Urine Color (Yellw/Straw) Urine Clarity (Clear) Urine pH (5.0-8.5) Ur Specific [place] (1.002-1.035) Urine Protein (Neg-Trace) mg/dL Urine Glucose (UA) (Negative) mg/dL Urine Ketones (Negative) mg/dL Urine Occult Blood (Negative) Urine Nitrate (Negative) Urine Bilirubin (Negative) Urine Urobilinogen (Less than 2) mg/dL Ur Leukocyte Esterase (Negative) Urine RBC (0-3) /hpf Urine WBC (0-5) /hpf Urine Mucus (Occasional) /lpf Micro UA Comment Ur Microscopic Review Urine Culture Comments Stl C.difficile DNA Amp (Negative) St C. diff Tox Epid 027 (Negative) 04/19/18 04/19/18 04/19/18 Range/Units 10:47 13:00 15:24 WBC (4.0-11.0) th/mm3 RBC (4.00-5.30) mil/mm3 Hgb (11.6-15.3) gm/dL Hct (35.0-46.0) % MCV (80.0-100.0) fL MCH (27.0-34.0) pg MCHC (32.0-36.0) % RDW (11.6-17.2) % Plt Count (150-450) th/mm3 MPV (7.0-11.0) fL Neut % (Auto) (16.0-70.0) % Lymph % (Auto) (9.0-44.0) % Angelina % (Auto) (0.0-8.0) % Eos % (Auto) (0.0-4.0) % Baso % (Auto) (0.0-2.0) % Neut # (Auto) (1.8-7.7) th/mm3 Lymph # (Auto) (1.0-4.8) th/mm3 Angelina # (Auto) (0.0-0.9) th/mm3 Eos # (Auto) (0.0-0.4) th/mm3 Baso # (Auto) (0.0-0.2) th/mm3 WBC Differential Differential Comment Puncture Site Patient Temperature O2 Saturation (90-100) % ABG pH (7.380-7.420) ABG pCO2 (38-42) mmHg ABG pO2 (61-120) mmHg ABG HCO3 (22-26) mmol/L ABG O2 Content (12.0-20.0) Vol % ABG Base Excess (-2-2) mmol/L ABG Methemoglobin (0-2) % Ulices Test Hemoglobin (12.0-16.0) G/DL Carboxyhemoglobin (0-4) % O2 Delivery Device Liter Flow L/M Inspired O2 % Critical Value Sodium (136-145) meq/L Potassium (3.5-5.1) meq/L Chloride (98-107) meq/L Carbon Dioxide (21.0-32.0) meq/L Anion Gap (5-15) meq/L BUN (7-18) mg/dL Creatinine (0.50-1.00) mg/dL Estimated GFR (>89) mL/min POC Glucose (68-110) mg/dl Random Glucose (74-106) mg/dL Lactic Acid (0.4-2.0) mmol/L Calcium (8.5-10.1) mg/dL Total Bilirubin (0.2-1.0) mg/dL AST (15-37) U/L ALT (10-53) U/L Alkaline Phosphatase (45-117) U/L Ammonia 33 H (11-32) mcmol/L Troponin I (0.02-0.05) ng/mL Total Protein (6.4-8.2) g/dL Albumin (3.4-5.0) g/dL Lipase (73-393) U/L Urine Color Yellow (Yellw/Straw) Urine Clarity Clear (Clear) Urine pH 6.0 (5.0-8.5) Ur Specific [place] 1.020 (1.002-1.035) Urine Protein Negative (Neg-Trace) mg/dL Urine Glucose (UA) Negative (Negative) mg/dL Urine Ketones Trace H (Negative) mg/dL Urine Occult Blood Negative (Negative) Urine Nitrate Negative (Negative) Urine Bilirubin Negative (Negative) Urine Urobilinogen Less than 2 (Less than 2) mg/dL Ur Leukocyte Esterase Negative (Negative) Urine RBC 2 (0-3) /hpf Urine WBC 1 (0-5) /hpf Urine Mucus Few H (Occasional) /lpf Micro UA Comment Cath-culture not ind Ur Microscopic Review Not Reportable Urine Culture Comments Cath-cult not ind Stl C.difficile DNA Amp Negative (Negative) St C. diff Tox Epid 027 Negative (Negative) Imaging Data Radiologist's impression: Abdomen/Pelvis CT 04/19/18 10:32 CONCLUSION: 1. Hiatal hernia. 2. Calcified granulomas. 3. Severe emphysema. 4. Dense atherosclerotic calcifications. 5. Renal cysts and tiny hepatic cyst. 6. Abnormal bowel wall thickening is seen involving the transverse colon characteristic of mild colitis. 7. Moderate amount of stool within the large bowel. Abdomen X-Ray 04/19/18 10:35 CONCLUSION: Negative examination. Chest X-Ray 04/19/18 10:35 CONCLUSION: 1. Senescent changes with stable left lung base airspace disease likely reflecting atelectasis/scarring. 2. No acute abnormality or significant interval change. Discharge Plan Discharge Disposition Patient Disposition: 30 Still Patient Discharge Condition Condition: Fair Discharge Details Diagnosis: Sepsis, Acute hypotension, Colitis, Partial small bowel obstruction Physicians Team ED Provider: Ronnie Longoria Primary Care Provider: Iglesia Sotelo Attending Provider: Lloyd Espinoza Other Providers: Anika Nolan Discharge Interventions Interventions: ED Discharge Assessment Last Done: 04/19/18 15:57 Status ED Status: Left Department Discharge Information Discharge Date/Time: 04/19/18 16:09
[2018-04-19] MEDS: HYDROmorphone PF Inj 1 MG/ML Ampul IV.PUSH PRN (17:32)
[2018-04-19] MEDS ORDERED: HYDROmorphone PF Inj 2 MG/ML Vial IV.PUSH ONE (19:30)
--- NOTE | 2018-04-19 19:58 | ECG ---
Date Performed: 04/19/2018 Time Performed: 10:26:21 PTAGE: 73 years EKG: Since the previous tracing, no significant change noted Sinus rhythm NORMAL ECG PREVIOUS TRACING : 04/13/2018 07.36 DOCTOR: Sami Lanza Interpretating Date/Time 04/19/2018 19:56:44
[2018-04-19] MEDS ORDERED: Famotidine 20 MG Tablet PO SCH (21:00)
[2018-04-19] MEDS: Senna/Docusate Sodium 8.6/50 MG Tablet PO SCH (22:04)
[2018-04-19] MEDS: Polyethylene Glycol 3350 17 GM Packet PO SCH (22:04)
[2018-04-19] MEDS: Famotidine 20 MG Tablet PO SCH (22:10)
[2018-04-19] MEDS: Heparin - SQ 10,000 UNITS/ML Vial SQ SCH (22:10)
[2018-04-19] MEDS: traZODone 100 MG Tablet PO SCH (22:10)
[2018-04-20] MEDS: HYDROmorphone PF Inj 1 MG/ML Ampul IV.PUSH PRN ×3 (02:43→11:31)
[2018-04-20] MEDS: Chlorhexidine Gluconate 2% 1 Pack (2 Cloths) TOPICAL SCH (03:28)
[2018-04-20] MEDS ORDERED: Chlorhexidine Gluconate 2% 1 Pack (2 Cloths) TOPICAL PRN (04:00)
[2018-04-20] MEDS: Heparin - SQ 10,000 UNITS/ML Vial SQ SCH ×3 (05:49→22:00)
[2018-04-20 06:30] LABS: Baso % (Auto) 0.2 % (0.0-2.0); Hematocrit 30.5 % (35.0-46.0); Hemoglobin 10.3 gm/dL (11.6-15.3); Lymph # (Auto) 1.6 th/mm3 (1.0-4.8); Lymph % (Auto) 9.5 % (9.0-44.0); Mean Corpuscular HGB Conc 33.7 % (32.0-36.0); Mean Platelet Volume 7.4 fL (7.0-11.0); Mono # (Auto) 0.8 th/mm3 (0.0-0.9); Mono % (Auto) 4.9 % (0.0-8.0); Neut # (Auto) 14.8 th/mm3 (1.8-7.7); Neut % (Auto) 85.4 % (16.0-70.0); Platelet Count 315 th/mm3 (150-450); Red Blood Count 3.54 mil/mm3 (4.00-5.30); Red Cell Distribution Width 15.8 % (11.6-17.2); White Blood Count 17.3 th/mm3 (4.0-11.0)
[2018-04-20 06:56] LABS: Anion Gap 8 meq/L (5-15); Blood Urea Nitrogen 15 mg/dL (7-18); Calcium 7.6 mg/dL (8.5-10.1); Carbon Dioxide 27.6 meq/L (21.0-32.0); Chloride 102 meq/L (98-107); Glomerular Filtration Rate Greater Than 89 mL/min (>89); Glucose,Random 107 mg/dL (74-106); Phosphorus 3.3 mg/dL (2.5-4.9); Potassium 3.3 meq/L (3.5-5.1); Sodium 138 meq/L (136-145)
[2018-04-20] MEDS: Polyethylene Glycol 3350 17 GM Packet PO SCH (08:49)
[2018-04-20] MEDS: Senna/Docusate Sodium 8.6/50 MG Tablet PO SCH (08:49)
[2018-04-20] MEDS: Famotidine 20 MG Tablet PO SCH ×2 (08:52→22:00)
[2018-04-20] MEDS ORDERED: HYDROmorphone PF Inj 2 MG/ML Vial IV.PUSH PRN (12:30)
[2018-04-20] MEDS: Ciprofloxacin 400 MG/200 ML 400 MG/200 ML PIGGYBACK IV.SIG SCH (12:38)
[2018-04-20] MEDS: Potassium Chlor 10 mEq Premix 10 MEQ/100 ML PIGGYBACK IV.SIG SCH ×3 (14:18→19:39)
--- NOTE | 2018-04-20 16:22 | P.PNIM ---
Subjective Interval history: Patient reports persistent abdominal pain that is not controlled. NG tube is draining bilious fluid. Physical Exam Vital signs: Vital Signs 04/19/18 17:00 04/19/18 18:00 04/19/18 19:00 Temperature Pulse Rate 72 74 77 Respiratory Rate Blood Pressure Pulse Oximetry 04/19/18 19:29 04/19/18 20:00 04/19/18 20:33 Temperature 99.5 F Pulse Rate 75 Respiratory Rate 18 18 16 Blood Pressure 140/65 Pulse Oximetry 96 04/19/18 20:54 04/19/18 21:00 04/19/18 22:00 Temperature Pulse Rate 70 88 Respiratory Rate Blood Pressure Pulse Oximetry 98 04/19/18 22:30 04/19/18 23:00 04/20/18 00:00 Temperature 99.5 F Pulse Rate 86 88 Respiratory Rate 18 18 Blood Pressure 134/58 L Pulse Oximetry 95 04/20/18 01:00 04/20/18 02:00 04/20/18 02:38 Temperature Pulse Rate 87 96 H Respiratory Rate 16 Blood Pressure Pulse Oximetry 04/20/18 03:00 04/20/18 03:21 04/20/18 04:00 Temperature 98.6 F Pulse Rate 97 H 93 H Respiratory Rate 17 18 Blood Pressure 140/71 Pulse Oximetry 95 04/20/18 05:00 04/20/18 06:00 04/20/18 07:50 Temperature Pulse Rate 93 H 96 H Respiratory Rate 18 Blood Pressure Pulse Oximetry 04/20/18 08:00 04/20/18 09:34 04/20/18 12:00 Temperature 98.5 F 98.1 F Pulse Rate 96 H 95 H Respiratory Rate 18 18 18 Blood Pressure 168/72 H 176/73 H Pulse Oximetry 97 97 04/20/18 12:05 04/20/18 13:30 04/20/18 15:30 Temperature Pulse Rate Respiratory Rate 18 18 18 Blood Pressure Pulse Oximetry Intake & Output 04/19/18 04/20/18 04/20/18 18:59 06:59 18:59 Intake Total 1400 / 1400 1500 / 1500 600 / 600 Output Total 1250 / 1250 Balance 150 / 150 1500 / 1500 600 / 600 Weight 54.431 kg 59.6 kg Intake: IV 1400 / 1400 1500 / 1500 600 / 600 LR 1000 mL Inj 1,000 ML @ 125 1000 / 1000 mls/hr IV.CONT .Q8H WING Rx#: [id number] Ofirmev Inj 1,000 mg In 100 ml 100 / 100 200 / 200 200 / 200 @ 400 mls/hr IV.SIG Q6H WING Rx# :[id number] Cipro 400 MG/200 ML Inj 400 mg 200 / 200 200 / 200 In 200 ml @ 200 mls/hr IV.SIG Q24H WING Rx#:[id number] KCl 10 mEq Premix Inj 10 meq In 100 / 100 100 ml @ 100 mls/hr IV.SIG Q1H WING Rx#:[id number] NS Inj 1,000 ML @ Wide Open IV. 1000 / 1000 SIG BOLUS ONE Rx#:[id number] Flagyl 500 MG Inj 100 ML @ 100 100 / 100 300 / 300 100 / 100 mls/hr IV.SIG Q6H WING Rx#: [id number] Output: Urine 600 / 600 Urine Amount (Catheter) 400 / 400 Indwelling Temp Sensing 400 / 400 Catheter Gastric Drainage 250 / 250 Right Nare Nasogastric Tube 250 / 250 Other: # Voids 2 # Incontinent Voids 2 Date of Last Bowel Movement 04/20/18 04/20/18 # Bowel Movements 2 Narrative: GENERAL: Frail elderly female, lying in bed, in no acute distress. HEENT: Normocephalic. Atraumatic. Pupils equal, round, reactive, conjugate. Mucous membranes are dry NECK: Trachea is midline. There is no JVD. CARDIOVASCULAR: Normal rate, regular rhythm. No significant murmurs. ABDOMEN: Soft, moderately tender to light and deep palpation. More tender on the left lower quadrant. Hypoactive bowel sounds MUSCULOSKELETAL: Pulses 2+. No peripheral edema. - Urinary Catheter Management Indwelling Temp Sensing Catheter Cath placed during this visit: yes Reason for continuing: Hourly intake/output Insertion date: 04/19/18 Insertion time: 12:50 Results - Labs CBC & Chem 7: 04/20/18 05:30 04/20/18 05:30 Laboratory Results - last 24 hr 04/19/18 04/19/18 04/20/18 15:24 22:44 05:30 WBC 17.3 H RBC 3.54 L Hgb 10.3 L Hct 30.5 L MCV 86.0 MCH 29.0 MCHC 33.7 RDW 15.8 Plt Count 315 MPV 7.4 Neut % (Auto) 85.4 H Lymph % (Auto) 9.5 [place] % (Auto) 4.9 Eos % (Auto) 0.0 Baso % (Auto) 0.2 Neut # (Auto) 14.8 H Lymph # (Auto) 1.6 [place] # (Auto) 0.8 Eos # (Auto) 0.0 Baso # (Auto) 0.0 WBC Differential . Differential Comment Auto diff final Sodium Potassium Chloride Carbon Dioxide Anion Gap BUN Creatinine Estimated GFR Random Glucose Calcium Phosphorus Magnesium Nasal Screen MRSA (PCR) Cancelled Stl C.difficile DNA Amp Negative St C. diff Tox Epid 027 Negative 04/20/18 04/20/18 05:30 06:00 WBC RBC Hgb Hct MCV MCH MCHC RDW Plt Count MPV Neut % (Auto) Lymph % (Auto) [place] % (Auto) Eos % (Auto) Baso % (Auto) Neut # (Auto) Lymph # (Auto) [place] # (Auto) Eos # (Auto) Baso # (Auto) WBC Differential Differential Comment Sodium 138 Potassium 3.3 L D Chloride 102 Carbon Dioxide 27.6 Anion Gap 8 BUN 15 Creatinine 0.60 Estimated GFR Greater than 89 Random Glucose 107 H Calcium 7.6 L Phosphorus 3.3 Magnesium 2.0 Nasal Screen MRSA (PCR) Mrsa detected Stl C.difficile DNA Amp St C. diff Tox Epid 027 Microbiology 04/19/18 10:47 Blood - Peripheral Aerobic Blood Culture - Preliminary No growth in 1 day 04/19/18 10:47 Blood - Peripheral Anaerobic Blood Culture - Preliminary No growth in 1 day 04/19/18 10:47 Blood - Peripheral Aerobic Blood Culture - Preliminary No growth in 1 day 04/19/18 10:47 Blood - Peripheral Anaerobic Blood Culture - Preliminary No growth in 1 day Assessment and Plan - Plan 73-year-old female admitted with acute colitis and severe dehydration. Patient initially admitted to the combining [facility] for hypotension and hypothermia. Acute colitis/Ileus: -C. difficile PCR negative. - Patient started on Cipro and Flagyl. -Continue IV Tylenol and Dilaudid as needed for pain. -Given persistence of symptoms and copious amount of drainage from NGT, will consult GI. - KUB in AM Acute severe intravascular volume depletion: Secondary to above - Patient is status post aggressive IV fluid resuscitation. - Continue IV fluid. Decrease rate to 100 cc/h GI prophylaxis: Pepcid. Stool softener PRN constipation. DVT PPx: Heparin
[2018-04-20] MEDS: HYDROmorphone PF Inj 2 MG/ML Vial IV.PUSH PRN ×2 (17:42→22:01)
[2018-04-20] MEDS: traZODone 100 MG Tablet PO SCH (22:01)
[2018-04-21] MEDS: HYDROmorphone PF Inj 2 MG/ML Vial IV.PUSH PRN ×6 (02:09→22:15)
--- NOTE | 2018-04-21 04:37 | XR ---
EXAM DATE: 04/21/2018 6:00 AM EDT AGE/SEX: 73 years / Female INDICATIONS: Abdominal distention. CLINICAL DATA: This is the patient's subsequent encounter. Patient reports that signs and symptoms h ave been present for 3 days and indicates a pain score of 10/10. MEDICAL/SURGICAL HISTORY: Sepsis. Cardiovascular disease. Hypothyroidism. Colitis. None. [place]PAR[place] [facility] [place]. . FINDINGS: The abdominal bowel gas pattern is normal. Gaseous distention of bowel loops. No obstruction. No abn ormal masses, calcifications, or organomegaly is seen. Levoscoliosis lumbar spine. CONCLUSION: No acute abnormalities. Electronically signed by: Avery Mahajan MD 04/21/2018 4:35 AM EDT
[2018-04-21] MEDS: Polyethylene Glycol 3350 17 GM Packet PO SCH ×3 (05:13→21:57)
[2018-04-21] MEDS: Senna/Docusate Sodium 8.6/50 MG Tablet PO SCH ×3 (05:13→21:58)
[2018-04-21] MEDS: Chlorhexidine Gluconate 2% 1 Pack (2 Cloths) TOPICAL SCH (05:14)
[2018-04-21 06:35] LABS: Baso % (Auto) 0.3 % (0.0-2.0); Eos % (Auto) 0.1 % (0.0-4.0); Hematocrit 29.7 % (35.0-46.0); Hemoglobin 9.7 gm/dL (11.6-15.3); Lymph # (Auto) 1.4 th/mm3 (1.0-4.8); Lymph % (Auto) 9.1 % (9.0-44.0); Mean Corpuscular HGB Conc 32.9 % (32.0-36.0); Mean Corpuscular Hemoglobin 28.9 pg (27.0-34.0); Mean Corpuscular Volume 88.1 fL (80.0-100.0); Mean Platelet Volume 7.3 fL (7.0-11.0); Mono % (Auto) 6.5 % (0.0-8.0); Platelet Count 282 th/mm3 (150-450); Red Blood Count 3.37 mil/mm3 (4.00-5.30); Red Cell Distribution Width 16.1 % (11.6-17.2); White Blood Count 15.4 th/mm3 (4.0-11.0)
[2018-04-21 07:08] LABS: Anion Gap 6 meq/L (5-15); Blood Urea Nitrogen 8 mg/dL (7-18); Calcium 8.3 mg/dL (8.5-10.1); Chloride 97 meq/L (98-107); Glomerular Filtration Rate Greater Than 89 mL/min (>89); Glucose,Random 81 mg/dL (74-106); Magnesium 1.9 mg/dL (1.5-2.5); Phosphorus 1.6 mg/dL (2.5-4.9); Potassium 3.2 meq/L (3.5-5.1); Sodium 134 meq/L (136-145)
[2018-04-21] MEDS: Metoprolol Tartrate 25 MG Tablet PO SCH ×2 (09:24→21:37)
[2018-04-21] MEDS: amLODIPine 10 MG Tablet PO SCH (09:24)
[2018-04-21] MEDS: Heparin - SQ 10,000 UNITS/ML Vial SQ SCH ×3 (09:25→21:39)
[2018-04-21] MEDS: Famotidine 20 MG Tablet PO SCH ×2 (09:27→21:37)
[2018-04-21] MEDS ORDERED: Potassium Phosphate Inj 15 MMOL in Sodium Chlor 0.9% Inj 150 ML IV.SIG ONE (10:00)
[2018-04-21] MEDS: Ciprofloxacin 400 MG/200 ML 400 MG/200 ML PIGGYBACK IV.SIG SCH (13:35)
--- NOTE | 2018-04-21 14:05 | P.PNIM ---
Subjective Interval history: Patient says that abdominal pain continues but is improving. Denies any chest pain. Denies any shortness of breath. She says she would like to eat ice chips. Continued NG tube output Physical Exam Vital signs: Vital Signs 04/20/18 14:00 04/20/18 15:00 04/20/18 15:30 Temperature Pulse Rate 90 89 Respiratory Rate 18 Blood Pressure Pulse Oximetry 04/20/18 16:00 04/20/18 17:00 04/20/18 18:00 Temperature 98.6 F Pulse Rate 84 80 96 H Respiratory Rate 18 Blood Pressure 172/74 H Pulse Oximetry 98 04/20/18 18:15 04/20/18 19:00 04/20/18 20:00 Temperature 98.4 F Pulse Rate 91 H 91 H Respiratory Rate 18 18 Blood Pressure 186/85 H Pulse Oximetry 96 04/20/18 21:00 04/20/18 21:17 04/20/18 22:00 Temperature Pulse Rate 88 88 Respiratory Rate Blood Pressure Pulse Oximetry 98 04/20/18 23:00 04/21/18 00:00 04/21/18 01:00 Temperature 98.4 F Pulse Rate 88 89 88 Respiratory Rate 18 Blood Pressure 171/80 H Pulse Oximetry 96 04/21/18 02:00 04/21/18 03:00 04/21/18 04:00 Temperature 98.4 F Pulse Rate 88 85 59 L Respiratory Rate 18 Blood Pressure 177/81 H Pulse Oximetry 96 04/21/18 05:00 04/21/18 06:00 04/21/18 08:00 Temperature 98.2 F Pulse Rate 88 84 84 Respiratory Rate 16 Blood Pressure 186/84 H Pulse Oximetry 100 04/21/18 11:12 04/21/18 11:37 Temperature 98.2 F Pulse Rate 71 Respiratory Rate 18 Blood Pressure 165/79 H Pulse Oximetry 100 Intake & Output 04/20/18 04/21/18 04/21/18 18:59 06:59 18:59 Intake Total 700 / 700 2500 / 2500 1200 / 1200 Output Total 750 / 750 Balance 700 / 700 1750 / 1750 1200 / 1200 Weight 59.1 kg Intake: IV 700 / 700 2500 / 2500 1200 / 1200 LR 1000 mL Inj 1,000 ML @ 100 2000 / 2000 1000 / 1000 mls/hr IV.CONT .Q10H [facility] Rx#: [id number] Ofirmev Inj 1,000 mg In 100 ml 200 / 200 200 / 200 100 / 100 @ 400 mls/hr IV.SIG Q6H [facility] Rx# :[id number] Cipro 400 MG/200 ML Inj 400 mg 200 / 200 In 200 ml @ 200 mls/hr IV.SIG Q24H [facility] Rx#:[id number] KCl 10 mEq Premix Inj 10 meq In 200 / 200 100 / 100 100 ml @ 100 mls/hr IV.SIG Q1H [facility] Rx#:[id number] Flagyl 500 MG Inj 100 ML @ 100 100 / 100 200 / 200 100 / 100 mls/hr IV.SIG Q6H [facility] Rx#: [id number] Oral 0 / 0 0 / 0 Output: Gastric Drainage 750 / 750 Right Nare Nasogastric Tube 750 / 750 Other: # Voids 2 # Incontinent Voids 3 2 Date of Last Bowel Movement 04/20/18 # Incontinent Bowel Movements 1 Narrative: GENERAL: Patient lying in bed. No acute distress. SKIN: Warm and dry. HEAD: Normocephalic. EYES: No scleral icterus. No injection or drainage. NECK: Supple, trachea midline. No JVD. CARDIOVASCULAR: Regular rate and rhythm without murmurs, gallops, or rubs. RESPIRATORY: Breath sounds equal bilaterally. No accessory muscle use. GASTROINTESTINAL: Abdomen soft, non-tender, nondistended. MUSCULOSKELETAL: No cyanosis, or edema. BACK: Nontender without obvious deformity. No CVA tenderness. - Urinary Catheter Management Indwelling Temp Sensing Catheter Cath placed during this visit: yes Reason for continuing: Hourly intake/output Insertion date: 04/19/18 Insertion time: 12:50 Results - Labs CBC & Chem 7: 04/21/18 05:59 04/21/18 05:59 Laboratory Results - last 24 hr 04/21/18 04/21/18 05:59 05:59 WBC 15.4 H RBC 3.37 L Hgb 9.7 L Hct 29.7 L MCV 88.1 MCH 28.9 MCHC 32.9 RDW 16.1 Plt Count 282 MPV 7.3 Neut % (Auto) 84.0 H Lymph % (Auto) 9.1 [place] % (Auto) 6.5 Eos % (Auto) 0.1 Baso % (Auto) 0.3 Neut # (Auto) 13.0 H Lymph # (Auto) 1.4 [place] # (Auto) 1.0 H Eos # (Auto) 0.0 Baso # (Auto) 0.0 WBC Differential . Differential Comment Auto diff final Sodium 134 L Potassium 3.2 L Chloride 97 L Carbon Dioxide 31.0 Anion Gap 6 BUN 8 Creatinine 0.29 L Estimated GFR Greater than 89 Random Glucose 81 Calcium 8.3 L Phosphorus 1.6 L D Magnesium 1.9 Microbiology 04/19/18 10:47 Blood - Peripheral Aerobic Blood Culture - Preliminary No growth in 2 days 04/19/18 10:47 Blood - Peripheral Anaerobic Blood Culture - Preliminary No growth in 2 days 04/19/18 10:47 Blood - Peripheral Aerobic Blood Culture - Preliminary No growth in 2 days 04/19/18 10:47 Blood - Peripheral Anaerobic Blood Culture - Preliminary No growth in 2 days - Imaging Impressions Abdomen X-Ray 04/21/18 06:00 CONCLUSION: No acute abnormalities. Assessment and Plan - Plan 73-year-old female admitted with acute colitis and severe dehydration. 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 //Acute colitis/Ileus: -C. difficile PCR negative. - Patient started on Cipro and Flagyl. -Continue IV Tylenol and Dilaudid as needed for pain. -Given persistence of symptoms and copious amount of drainage from NGT, will consult GI. - KUB in AM = 04/21 KUB from this morning with no acute findings. GI following. Appreciate assistance. Continue NG tube. //Acute severe intravascular volume depletion: Secondary to above - Patient is status post aggressive IV fluid resuscitation. - Continue IV fluid. Decrease rate to 100 cc/h = Continue IV fluid replacement. //Hypokalemia. //Hypophosphatemia = 04/21 potassium 3.2. Phosphorus 1.6 replace. //GI prophylaxis: Pepcid. Stool softener PRN constipation. DVT PPx: Heparin Discussed Condition With: Patient, nurse. Discharge Planning: pending improvement.
[2018-04-21] MEDS: traZODone 100 MG Tablet PO SCH (21:37)
[2018-04-22] MEDS: HYDROmorphone PF Inj 2 MG/ML Vial IV.PUSH PRN ×6 (02:12→22:22)
[2018-04-22] MEDS: Chlorhexidine Gluconate 2% 1 Pack (2 Cloths) TOPICAL SCH (04:20)
[2018-04-22] MEDS: Heparin - SQ 10,000 UNITS/ML Vial SQ SCH ×3 (05:25→21:01)
[2018-04-22] MEDS: Tiotropium Bromide 18 MCG/ACT Inhaler INH SCH (09:11)
[2018-04-22] MEDS: Metoprolol Tartrate 25 MG Tablet PO SCH ×2 (09:13→21:01)
[2018-04-22] MEDS: amLODIPine 10 MG Tablet PO SCH (09:13)
[2018-04-22] MEDS: Famotidine 20 MG Tablet PO SCH ×2 (09:13→21:01)
[2018-04-22 09:50] LABS: Baso % (Auto) 0.3 % (0.0-2.0); Eos % (Auto) 0.3 % (0.0-4.0); Hematocrit 29.3 % (35.0-46.0); Lymph # (Auto) 1.8 th/mm3 (1.0-4.8); Lymph % (Auto) 12.2 % (9.0-44.0); Mean Corpuscular HGB Conc 34.2 % (32.0-36.0); Mean Corpuscular Hemoglobin 29.6 pg (27.0-34.0); Mean Corpuscular Volume 86.6 fL (80.0-100.0); Mean Platelet Volume 7.6 fL (7.0-11.0); Mono % (Auto) 6.8 % (0.0-8.0); Neut # (Auto) 12.1 th/mm3 (1.8-7.7); Neut % (Auto) 80.4 % (16.0-70.0); Platelet Count 307 th/mm3 (150-450); Red Blood Count 3.38 mil/mm3 (4.00-5.30); Red Cell Distribution Width 15.8 % (11.6-17.2)
[2018-04-22] MEDS: Polyethylene Glycol 3350 17 GM Packet PO SCH ×2 (10:10→21:52)
[2018-04-22] MEDS: Senna/Docusate Sodium 8.6/50 MG Tablet PO SCH ×2 (10:10→21:52)
[2018-04-22 10:23] LABS: Albumin 2.9 g/dL (3.4-5.0); Anion Gap 12 meq/L (5-15); Blood Urea Nitrogen 6 mg/dL (7-18); Calcium 8.3 mg/dL (8.5-10.1); Carbon Dioxide 31.4 meq/L (21.0-32.0); Chloride 88 meq/L (98-107); Glomerular Filtration Rate Greater Than 89 mL/min (>89); Glucose,Random 66 mg/dL (74-106); Magnesium 1.6 mg/dL (1.5-2.5); Phosphorus 1.9 mg/dL (2.5-4.9); Sodium 131 meq/L (136-145)
[2018-04-22 10:32] LABS: Potassium 2.7 meq/L (3.5-5.1)
[2018-04-22] MEDS ORDERED: Mag Sulf 1 gm/100 ml Premix 100 ML IV.SIG ONE (11:30)
[2018-04-22] MEDS ORDERED: Potassium Phosphate Inj 15 MMOL in Sodium Chlor 0.9% Inj 150 ML IV.SIG ONE (12:00)
[2018-04-22] MEDS: Ciprofloxacin 400 MG/200 ML 400 MG/200 ML PIGGYBACK IV.SIG SCH (12:09)
[2018-04-22] MEDS: Potassium Chlor 10 mEq Premix 10 MEQ/100 ML PIGGYBACK IV.SIG SCH ×3 (12:16→20:45)
--- NOTE | 2018-04-22 12:27 | P.PNIM ---
Subjective Interval history: Patient says she is feeling better today. Denies any chest pain or shortness of breath. Denies abdominal pain. Physical Exam Vital signs: Vital Signs 04/21/18 13:00 04/21/18 14:00 04/21/18 16:00 Temperature 98.1 F Pulse Rate 72 78 74 Respiratory Rate 16 Blood Pressure 110/55 L Pulse Oximetry 94 L 04/21/18 17:00 04/21/18 18:00 04/21/18 19:00 Temperature Pulse Rate 76 74 81 Respiratory Rate Blood Pressure Pulse Oximetry 04/21/18 20:00 04/21/18 21:00 04/21/18 22:00 Temperature 98.7 F Pulse Rate 79 80 86 Respiratory Rate 16 Blood Pressure 174/82 H Pulse Oximetry 99 04/21/18 23:00 04/21/18 23:35 04/22/18 00:00 Temperature Pulse Rate 68 66 68 Respiratory Rate 16 Blood Pressure 128/66 Pulse Oximetry 99 04/22/18 01:00 04/22/18 02:00 04/22/18 03:00 Temperature Pulse Rate 68 74 68 Respiratory Rate Blood Pressure Pulse Oximetry 04/22/18 04:00 04/22/18 05:00 04/22/18 06:00 Temperature Pulse Rate 74 74 70 Respiratory Rate 18 Blood Pressure 164/73 H Pulse Oximetry 98 04/22/18 07:00 04/22/18 07:34 04/22/18 08:00 Temperature 98.4 F Pulse Rate 74 69 Respiratory Rate 16 Blood Pressure 171/75 H Pulse Oximetry 98 98 04/22/18 10:00 04/22/18 10:10 Temperature Pulse Rate 74 Respiratory Rate 16 Blood Pressure Pulse Oximetry Intake & Output 04/21/18 04/22/18 04/22/18 18:59 06:59 18:59 Intake Total 1600 / 1600 1555 / 1555 1000 / 1000 Output Total 800 / 800 Balance 1600 / 1600 755 / 755 1000 / 1000 Weight 59 kg Intake: IV 1600 / 1600 1555 / 1555 1000 / 1000 LR 1000 mL Inj 1,000 ML @ 100 1000 / 1000 1000 / 1000 1000 / 1000 mls/hr IV.CONT .Q10H [facility] Rx#: [id number] Ofirmev Inj 1,000 mg In 100 ml 200 / 200 200 / 200 @ 400 mls/hr IV.SIG Q6H [facility] Rx# :[id number] Cipro 400 MG/200 ML Inj 400 mg 200 / 200 In 200 ml @ 200 mls/hr IV.SIG Q24H [facility] Rx#:[id number] Potassium Phosphate Inj 15 MMOL 155 / 155 In NS Inj 150 ML @ 38.75 mls/ hr IV.SIG ONCE ONE Rx#:[id number] Flagyl 500 MG Inj 100 ML @ 100 200 / 200 200 / 200 mls/hr IV.SIG Q6H [facility] Rx#: [id number] Oral 0 / 0 0 / 0 Output: Urine 400 / 400 Gastric Drainage 400 / 400 Right Nare Nasogastric Tube 400 / 400 Other: # Voids 4 Date of Last Bowel Movement 04/20/18 04/20/18 # Bowel Movements 0 0 Narrative: GENERAL: Patient lying in bed. No acute distress. SKIN: Warm and dry. HEAD: Normocephalic. EYES: No scleral icterus. No injection or drainage. NECK: Supple, trachea midline. No JVD. CARDIOVASCULAR: Regular rate and rhythm without murmurs, gallops, or rubs. RESPIRATORY: Breath sounds equal bilaterally. No accessory muscle use. GASTROINTESTINAL: Abdomen soft, non-tender, nondistended. MUSCULOSKELETAL: No cyanosis, or edema. BACK: Nontender without obvious deformity. No CVA tenderness. - Urinary Catheter Management Indwelling Temp Sensing Catheter Cath placed during this visit: yes Reason for continuing: Hourly intake/output Insertion date: 04/19/18 Insertion time: 12:50 Results - Labs CBC & Chem 7: 04/22/18 08:11 04/22/18 08:11 Laboratory Results - last 24 hr 04/21/18 04/21/18 04/22/18 05:59 05:59 08:11 WBC RBC Hgb Hct MCV MCH MCHC RDW Plt Count MPV Neut % (Auto) Lymph % (Auto) [place] % (Auto) Eos % (Auto) Baso % (Auto) Neut # (Auto) Lymph # (Auto) [place] # (Auto) Eos # (Auto) Baso # (Auto) WBC Differential Differential Comment Sodium 131 L Potassium 2.7 L* Chloride 88 L D Carbon Dioxide 31.4 Anion Gap 12 BUN 6 L Creatinine 0.38 L Estimated GFR Greater than 89 Random Glucose 66 L Calcium 8.3 L Phosphorus 1.9 L Magnesium 1.6 Albumin 2.9 L TSH 9.530 H Free T4 0.99 04/22/18 08:11 WBC 15.0 H RBC 3.38 L Hgb 10.0 L Hct 29.3 L MCV 86.6 MCH 29.6 MCHC 34.2 RDW 15.8 Plt Count 307 MPV 7.6 Neut % (Auto) 80.4 H Lymph % (Auto) 12.2 [place] % (Auto) 6.8 Eos % (Auto) 0.3 Baso % (Auto) 0.3 Neut # (Auto) 12.1 H Lymph # (Auto) 1.8 [place] # (Auto) 1.0 H Eos # (Auto) 0.0 Baso # (Auto) 0.0 WBC Differential . Differential Comment Auto diff final Sodium Potassium Chloride Carbon Dioxide Anion Gap BUN Creatinine Estimated GFR Random Glucose Calcium Phosphorus Magnesium Albumin TSH Free T4 Microbiology 04/19/18 10:47 Blood - Peripheral Aerobic Blood Culture - Preliminary No growth in 3 days 04/19/18 10:47 Blood - Peripheral Anaerobic Blood Culture - Preliminary No growth in 3 days 04/19/18 10:47 Blood - Peripheral Aerobic Blood Culture - Preliminary No growth in 3 days 04/19/18 10:47 Blood - Peripheral Anaerobic Blood Culture - Preliminary No growth in 3 days Assessment and Plan - Plan 73-year-old female admitted with acute colitis and severe dehydration. 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 //Acute colitis/Ileus: -C. difficile PCR negative. - Patient started on Cipro and Flagyl. -Continue IV Tylenol and Dilaudid as needed for pain. -Given persistence of symptoms and copious amount of drainage from NGT, will consult GI. - KUB in AM = 04/21 KUB from this morning with no acute findings. GI following. Appreciate assistance. Continue NG tube. = 04/22. Decreased output from NG tube. Will clamp NG tube and start liquid diet. Continue IV antibiotics for colitis which appears to be improving //Acute severe intravascular volume depletion: Secondary to above - Patient is status post aggressive IV fluid resuscitation. - Continue IV fluid. Decrease rate to 100 cc/h = Continue IV fluid replacement. //Hypokalemia. //Hypophosphatemia = 04/21 potassium 3.2. Phosphorus 1.6 replace. = 04/22. Potassium 2.7. Replace. Potassium to fluids. //GI prophylaxis: Pepcid. Stool softener PRN constipation. DVT PPx: Heparin Discharge Planning: pending improvement. PT recommends rehab. Hopefully discharge to rehab in the next 2 days
--- NOTE | 2018-04-22 14:42 | P.PNGI ---
Subjective Interval history: Patient seen yesterdayconsult dictated(not transcribed yet). Patient feeling much better. NG has green drainage but it is much less. Patient is passing gas but has not had a bowel movement nor has any lower GI bleeding. Abdominal pain is much improved Physical Exam Vital signs: Vital Signs 04/21/18 16:00 04/21/18 17:00 04/21/18 18:00 Temperature 98.1 F Pulse Rate 74 76 74 Respiratory Rate 16 Blood Pressure 110/55 L Pulse Oximetry 94 L 04/21/18 19:00 04/21/18 20:00 04/21/18 21:00 Temperature 98.7 F Pulse Rate 81 79 80 Respiratory Rate 16 Blood Pressure 174/82 H Pulse Oximetry 99 04/21/18 22:00 04/21/18 23:00 04/21/18 23:35 Temperature Pulse Rate 86 68 66 Respiratory Rate 16 Blood Pressure 128/66 Pulse Oximetry 99 04/22/18 00:00 04/22/18 01:00 04/22/18 02:00 Temperature Pulse Rate 68 68 74 Respiratory Rate Blood Pressure Pulse Oximetry 04/22/18 03:00 04/22/18 04:00 04/22/18 05:00 Temperature Pulse Rate 68 74 74 Respiratory Rate 18 Blood Pressure 164/73 H Pulse Oximetry 98 04/22/18 06:00 04/22/18 07:00 04/22/18 07:34 Temperature Pulse Rate 70 74 Respiratory Rate Blood Pressure Pulse Oximetry 98 04/22/18 08:00 04/22/18 10:00 04/22/18 10:10 Temperature 98.4 F Pulse Rate 69 74 Respiratory Rate 16 16 Blood Pressure 171/75 H Pulse Oximetry 98 04/22/18 11:00 04/22/18 12:00 04/22/18 13:00 Temperature 98.8 F Pulse Rate 72 68 66 Respiratory Rate 16 Blood Pressure 155/71 H Pulse Oximetry 97 Intake & Output 04/21/18 04/22/18 04/22/18 18:59 06:59 18:59 Intake Total 1600 / 1600 1555 / 1555 1000 / 1000 Output Total 800 / 800 Balance 1600 / 1600 755 / 755 1000 / 1000 Weight 59 kg Intake: IV 1600 / 1600 1555 / 1555 1000 / 1000 LR 1000 mL Inj 1,000 ML @ 100 1000 / 1000 1000 / 1000 1000 / 1000 mls/hr IV.CONT .Q10H [facility] Rx#: [id number] Ofirmev Inj 1,000 mg In 100 ml 200 / 200 200 / 200 @ 400 mls/hr IV.SIG Q6H [facility] Rx# :[id number] Cipro 400 MG/200 ML Inj 400 mg 200 / 200 In 200 ml @ 200 mls/hr IV.SIG Q24H [facility] Rx#:[id number] Potassium Phosphate Inj 15 MMOL 155 / 155 In NS Inj 150 ML @ 38.75 mls/ hr IV.SIG ONCE ONE Rx#:[id number] Flagyl 500 MG Inj 100 ML @ 100 200 / 200 200 / 200 mls/hr IV.SIG Q6H [facility] Rx#: [id number] Oral 0 / 0 0 / 0 Output: Urine 400 / 400 Gastric Drainage 400 / 400 Right Nare Nasogastric Tube 400 / 400 Other: # Voids 4 Date of Last Bowel Movement 04/20/18 04/20/18 04/20/18 # Bowel Movements 0 0 - Constitutional no acute distress - Routine HEENT Exam Eye: Present: EOMI - Routine Neck Exam Present: supple - Routine Abdominal Exam Present: soft, normoactive bowel sounds. Absent: tenderness, distended Comments: Abdominal exam is much improved yesterdayit soft and now nontender - Routine Skin Exam Absent: cyanosis - Routine Neurological Exam Present: alert, oriented X3 - Urinary Catheter Management Indwelling Temp Sensing Catheter Cath placed during this visit: yes Reason for continuing: Hourly intake/output Insertion date: 04/19/18 Insertion time: 12:50 Results - Labs CBC & Chem 7: 04/22/18 08:11 04/22/18 08:11 Laboratory Results - last 24 hr 04/21/18 04/21/18 04/22/18 05:59 05:59 08:11 WBC RBC Hgb Hct MCV MCH MCHC RDW Plt Count MPV Neut % (Auto) Lymph % (Auto) [place] % (Auto) Eos % (Auto) Baso % (Auto) Neut # (Auto) Lymph # (Auto) [place] # (Auto) Eos # (Auto) Baso # (Auto) WBC Differential Differential Comment Sodium 131 L Potassium 2.7 L* Chloride 88 L D Carbon Dioxide 31.4 Anion Gap 12 BUN 6 L Creatinine 0.38 L Estimated GFR Greater than 89 Random Glucose 66 L Calcium 8.3 L Phosphorus 1.9 L Magnesium 1.6 Albumin 2.9 L TSH 9.530 H Free T4 0.99 04/22/18 08:11 WBC 15.0 H RBC 3.38 L Hgb 10.0 L Hct 29.3 L MCV 86.6 MCH 29.6 MCHC 34.2 RDW 15.8 Plt Count 307 MPV 7.6 Neut % (Auto) 80.4 H Lymph % (Auto) 12.2 [place] % (Auto) 6.8 Eos % (Auto) 0.3 Baso % (Auto) 0.3 Neut # (Auto) 12.1 H Lymph # (Auto) 1.8 [place] # (Auto) 1.0 H Eos # (Auto) 0.0 Baso # (Auto) 0.0 WBC Differential . Differential Comment Auto diff final Sodium Potassium Chloride Carbon Dioxide Anion Gap BUN Creatinine Estimated GFR Random Glucose Calcium Phosphorus Magnesium Albumin TSH Free T4 Microbiology 04/19/18 10:47 Blood - Peripheral Aerobic Blood Culture - Preliminary No growth in 3 days 04/19/18 10:47 Blood - Peripheral Anaerobic Blood Culture - Preliminary No growth in 3 days 04/19/18 10:47 Blood - Peripheral Aerobic Blood Culture - Preliminary No growth in 3 days 04/19/18 10:47 Blood - Peripheral Anaerobic Blood Culture - Preliminary No growth in 3 days Assessment and Plan - Attending Attestation Impression: 1. Colitisthis was seen on a CAT scan. I suspect this is exacerbation of her ischemic colitis. Whether it is related to inflammatory or infectious processes is unclear. 2. 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 Ileusseems to be improved at present Plan: 1. IV fluids to maintain her blood pressurethis should improve her ischemia 2. If she continues to do well may be an NG tube can come out 3. I have discussed yesterday patient that if things worsen we should really consider a surgical approach and or repeat mesenteric angiography to check the mesenteric stent. She declined both options yesterday and she still declines them today
[2018-04-22] MEDS: traZODone 100 MG Tablet PO SCH (21:01)
[2018-04-22] MEDS: ALPRAZolam 0.5 MG Tablet PO PRN (21:01)
[2018-04-23] MEDS: HYDROmorphone PF Inj 2 MG/ML Vial IV.PUSH PRN ×2 (04:01→10:36)
[2018-04-23] MEDS: Chlorhexidine Gluconate 2% 1 Pack (2 Cloths) TOPICAL SCH (05:27)
[2018-04-23] MEDS: ALPRAZolam 0.5 MG Tablet PO PRN ×2 (05:45→12:19)
[2018-04-23] MEDS: Heparin - SQ 10,000 UNITS/ML Vial SQ SCH ×2 (05:48→14:45)
[2018-04-23 06:48] LABS: Albumin 2.8 g/dL (3.4-5.0); Anion Gap 12 meq/L (5-15); Blood Urea Nitrogen 4 mg/dL (7-18); Carbon Dioxide 31.2 meq/L (21.0-32.0); Chloride 89 meq/L (98-107); Glomerular Filtration Rate Greater Than 89 mL/min (>89); Glucose,Random 78 mg/dL (74-106); Magnesium 1.8 mg/dL (1.5-2.5); Phosphorus 1.7 mg/dL (2.5-4.9); Potassium 3.3 meq/L (3.5-5.1)
[2018-04-23 06:53] LABS: Sodium 132 meq/L (136-145)
[2018-04-23 07:02] LABS: Baso # (Auto) 0.1 th/mm3 (0.0-0.2); Baso % (Auto) 0.6 % (0.0-2.0); Eos # (Auto) 0.1 th/mm3 (0.0-0.4); Hematocrit 31.1 % (35.0-46.0); Hemoglobin 10.4 gm/dL (11.6-15.3); Lymph # (Auto) 1.6 th/mm3 (1.0-4.8); Lymph % (Auto) 15.6 % (9.0-44.0); Mean Corpuscular HGB Conc 33.4 % (32.0-36.0); Mean Corpuscular Hemoglobin 28.8 pg (27.0-34.0); Mean Corpuscular Volume 86.2 fL (80.0-100.0); Mean Platelet Volume 8.2 fL (7.0-11.0); Mono % (Auto) 10.2 % (0.0-8.0); Neut # (Auto) 7.4 th/mm3 (1.8-7.7); Neut % (Auto) 72.6 % (16.0-70.0); Platelet Count 318 th/mm3 (150-450); Red Blood Count 3.61 mil/mm3 (4.00-5.30); Red Cell Distribution Width 15.5 % (11.6-17.2); White Blood Count 10.2 th/mm3 (4.0-11.0)
--- NOTE | 2018-04-23 09:48 | MB ---
cc: Flakito England MD,Lloyd Crowder,Timothy Leger MD DATE: 04/21/2018 REASON FOR CONSULTATION: I was asked to see the patient at the request of Dr. Espinoza for evaluation of colitis and ileus. HISTORY OF PRESENT ILLNESS: The patient is a pleasant 73-year-old white female who has extensive history of peripheral vascular disease and mesenteric ischemia. She has had previous mesenteric stents. She has also been in the hospital for various forms of colitis. She presented with almost 3 days of nausea, vomitting and abdominal pain. The pains were diffuse, had no rhyme or reason. She was hypotensive and a CT scan of the abdomen and pelvis done in the emergency room showed some colitis involving the transverse colon. She also had moderate amount of stool throughout the large colon, which is slightly distended. She also has NG tube in because of ileus. NG tube draining green material. She states she actually has been having constipation, but then with constipation resolved, she has some loose stools. She has not been exposed to anyone ill nor she had any recent antibiotics. No fever, chills, blood per rectum or hematemesis. No dysphagia, odynophagia, heartburn issues either. PAST MEDICAL HISTORY: Significant for hiatal hernia, severe emphysema, mesenteric ischemia. She has had dense atherosclerotic calcifications. She has had iliac artery stenosis, also. She has had liver cysts, renal cysts, colitis in the past, constipation, anxiety, asthma, coronary artery disease, severe COPD, hypocalcemia, hypothyroidism, manic depressive disorder, migraines. Diverticulosis. PAST SURGICAL HISTORY: Mainly the vascular procedures involving her mesenteric arteries --she had a stent. She has had previous colonoscopy. FAMILY HISTORY: No GI malignancies. SOCIAL HISTORY: Past smoking history. She stopped. No history of alcohol intake. REVIEW OF SYSTEMS: No fever or chills. Cardiopulmonary, no chest pain, palpitations or shortness of breath. For the GI review of systems please see above. otherwise , unremarkable 12-point review of systems. ALLERGIES: NO DRUG ALLERGIES. MEDICATIONS: At this time include: 1. Tylenol. 2. DuoNeb. 3. Xanax. 4. Norvasc. 5. Ecotrin. 6. Dulcolax. 7. Cipro. 8. Pepcid. 9. Dilaudid 10. Lactulose. 11. Lopressor. 12. Flagyl. 13. Zofran. 14. MiraLax. 15. Chapstick. 16. Zahira-Colace. 17. Desyrel. PHYSICAL EXAMINATION: VITAL SIGNS: Blood pressure is 165/79, pulse of 71, respiration of 18, temperature 98.2. GENERAL: She is an elderly, white female who appears uncomfortable with NG tube in place with greenish material in it. HEENT: Her pupils equal, and reactive to light. No scleral icterus. Oropharynx had no blood in the mouth. NECK: Supple without lymphadenopathy. LUNGS: Clear to auscultation. HEART: Regular rate and rhythm. No murmurs heard. ABDOMEN: Mildly distended, tender throughout, but no rebound tenderness, organomegaly or masses. Bowel sounds are present. EXTREMITIES: No cyanosis, clubbing, or edema. NEUROLOGIC: Cranial nerves grossly intact. GENITOURINARY: I did not do a rectal exam on her, nor did I assess her gait. SKIN: Warm and moist. DATABASE: A CT scan of the abdomen and pelvis was done, which revealed abnormal bowel wall thickening involving the transverse colon suggestive of colitis. There is a moderate amount of stool within the large colon, which is also slightly distended. She has hiatal hernia. There are dense atherosclerotic calcifications, hiatal hernia, calcified granuloma as well as renal and hepatic cyst. The abdominal x-ray revealed gas distention of bowel loops, but no obstruction noted. Other important laboratories include on admission a white blood cell count of 17,000, hemoglobin 11.9, hematocrit 34.4, MCV 88. Now white blood cell count has dropped to 15,400, hemoglobin dropped to 9.7, hematocrit 29.7, MCV of 88.1. Potassium 3.2. Sodium 134, BUN of 8, creatinine is 0.29. Ammonia slightly elevated at 33, lipase 141 is normal. Total bilirubin 0.2, SGOT 22, SGPT of 22, alkaline phosphatase of 86. IMPRESSION: 1. Colitis-as mentioned on CT scan. The patient apparently was somewhat dehydrated and I suspect this is an exacerbation of her mesenteric ischemia. She may also have some component of infectious inflammatory process also. 2. History of mesenteric ischemia. She has had mesenteric stent placed. 3. Ileus - could be low potassium which is being corrected. RECOMMENDATIONS: 1. Continue IV fluids. 2. Maintain good blood pressure. Continue NG tube for now. 3. I discussed the situation of mesenteric ischemia. It usually resolves by itself with fluids and careful waiting. However, occasionally it can go on to an infarction of the bowel, perforation, and . We talked about options at this time including getting a surgical evaluation to follow with us as well as talked to radiology about mesenteric angiography to check the status of the stent. After a long discussion, apparently she is not a surgical candidate because of her bad lungs (she states) and she she has had previous mesenteric stents and she just wants to think about it. She understands what we are dealing with - if the bowel had ischemic infarct, she may pass away from this, but she will take the testing into consideration and she just wants to see how things are going right now. Flakito England MD SPP/sv/rr , 01:49 PM , 02:05 PM [id number]
[2018-04-23] MEDS: Famotidine 20 MG Tablet PO SCH ×2 (10:26→22:18)
[2018-04-23] MEDS: Polyethylene Glycol 3350 17 GM Packet PO SCH ×2 (10:27→22:22)
[2018-04-23] MEDS: amLODIPine 10 MG Tablet PO SCH (10:27)
[2018-04-23] MEDS: Metoprolol Tartrate 25 MG Tablet PO SCH ×2 (10:27→22:18)
[2018-04-23] MEDS: Tiotropium Bromide 18 MCG/ACT Inhaler INH SCH (10:28)
[2018-04-23] MEDS: Senna/Docusate Sodium 8.6/50 MG Tablet PO SCH ×2 (10:28→22:18)
[2018-04-23] MEDS: Ciprofloxacin 400 MG/200 ML 400 MG/200 ML PIGGYBACK IV.SIG SCH (12:00)
--- NOTE | 2018-04-23 12:04 | P.PNGI ---
Subjective Interval history: Patient feeling much better. Her NG tube is clamped and hopefully can come out today. Patient is passing gas but has not had a bowel movement. There is no nausea, vomiting or upper GI bleeding. No abdominal pain Physical Exam Vital signs: Vital Signs 04/22/18 13:00 04/22/18 14:00 04/22/18 15:00 Temperature Pulse Rate 66 60 64 Respiratory Rate Blood Pressure Pulse Oximetry 04/22/18 16:00 04/22/18 17:00 04/22/18 17:50 Temperature 98.3 F Pulse Rate 77 74 80 Respiratory Rate 18 Blood Pressure 161/81 H Pulse Oximetry 04/22/18 19:00 04/22/18 20:00 04/22/18 21:00 Temperature 98.7 F Pulse Rate 98 H 84 92 H Respiratory Rate 18 Blood Pressure 174/78 H Pulse Oximetry 99 04/22/18 22:00 04/22/18 23:00 04/23/18 00:00 Temperature Pulse Rate 70 64 64 Respiratory Rate 18 Blood Pressure 166/80 H Pulse Oximetry 98 04/23/18 01:00 04/23/18 02:00 04/23/18 03:00 Temperature Pulse Rate 68 64 65 Respiratory Rate Blood Pressure Pulse Oximetry 04/23/18 03:44 04/23/18 04:00 04/23/18 05:00 Temperature Pulse Rate 76 94 H 80 Respiratory Rate 18 Blood Pressure 168/73 H Pulse Oximetry 96 04/23/18 06:00 04/23/18 07:00 04/23/18 08:00 Temperature 98.5 F Pulse Rate 80 88 88 Respiratory Rate 18 Blood Pressure 145/80 H Pulse Oximetry 97 Intake & Output 04/22/18 04/23/18 04/23/18 18:59 06:59 18:59 Intake Total 1455 / 1455 3290 / 3290 1010 / 1010 Output Total 800 / 800 500 / 500 Balance 655 / 655 2790 / 2790 1010 / 1010 Weight 59.1 kg Intake: IV 1455 / 1455 2810 / 2810 1010 / 1010 LR 1000 mL Inj 1,000 ML @ 100 1000 / 1000 1000 / 1000 mls/hr IV.CONT .Q10H [facility] Rx#: [id number] KCl Inj 20 MEQ In LR 1000 mL 1010 / 1010 1010 / 1010 Inj 1,000 ML @ 100 mls/hr IV. CONT .Q10H6M [facility] Rx#:[id number] Ofirmev Inj 1,000 mg In 100 ml 100 / 100 @ 400 mls/hr IV.SIG Q6H [facility] Rx# :[id number] Cipro 400 MG/200 ML Inj 400 mg 200 / 200 In 200 ml @ 200 mls/hr IV.SIG Q24H [facility] Rx#:[id number] Magnesium Sulfate 1 gm/D5W 100 100 / 100 ml Premix 100 ML @ 100 mls/hr IV.SIG ONCE ONE Rx#:[id number] KCl 10 mEq Premix Inj 10 meq In 100 / 100 200 / 200 100 ml @ 100 mls/hr IV.SIG Q1H [facility] Rx#:[id number] Potassium Phosphate Inj 15 MMOL 155 / 155 In NS Inj 150 ML @ 38.75 mls/ hr IV.SIG ONCE ONE Rx#:[id number] Flagyl 500 MG Inj 100 ML @ 100 100 / 100 300 / 300 mls/hr IV.SIG Q6H [facility] Rx#: [id number] Oral 0 / 0 480 / 480 Output: Urine 800 / 800 500 / 500 Gastric Drainage 0 / 0 Right Nare Nasogastric Tube 0 / 0 Other: Date of Last Bowel Movement 04/20/18 04/20/18 04/20/18 # Bowel Movements 0 0 - Constitutional no acute distress - Routine Neck Exam Present: supple - Routine Abdominal Exam Present: soft, normoactive bowel sounds. Absent: tenderness, distended - Routine Neurological Exam Present: alert, oriented X3 - Urinary Catheter Management Indwelling Temp Sensing Catheter Cath placed during this visit: yes Reason for continuing: Hourly intake/output Insertion date: 04/19/18 Insertion time: 12:50 Results - Labs CBC & Chem 7: 04/23/18 06:00 04/23/18 06:00 Laboratory Results - last 24 hr 04/23/18 04/23/18 06:00 06:00 WBC 10.2 RBC 3.61 L Hgb 10.4 L Hct 31.1 L MCV 86.2 MCH 28.8 MCHC 33.4 RDW 15.5 Plt Count 318 MPV 8.2 Neut % (Auto) 72.6 H Lymph % (Auto) 15.6 [place] % (Auto) 10.2 H Eos % (Auto) 1.0 Baso % (Auto) 0.6 Neut # (Auto) 7.4 Lymph # (Auto) 1.6 [place] # (Auto) 1.0 H Eos # (Auto) 0.1 Baso # (Auto) 0.1 WBC Differential . Differential Comment Auto diff final Hematology Comments Sodium 132 L Potassium 3.3 L Chloride 89 L Carbon Dioxide 31.2 Anion Gap 12 BUN 4 L Creatinine 0.30 L Estimated GFR Greater than 89 Random Glucose 78 Calcium 8.0 L Phosphorus 1.7 L Magnesium 1.8 Albumin 2.8 L Microbiology 04/19/18 10:47 Blood - Peripheral Aerobic Blood Culture - Preliminary No growth in 4 days 04/19/18 10:47 Blood - Peripheral Anaerobic Blood Culture - Preliminary No growth in 4 days 04/19/18 10:47 Blood - Peripheral Aerobic Blood Culture - Preliminary No growth in 4 days 04/19/18 10:47 Blood - Peripheral Anaerobic Blood Culture - Preliminary No growth in 4 days Assessment and Plan - Attending Attestation Impression: 1. Colitisthis was seen on a CAT scan. I suspect this is exacerbation of her ischemic colitis. if it is infectious or inflammatory is unclear. She is however improved 2. 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 Ileusseems to be improved at present Plan: 1. IV fluids to maintain her blood pressurethis should improve her ischemia 2. hopefully the NG can come out and we can try clear liquids 3. I have discussed yesterday patient that if things worsen we should really consider a surgical approach and or repeat mesenteric angiography to check the mesenteric stent. She declined both options yesterday and she still declines them today Impression:
--- NOTE | 2018-04-23 13:27 | P.PNIM ---
Subjective Interval history: Patient says she is feeling better today. Denies any nausea or vomiting. Would like to eat. Passing gas but no bowel movement Physical Exam Vital signs: Vital Signs 04/22/18 14:00 04/22/18 15:00 04/22/18 16:00 Temperature 98.3 F Pulse Rate 60 64 77 Respiratory Rate 18 Blood Pressure 161/81 H Pulse Oximetry 04/22/18 17:00 04/22/18 17:50 04/22/18 19:00 Temperature Pulse Rate 74 80 98 H Respiratory Rate Blood Pressure Pulse Oximetry 04/22/18 20:00 04/22/18 21:00 04/22/18 22:00 Temperature 98.7 F Pulse Rate 84 92 H 70 Respiratory Rate 18 Blood Pressure 174/78 H Pulse Oximetry 99 04/22/18 23:00 04/23/18 00:00 04/23/18 01:00 Temperature Pulse Rate 64 64 68 Respiratory Rate 18 Blood Pressure 166/80 H Pulse Oximetry 98 04/23/18 02:00 04/23/18 03:00 04/23/18 03:44 Temperature Pulse Rate 64 65 76 Respiratory Rate 18 Blood Pressure 168/73 H Pulse Oximetry 96 04/23/18 04:00 04/23/18 05:00 04/23/18 06:00 Temperature Pulse Rate 94 H 80 80 Respiratory Rate Blood Pressure Pulse Oximetry 04/23/18 07:00 04/23/18 08:00 Temperature 98.5 F Pulse Rate 88 88 Respiratory Rate 18 Blood Pressure 145/80 H Pulse Oximetry 97 Intake & Output 04/22/18 04/23/18 04/23/18 18:59 06:59 18:59 Intake Total 1455 / 1455 3290 / 3290 1010 / 1010 Output Total 800 / 800 500 / 500 Balance 655 / 655 2790 / 2790 1010 / 1010 Weight 59.1 kg Intake: IV 1455 / 1455 2810 / 2810 1010 / 1010 LR 1000 mL Inj 1,000 ML @ 100 1000 / 1000 1000 / 1000 mls/hr IV.CONT .Q10H [facility] Rx#: [id number] KCl Inj 20 MEQ In LR 1000 mL 1010 / 1010 1010 / 1010 Inj 1,000 ML @ 100 mls/hr IV. CONT .Q10H6M [facility] Rx#:[id number] Ofirmev Inj 1,000 mg In 100 ml 100 / 100 @ 400 mls/hr IV.SIG Q6H [facility] Rx# :[id number] Cipro 400 MG/200 ML Inj 400 mg 200 / 200 In 200 ml @ 200 mls/hr IV.SIG Q24H [facility] Rx#:[id number] Magnesium Sulfate 1 gm/D5W 100 100 / 100 ml Premix 100 ML @ 100 mls/hr IV.SIG ONCE ONE Rx#:[id number] KCl 10 mEq Premix Inj 10 meq In 100 / 100 200 / 200 100 ml @ 100 mls/hr IV.SIG Q1H [facility] Rx#:[id number] Potassium Phosphate Inj 15 MMOL 155 / 155 In NS Inj 150 ML @ 38.75 mls/ hr IV.SIG ONCE ONE Rx#:[id number] Flagyl 500 MG Inj 100 ML @ 100 100 / 100 300 / 300 mls/hr IV.SIG Q6H [facility] Rx#: [id number] Oral 0 / 0 480 / 480 Output: Urine 800 / 800 500 / 500 Gastric Drainage 0 / 0 Right Nare Nasogastric Tube 0 / 0 Other: Date of Last Bowel Movement 04/20/18 04/20/18 04/20/18 # Bowel Movements 0 0 Narrative: GENERAL: Patient lying in bed. Appears comfortable. No acute distress. SKIN: Warm and dry. HEAD: Normocephalic. EYES: No scleral icterus. No injection or drainage. NECK: Supple, trachea midline. No JVD. CARDIOVASCULAR: Regular rate and rhythm without murmurs, gallops, or rubs. RESPIRATORY: Breath sounds equal bilaterally. No accessory muscle use. GASTROINTESTINAL: Abdomen soft, non-tender, nondistended. MUSCULOSKELETAL: No cyanosis, or edema. BACK: Nontender without obvious deformity. No CVA tenderness. - Urinary Catheter Management Indwelling Temp Sensing Catheter Cath placed during this visit: yes Reason for continuing: Hourly intake/output Insertion date: 04/19/18 Insertion time: 12:50 Results - Labs CBC & Chem 7: 04/23/18 06:00 04/23/18 06:00 Laboratory Results - last 24 hr 04/23/18 04/23/18 06:00 06:00 WBC 10.2 RBC 3.61 L Hgb 10.4 L Hct 31.1 L MCV 86.2 MCH 28.8 MCHC 33.4 RDW 15.5 Plt Count 318 MPV 8.2 Neut % (Auto) 72.6 H Lymph % (Auto) 15.6 [place] % (Auto) 10.2 H Eos % (Auto) 1.0 Baso % (Auto) 0.6 Neut # (Auto) 7.4 Lymph # (Auto) 1.6 [place] # (Auto) 1.0 H Eos # (Auto) 0.1 Baso # (Auto) 0.1 WBC Differential . Differential Comment Auto diff final Hematology Comments Sodium 132 L Potassium 3.3 L Chloride 89 L Carbon Dioxide 31.2 Anion Gap 12 BUN 4 L Creatinine 0.30 L Estimated GFR Greater than 89 Random Glucose 78 Calcium 8.0 L Phosphorus 1.7 L Magnesium 1.8 Albumin 2.8 L Microbiology 04/19/18 10:47 Blood - Peripheral Aerobic Blood Culture - Preliminary No growth in 4 days 04/19/18 10:47 Blood - Peripheral Anaerobic Blood Culture - Preliminary No growth in 4 days 04/19/18 10:47 Blood - Peripheral Aerobic Blood Culture - Preliminary No growth in 4 days 04/19/18 10:47 Blood - Peripheral Anaerobic Blood Culture - Preliminary No growth in 4 days Assessment and Plan - Plan 73-year-old female admitted with acute colitis and severe dehydration. Patient initially admitted to the [facility] for hypotension and hypothermia. //Acute colitis/Ileus: -C. difficile PCR negative. - Patient started on Cipro and Flagyl. -Continue IV Tylenol and Dilaudid as needed for pain. -Given persistence of symptoms and copious amount of drainage from NGT, will consult GI. - KUB in AM = 04/21 KUB from this morning with no acute findings. GI following. Appreciate assistance. Continue NG tube. = 04/22. Decreased output from NG tube. Will clamp NG tube and start liquid diet. Continue IV antibiotics for colitis which appears to be improving. = 04/23. Tolerating p.o. clear liquids. Patient removed NG tube. Continue to monitor bowel function. Appreciate GI assistance. Continue IV antibiotics. //Acute severe intravascular volume depletion: Secondary to above - Patient is status post aggressive IV fluid resuscitation. - Continue IV fluid. Decrease rate to 100 cc/h = Continue IV fluid replacement. //Hypokalemia. //Hypophosphatemia = 04/21 potassium 3.2. Phosphorus 1.6 replace. = 04/22. Potassium 2.7. Replace. Potassium to fluids. = 04/23. Potassium 3.3. Replace and monitor. //GI prophylaxis: Pepcid. Stool softener PRN constipation. DVT PPx: Heparin Discharge Planning: pending improvement. PT recommends rehab. = We will need GI clearance. =Hopefully discharge to rehab in the next 2 days
[2018-04-23] MEDS: Potassium Chlor 10 mEq Premix 10 MEQ/100 ML PIGGYBACK IV.SIG SCH ×3 (14:45→17:11)
[2018-04-23] MEDS ORDERED: Sodium Phosphate Inj 30 MMOL in Sodium Chlor 0.9% Inj 250 ML IV.SIG ONE (15:00)
[2018-04-23] MEDS ORDERED: SODIUM CHLOR 0.9% IV.SIG ONE (21:00)
[2018-04-23] MEDS ORDERED: SODIUM GLYCEROPHOSPHATE IV.SIG ONE (21:00)
[2018-04-23] MEDS: Lisinopril 10 MG Tablet PO SCH (22:18)
[2018-04-23] MEDS: traZODone 100 MG Tablet PO SCH (22:35)
[2018-04-24] MEDS: Heparin - SQ 10,000 UNITS/ML Vial SQ SCH ×4 (00:24→21:16)
[2018-04-24] MEDS: Chlorhexidine Gluconate 2% 1 Pack (2 Cloths) TOPICAL SCH (05:28)
[2018-04-24 06:31] LABS: Baso % (Auto) 0.4 % (0.0-2.0); Eos # (Auto) 0.1 th/mm3 (0.0-0.4); Eos % (Auto) 0.8 % (0.0-4.0); Hematocrit 31.9 % (35.0-46.0); Hemoglobin 10.7 gm/dL (11.6-15.3); Lymph # (Auto) 1.8 th/mm3 (1.0-4.8); Lymph % (Auto) 21.9 % (9.0-44.0); Mean Corpuscular HGB Conc 33.4 % (32.0-36.0); Mean Corpuscular Hemoglobin 29.2 pg (27.0-34.0); Mean Corpuscular Volume 87.4 fL (80.0-100.0); Mean Platelet Volume 7.6 fL (7.0-11.0); Mono # (Auto) 1.2 th/mm3 (0.0-0.9); Mono % (Auto) 14.3 % (0.0-8.0); Neut # (Auto) 5.3 th/mm3 (1.8-7.7); Neut % (Auto) 62.6 % (16.0-70.0); Platelet Count 361 th/mm3 (150-450); Red Blood Count 3.65 mil/mm3 (4.00-5.30); Red Cell Distribution Width 15.5 % (11.6-17.2); White Blood Count 8.4 th/mm3 (4.0-11.0)
[2018-04-24 07:04] LABS: Albumin 2.7 g/dL (3.4-5.0); Anion Gap 10 meq/L (5-15); Blood Urea Nitrogen 4 mg/dL (7-18); Calcium 7.8 mg/dL (8.5-10.1); Carbon Dioxide 34.6 meq/L (21.0-32.0); Chloride 92 meq/L (98-107); Glomerular Filtration Rate Greater Than 89 mL/min (>89); Glucose,Random 88 mg/dL (74-106); Magnesium 1.6 mg/dL (1.5-2.5); Phosphorus 3.8 mg/dL (2.5-4.9); Sodium 137 meq/L (136-145)
[2018-04-24 07:12] LABS: Potassium 2.9 meq/L (3.5-5.1)
[2018-04-24] MEDS: Tiotropium Bromide 18 MCG/ACT Inhaler INH SCH (08:09)
[2018-04-24] MEDS: Metoprolol Tartrate 25 MG Tablet PO SCH ×2 (08:09→21:17)
[2018-04-24] MEDS: Polyethylene Glycol 3350 17 GM Packet PO SCH ×2 (08:09→21:18)
[2018-04-24] MEDS: FLUoxetine 20 MG Capsule PO SCH (08:10)
[2018-04-24] MEDS: Lisinopril 10 MG Tablet PO SCH ×2 (08:10→21:17)
[2018-04-24] MEDS: Famotidine 20 MG Tablet PO SCH ×2 (08:10→21:17)
[2018-04-24] MEDS: Senna/Docusate Sodium 8.6/50 MG Tablet PO SCH ×2 (08:10→21:18)
[2018-04-24] MEDS: Pantoprazole Sodium 20 MG DR Tablet PO SCH (08:10)
[2018-04-24] MEDS: amLODIPine 10 MG Tablet PO SCH (08:10)
[2018-04-24] MEDS: ALPRAZolam 0.5 MG Tablet PO PRN ×2 (08:12→17:09)
[2018-04-24] MEDS ORDERED: Mag Sulf 1 gm/100 ml Premix 100 ML IV.SIG ONE (09:48)
--- NOTE | 2018-04-24 09:54 | P.PNIM ---
Subjective Interval history: Patient says she is feeling better today. Denies any chest pain or shortness of breath. Denies nausea vomiting. Denies abdominal pain. Passing flatus but no bowel movements yet. Physical Exam Vital signs: Vital Signs 04/23/18 10:00 04/23/18 11:00 04/23/18 12:00 Temperature Pulse Rate 80 92 H 86 Respiratory Rate 18 Blood Pressure 165/95 H Pulse Oximetry 100 04/23/18 13:00 04/23/18 14:00 04/23/18 15:00 Temperature Pulse Rate 90 102 H 92 H Respiratory Rate Blood Pressure Pulse Oximetry 04/23/18 16:00 04/23/18 17:00 04/23/18 18:00 Temperature Pulse Rate 90 100 H 72 Respiratory Rate 20 Blood Pressure 165/81 H Pulse Oximetry 100 04/23/18 19:00 04/23/18 20:44 04/23/18 21:00 Temperature Pulse Rate 86 88 Respiratory Rate Blood Pressure Pulse Oximetry 98 04/23/18 22:00 04/23/18 23:00 04/24/18 00:00 Temperature 100.2 F H Pulse Rate 86 82 78 Respiratory Rate 20 Blood Pressure 169/73 H Pulse Oximetry 98 04/24/18 01:00 04/24/18 02:00 04/24/18 03:00 Temperature Pulse Rate 74 76 77 Respiratory Rate Blood Pressure Pulse Oximetry 04/24/18 04:00 04/24/18 05:00 04/24/18 06:00 Temperature 99.4 F Pulse Rate 80 78 78 Respiratory Rate 20 Blood Pressure 161/86 H Pulse Oximetry 99 04/24/18 07:00 04/24/18 08:00 04/24/18 09:00 Temperature 98.0 F Pulse Rate 82 79 77 Respiratory Rate 16 Blood Pressure 166/81 H Pulse Oximetry 98 Intake & Output 04/23/18 04/24/18 04/24/18 18:59 06:59 18:59 Intake Total 2330 / 2330 1590 / 1590 1010 / 1010 Output Total 400 / 400 900 / 900 Balance 1930 / 1930 690 / 690 1010 / 1010 Weight 55.4 kg Intake: IV 1710 / 1710 1350 / 1350 1010 / 1010 KCl Inj 20 MEQ In LR 1000 mL 1010 / 1010 900 / 900 1010 / 1010 Inj 1,000 ML @ 100 mls/hr IV. CONT .Q10H6M [facility] Rx#:[id number] Cipro 400 MG/200 ML Inj 400 mg 200 / 200 In 200 ml @ 200 mls/hr IV.SIG Q24H [facility] Rx#:[id number] KCl 10 mEq Premix Inj 10 meq In 300 / 300 100 ml @ 100 mls/hr IV.SIG Q1H [facility] Rx#:[id number] Glycophos 30 Mmol In NS Inj 220 250 / 250 ML @ 40 mls/hr IV.SIG ONCE ONE Rx#:[id number] Flagyl 500 MG Inj 100 ML @ 100 200 / 200 200 / 200 mls/hr IV.SIG Q6H [facility] Rx#: [id number] Oral 620 / 620 240 / 240 Output: Urine 400 / 400 900 / 900 Other: # Voids 4 1 # Incontinent Voids 2 Date of Last Bowel Movement 04/20/18 Narrative: GENERAL: Patient lying in bed. Appears comfortable. No acute distress. NG tube is out today. SKIN: Warm and dry. HEAD: Normocephalic. EYES: No scleral icterus. No injection or drainage. NECK: Supple, trachea midline. No JVD. CARDIOVASCULAR: Regular rate and rhythm without murmurs, gallops, or rubs. RESPIRATORY: Breath sounds equal bilaterally. No accessory muscle use. GASTROINTESTINAL: Abdomen soft, non-tender, nondistended. MUSCULOSKELETAL: No cyanosis, or edema. BACK: Nontender without obvious deformity. No CVA tenderness. - Urinary Catheter Management Indwelling Temp Sensing Catheter Cath placed during this visit: yes Reason for continuing: Hourly intake/output Insertion date: 04/19/18 Insertion time: 12:50 Results - Labs CBC & Chem 7: 04/24/18 05:08 04/24/18 05:08 Laboratory Results - last 24 hr 04/24/18 04/24/18 05:08 05:08 WBC 8.4 RBC 3.65 L Hgb 10.7 L Hct 31.9 L MCV 87.4 MCH 29.2 MCHC 33.4 RDW 15.5 Plt Count 361 MPV 7.6 Neut % (Auto) 62.6 Lymph % (Auto) 21.9 [place] % (Auto) 14.3 H Eos % (Auto) 0.8 Baso % (Auto) 0.4 Neut # (Auto) 5.3 Lymph # (Auto) 1.8 [place] # (Auto) 1.2 H Eos # (Auto) 0.1 Baso # (Auto) 0.0 WBC Differential . Differential Comment Auto diff final Sodium 137 Potassium 2.9 L* Chloride 92 L Carbon Dioxide 34.6 H Anion Gap 10 BUN 4 L Creatinine 0.37 L Estimated GFR Greater than 89 Random Glucose 88 Calcium 7.8 L Phosphorus 3.8 D Magnesium 1.6 Albumin 2.7 L Microbiology 04/19/18 10:47 Blood - Peripheral Aerobic Blood Culture - Preliminary No growth in 4 days 04/19/18 10:47 Blood - Peripheral Anaerobic Blood Culture - Preliminary No growth in 4 days 04/19/18 10:47 Blood - Peripheral Aerobic Blood Culture - Preliminary No growth in 4 days 04/19/18 10:47 Blood - Peripheral Anaerobic Blood Culture - Preliminary No growth in 4 days Assessment and Plan - Plan 73-year-old female admitted with acute colitis and severe dehydration. Patient initially admitted to the [facility] for hypotension and hypothermia. //Acute colitis/Ileus: -C. difficile PCR negative. - Patient started on Cipro and Flagyl. -Continue IV Tylenol and Dilaudid as needed for pain. -Given persistence of symptoms and copious amount of drainage from NGT, will consult GI. - KUB in AM = 04/21 KUB from this morning with no acute findings. GI following. Appreciate assistance. Continue NG tube. = 04/22. Decreased output from NG tube. Will clamp NG tube and start liquid diet. Continue IV antibiotics for colitis which appears to be improving. = 04/23. Tolerating p.o. clear liquids. Patient removed NG tube. Continue to monitor bowel function. Appreciate GI assistance. Continue IV antibiotics. = 04/24. Improving. Advance diet NG tube is out. Await return of bowel function. GI following. Appreciate assistance. //Acute severe intravascular volume depletion: Secondary to above - Patient is status post aggressive IV fluid resuscitation. - Continue IV fluid. Decrease rate to 100 cc/h = Switch IV fluids to half-normal saline plus potassium. //Hypokalemia. //Hypophosphatemia = 04/21 potassium 3.2. Phosphorus 1.6 replace. = 04/22. Potassium 2.7. Replace. Potassium to fluids. = 04/23. Potassium 3.3. Replace and monitor. = 04/24. Potassium 2.9 likely secondary to improving acidosis. Stop lactated Ringer's. Replace potassium monitor. //GI prophylaxis: Pepcid. Stool softener PRN constipation. DVT PPx: Heparin Discharge Planning: pending improvement. PT recommends rehab. = We will need GI clearance. =Hopefully discharge to rehab in the next 2 days
[2018-04-24] MEDS: Potassium Chlor 20 mEq Premix 20 MEQ/100 ML PIGGYBACK IV.SIG SCH ×2 (10:02→11:19)
[2018-04-24] MEDS: KCL 20 mEq/NACL 0.45% Inj 1,000 ML IV.CONT SCH (10:02)
[2018-04-24] MEDS: oxyCODONE/Acetaminophen 10/325 Tablet PO PRN ×2 (10:14→17:04)
[2018-04-24] MEDS: Ciprofloxacin 400 MG/200 ML 400 MG/200 ML PIGGYBACK IV.SIG SCH (11:18)
--- NOTE | 2018-04-24 15:07 | P.PNGI ---
Subjective Interval history: Patient pulled NG tube out. She was able to tolerate a diet. She did pass gas and have a semi-formed stool. No blood per rectum. No nausea, vomiting or abdominal pain Physical Exam Vital signs: Vital Signs 04/23/18 16:00 04/23/18 17:00 04/23/18 18:00 Temperature Pulse Rate 90 100 H 72 Respiratory Rate 20 Blood Pressure 165/81 H Pulse Oximetry 100 04/23/18 19:00 04/23/18 20:44 04/23/18 21:00 Temperature Pulse Rate 86 88 Respiratory Rate Blood Pressure Pulse Oximetry 98 04/23/18 22:00 04/23/18 23:00 04/24/18 00:00 Temperature 100.2 F H Pulse Rate 86 82 78 Respiratory Rate 20 Blood Pressure 169/73 H Pulse Oximetry 98 04/24/18 01:00 04/24/18 02:00 04/24/18 03:00 Temperature Pulse Rate 74 76 77 Respiratory Rate Blood Pressure Pulse Oximetry 04/24/18 04:00 04/24/18 05:00 04/24/18 06:00 Temperature 99.4 F Pulse Rate 80 78 78 Respiratory Rate 20 Blood Pressure 161/86 H Pulse Oximetry 99 04/24/18 07:00 04/24/18 08:00 04/24/18 09:00 Temperature 98.0 F Pulse Rate 82 79 77 Respiratory Rate 16 Blood Pressure 166/81 H Pulse Oximetry 98 04/24/18 10:00 04/24/18 11:00 04/24/18 12:00 Temperature 98.6 F Pulse Rate 71 74 73 Respiratory Rate 16 Blood Pressure 157/71 H Pulse Oximetry 98 04/24/18 13:00 04/24/18 14:00 Temperature Pulse Rate 72 71 Respiratory Rate Blood Pressure Pulse Oximetry Intake & Output 04/23/18 04/24/18 04/24/18 18:59 06:59 18:59 Intake Total 2330 / 2330 1590 / 1590 1610 / 1610 Output Total 400 / 400 900 / 900 Balance 1930 / 1930 690 / 690 1610 / 1610 Weight 55.4 kg Intake: IV 1710 / 1710 1350 / 1350 1610 / 1610 KCl Inj 20 MEQ In LR 1000 mL 1010 / 1010 900 / 900 1010 / 1010 Inj 1,000 ML @ 100 mls/hr IV. CONT .Q10H6M [facility] Rx#:[id number] Cipro 400 MG/200 ML Inj 400 mg 200 / 200 200 / 200 In 200 ml @ 200 mls/hr IV.SIG Q24H [facility] Rx#:[id number] Magnesium Sulfate 1 gm/D5W 100 100 / 100 ml Premix 100 ML @ 100 mls/hr IV.SIG ONCE ONE Rx#:[id number] KCl 10 mEq Premix Inj 10 meq In 300 / 300 100 ml @ 100 mls/hr IV.SIG Q1H [facility] Rx#:[id number] KCl 20 mEq Premix Inj 20 meq In 200 / 200 100 ml @ 50 mls/hr IV.SIG Q2H [facility] Rx#:[id number] Glycophos 30 Mmol In NS Inj 220 250 / 250 ML @ 40 mls/hr IV.SIG ONCE ONE Rx#:[id number] Flagyl 500 MG Inj 100 ML @ 100 200 / 200 200 / 200 100 / 100 mls/hr IV.SIG Q6H [facility] Rx#: [id number] Oral 620 / 620 240 / 240 Output: Urine 400 / 400 900 / 900 Other: # Voids 4 1 # Incontinent Voids 2 Date of Last Bowel Movement 04/20/18 04/24/18 - Constitutional no acute distress - Routine Abdominal Exam Present: soft, normoactive bowel sounds. Absent: tenderness, distended, rebound - Routine Extremities Exam Absent: clubbing - Routine Neurological Exam Present: alert, oriented X3 - Urinary Catheter Management Indwelling Temp Sensing Catheter Cath placed during this visit: yes Reason for continuing: Hourly intake/output Insertion date: 04/19/18 Insertion time: 12:50 Results - Labs CBC & Chem 7: 04/24/18 05:08 04/24/18 05:08 Laboratory Results - last 24 hr 04/24/18 04/24/18 05:08 05:08 WBC 8.4 RBC 3.65 L Hgb 10.7 L Hct 31.9 L MCV 87.4 MCH 29.2 MCHC 33.4 RDW 15.5 Plt Count 361 MPV 7.6 Neut % (Auto) 62.6 Lymph % (Auto) 21.9 [place] % (Auto) 14.3 H Eos % (Auto) 0.8 Baso % (Auto) 0.4 Neut # (Auto) 5.3 Lymph # (Auto) 1.8 [place] # (Auto) 1.2 H Eos # (Auto) 0.1 Baso # (Auto) 0.0 WBC Differential . Differential Comment Auto diff final Sodium 137 Potassium 2.9 L* Chloride 92 L Carbon Dioxide 34.6 H Anion Gap 10 BUN 4 L Creatinine 0.37 L Estimated GFR Greater than 89 Random Glucose 88 Calcium 7.8 L Phosphorus 3.8 D Magnesium 1.6 Albumin 2.7 L Microbiology 04/19/18 10:47 Blood - Peripheral Aerobic Blood Culture - Final No growth in 5 days 04/19/18 10:47 Blood - Peripheral Anaerobic Blood Culture - Final No growth in 5 days 04/19/18 10:47 Blood - Peripheral Aerobic Blood Culture - Final No growth in 5 days 04/19/18 10:47 Blood - Peripheral Anaerobic Blood Culture - Final No growth in 5 days Assessment and Plan - Attending Attestation Impression: 1. Colitisthis was seen on a CAT scan. I suspect this is exacerbation of her ischemic colitis. if it is infectious or inflammatory is unclear. She is much better. She tolerated her diet, NG tube out and she has had a bowel movement. 2. 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 Ileusimproved Plan: 1. Continue to replace potassium 2. Advance diet as tolerate 3. We will sign off. Follow-up with Dr. Crowder as an outpatient
[2018-04-24] MEDS: traZODone 100 MG Tablet PO SCH (21:17)
[2018-04-25] MEDS: ALPRAZolam 0.5 MG Tablet PO PRN (00:11)
[2018-04-25] MEDS: oxyCODONE/Acetaminophen 10/325 Tablet PO PRN ×2 (00:11→05:56)
[2018-04-25 01:48] VITALS: O2SAT 99
[2018-04-25] MEDS: Heparin - SQ 10,000 UNITS/ML Vial SQ SCH (05:48)
[2018-04-25] MEDS ORDERED: Levothyroxine 50 MCG Tablet PO SCH (06:00)
[2018-04-25 06:17] LABS: Baso # (Auto) 0.1 th/mm3 (0.0-0.2); Baso % (Auto) 0.6 % (0.0-2.0); Eos # (Auto) 0.3 th/mm3 (0.0-0.4); Eos % (Auto) 3.2 % (0.0-4.0); Hemoglobin 10.7 gm/dL (11.6-15.3); Lymph # (Auto) 2.6 th/mm3 (1.0-4.8); Lymph % (Auto) 24.7 % (9.0-44.0); Mean Corpuscular HGB Conc 33.5 % (32.0-36.0); Mean Corpuscular Hemoglobin 29.1 pg (27.0-34.0); Mean Corpuscular Volume 86.6 fL (80.0-100.0); Mean Platelet Volume 7.3 fL (7.0-11.0); Mono # (Auto) 1.5 th/mm3 (0.0-0.9); Mono % (Auto) 14.8 % (0.0-8.0); Neut # (Auto) 5.9 th/mm3 (1.8-7.7); Neut % (Auto) 56.7 % (16.0-70.0); Platelet Count 357 th/mm3 (150-450); Red Cell Distribution Width 15.6 % (11.6-17.2); White Blood Count 10.3 th/mm3 (4.0-11.0)
[2018-04-25 06:45] LABS: Albumin 2.7 g/dL (3.4-5.0); Anion Gap 6 meq/L (5-15); Blood Urea Nitrogen 11 mg/dL (7-18); Calcium 8.4 mg/dL (8.5-10.1); Carbon Dioxide 33.2 meq/L (21.0-32.0); Chloride 98 meq/L (98-107); Glomerular Filtration Rate Greater Than 89 mL/min (>89); Glucose,Random 89 mg/dL (74-106); Magnesium 1.9 mg/dL (1.5-2.5); Potassium 3.4 meq/L (3.5-5.1); Sodium 137 meq/L (136-145)
[2018-04-25] MEDS: KCL 20 mEq/NACL 0.45% Inj 1,000 ML IV.CONT SCH (06:46)
[2018-04-25 06:52] LABS: Phosphorus 2.7 mg/dL (2.5-4.9)
[2018-04-25 08:29] VITALS: BP 169/85; RESP 16; TEMP 98.2
[2018-04-25] MEDS ORDERED: traZODone 50 MG Tablet PO SCH (09:00)
[2018-04-25] MEDS: Tiotropium Bromide 18 MCG/ACT Inhaler INH SCH (09:23)
[2018-04-25] MEDS: Lisinopril 10 MG Tablet PO SCH (09:24)
[2018-04-25] MEDS: Polyethylene Glycol 3350 17 GM Packet PO SCH (09:24)
[2018-04-25] MEDS: FLUoxetine 20 MG Capsule PO SCH (09:24)
[2018-04-25] MEDS: Famotidine 20 MG Tablet PO SCH (09:24)
[2018-04-25] MEDS: amLODIPine 10 MG Tablet PO SCH (09:24)
[2018-04-25] MEDS: Metoprolol Tartrate 25 MG Tablet PO SCH (09:24)
[2018-04-25] MEDS: Pantoprazole Sodium 20 MG DR Tablet PO SCH (09:24)
[2018-04-25] MEDS: Senna/Docusate Sodium 8.6/50 MG Tablet PO SCH (09:24)
--- NOTE | 2018-04-25 09:43 | P.DS ---
Date of admission: 04/19/18 14:57 Primary care physician: Iglesia Sotelo MD Brief History from admission: 73yF with history of prior recurrent colitis presents with 3 days of nausea, vomiting, abd pain. found to have recurrent colitis on CT abd/pelvis. hypothermic and hypotensive in the ER requiring warming and ivf- now improving. denies chest pain, sob, other complaints. DS: Summary Hospital Course: 73-year-old female admitted with acute colitis and severe dehydration. Patient initially admitted to the [facility] for hypotension and hypothermia. //Acute colitis/Ileus: -C. difficile PCR negative. - Patient started on Cipro and Flagyl. -Continue IV Tylenol and Dilaudid as needed for pain. -Given persistence of symptoms and copious amount of drainage from NGT, will consult GI. - KUB in AM = 04/21 KUB from this morning with no acute findings. GI following. Appreciate assistance. Continue NG tube. = 04/22. Decreased output from NG tube. Will clamp NG tube and start liquid diet. Continue IV antibiotics for colitis which appears to be improving. = 04/23. Tolerating p.o. clear liquids. Patient removed NG tube. Continue to monitor bowel function. Appreciate GI assistance. Continue IV antibiotics. = 04/24. Improving. Advance diet NG tube is out. Await return of bowel function. GI following. Appreciate assistance. = 04/25. Patient feeling well. Discharge home on antibiotics to complete treatment course. EKG is pending, patient can go home if QTC on EKG is less than 460. //Hypothyroidism Patient reports she is on Synthroid at home. Nursing to call nursing facility to clarify home dose of Synthroid. TSH measured 9 here. She can continue on previous dose and have TSH rechecked in nonemergent setting. //Acute severe intravascular volume depletion: Secondary to above - Patient is status post aggressive IV fluid resuscitation. - Continue IV fluid. Decrease rate to 100 cc/h = Switch IV fluids to half-normal saline plus potassium. //Hypokalemia. //Hypophosphatemia = 04/21 potassium 3.2. Phosphorus 1.6 replace. = 04/22. Potassium 2.7. Replace. Potassium to fluids. = 04/23. Potassium 3.3. Replace and monitor. = 04/24. Potassium 2.9 likely secondary to improving acidosis. Stop lactated Ringer's. Replace potassium monitor. = 04/25. Potassium 3.4. Continue home replacement. Labs to be followed at receiving facility. //GI prophylaxis: Pepcid. Stool softener PRN constipation. DVT PPx: Heparin Discharge Planning: pending improvement. PT recommends rehab. = We will need GI clearance. =Hopefully discharge to rehab in the next 2 days - Time Spent with Patient Total time spent providing and/or coordinating discharge services: Greater than 30 minutes - Quality: VTE Deep Vein Thrombosis/Pulmonary Embolism Present on Admission: No Exam Vital signs: Vital Signs 04/24/18 10:00 04/24/18 11:00 04/24/18 12:00 Temperature 98.6 F Pulse Rate 71 74 73 Respiratory Rate 16 Blood Pressure 157/71 H Pulse Oximetry 98 04/24/18 13:00 04/24/18 14:00 04/24/18 15:00 Temperature Pulse Rate 72 71 73 Respiratory Rate Blood Pressure Pulse Oximetry 04/24/18 16:00 04/24/18 17:00 04/24/18 18:00 Temperature 97.6 F Pulse Rate 74 76 84 Respiratory Rate 16 Blood Pressure 169/88 H Pulse Oximetry 98 04/24/18 19:00 04/24/18 20:00 04/24/18 21:00 Temperature 97.8 F Pulse Rate 72 66 66 Respiratory Rate 20 Blood Pressure 129/70 Pulse Oximetry 100 04/24/18 22:00 04/24/18 23:00 04/25/18 00:00 Temperature 98.1 F Pulse Rate 72 68 69 Respiratory Rate 20 Blood Pressure 147/75 H Pulse Oximetry 99 04/25/18 01:00 04/25/18 02:00 04/25/18 03:00 Temperature Pulse Rate 66 62 60 Respiratory Rate Blood Pressure Pulse Oximetry 04/25/18 04:00 04/25/18 05:00 04/25/18 06:00 Temperature 98.6 F Pulse Rate 66 62 68 Respiratory Rate 18 Blood Pressure 147/90 H Pulse Oximetry 99 04/25/18 07:00 04/25/18 08:00 04/25/18 09:00 Temperature 98.2 F Pulse Rate 69 78 78 Respiratory Rate 16 Blood Pressure 169/85 H Pulse Oximetry 99 Intake & Output 04/24/18 04/25/18 04/25/18 18:59 06:59 18:59 Intake Total 2430 / 2430 1300 / 1300 100 / 100 Output Total 1400 / 1400 750 / 750 Balance 1030 / 1030 550 / 550 100 / 100 Weight 56.1 kg Intake: IV 1710 / 1710 1000 / 1000 100 / 100 Potassium Chlor 20 mEq/NACL 0. 900 / 900 45% Inj 1,000 ML @ 50 mls/hr IV .CONT .Q20H [facility] Rx#:[id number] KCl Inj 20 MEQ In LR 1000 mL 1010 / 1010 Inj 1,000 ML @ 100 mls/hr IV. CONT .Q10H6M [facility] Rx#:[id number] Cipro 400 MG/200 ML Inj 400 mg 200 / 200 In 200 ml @ 200 mls/hr IV.SIG Q24H [facility] Rx#:[id number] Magnesium Sulfate 1 gm/D5W 100 100 / 100 ml Premix 100 ML @ 100 mls/hr IV.SIG ONCE ONE Rx#:[id number] KCl 20 mEq Premix Inj 20 meq In 200 / 200 100 ml @ 50 mls/hr IV.SIG Q2H [facility] Rx#:[id number] Flagyl 500 MG Inj 100 ML @ 100 200 / 200 100 / 100 100 / 100 mls/hr IV.SIG Q6H [facility] Rx#: [id number] Oral 720 / 720 300 / 300 Output: Urine 1400 / 1400 750 / 750 Other: Date of Last Bowel Movement 04/24/18 04/24/18 04/24/18 # Incontinent Bowel Movements 1 Results Procedures completed during hospitalization: NG tube was placed. No invasive procedures. Labs on day of discharge: Labs from last 24 hours 04/25/18 04/25/18 05:22 05:22 WBC 10.3 RBC 3.70 L Hgb 10.7 L Hct 32.0 L MCV 86.6 MCH 29.1 MCHC 33.5 RDW 15.6 Plt Count 357 MPV 7.3 Neut % (Auto) 56.7 Lymph % (Auto) 24.7 Traverse % (Auto) 14.8 H Eos % (Auto) 3.2 Baso % (Auto) 0.6 Neut # (Auto) 5.9 Lymph # (Auto) 2.6 Traverse # (Auto) 1.5 H Eos # (Auto) 0.3 Baso # (Auto) 0.1 WBC Differential . Differential Comment Auto diff final Sodium 137 Potassium 3.4 L Chloride 98 Carbon Dioxide 33.2 H Anion Gap 6 BUN 11 Creatinine 0.62 Estimated GFR Greater than 89 Random Glucose 89 Calcium 8.4 L Phosphorus 2.7 D Magnesium 1.9 Albumin 2.7 L - Impressions ITS Impressions Abdomen/Pelvis CT 04/19/18 10:32 CONCLUSION: 1. Hiatal hernia. 2. Calcified granulomas. 3. Severe emphysema. 4. Dense atherosclerotic calcifications. 5. Renal cysts and tiny hepatic cyst. 6. Abnormal bowel wall thickening is seen involving the transverse colon characteristic of mild colitis. 7. Moderate amount of stool within the large bowel. Chest X-Ray 04/19/18 10:35 CONCLUSION: 1. Senescent changes with stable left lung base airspace disease likely reflecting atelectasis/scarring. 2. No acute abnormality or significant interval change. Abdomen X-Ray 04/21/18 06:00 CONCLUSION: No acute abnormalities. Discharge Plan - Discharge Disposition Patient Disposition: 03 Discharge to SNF - Discharge Condition Condition: Good - Discharge Order Discharge Orders: Discharge Order (Routine); Ordered 04/25/18 Ordered By: Chato Dhillon - Discharge Details Anticipated Discharge Date: 04/25/18 Discharge Comment: okay to discharge if QTc on EKG is under 460 - Physicians Team Primary Care Provider: Iglesia Sotelo Attending Provider: Chato Dhillon Other Providers: [employer] ; Flakito England MD
[2018-04-25 10:17] VITALS: PULSE 76
--- NOTE | 2018-04-25 15:46 | ECG ---
Date Performed: 04/25/2018 Time Performed: 08:51:24 PTAGE: 73 years EKG: Sinus rhythm Normal ECG No significant change from prior electrocardiogram. PREVIOUS TRACING : 04/19/2018 10.26 DOCTOR: Shen Blevins Interpretating Date/Time 04/25/2018 15:45:19
== END 2018-04-25 11:34 ==
LOC: NEPE 10:25 → NEDA 14:57 → HCIS 16:00
PROVIDERS: ADMIT Internal Medicine; ATTEND Internal Medicine